=== PATIENT | male | born 1960 | race Caucasian/White ===

== ENCOUNTER 2022-11-11 06:47 | Outpatient (OUT) | payer BC, SELFPAY ==
[2022-11-11 07:24] LABS: Basophils Absolute Auto 0.1 10^3/uL (0.0-0.1); Eosinophils Absolute Auto 0.4 10^3/uL (0.0-0.7); Eosinophils Percent Auto 5.8 % (0.9-7.0); Hematocrit 45.8 % (42.0-54.0); Immature Granulocytes Abs Auto 0.02 10^3/uL (0.00-0.03); Immature Granulocytes Pct Auto 0.3 % (0.0-0.5); Lymphocytes Percent Auto 29.6 % (20.5-60.0); Mean Corpuscular HGB Conc 32.8 g/dL (29.9-35.2); Mean Corpuscular Hemoglobin 28.5 pg (25.9-34.0); Mean Corpuscular Volume 86.9 fL (80.0-94.0); Mean Platelet Volume 9.9 fL (9.5-13.5); Monocytes Absolute Auto 0.8 10^3/uL (0.3-0.8); Monocytes Percent Auto 11.9 % (1.7-12.0); Neutrophils Absolute Auto 3.5 10^3/uL (1.4-6.5); Neutrophils Percent Auto 51.4 % (43.0-75.0); Platelet Count 276 10^3/uL (150-450); Red Blood Count 5.27 10^6/uL (4.70-6.10); Red Cell Distribution Width 12.8 % (11.0-15.0); White Blood Count 6.8 10^3/uL (4.0-11.0)
[2022-11-11 07:37] LABS: Alanine Aminotransferase 28 U/L (16-63); Albumin Globulin Ratio 1.2; Albumin Level 4.1 g/dL (3.4-5.0); Alkaline Phosphatase 65 U/L (46-116); Anion Gap 8.9; Aspartate Amino Transferase 19 U/L (15-37); BUN Creatinine Ratio 17.6; Bilirubin Total 0.5 mg/dL (0.2-1.0); Calcium 9.3 mg/dL (8.5-10.1); Carbon Dioxide 28.3 mmol/L (21.0-32.0); Chloride 105 mmol/L (98-107); Estimated GFR (African America >60 (>=60); Estimated GFR (Non-African Ame >60 (>=60); Globulin 3.3 g/dL; Glucose 106 mg/dL (74-106); Potassium 4.2 mmol/L (3.5-5.1); Sodium 138 mmol/L (136-145); Total Protein 7.4 g/dL (6.4-8.2)
[2022-11-11 07:39] LABS: C Reactive Protein <0.2 mg/dL (<=1.0)
[2022-11-11 07:43] LABS: Bilirubin Urine NEGATIVE (NEGATIVE); Blood Urine NEGATIVE (NEGATIVE); Clarity Urine CLEAR (CLEAR); Color Urine DK. YELLOW (YELLOW); Erythrocyte Sedimentation Rate 11 mm/hr (<=20); Glucose Urine UA NEGATIVE (NEGATIVE); Ketones Urine NEGATIVE (NEGATIVE); Leukocyte Esterase Urine NEGATIVE (NEGATIVE); Nitrite Urine NEGATIVE (NEGATIVE); Protein Urine NEGATIVE (NEG/TRACE); Specific Gravity Urine >=1.030 (1.005-1.025); Urobilinogen Urine 0.2 EU/dL (0.2-1.0)
[2022-11-11 08:09] LABS: Bacteria Urine TRACE #/HPF (NONE SEEN); Mucus Urine TRACE (NONE SEEN); RBC Urine 0-2 #/HPF (0-2); Squamous Epithelial Cell Urine NONE SEEN #/LPF (NONE/RARE); WBC Urine NONE SEEN #/HPF (NONE SEEN)
[2022-11-11 08:10] LABS: Cast Seen? NONE SEEN #/LPF (NONE SEEN); Crystals Seen? None Seen #/HPF (None Seen)
[2022-11-12 08:08] LABS: Complement C3, Serum 129 mg/dL (82-167); Complement C4, Serum 25 mg/dL (12-38)
[2022-11-14 16:09] LABS: Complement, Total (CH50) >60 U/mL (>41)
== END 2022-11-11 06:48 | disposition home or self-care (01) ==
LOC: LAB 06:47
PROVIDERS: PCP Family Medicine; Visit Provider Internal Medicine Rheumatology
DX: Z00.00 Encounter for general adult medical examination without abnormal findings (principal); M15.0 Primary generalized (osteo)arthritis; M35.89 Other specified systemic involvement of connective tissue; I73.00 Raynaud's syndrome without gangrene; Z79.899 Other long term (current) drug therapy
CPT/HCPCS: 36415; 80053; 81001; 85025; 85652; 86140; 86160; 86162

== ENCOUNTER 2022-11-11 06:49 | Outpatient (OUT) | payer BC, SELFPAY ==
[2022-11-11 07:53] LABS: Chol HDL Ratio 2.9; Cholesterol 165 mg/dL (<=200); Free T3 3.13 pg/mL (2.18-3.98); HDL Cholesterol 56 mg/dL (40-60); LDL Cholesterol Calculated 100.8 mg/dL; Thyroid Stimulating Hormone 0.928 uIU/mL (0.358-3.740); Triglycerides 41 mg/dL (<=150); VLDL CHOLESTEROL 8.2 mg/dL
[2022-11-11 08:50] LABS: Prostate Specific Antigen Scrn 2.79 ng/mL (<=4.00)
[2022-11-11 10:16] LABS: Estimated Average Glucose 108 mg/dL; Glycohemoglobin A1C 5.4 % (4.5-6.2)
[2022-11-11 10:22] LABS: Free T4 1.02 ng/dL (0.76-1.46)
== END 2022-11-11 06:50 | disposition home or self-care (01) ==
LOC: LAB 06:49
PROVIDERS: PCP Family Medicine; Visit Provider Family Medicine
DX: Z00.00 Encounter for general adult medical examination without abnormal findings (principal); Z12.5 Encounter for screening for malignant neoplasm of prostate
CPT/HCPCS: 36415; 80053; 80061; 81001; 82306; 82607; 82746; 83036; 84439; 84443; 84481; 85025; 85652; 86140; 86160; 86162; G0103

== ENCOUNTER 2023-03-02 15:40 | Outpatient (OUT) | payer BC, SELFPAY ==
[2023-03-02 15:59] LABS: Basophils Absolute Auto 0.1 10^3/uL (0.0-0.1); Basophils Percent Auto 0.4 % (0.2-2.0); Eosinophils Absolute Auto 0.1 10^3/uL (0.0-0.7); Eosinophils Percent Auto 0.3 % (0.9-7.0); Hematocrit 48.1 % (42.0-54.0); Hemoglobin 15.8 g/dL (14.0-18.0); Immature Granulocytes Abs Auto 0.05 10^3/uL (0.00-0.03); Immature Granulocytes Pct Auto 0.3 % (0.0-0.5); Lymphocytes Absolute Auto 2.3 10^3/uL (1.2-3.8); Lymphocytes Percent Auto 14.5 % (20.5-60.0); Mean Corpuscular HGB Conc 32.8 g/dL (29.9-35.2); Mean Corpuscular Hemoglobin 28.9 pg (25.9-34.0); Mean Corpuscular Volume 88.1 fL (80.0-94.0); Mean Platelet Volume 8.8 fL (9.5-13.5); Monocytes Absolute Auto 1.5 10^3/uL (0.3-0.8); Monocytes Percent Auto 9.4 % (1.7-12.0); Neutrophils Absolute Auto 11.8 10^3/uL (1.4-6.5); Neutrophils Percent Auto 75.1 % (43.0-75.0); Platelet Count 392 10^3/uL (150-450); Red Blood Count 5.46 10^6/uL (4.70-6.10); Red Cell Distribution Width 13.2 % (11.0-15.0); White Blood Count 15.7 10^3/uL (4.0-11.0)
[2023-03-02 16:02] LABS: Bilirubin Urine NEGATIVE (NEGATIVE); Blood Urine NEGATIVE (NEGATIVE); Clarity Urine CLEAR (CLEAR); Color Urine YELLOW (YELLOW); Glucose Urine UA NEGATIVE (NEGATIVE); Ketones Urine NEGATIVE (NEGATIVE); Leukocyte Esterase Urine NEGATIVE (NEGATIVE); Nitrite Urine NEGATIVE (NEGATIVE); Protein Urine NEGATIVE (NEG/TRACE); Specific Gravity Urine >=1.030 (1.005-1.025); Urobilinogen Urine 0.2 EU/dL (0.2-1.0)
[2023-03-02 16:08] LABS: Bacteria Urine NONE SEEN #/HPF (NONE SEEN); Cast Seen? NONE SEEN #/LPF (NONE SEEN); Crystals Seen? None Seen #/HPF (None Seen); Mucus Urine SMALL (NONE SEEN); RBC Urine NONE SEEN #/HPF (0-2); Squamous Epithelial Cell Urine RARE #/LPF (NONE/RARE); WBC Urine 0-2 #/HPF (NONE SEEN)
[2023-03-02 16:14] LABS: Erythrocyte Sedimentation Rate 22 mm/hr (<=20)
[2023-03-02 16:22] LABS: Alanine Aminotransferase 24 U/L (16-63); Albumin Globulin Ratio 1.1; Albumin Level 4.1 g/dL (3.4-5.0); Alkaline Phosphatase 87 U/L (46-116); Aspartate Amino Transferase 14 U/L (15-37); BUN Creatinine Ratio 22.8; Bilirubin Total 0.3 mg/dL (0.2-1.0); Calcium 9.4 mg/dL (8.5-10.1); Carbon Dioxide 28.1 mmol/L (21.0-32.0); Chloride 103 mmol/L (98-107); Estimated GFR (African America >60 (>=60); Estimated GFR (Non-African Ame >60 (>=60); Globulin 3.8 g/dL; Glucose 116 mg/dL (74-106); Potassium 4.1 mmol/L (3.5-5.1); Sodium 139 mmol/L (136-145); Total Protein 7.9 g/dL (6.4-8.2)
[2023-03-04 09:12] LABS: Complement C3, Serum 154 mg/dL (82-167); Complement C4, Serum 28 mg/dL (12-38)
[2023-03-06 16:10] LABS: Complement, Total (CH50) 59 U/mL (>41)
[2023-03-08 08:45] LABS: C Reactive Protein <0.50 mg/dL (<=0.50)
== END 2023-03-02 15:41 | disposition home or self-care (01) ==
PROVIDERS: PCP Family Medicine; Visit Provider Internal Medicine Rheumatology
DX: M15.0 Primary generalized (osteo)arthritis (principal); M35.89 Other specified systemic involvement of connective tissue; I73.00 Raynaud's syndrome without gangrene; Z79.899 Other long term (current) drug therapy
CPT/HCPCS: 36415; 80053; 81001; 85025; 85652; 86140; 86160; 86162

== ENCOUNTER 2023-08-28 13:13 | Emergency (ER) | payer BC, SELFPAY ==
[2023-08-28 13:17] VITALS: BP 153/87; PULSE 65; TEMP 36.7; O2SAT 96; BMI 29.1
--- NOTE | 2023-08-28 13:29 | US_ITS ---
The [address] [address] Patient Name: MIAH LIMA MRN: [id number] date: 1960 Sex: M Assigned Patient Location: ER Current Patient Location: ED.MAIN Accession/Order Number: [id number] Exam Date: 08/28/2023 13:35 Report Date: 08/28/2023 14:17 At the request of: LUCRECIA CELESTIN Procedure: US venous doppler LE RT EXAM: US venous doppler LE RT HISTORY: pain for the past 3 weeks which is slowly worsening. COMPARISON: None. TECHNIQUE: Multiple sonographic images of the deep veins of the right lower extremity were obtained, supplemented with Doppler. FINDINGS: The deep veins of the right lower extremity are fairly well visualized from the groin to the mid calf. No filling defect is identified to indicate a thrombus. There is normal compression augmentation of flow throughout. US/US venous doppler LE RT IMPRESSION: There is no direct or indirect evidence of deep vein thrombosis in the right lower extremity at this time. Electronically authenticated by: MONY BARKER Date: 08/28/2023 14:17
--- NOTE | 2023-08-28 14:42 | ED_ITS ---
HPI HPI - General Adult General Chief complaint: Extremity Problem, Nontraumatic Stated complaint: LOWER RIGHT EXTREMITY PAIN Time Seen by Provider: 08/28/23 13:17 Source: patient Mode of arrival: walk-in Limitations: no limitations History of Present Illness HPI narrative: 62 male presents to the emergency department with with complaint of pain to the inside of his thigh. Arose from urgent care sent the patient over to rule out DVT. 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 Patient states that the pain began this past Sunday along with some right lower back pain. Had been moving appliances at that time. There is associated tenderness. Pain worsens with movement. Denies any appreciable swelling, chest pain, shortness of breath. Denies any blunt trauma, motor or sensory changes, paresthesias, loss of bowel or bladder control. Quality:?Sore Severity:?Moderate Timing:?As above, waxing and waning Context: Normal setting and activity? Modifying factors:?Pain worse with palpation, movement Associated symptoms: None Related Data Home Medications ?Medication ?Instructions ?Recorded ?Confirmed bupropion HCl 75 mg tablet 75 mg PO Q12H 08/28/23 08/28/23 celecoxib 200 mg capsule 200 mg PO Q12H 08/28/23 08/28/23 hydroxychloroquine 200 mg tablet 200 mg PO Q12H 08/28/23 08/28/23 linaclotide 72 mcg capsule 72 mcg PO DAILY 08/28/23 08/28/23 (Linzess) metoprolol tartrate 25 mg tablet 25 mg PO Q12H 08/28/23 08/28/23 Previous Rx's ?Medication ?Instructions ?Recorded cyclobenzaprine 5 mg tablet 5 - 10 mg (1 - 2 x 5 mg) PO .every 08/28/23 4-6 hours PRN muscle spasm #14 tabs ibuprofen 600 mg tablet 600 mg PO Q8H PRN pain #20 tabs 08/28/23 lidocaine 5 % topical patch 1 patch topical DAILY PRN rib pain 08/28/23 (Lidoderm) #15 ea Allergies Allergy/AdvReac Type Severity Reaction Status Date / Time codeine Allergy Severe Verified 08/28/23 13:20 Opioid HPI Opioid Management Most Recent Opioid Data: No Data to Display Review of Systems ROS Narrative CONST: Denies fever, chills GI: Denies abd pain, nausea, loss of bowel control : Denies loss of bladder control, hematuria MS: + back pain, myalgias.? Denies arthralgia SKIN: Denies color change, swelling NEURO: Denies numbness, paresthesias, weakness Exam Narrative Exam Narrative: Vital signs noted Nurses notes reviewed CONST: Nontoxic, well appearing, well nourished, in no distress.? No diaphoresis.?? HENT: normocephalic, atraumatic, CV: 2+ palpable DP pulses bilat GI: soft, nontender : no CVA tenderness MS: + tenderness to the musculature of the right lower back diffusely. + diffuse tenderness to the medial thigh. No spinous process or paraspinal muscle tenderness throughout L-S region.? No tenderness over the SI joint.? There is no discoloration, edema, crepitus, instability, step off of the back, RLE.? Straight leg raises were negative bilaterally.? No foot drop.? Steady gait, normal station.? DF, PF, hallux DF equal and strong bilat. NEURO: sensory intact, no focal deficits. Patient ambulatory with steady gait SKIN: no rash, erythema, warm, dry PSYCHIATRIC: normal mood, affect Constitutional Vital Signs, click to edit/add: Last Vital Signs Temp 98.1 F 08/28/23 13:17 Pulse 65 08/28/23 13:17 Resp 18 08/28/23 13:17 BP 153/87 H 08/28/23 13:17 Pulse Ox 96 08/28/23 13:17 Course Vital Signs Vital signs: Vital Signs Temperature 98.1 F 08/28/23 13:17 Pulse Rate 65 08/28/23 13:17 Respiratory Rate 18 08/28/23 13:17 Blood Pressure 153/87 H 08/28/23 13:17 Pulse Oximetry 96 08/28/23 13:17 Temperature 98.1 F 08/28/23 13:17 Pulse Rate 65 08/28/23 13:17 Respiratory Rate 18 08/28/23 13:17 Blood Pressure 153/87 H 08/28/23 13:17 Pulse Oximetry 96 08/28/23 13:17 Medical Decision Making MDM Narrative Medical decision making narrative: This is a pleasant 62-year-old male presents to the emergency department with with concern for DVT right lower extremity. Since Sunday, has been having pain to the inside of his right thigh. He states he is also been having some pain to his right lower back. Attributes this to moving appliances. Denies any radiation of the pain, appreciable leg swelling, motor or sensory ch anges, paresthesias, loss of bowel or bladder control. On arrival, afebrile, vital signs stable. On exam, nontoxic, well-appearing patient in no distress. He has tenderness along the medial aspect of the thigh into the musculature diffusely of the right lower back. No appreciable edema, discoloration, step-offs. Strength 5/5 of the extremities. 2+ palpable dorsalis pedal pulses present. Ultrasound imaging, per radiologist reveals no evidence of DVT. Favor muscle strain DVT less likely based on imaging Cauda equina less likely based on history and physical exam. No red flags. No incontinence. No focal weakness. Patient remained stable during ED course Disposition ? The patient was discharged. Plan: Patient will be discharged to home. Condition at time of disposition: stable Prescription for Flexeril, Motrin, Lidoderm patches sent to his pharmacy. He was given a work note. Advised to follow up with primary provider. 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 Discharge Plan Discharge Stand Alone Forms: Work/School Release, Portal Instructions Chief Complaint: Extremity Problem, Nontraumatic Clinical Impression: Strain of right groin Low back pain Qualifiers: Chronicity: acute Back pain laterality: right Sciatica presence: without sciatica Qualified Code(s): M54.50 - Low back pain, unspecified Patient Disposition: Home, Self-Care Time of Disposition Decision: 14:11 Condition: Good Prescriptions / Home Meds: New lidocaine [Lidoderm] 5 % adhesive patch,medicated 1 patch topical DAILY PRN (Reason: rib pain) Qty: 15 0RF Rx Instructions: leave on most painful area for up to 12 hrs ibuprofen 600 mg tablet 600 mg PO Q8H PRN (Reason: pain) Qty: 20 0RF cyclobenzaprine 5 mg tablet 5 - 10 mg PO .every 4-6 hours PRN (Reason: muscle spasm) Qty: 14 0RF No Action bupropion HCl 75 mg tablet 75 mg PO Q12H celecoxib 200 mg capsule 200 mg PO Q12H hydroxychloroquine 200 mg tablet 200 mg PO Q12H Linzess 72 mcg capsule 72 mcg PO DAILY metoprolol tartrate 25 mg tablet 25 mg PO Q12H Print Language: Liberian Instructions: Acute Low Back Pain (ED), Groin Strain (ED) Referrals: MARIAJOSE CABRERA DO [Primary Care Provider] - 1 week Discharge Date/Time: 08/28/23 14:47
[2023-08-28 14:46] VITALS: BP 138/82; PULSE 55; O2SAT 97
== END 2023-08-28 14:47 | disposition home or self-care (01) ==
PROVIDERS: Emergency Provider Emergency Medicine; PCP Family Medicine
DX: S39.011A Strain of muscle, fascia and tendon of abdomen, initial encounter (principal); M54.50 Low back pain, unspecified; X50.9XXA Other and unspecified overexertion or strenuous movements or postures, initial encounter
CPT/HCPCS: 93971; 99284

== ENCOUNTER 2023-09-20 06:58 | Outpatient (RCR) | payer BC, SELFPAY | END 2023-10-09 12:32 | disposition home or self-care (01) | LOC: PT 06:58 | PROVIDERS: PCP Family Medicine; Visit Provider Family Medicine | DX: M47.26 Other spondylosis with radiculopathy, lumbar region (principal) | CPT/HCPCS: 97110; 97113; 97161 ==

== ENCOUNTER 2023-11-03 08:35 | Outpatient (OUT) | payer BC, SELFPAY ==
--- OUTSIDE RECORDS SUMMARY | 2023-11-03 08:38 | XMS_ITS | CCD ---
Author Organization [facility] Care Team Providers Care Jacquard Card Cutter Name Role Phone LUCRECIA OTTO Jefferson Referring Unavailable PROVIDER, UNKNOWN Admitting Unavailable PROVIDER, UNKNOWN Attending Unavailable CABRERA, FLAVIO Arevalo Primary Care Unavailable Cabrera, Flavio Jackson Unavailable Unavailable Unavailable Karma Rogers Unavailable OSORIO, DR JACKSON Admitting Unavailable AC, DR JACKSON Attending Unavailable CABRERA, DR FLAVIO Jackson Primary Care Unavailable AC, DR JACKSON Consulting Unavailable MISC, DR SYKES Admitting Unavailable MISC, DR SYKES Attending Unavailable CABRERA, DR FLAVIO Jackson Primary Care Unavailable MISC, DR SYKES Consulting Unavailable CABRERA, DR FLAVIO Jackson Admitting Unavailable CABRERA, DR FLAVIO Jackson Attending Unavailable CABRERA, DR FLAVIO Jackson Primary Care Unavailable CABRERA, DR FLAVIO Jackson Consulting Unavailable ZIEBER, DR LILI Tariq Consulting Unavailable CABRERA, DR FLAVIO Jackson Admitting Unavailable CABRERA, DR FLAVIO Jackson Attending Unavailable CABRERA, DR FLAVIO Jackson Primary Care Unavailable CABRERA, DR FLAVIO Jackson Consulting Unavailable Cabrera, Dr. Flavio Carter Primary Care Unava ilable Dev, Dr. Granados Attending Unavaila ble Traboulssi, Dr. Granados Referring Unavaila ble WAYNEPuneet Attending Unavailable DARCYAnne Marie Attending Unavailable Allergies Allergy Classification Reported Allergen(s) Allergy Type Date of Onset Reaction(s) Facility (2 sources) Codeine; Translations: [CODEINE] [facility] Codeine; Translations: [Codeine Derivatives] Drug Allergy Nausea -[facility] 600 DO Work Phone: (1 source) Codeine Drug Allergy [facility] [employer] Other Medications Current Medications Medication Drug Class(es) Dates Sig (Normalized) Sig (Original) buPROPion hydrochloride 75 mg oral tablet (9 sources) Aminoketone Start: 08-28-2023 Bupropion Hcl Active 75 MG PO Twice daily August 28, 2023 12:00am administer 6 hours apart Start: 02-23-2021 take 1 tablet by shant once daily buPROPion HCl ER (XL) 150 MG Oral Tablet Extended Release 24 Hour TAKE 1 TABLET DAILY. Quantity: 0 Refills: 0 Ordered: 22-Mar-2021 DO Start : 23-Feb-2021 Active Wellbutrin Activ e celecoxib 200 mg oral capsule (9 sources) Nonsteroidal Anti-inflammatory Drug Start: 08-28-2023 take 1 capsule by mouth twice daily Celecoxib (Celebrex) 200 mg capsule Active 200 MG PO Twice daily August 28, 2023 12:00am take 1 capsule by mo [facility] twice daily at mealtime Celecoxib 200 MG Oral Capsule TAKE 1 CAPSULE TWICE DAILY WITH FOOD. Quantity: 0 Refills: 0 Ordered: 13-Apr-2021 DO Active CeleBREX Active hydroxychloroquine sulfate 200 mg oral tablet (3 sources) Antimalarial, Antirheumatic Agent Start: 08-28-2023 take 200 mg by mouth twice daily Hydroxychloroquine Active 200 MG PO Twice daily August 28, 2023 12:00am Free[employer]: as directed Orally twice a day; Note: Source Status: Not-Taking\PRN; Provider: Debora De La Cruz ( ) take 1 tablet by mouth twice lila ly Hydroxychloroquine Sulfate 100 MG Oral Tablet one tablet two times daily Quantity: 0 Refills: 0 Ordered: 22-Nov-2022 DO Active Hydroxychloroqui ne Sulfate Not-Taking levocetirizine dihydrochloride 5 mg oral tablet (1 source) Histamine-1 Receptor Antagonist Start: 08-28-2023 take 1 tablet by mouth once daily in the evening Levocetirizine (Xyzal) 5 mg tablet Active 5 MG PO Every evening August 28, 2023 12:00am lidocaine hydrochloride 20 mg/ml mucous membrane topical solution (1 source) Antiarrhythmic, Amide Local Anesthetic Start: 05-12-2021 Lidocaine Viscous 2% 5 ml Mouth/Throat every 4 hours as needed May, Active linaclotide 0.072 mg oral capsule (1 source) Guanylate Cyclase-C Agonist Start: 08-28-2023 take 1 capsule by mouth once daily Linaclotide (Linzess) 72 mcg capsule Active 72 MCG PO Daily August 28, 2023 12:00am metoprolol tartrate 25 mg oral tablet (9 sources) beta-Adrenergic Cindy Start: 08-28-2023 take 25 mg by mouth twice daily Metoprolol Tartrate Active 25 MG PO Twice daily August 28, 2023 12:00am Start: 04-13-2021 take 1 tablet by shant th twice daily Metoprolol Tartrate 25 MG Oral Tablet Take 1 tablet twice daily Quantity: 180 Refills: 3 Ordered: 22-Nov-2022 Lisa Méndez MD Start : 13-Apr-2021 Active Metoprolol Tartr ate Active Completed/Discontinued Medications Medication Drug Class(es) Dates Sig (Normalized) Sig (Original) cephalexin 500 mg oral capsule (1 source) Cephalosporin Antibacterial Start: 11-18-2018 take 1 capsule by mouth every eight hours Cephalexin 500 MG 1 capsule Orally three times a day for 7 days Oct, Not-Taking fexofenadine hydrochloride 180 mg oral tablet (6 sources) Histamine-1 Receptor Antagonist Mindy 180 MG TABS TAKE 1 TABLET DAILY. Quantity: 0 Refills: 0 Ordered: 13-Apr-2021 DO Active LORazepam 1 mg oral tablet (4 sources) Benzodiazepine take 1 tablet by mouth twice daily as needed LORazepam 1 MG Oral Tablet TAKE 1 TABLET Twice daily PRN Quantity: 0 Refills: 0 Ordered: 13-Apr-2021 DO Active methylPREDNISolone 4 mg oral tablet (1 source) Corticosteroid Start: 11-18-2018 Medrol (Fred) 4 MG half of daily dose in the morning with food and the rest at night with food Orally Oct, Not-Taking prasterone 25 mg oral capsule (4 sources) DHEA 25 MG Oral Capsule TAKE DIRECTED. Quantity: 0 Refills: 0 Ordered: 13-Apr-2021 DO Active pseudoephedrine hydrochloride 30 mg oral tablet (7 sources) alpha-Adrenergic Agonist take 1 tablet by mouth every four hours as needed Sudafed 30 MG Oral Tablet TAKE 1 TABLET EVERY 4 HOURS NEEDED. Quantity: 0 Refills: 0 Ordered: 13-Apr-2021 DO Active Problems Active Problems Problem Classification Problem Date Documented Da te Episodic/Chronic Cardiac dysrhythmias (7 sources) Palpitations; Translations: [Palpitations] Episodic Essential hypertension (7 sources) Essential hypertension; Translations: [Unspecified essential hypertension] Chronic Nonspecific chest pain (7 sources) Chest pain; Translations: [Chest pain, unspecified] Episodic Osteoarthritis (4 sources) Primary generalized (osteo)arthritis; Translations: [PRIMARY GENERALIZED OSTEOARTHRITIS] Onset: 05-06-2022 Chronic Other aftercare (1 source) Other shelter (current) drug therapy; Translations: [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 THERAPY] Onset: 05-08-2022 Episodic Other circulatory disease (1 source) Raynaud's syndrome without gangrene; Translations: [RAYNAUDS SYNDROME WITHOUT GANGRENE] Onset: 05-08-2022 Chronic Other nutritional; endocrine; and metabolic disorders (4 sources) Obesity; Translations: [Obesity, unspecified] Chronic Other nutritional; endocrine; and metabolic disorders (3 sources) Overweight in adulthood with body mass index of 25 or more but less than 30; Translations: [Overweight] Episodic Screening and history of mental health and substance abuse codes (7 sources) Ex-smoker; Translations: [Personal history of tobacco use] Episodic Spondylosis; intervertebral disc disorders; other back problems (4 sources) Other spondylosis, lumbar region; Translations: [OTHER SPONDYLOSIS LUMBAR REGION] Onset: 07-13-2021 Chronic Unclassified (1 source) OT SPEC SYSTEM INVOLV CONNECT TISS; Translations: [OTH SPEC SYSTEM INVOLV CONNECT TISS] Onset: 05-08-2022 Past or Other Problems Problem Classification Problem Date Documented Da te Episodic/Chronic Mycoses (1 source) Candidal stomatitis Onset: 05-12-2021 Resolved: 05-12-2021 Episodic Other non-traumatic joint disorders (1 source) Pain in left hip; Translations: [PAIN IN LEFT HIP] Onset: 07-18-2021 Episodic Other screening for suspected conditions (not mental disorders or infectious disease) (1 source) Encounter for screening for malignant neoplasm of prostate; Translations: [ENC SCREEN MALIG NEOPLASM PROSTATE] Onset: 11-22-2021 Episodic Results Test Name Value Interpretation Reference Range Facility [facility] 01-12-2023 Consent [id number]# 1.00TIFF Normal [facility] In office Testingon 01-13-20 In office Testing [id number]# 1.00TIFF Normal [facility] Registrationon 01-12-2023 Registration [id number]# 1.00TIFF [facility] Office Visit (Cardiology)on 11-22-2022 Follow-up visit Diagnoses/Problems Assessed Chest pain (786.50) (R07.9) Essential hypertension (401.9) (I10) Former smoker (V15.82) (Z87.891) Overweight with body mass index (BMI) of 29 to 29.9 in adult (278.02,V85.25) (E66.3,Z68.29) Palpitations (785.1) (R00.2) Orders Essential hypertension Renew: Metoprolol Tartrate 25 MG Oral Tablet; Take 1 tablet twice daily SocHx: Former smoker Tobacco Use Screening; Status:Complete; Done: [id number] Patient Instructions Please bring all medicines, vitamins, and herbal supplements with you when you come to the office. Prescriptions will not be filled unless you are compliant with your follow up appointments or have a follow up appointment scheduled as per instruction of your physician. Refills should be requested at the time of your visit. Follow up in 1 year. Same meds Chief Complaint HUMBERTO LIMA is being seen for a 9 month follow-up of. History of Present Illness Patient is here for follow-up continue management for previous evaluation for chest pain, hypertension, mildly overweight. Since last time I saw him he denies any cardiac complaint of chest pain, palpitation, lightheadedness, dizziness or syncope. He remains active. His main complaint is arthritis. He followed by a local doctor of naturopathic medicine. ASSESSMENT 1. Previous evaluation for chest pain. Repeat stress test showed good exercise tolerance no induction of chest pain but failed to achieve adequate heart rate I still believe this is an clinically negative test. Patient had no recurrence of his symptoms. He attributed his previous complaint to stress regarding to changes in his job situation. Remains asymptomatic 2. Hypertension appears to be controlled with recent addition of low-dose beta-cindy 3. Mildly overweight. 4. Former smoker. 5. Rare episode of palpitation, resolved. 6. Family history of coronary artery disease. 7. History of arthritis followed by local doctor of naturopathic medicine indicate could be either early rheumatoid arthritis versus lupus RECOMMENDATION: 1. I reviewed with the patient the results of his lab work and previous stress test 2. I recommended to continue to follow nonpharmacologic approach for management for hypertension including low-salt diet, exercise and losing weight and continue current dose of metoprolol 3. I advised him to exercise. 4. We will see him back in one year and advised him to notify me change in cardiac status or symptoms Surgical History Problems History of Appendectomy History of Cataract surgery History of Colonoscopy [id number] Current Meds Medication NameInstruction buPROPion HCl ER (XL) 150 MG Oral Tablet Extended Release 24 HourTAKE 1 TABLET DAILY. Celecoxib 200 MG Oral CapsuleTAKE 1 CAPSULE TWICE DAILY WITH FOOD. Hydroxychloroquine Sulfate 100 MG Oral Tabletone tablet two times daily Metoprolol Tartrate 25 MG Oral TabletTake 1 tablet twice daily Sudafed 30 MG Oral TabletTAKE 1 TABLET EVERY 4 HOURS NEEDED. Allergies Medication Codeine Derivatives Nausea; Recorded By: Shanta Jovel; 04/12/2021 11:17:49 AM Social History Problems Caffeine use (V49.89) (Z78.9) 3-4 cups coffee daily, 1 can of diet pop Consumes alcohol occasionally (V49.89) (Z78.9) Former smoker (V15.82) (Z87.891) No illicit drug use Review of Systems Constitutional: not feeling tired. Cardiovascular: no intermittent leg claudication and as noted in HPI. Respiratory: no cough and no shortness of breath. Gastrointestinal: no change in bowel habits and no blood in stools. Integumentary: no skin rashes. Neurological: no seizures and no frequent falls. All other systems have been reviewed and are negative for complaint. Vitals Vital Signs Recorded: [id number] 11:27AM Heart Rate60, L Radial Zpxrcipm996, LUE, Sitting Ofxmgnihh87, LUE, Sitting Height5 ft 6 in Zfqvoo113 lb 6 oz BMI Dpwykqvbsq34.63 kg/m2 BSA Calculated1.9 Tobacco Useb) No PHQ-2 #1. Over the last 2 weeks have you felt down, depressed or hopeless? (If yes, answer PHQ-9 below)No PHQ-2 #2. Over the last 2 weeks have you felt little interest or pleasure in doing things? (If yes, answer PHQ-9 below)No Falls Screening (Age 18+)a) No falls within the last year Physical Exam Constitutional: alert and in no acute distress. Neck: neck is supple, symmetric, trachea midline, no masses and no thyromegaly . Pulmonary: no increased work of breathing or signs of respiratory distress and lungs clear to auscultation. Cardiovascular: carotid pulses 2+ bilaterally with no bruit , JVP was normal, no thrills , regular rhythm, normal S1 and S2, no murmurs , pedal pulses 2+ bilaterally and no edema . Abdomen: abdomen non-tender, no masses and no hepatomegaly . Skin: skin warm and dry, normal skin turgor . Psychiatric judgment and insight is normal and oriented to person, place and time . Signatures Electronically signed by : Lisa Méndez MD; Nov 22 2022 11:53AM EST (Author) Normal [facility] [facility] Tobacco Screening.on 023 Adult depression screening assessment No [facility] 600 DO Work Phone: Fall risk assessment a) No falls within the last year [facility] 600 DO Work Phone: Tobacco use status [facility] b) No [facility] 600 DO Work Phone: [facility] 07-04-2022 Consent [id number]# 1.00CD:127 Normal [facility] Registrationon 07-04-2022 Registration [id number]# 1.00CD:127 Normal [facility] COMPLEMENT TOTAL (CH50)on Complement, Total (CH50) 45 U/mL Normal >41 [facility] Comment on above: Result Comment: Age Male Female 1 - 30 days Not Estab. Not Estab. 31 days - 6 months >32 >20 7 months - 17 years >39 >39 >17 years >41 >41 NOTE: The adult ( >17 years ) reference interval range is used to flag abnormals on this report. If the patient is 17 years old or younger, use the table above to determine out of range values. Performed By: #### C RP, CMP #### [facility] [address] [place] [address] Dr. Gregg Humphreys C3 and C4 COMPLEMENTon 05-07 Complement C3, Serum 159 mg/dL Normal 82-167 [facility] Comment on above: Performed By: #### S EDR #### [facility] [address] [place] [address] Dr. Gregg Humphreys Complement C4, Serum 27 mg/dL Normal 12-38 [facility] Comment on above: Performed By: #### S EDR #### [facility] [address] [place] [address] Dr. Gregg Humphreys CBC AUTO DIFFon 05-06-2022 BASO # 0.1 103/ul Normal 0.0-0.1 [facility] Comment on above: Performed By: #### C BC #### [facility] [address] [place] [address] Dr. Gregg Humphreys Basophils/100 WBC (Bld) 0.8 % Normal 0.2-2.0 [facility] Comment on above: Performed By: #### C BC #### [facility] [address] [place] [address] Dr. Gregg Humphreys EO # 0.4 103/ul Normal 0.0-0.7 [facility] Comment on above: Performed By: #### C BC #### [facility] [address] [place] [address] Dr. Gregg Humphreys Eosinophils/100 WBC (Bld) 4.9 % Normal 0.9-7.0 [facility] Comment on above: Performed By: #### C BC #### [facility] [address] [place] [address] Dr. Gregg Humphreys Erythrocyte distribution width (RBC) [Ratio] 13.2 % Normal 11.0-15.0 [facility] Comment on above: Performed By: #### C BC #### [facility] [address] [place] [address] Dr. Gregg Humphreys Hematocrit (Bld) [Volume fraction] 49.6 % Normal 42.0-54.0 [facility] Comment on above: Performed By: #### C BC #### [facility] [address] [place] [address] Dr. Gregg Humphreys Hemoglobin (Bld) [Mass/Vol] 15.4 g/dL Normal 14.0-18.0 [facility] Comment on above: Performed By: #### C BC #### [facility] [address] [place] [address] Dr. Gregg Humphreys IG # 0.04 10e3/ul Critically high 0.00-0.03 [facility] Comment on above: Performed By: #### C BC #### [facility] [address] [place] [address] Dr. Gregg Humphreys IG % 0.6 % Critically high 0.0-0.5 [facility] Comment on above: Performed By: #### C BC #### [facility] [address] [place] [address] Dr. Gregg Humphreys LYMPH # 2.4 103/ul Normal 1.2-3.8 [facility] Comment on above: Performed By: #### C BC #### [facility] [address] [place] [address] Dr. Gregg Humphreys Lymphocytes/100 WBC (Bld) 34.1 % Normal 20.5-60.0 [facility] Comment on above: Performed By: #### C BC #### [facility] [address] [place] [address] Dr. Gregg Humphreys MANUAL DIFF REQ NO Normal [facility] Comment on above: Performed By: #### C BC #### [facility] [address] [place] [address] Dr. Gregg Humphreys MCH (RBC) [Entitic mass] 28.3 pg Normal 25.9-34.0 [facility] Comment on above: Performed By: #### C BC #### [facility] [address] [place] [address] Dr. Gregg Humphreys MCHC (RBC) [Mass/Vol] 31.0 g/dL Normal 29.9-35.2 [facility] Comment on above: Performed By: #### C BC #### [facility] [address] [address] [address] Gregg Humphreys MCV (RBC) [Entitic vol] 91.0 fL Normal 80.0-94.0 [facility] Comment on above: Performed By: #### C BC #### [facility] [address] [address] [address] Gregg Humphreys MONO # 0.9 103/ul Critically high 0.3-0.8 [facility] Comment on above: Performed By: #### C BC #### [facility] [address] [place] [address] Dr. Gregg Humphreys Monocytes/100 WBC (Bld) 12.7 % Critically high 1.7-12.0 [facility] Comment on above: Performed By: #### C BC #### [facility] [address] [place] [address] Dr. Gregg Humphreys NEUT # 3.4 103/ul Normal 1.4-6.5 [facility] Comment on above: Performed By: #### C BC #### [facility] [address] [place] [address] Dr. Gregg Humphreys Neutrophils/100 WBC (Bld) 46.9 % Normal 43.0-75.0 [facility] Comment on above: Performed By: #### C BC #### [facility] [address] [place] [address] Dr. Gregg Humphreys Platelet mean volume (Bld) [Entitic vol] 9.2 fL Critically low 9.5-13.5 [facility] Comment on above: Performed By: #### C BC #### [facility] [address] [place] [address] Dr. Gregg Humphreys PLT 405 103/ul Normal 150-450 [facility] Comment on above: Performed By: #### C BC #### [facility] [address] [place] [address] Dr. Gregg Humphreys RBC 5.45 106/ul Normal 4.70-6.10 [facility] Comment on above: Performed By: #### C BC #### [facility] [address] [place] [address] Dr. Gregg Humphreys WBC 7.2 103/ul Normal 4.0-11.0 [facility] Comment on above: Performed By: #### C BC #### [facility] [address] [place] [address] Dr. Gregg Humphreys CRPon 05-06-2022 CRP [Mass/Vol] mg/L Normal <=1.0 [facility] Comment on above: Performed By: #### C RP, CMP #### [facility] [address] [place] [address] Dr. Gregg Humphreys PROF 14(COMP METB)on 023 Albumin [Mass/Vol] 4.1 g/dL Normal 3.4-5.0 [facility] Comment on above: Performed By: #### C RP, CMP #### [facility] [address] [place] [address] Dr. Gregg Humphreys Albumin/Globulin [Mass ratio] 1.1 {ratio} Normal [facility] Comment on above: Performed By: #### C RP, CMP #### [facility] [address] [place] [address] Dr. Gregg Humphreys ALP [Catalytic activity/Vol] 71 U/L Normal 46-116 [facility] Comment on above: Performed By: #### C RP, CMP #### [facility] [address] [place] [address] Dr. Gregg Humphreys ALT [Catalytic activity/Vol] 30 U/L Normal 16-63 [facility] Comment on above: Performed By: #### C RP, CMP #### [facility] [address] [place] [address] Dr. Gregg Humphreys Anion gap [Moles/Vol] 10.4 mmol/L Normal [facility] Comment on above: Performed By: #### C RP, CMP #### [facility] [address] [place] [address] Dr. Gregg Humphreys AST [Catalytic activity/Vol] 23 U/L Normal 15-37 [facility] Comment on above: Performed By: #### C RP, CMP #### [facility] [address] [place] [address] Dr. Gregg Humphreys Bilirubin [Mass/Vol] 0.5 mg/dL Normal 0.2-1.0 [facility] Comment on above: Performed By: #### C RP, CMP #### [facility] [address] [place] [address] Dr. Gregg Humphreys Calcium [Mass/Vol] 9.5 mg/dL Normal 8.5-10.1 [facility] Comment on above: Performed By: #### C RP, CMP #### [facility] [address] [place] [address] Dr. Gregg Humphreys Chloride [Moles/Vol] 103 mmol/L Normal 98-107 [facility] Comment on above: Performed By: #### C RP, CMP #### [facility] [address] [place] [address] Dr. Gregg Humphreys CO2 [Moles/Vol] 29.8 mmol/L Normal 21.0-32.0 [facility] Comment on above: Performed By: #### C RP, CMP #### [facility] [address] [place] [address] Dr. Gregg Humphreys Creatinine [Mass/Vol] 0.88 mg/dL Normal 0.70-1.30 [facility] Comment on above: Performed By: #### C RP, CMP #### [facility] [address] [place] [address] Dr. Gregg Humphreys EGFR-AF MARSHALLESE >60 Normal >=60 [facility] Comment on above: Performed By: #### C RP, CMP #### [facility] [address] [place] [address] Dr. Gregg Humphreys EGFR-NON AF MARSHALLESE >60 Normal >=60 [facility] Comment on above: Performed By: #### C RP, CMP #### [facility] [address] [place] [address] Dr. Gregg Humphreys Globulin (S) [Mass/Vol] 3.9 g/dL Normal [facility] Comment on above: Performed By: #### C RP, CMP #### [facility] [address] [place] [address] Dr. Gregg Humphreys Glucose [Mass/Vol] 91 mg/dL Normal 74-106 [facility] Comment on above: Performed By: #### C RP, CMP #### [facility] [address] [place] [address] Dr. Gregg Humphreys Potassium [Moles/Vol] 4.2 mmol/L Normal 3.5-5.1 [facility] Comment on above: Performed By: #### C RP, CMP #### [facility] [address] [place] [address] Dr. Gregg Humphreys Protein [Mass/Vol] 8.0 g/dL Normal 6.4-8.2 [facility] Comment on above: Performed By: #### C RP, CMP #### [facility] [address] [place] [address] Dr. Gregg Humphreys Sodium [Moles/Vol] 139 mmol/L Normal 136-145 [facility] Comment on above: Performed By: #### C RP, CMP #### [facility] [address] [place] [address] Dr. Gregg Humphreys Urea nitrogen [Mass/Vol] 16.0 mg/dL Normal 7.0-18.0 [facility] Comment on above: Performed By: #### C RP, CMP #### [facility] Laboratory [address] [place] [address] Dr. Gregg Humphreys Urea nitrogen/Creatinine [Mass ratio] 18.2 mg/mg Normal [facility] Comment on above: Performed By: #### C RP, CMP #### [facility] [address] [place] [address] Dr. Gregg Humphreys SED RATE [facility] 2022 SED RATE 42 mm/hr Critically high <=20 The [facility] Comment on above: Performed By: #### C RP, CMP #### [facility] [address] [place] [address] Dr. Gregg Humphreys UA RANDOM W/MICROSCOPICon BACTERIA NONE SEEN Normal NONE SEEN [facility] Comment on above: Performed By: #### U AMIC #### [facility] [address] [address] [address] Gregg Humphreys Bilirubin Ql (U) Negative Normal NEGATIVE The [facility] Comment on above: Performed By: #### U AMIC #### [facility] [address] [address] [address] Gregg Humphreys CAST NONE SEEN Normal NONE SEEN [facility] Comment on above: Performed By: #### U AMIC #### [facility] [address] [address] [address] Gregg Humphreys Clarity (U) CLEAR Normal CLEAR [facility] Comment on above: Performed By: #### U AMIC #### [facility] [address] [place] [address] Dr. Gregg Humphreys Color (U) LT. YELLOW Normal YELLOW [facility] Comment on above: Performed By: #### U AMIC #### [facility] [address] [address] [address] Gregg Humphreys Crystals LM Nom (Urine sed) NONE SEEN Normal NONE SEEN [facility] Comment on above: Performed By: #### U AMIC #### [facility] [address] [place] [address] Dr. Gregg Humphreys Epithelial cells LM Ql (Urine sed) FEW Abnormal NONE SEEN /RARE [facility] Comment on above: Performed By: #### U AMIC #### [facility] [address] [place] [address] Dr. Gregg Humphreys Glucose Ql (U) Negative Normal NEGATIVE The [facility] Comment on above: Performed By: #### U AMIC #### [facility] [address] [address] [address] Gregg Humphreys Hemoglobin Ql (U) Negative Normal NEGATIVE The [facility] Comment on above: Performed By: #### U AMIC #### [facility] [address] [place] [address] Dr. Gregg Humphreys Ketones Ql (U) Negative Normal NEGATIVE The [facility] Comment on above: Performed By: #### U AMIC #### [facility] [address] [address] [address] Gregg Humphreys LEUKOCYTES Negative Normal NEGATIVE [facility] Comment on above: Performed By: #### U AMIC #### [facility] [address] [place] [address] Dr. Gregg Humphreys MUCOUS NONE SEEN Normal NONE SEEN [facility] Comment on above: Performed By: #### U AMIC #### [facility] [address] [address] [address] Gregg Humphreys Nitrite Ql (U) Negative Normal NEGATIVE [facility] Comment on above: Performed By: #### U AMIC #### [facility] [address] [place] [address] Dr. Gregg Humphreys pH (U) 5.5 [pH] Normal 5-9 [facility] Comment on above: Performed By: #### U AMIC #### [facility] [address] [place] [address] Dr. Gregg Humphreys RBC NONE SEEN Abnormal 0-2 [facility] Comment on above: Performed By: #### U AMIC #### [facility] [address] [place] [address] Dr. Gregg Humphreys SPEC GRAVITY <=1.005 Abnormal 1.005-<=1.025 [facility] Comment on above: Performed By: #### U AMIC #### [facility] [address] [place] [address] Dr. Gregg Humphreys UA PROTEIN Negative Normal NEGATIVE/ TRACE [facility] Comment on above: Performed By: #### U AMIC #### [facility] [address] [address] [address] Gregg Humphreys Urobilinogen Qn (U) 0.2 {Kiki'U}/dL Normal 0.2 - 1. 0 [facility] Comment on above: Performed By: #### U AMIC #### [facility] [address] [place] [address] Dr. Gregg Humphreys WBC NONE SEEN Normal NONE SEEN [facility] Comment on above: Performed By: #### U AMIC #### [facility] [address] [address] [address] Gregg Humphreys CBC AUTO DIFFon 11-19-2021 BASO # 0.1 103/ul Normal 0.0-0.1 [facility] Comment on above: Performed By: #### C BC #### [facility] [address] [place] [address] Dr. Gregg Humphreys Basophils/100 WBC (Bld) 1.3 % Normal 0.2-2.0 [facility] Comment on above: Performed By: #### C BC #### [facility] [address] [place] [address] Dr. Gregg Humphreys EO # 0.4 103/ul Normal 0.0-0.7 [facility] Comment on above: Performed By: #### C BC #### [facility] [address] [place] [address] Dr. Gregg Humphreys Eosinophils/100 WBC (Bld) 5.2 % Normal 0.9-7.0 [facility] Comment on above: Performed By: #### C BC #### [facility] [address] [place] [address] Dr. Gregg Humphreys Erythrocyte distribution width (RBC) [Ratio] 13.1 % Normal 11.0-15.0 [facility] Comment on above: Performed By: #### C BC #### [facility] [address] [place] [address] Dr. Gregg Humphreys Hematocrit (Bld) [Volume fraction] 46.1 % Normal 42.0-54.0 [facility] Comment on above: Performed By: #### C BC #### [facility] [address] [place] [address] Dr. Gregg Humphreys Hemoglobin (Bld) [Mass/Vol] 14.9 g/dL Normal 14.0-18.0 [facility] Comment on above: Performed By: #### C BC #### [facility] [address] [place] [address] Dr. Gregg Humphreys IG # 0.04 10e3/ul Critically high 0.00-0.03 [facility] Comment on above: Performed By: #### C BC #### [facility] [address] [place] [address] Dr. Gregg Humphreys IG % 0.5 % Normal 0.0-0.5 [facility] Comment on above: Performed By: #### C BC #### [facility] [address] [place] [address] Dr. Gregg Humphreys LYMPH # 2.4 103/ul Normal 1.2-3.8 [facility] Comment on above: Performed By: #### C BC #### [facility] [address] [place] [address] Dr. Gregg Humphreys Lymphocytes/100 WBC (Bld) 30.9 % Normal 20.5-60.0 [facility] Comment on above: Performed By: #### C BC #### [facility] [address] [place] [address] Dr. Gregg Humphreys MANUAL DIFF REQ NO Normal [facility] Comment on above: Performed By: #### C BC #### [facility] [address] [place] [address] Dr. Gregg Humphreys MCH (RBC) [Entitic mass] 28.1 pg Normal 25.9-34.0 [facility] Comment on above: Performed By: #### C BC #### [facility] [address] [place] [address] Dr. Gregg Humphreys MCHC (RBC) [Mass/Vol] 32.3 g/dL Normal 29.9-35.2 [facility] Comment on above: Performed By: #### C BC #### [facility] [address] [place] [address] Dr. Gregg Humphreys MCV (RBC) [Entitic vol] 87.0 fL Normal 80.0-94.0 [facility] Comment on above: Performed By: #### C BC #### [facility] [address] [place] [address] Dr. Gregg Humphreys MONO # 1.0 103/ul Critically high 0.3-0.8 [facility] Comment on above: Performed By: #### C BC #### [facility] [address] [address] [address] Gregg Humphreys Monocytes/100 WBC (Bld) 12.7 % Critically high 1.7-12.0 [facility] Comment on above: Performed By: #### C BC #### [facility] [address] [address] [address] Gregg Humphreys NEUT # 3.9 103/ul Normal 1.4-6.5 [facility] Comment on above: Performed By: #### C BC #### [facility] [address] [address] [address] Gregg Humphreys Neutrophils/100 WBC (Bld) 49.4 % Normal 43.0-75.0 [facility] Comment on above: Performed By: #### C BC #### [facility] [address] [place] [address] Dr. Gregg Humphreys Platelet mean volume (Bld) [Entitic vol] 8.9 fL Critically low 9.5-13.5 [facility] Comment on above: Performed By: #### C BC #### [facility] [address] [address] [address] Gregg Humphreys PLT 353 103/ul Normal 150-450 [facility] Comment on above: Performed By: #### C BC #### [facility] [address] [place] [address] Dr. Gregg Humphreys RBC 5.30 106/ul Normal 4.70-6.10 [facility] Comment on above: Performed By: #### C BC #### [facility] [address] [address] [address] Gregg Humphreys WBC 7.9 103/ul Normal 4.0-11.0 [facility] Comment on above: Performed By: #### C BC #### [facility] [address] [place] [address] Dr. Gregg Humphreys FREE T3on 11-19-2021 FREE T3 3.39 pg/mlL Normal 2.18-3.98 [facility] Comment on above: Performed By: #### T SH, FT3, LIPID, CMP #### [facility] [address] [place] [address] Dr. Gregg Humphreys FREE T4on 11-19-2021 Free T4 [Mass/Vol] 0.86 ng/dL Normal 0.76-1.46 The [facility] Comment on above: Performed By: #### C RP, CMP #### [facility] [address] [place] [address] Dr. Gregg Humphreys GLYCOHEMOGLOBIN A1Con 2021 ADA RECOMMENDATION SEE BELOW Normal The [facility] Comment on above: Result Comment: ADA RECOMMENDED LIMIT 4.0 - 6.0 ADA THERAPEUTIC TARGET < 7.0 ACTION SUGGESTED > 7.0 Performed By: #### C RP, CMP #### [facility] [address] [place] [address] Dr. Gregg Humphreys Glucose [Mass/Vol] 120 mg/dL Normal [facility] Comment on above: Performed By: #### C RP, CMP #### [facility] [address] [place] [address] Dr. Gregg Humphreys HbA1c (Bld) [Mass fraction] 5.8 % Normal 4.5-6.2 [facility] Comment on above: Performed By: #### C RP, CMP #### [facility] [address] [place] [address] Dr. Gregg Humphreys LIPID PROFILEon 11-19-2021 CHOL-HDL RATIO NORM SEE BELOW Normal [facility] Comment on above: Result Comment: 3.3 - 4.4 LOW RISK 4.4 - 7.1 AVERAGE RISK 7.1 - 11.0 MODERATE RISK >11.0 HIGH RISK Performed By: #### T SH, FT3, LIPID, CMP #### [facility] [address] [place] [address] Dr. Gregg Humphreys Cholesterol [Mass/Vol] 195 mg/dL Normal <=200 [facility] Comment on above: Performed By: #### T SH, FT3, LIPID, CMP #### [facility] [address] [place] [address] Dr. Gregg Humphreys Cholesterol in HDL [Mass/Vol] 73 mg/dL Critically high 40-60 [facility] Comment on above: Performed By: #### T SH, FT3, LIPID, CMP #### [facility] [address] [address] [address] Gregg Humphreys Cholesterol in LDL [Mass/Vol] 113.0 mg/dL Normal [facility] Comment on above: Performed By: #### T SH, FT3, LIPID, CMP #### [facility] [address] [place] [address] Dr. Gregg Humphreys Cholesterol.total/Ch olesterol in HDL [Mass ratio] 2.7 {ratio} Normal [facility] Comment on above: Performed By: #### T SH, FT3, LIPID, CMP #### [facility] [address] [place] [address] Dr. Gregg Humphreys HDL NORMAL > or = 60 mg/dl - LO W CARDIOVASCULAR RISK <40 mg/dl - HIGH CARDIOVASCULAR RISK Normal [facility] Comment on above: Performed By: #### T SH, FT3, LIPID, CMP #### [facility] [address] [place] [address] Dr. Gregg Humphreys LDL CALC NORMAL SEE BELOW Normal [facility] Comment on above: Result Comment: <100 mg/dl OPTIMAL 100 - 129 mg/dl NEAR OR ABOVE OPTIMAL 130 - 159 mg/dl BORDERLINE HIGH 160 - 189 mg/dl HIGH >190 mg/dl VERY HIGH Performed By: #### T SH, FT3, LIPID, CMP #### [facility] [address] [place] [address] Dr. Gregg Humphreys Triglyceride [Mass/Vol] 45 mg/dL Normal <=150 [facility] Comment on above: Performed By: #### T SH, FT3, LIPID, CMP #### [facility] [address] [place] [address] Dr. Gregg Humphreys VLDL CALC 9.0 mg/dL Normal [facility] Comment on above: Performed By: #### T SH, FT3, LIPID, CMP #### [facility] [address] [place] [address] Dr. Gregg Humphreys PROF 14(COMP METB)on 022 Albumin [Mass/Vol] 4.0 g/dL Normal 3.4-5.0 [facility] Comment on above: Performed By: #### T SH, FT3, LIPID, CMP #### [facility] [address] [place] [address] Dr. Gregg Humphreys Albumin/Globulin [Mass ratio] 1.3 {ratio} Normal [facility] Comment on above: Performed By: #### T SH, FT3, LIPID, CMP #### [facility] [address] [place] [address] Dr. Gregg Humphreys ALP [Catalytic activity/Vol] 75 U/L Normal 46-116 [facility] Comment on above: Performed By: #### T SH, FT3, LIPID, CMP #### [facility] [address] [place] [address] Dr. Gregg Humphreys ALT [Catalytic activity/Vol] 24 U/L Normal 16-63 [facility] Comment on above: Performed By: #### T SH, FT3, LIPID, CMP #### [facility] [address] [place] [address] Dr. Gregg Humphreys Anion gap [Moles/Vol] 12.7 mmol/L Normal [facility] Comment on above: Performed By: #### T SH, FT3, LIPID, CMP #### [facility] [address] [place] [address] Dr. Gregg Humphreys AST [Catalytic activity/Vol] 17 U/L Normal 15-37 [facility] Comment on above: Performed By: #### T SH, FT3, LIPID, CMP #### [facility] [address] [place] [address] Dr. Gregg Humphreys Bilirubin [Mass/Vol] 0.6 mg/dL Normal 0.2-1.0 [facility] Comment on above: Performed By: #### T SH, FT3, LIPID, CMP #### [facility] [address] [place] [address] Dr. Gregg Humphreys Calcium [Mass/Vol] 9.1 mg/dL Normal 8.5-10.1 [facility] Comment on above: Performed By: #### T SH, FT3, LIPID, CMP #### [facility] [address] [place] [address] Dr. Gregg Humphreys Chloride [Moles/Vol] 104 mmol/L Normal 98-107 [facility] Comment on above: Performed By: #### T SH, FT3, LIPID, CMP #### [facility] [address] [place] [address] Dr. Gregg Humphreys CO2 [Moles/Vol] 25.6 mmol/L Normal 21.0-32.0 [facility] Comment on above: Performed By: #### T SH, FT3, LIPID, CMP #### [facility] [address] [place] [address] Dr. Gregg Humphreys Creatinine [Mass/Vol] 1.04 mg/dL Normal 0.70-1.30 [facility] Comment on above: Performed By: #### T SH, FT3, LIPID, CMP #### [facility] [address] [place] [address] Dr. Gregg Humphreys EGFR-AF MARSHALLESE >60 Normal >=60 [facility] Comment on above: Performed By: #### T SH, FT3, LIPID, CMP #### [facility] [address] [place] [address] Dr. Gregg Humphreys EGFR-NON AF MARSHALLESE >60 Normal >=60 [facility] Comment on above: Performed By: #### T SH, FT3, LIPID, CMP #### [facility] [address] [place] [address] Dr. Gregg Humphreys Globulin (S) [Mass/Vol] 3.1 g/dL Normal [facility] Comment on above: Performed By: #### T SH, FT3, LIPID, CMP #### [facility] [address] [place] [address] Dr. Gregg Humphreys Glucose [Mass/Vol] 93 mg/dL Normal 74-106 [facility] Comment on above: Performed By: #### T SH, FT3, LIPID, CMP #### [facility] [address] [place] [address] Dr. Gregg Humphreys Potassium [Moles/Vol] 4.3 mmol/L Normal 3.5-5.1 [facility] Comment on above: Performed By: #### T SH, FT3, LIPID, CMP #### [facility] [address] [place] [address] Dr. Gregg Humphreys Protein [Mass/Vol] 7.1 g/dL Normal 6.4-8.2 [facility] Comment on above: Performed By: #### T SH, FT3, LIPID, CMP #### [facility] [address] [place] [address] Dr. Gregg Humphreys Sodium [Moles/Vol] 138 mmol/L Normal 136-145 [facility] Comment on above: Performed By: #### T SH, FT3, LIPID, CMP #### [facility] [address] [place] [address] Dr. Gregg Humphreys Urea nitrogen [Mass/Vol] 20.0 mg/dL Critically high 7.0-18.0 [facility] Comment on above: Performed By: #### T SH, FT3, LIPID, CMP #### [facility] [address] [place] [address] Dr. Gregg Humphreys Urea nitrogen/Creatinine [Mass ratio] 19.2 mg/mg Normal [facility] Comment on above: Performed By: #### T SH, FT3, LIPID, CMP #### [facility] [address] [place] [address] Dr. Gregg Humphreys TSHon 11-19-2021 TSH 1.020 uIU/mL Normal 0.358-3.740 The [facility] Comment on above: Performed By: #### T SH, FT3, LIPID, CMP #### [facility] [address] [place] [address] Dr. Gregg Humphreys VIT B12 AND FOLATEon 022 Cobalamin (Vitamin B12) [Mass/Vol] 359.0 pg/mL Normal 193.0-986.0 [facility] Comment on above: Performed By: #### C RP, CMP #### [facility] [address] [place] [address] Dr. Gregg Humphreys FOLATE 8.80 ng/mL Normal 8.60-58.90 [facility] Comment on above: Performed By: #### C , CMP #### [facility] [address] [address] [address] rGegg Humphreys Tobacco Screening.on 022 Adult depression screening assessment No [facility] 600 DO Work Phone: Fall risk assessment a) No falls within the last year [facility] 600 DO Work Phone: Tobacco use status [facility]PH[facility] b) No [facility] 600 DO Work Phone: XR LSPINE 2_3 VIEWSon 2021 XR LSPINE 2_3 VIEWS EXAMINATION: XR LSPINE 2_3 VIEWS HISTORY: Spondylosis ; chronic low back and left hip pain COMPARISON: No relevant comparison available. FINDINGS: BONES: Mild left convex curvature lumbar spine. Mild degenerative facet arthropathy L4-5, L5-S1. No fracture or significant spondylolisthesis. DISC SPACES: Moderate narrowing L2-3, L4-5. Marked narrowing L5-S1. Mild narrowing L1-2. PARASPINOUS: Negative. No paraspinous abnormality is seen. OTHER: Negative. IMPRESSION: 1. Multilevel degenerative disc disease and degenerative facet arthropathy, greatest involving the lower lumbar spine. Electronically authenticated by: LILI BARRERA Date: 2021-07-13 14:32 Normal [facility] Cardiac Stress Teston 2021 Cardiac Stress Test [address], [address], [place] [address] Exercise Stress Test Patient Name: HUMBERTO LIMA Ordering Physician: Study Date: 07/06/2021 Reading Physician: [id number] Virgilio Beaulieu MD, [facility] MRN/PID: [id number] Supervising Physician: Bonny Beaulieu MD, FACC Accession/Order#: [id number] Referring Physician: [id number] LISA MÉNDEZ Date of : 1960 PCP: Gender: M Fellow: Height: 167.64 cm Nurse: Rossi Olea RN Weight: 85.28 kg Underwriting Intern: N/A BSA: 1.95 m2 Technologist: BMI: 30.34 kg/m2 Additional Staff: Age: 60 years cc report to: Study Type: Cardiac Stress Test Diagnosis/ICD: R07.9-Chest pain, unspecified Indication: Chest Pain Procedure/CPT: Stress Test Supervision-[id number] Falls Risk: Low: Patient has low risk for sustaining a fall; environmental safety interventions in place. Study Details: Correct procedure and correct patient verified verbally. Patient Performance: The patient exercised to stage IV on a Oneal protocol for 9 minutes and 15 seconds, achieving 10.50 METS. The peak heart rate achieved was 97 bpm, which was 61 % of the age predicted target heart rate of 159 bpm. The resting blood pressure was 138/78 mmHg with a heart rate of 57 bpm. The standing blood pressure was 130/78 mmHg with a heart rate of 65 bpm. The blood pressure response was normal. The test was terminated due to: leg fatigue and musculoskeletal weakness and hip pain. Double Product (HR x BP): 155. Baseline ECG: Resting ECG showed sinus bradycardia. Stress Stage Data: + +-- +------+-------+ HR Sys BP Bates BP + +-- +------+-------+ Baseline Resting 57 138 78 + +-- +------+-------+ Baseline Standing 65 130 78 + +-- +------+-------+ Stage I 72 110 60 + +-- +------+-------+ Stage II 81 130 70 + +-- +------+-------+ Stage III 87 150 74 + +-- +------+-------+ + +--+---- --+-------+ HR Sys BP Bates BP + +--+---- --+-------+ Recovery I 82 160 80 + +--+---- --+-------+ Recovery II 75 160 74 + +--+---- --+-------+ Recovery III 70 150 72 + +--+---- --+-------+ Recovery IV 70 160 74 + +--+---- --+-------+ Summary: 1. 1-Non diagnostic ETT due to failure to atchieve 85% of PMHR, patient was able to achieve only 61% of PMHR despite completing 9:15 on a oneal protocol and achieving 10:50 METs 2-No chest pain, cardiac arrhythmias or ischemic ST changes induced by exercise 3-Attenuated HR response to exercise due to Beta blockers. [id number] Virgilio Beaulieu MD, FACC Electronically signed on 07/08/2021 at 8:54:[address] [facility] Cardiac Stress Test MP-No rth [facility] 600 DO Work Phone: C3 and C4 COMPLEMENTon 05-26 Complement C3, Serum 172 mg/dL Critically high 82-167 [facility] Comment on above: Performed By: #### S EDR #### [facility] [address] [place] [address] [id number] [address] Gregg Humphreys Complement C4, Serum 30 mg/dL Normal 12-38 [facility] Comment on above: Performed By: #### S EDR #### [facility] [address] [place] [address] Dr. Gregg Humphreys COMPLEMENT TOTAL (CH50)on Complement, Total (CH50) >60 Normal >41 [facility] Comment on above: Result Comment: Age Male Female 1 - 30 days Not Estab. Not Estab. 31 days - 6 months >32 >20 7 months - 17 years >39 >39 >17 years >41 >41 NOTE: The adult ( >17 years ) reference interval range is used to flag abnormals on this report. If the patient is 17 years old or younger, use the table above to determine out of range values. Performed By: #### S EDR #### [facility] [address] [place] [address] Dr. Gregg Humphreys CBC AUTO DIFFon 05-25-2021 BASO # 0.1 103/ul Normal 0.0-0.1 [facility] Comment on above: Performed By: #### S EDR #### [facility] [address] [place] [address] Dr. Gregg Humphreys Basophils/100 WBC (Bld) 1.4 % Normal 0.2-2.0 [facility] Comment on above: Performed By: #### S EDR #### [facility] [address] [place] [address] Dr. Gregg Humphreys EO # 0.5 103/ul Normal 0.0-0.7 [facility] Comment on above: Performed By: #### S EDR #### [facility] [address] [place] [address] Dr. Gregg Humphreys Eosinophils/100 WBC (Bld) 7.3 % Critically high 0.9-7.0 [facility] Comment on above: Performed By: #### S EDR #### [facility] [address] [place] [address] Dr. Gregg Humphreys Erythrocyte distribution width (RBC) [Ratio] 14.1 % Normal 11.0-15.0 [facility] Comment on above: Performed By: #### S EDR #### [facility] [address] [place] [address] Dr. Gregg Humphreys Hematocrit (Bld) [Volume fraction] 48.1 % Normal 42.0-54.0 [facility] Comment on above: Performed By: #### S EDR #### [facility] [address] [place] [address] Dr. Gregg Humphreys Hemoglobin (Bld) [Mass/Vol] 15.4 g/dL Normal 14.0-18.0 [facility] Comment on above: Performed By: #### S EDR #### [facility] [address] [address] [address] Gregg Humphreys IG # 0.17 10e3/ul Critically high 0.00-0.03 [facility] Comment on above: Performed By: #### S EDR #### [facility] [address] [place] [address] Dr. Gregg Humphreys IG % 2.3 % Critically high 0.0-0.5 [facility] Comment on above: Performed By: #### S EDR #### [facility] [address] [place] [address] Dr. Gregg Humphreys LYMPH # 2.5 103/ul Normal 1.2-3.8 [facility] Comment on above: Performed By: #### S EDR #### [facility] [address] [place] [address] Dr. Gregg Humphreys Lymphocytes/100 WBC (Bld) 33.9 % Normal 20.5-60.0 [facility] Comment on above: Performed By: #### S EDR #### [facility] [address] [place] [address] Dr. Gregg Humphreys MANUAL DIFF REQ NO Normal [facility] Comment on above: Performed By: #### S EDR #### [facility] [address] [place] [address] Dr. Gregg Humphreys MCH (RBC) [Entitic mass] 28.9 pg Normal 25.9-34.0 [facility] Comment on above: Performed By: #### S EDR #### [facility] [address] [place] [address] Dr. Gregg Humphreys MCHC (RBC) [Mass/Vol] 32.0 g/dL Normal 29.9-35.2 [facility] Comment on above: Performed By: #### S EDR #### [facility] [address] [place] [address] Dr. Gregg Humphreys MCV (RBC) [Entitic vol] 90.2 fL Normal 80.0-94.0 [facility] Comment on above: Performed By: #### S EDR #### [facility] [address] [place] [address] Dr. Gregg Humphreys MONO # 0.8 103/ul Normal 0.3-0.8 [facility] Comment on above: Performed By: #### S EDR #### [facility] [address] [place] [address] Dr. Gregg Humphreys Monocytes/100 WBC (Bld) 11.4 % Normal 1.7-12.0 [facility] Comment on above: Performed By: #### S EDR #### [facility] [address] [place] [address] Dr. Gregg Humphreys NEUT # 3.2 103/ul Normal 1.4-6.5 [facility] Comment on above: Performed By: #### S EDR #### [facility] [address] [place] [address] Dr. Gregg Humphreys Neutrophils/100 WBC (Bld) 43.7 % Normal 43.0-75.0 [facility] Comment on above: Performed By: #### S EDR #### [facility] [address] [place] [address] Dr. Gregg Humphreys Platelet mean volume (Bld) [Entitic vol] 9.2 fL Critically low 9.5-13.5 [facility] Comment on above: Performed By: #### S EDR #### [facility] [address] [place] [address] Dr. Gregg Humphreys PLT 416 103/ul Normal 150-450 [facility] Comment on above: Performed By: #### S EDR #### [facility] [address] [place] [address] Dr. Gregg Humphreys RBC 5.33 106/ul Normal 4.70-6.10 [facility] Comment on above: Performed By: #### S EDR #### [facility] [address] [place] [address] Dr. Gregg Humphreys WBC 7.4 103/ul Normal 4.0-11.0 [facility] Comment on above: Performed By: #### S EDR #### [facility] [address] [place] [address] Dr. Gregg Humphreys CRPon 05-25-2021 CRP [Mass/Vol] mg/L Normal <=1.0 [facility] Comment on above: Performed By: #### C RP, CMP #### [facility] [address] [place] [address] Dr. Gregg Humphreys PROF 14(COMP METB)on 022 Albumin [Mass/Vol] 3.5 g/dL Normal 3.5-5.0 [facility] Comment on above: Performed By: #### C RP, CMP #### [facility] [address] [place] [address] Dr. Gregg Humphreys Albumin/Globulin [Mass ratio] 0.9 {ratio} Normal [facility] Comment on above: Performed By: #### C RP, CMP #### [facility] [address] [place] [address] Dr. Gregg Humphreys ALP [Catalytic activity/Vol] 90 U/L Normal 38-126 [facility] Comment on above: Performed By: #### C RP, CMP #### [facility] [address] [place] [address] Dr. Gregg Humphreys ALT [Catalytic activity/Vol] 56 U/L Normal 21-72 [facility] Comment on above: Performed By: #### C RP, CMP #### [facility] [address] [place] [address] Dr. Gregg Humphreys Anion gap [Moles/Vol] 11.9 mmol/L Normal [facility] Comment on above: Performed By: #### C RP, CMP #### [facility] [address] [place] [address] Dr. Gregg Humphreys AST [Catalytic activity/Vol] 21 U/L Normal 17-59 [facility] Comment on above: Performed By: #### C RP, CMP #### [facility] [address] [place] [address] Dr. Gregg Humphreys Bilirubin [Mass/Vol] 0.3 mg/dL Normal 0.2-1.3 [facility] Comment on above: Performed By: #### C RP, CMP #### [facility] [address] [place] [address] Dr. Gregg Humphreys Calcium [Mass/Vol] 9.2 mg/dL Normal 8.4-10.2 [facility] Comment on above: Performed By: #### C RP, CMP #### [facility] [address] [place] [address] Dr. Gregg Humphreys Chloride [Moles/Vol] 105 mmol/L Normal 98-107 [facility] Comment on above: Performed By: #### C RP, CMP #### [facility] [address] [place] [address] Dr. Gregg Humphreys CO2 [Moles/Vol] 27.0 mmol/L Normal 22.0-30.0 [facility] Comment on above: Performed By: #### C RP, CMP #### [facility] [address] [place] [address] Dr. Gregg Humphreys Creatinine [Mass/Vol] 1.00 mg/dL Normal 0.66-1.25 [facility] Comment on above: Performed By: #### C RP, CMP #### [facility] [address] [place] [address] Dr. Gregg Humphreys EGFR-AF MARSHALLESE >60 Normal >=60 [facility] Comment on above: Performed By: #### C RP, CMP #### [facility] [address] [place] [address] Dr. Gregg Humphreys EGFR-NON AF MARSHALLESE >60 Normal >=60 [facility] Comment on above: Performed By: #### C RP, CMP #### [facility] [address] [place] [address] Dr. Gregg Humphreys Globulin (S) [Mass/Vol] 3.7 g/dL Normal [facility] Comment on above: Performed By: #### C RP, CMP #### [facility] [address] [address] [address] Gregg Humphreys Glucose [Mass/Vol] 118 mg/dL Critically high 74-106 [facility] Comment on above: Performed By: #### C RP, CMP #### [facility] [address] [address] [address] Gregg Humphreys Potassium [Moles/Vol] 3.9 mmol/L Normal 3.4-5.0 [facility] Comment on above: Performed By: #### C RP, CMP #### [facility] [address] [place] [address] Dr. Gregg Humphreys Protein [Mass/Vol] 7.2 g/dL Normal 6.1-8.2 [facility] Comment on above: Performed By: #### C RP, CMP #### [facility] [address] [place] [address] Dr. Gregg Humphreys Sodium [Moles/Vol] 140 mmol/L Normal 137-145 [facility] Comment on above: Performed By: #### C RP, CMP #### [facility] [address] [place] [address] Dr. Gregg Humphreys Urea nitrogen [Mass/Vol] 17.0 mg/dL Normal 9.0-20.0 [facility] Comment on above: Performed By: #### C RP, CMP #### [facility] [address] [place] [address] Dr. Gregg Humphreys Urea nitrogen/Creatinine [Mass ratio] 17.0 mg/mg Normal [facility] Comment on above: Performed By: #### C RP, CMP #### [facility] [address] [place] [address] Dr. Gregg Humphreys SED RATE [facility] 2021 SED RATE 20 mm/hr Normal <=20 [facility] Comment on above: Performed By: #### S EDR #### [facility] [address] [place] [address] Dr. Gregg Humphreys UA RANDOM W/MICROSCOPICon BACTERIA TRACE Abnormal NONE SEEN [facility] Comment on above: Performed By: #### C RP, CMP #### [facility] [address] [place] [address] Dr. Gregg Humphreys Bilirubin Ql (U) Negative Normal NEGATIVE [facility] Comment on above: Performed By: #### C RP, CMP #### [facility] [address] [place] [address] Dr. Gregg Humphreys CAST NONE SEEN Normal NONE SEEN [facility] Comment on above: Performed By: #### C RP, CMP #### [facility] [address] [place] [address] Dr. Gregg Humphreys Clarity (U) CLEAR Normal CLEAR [facility] Comment on above: Performed By: #### C RP, CMP #### [facility] [address] [place] [address] Dr. Gregg Humphreys Color (U) LT. YELLOW Normal YELLOW [facility] Comment on above: Performed By: #### C RP, CMP #### [facility] [address] [place] [address] Dr. Gregg Humphreys Crystals LM Nom (Urine sed) NONE SEEN Normal NONE SEEN [facility] Comment on above: Performed By: #### C RP, CMP #### [facility] [address] [place] [address] Dr. Gregg Humphreys Epithelial cells LM Ql (Urine sed) NONE SEEN Normal NONE SEEN /RARE [facility] Comment on above: Performed By: #### C RP, CMP #### [facility] [address] [place] [address] Dr. Gregg Humphreys Glucose Ql (U) Negative Normal NEGATIVE [facility] Comment on above: Performed By: #### C RP, CMP #### [facility] [address] [place] [address] Dr. Gregg Humphreys Hemoglobin Ql (U) Negative Normal NEGATIVE [facility] Comment on above: Performed By: #### C RP, CMP #### [facility] [address] [place] [address] Dr. Gregg Humphreys Ketones Ql (U) Negative Normal NEGATIVE [facility] Comment on above: Performed By: #### C RP, CMP #### [facility] [address] [place] [address] Dr. Gregg Humphreys LEUKOCYTES Negative Normal NEGATIVE [facility] Comment on above: Performed By: #### C RP, CMP #### [facility] [address] [place] [address] Dr. Gregg Humphreys MUCOUS NONE SEEN Normal NONE SEEN [facility] Comment on above: Performed By: #### C RP, CMP #### [facility] [address] [place] [address] Dr. Gregg Humphreys Nitrite Ql (U) Negative Normal NEGATIVE [facility] Comment on above: Performed By: #### C RP, CMP #### [facility] [address] [place] [address] Dr. Gregg Humphreys pH (U) 6.0 [pH] Normal 5-9 [facility] Comment on above: Performed By: #### C RP, CMP #### [facility] [address] [place] [address] Dr. Gregg Humphreys RBC NONE SEEN Abnormal 0-2 [facility] Comment on above: Performed By: #### C RP, CMP #### [facility] [address] [place] [address] Dr. Gregg Humphreys SPEC GRAVITY 1.015 Normal 1.005-<=1.025 [facility] Comment on above: Performed By: #### C RP, CMP #### [facility] [address] [place] [address] Dr. Gregg Humphreys UA PROTEIN Negative Normal NEGATIVE/ TRACE [facility] Comment on above: Performed By: #### C RP, CMP #### [facility] [address] [place] [address] Dr. Gregg Humphreys Urobilinogen Qn (U) 0.2 {Kiki'U}/dL Normal 0.2 - 1. 0 [facility] Comment on above: Performed By: #### C RP, CMP #### [facility] [address] [place] [address] Dr. Gregg Humphreys WBC NONE SEEN Normal NONE SEEN [facility] Comment on above: Performed By: #### C , CMP #### [facility] [address] [address] [address] Gregg Humphreys Tobacco Screening.on 022 Fall risk assessment a) No falls within the last year [facility] 600 DO Work Phone: Tobacco use status CPHS b) No [facility] 600 DO Work Phone: Vital Signs Date Time Vital Sign Value Performing Clinician Facility 08-28-2023 12:26-0400 Body height 167.64 cm [facility] 08-28-2023 12:26-0400 Body mass index (BMI) [Ratio] 29.3 kg/m2 [facility] 08-28-2023 12:26-0400 Body temperature 98.1 [degF] [facility] 08-28-2023 12:26-0400 Body weight 82.55 kg [facility] 08-28-2023 12:26-0400 Diastolic blood pressure 46 mm[Hg] [facility] 08-28-2023 12:26-0400 Heart rate 60 /min [facility] 08-28-2023 12:26-0400 Respiratory rate 18 /min [facility] 08-28-2023 12:26-0400 SaO2% (BldA) [Mass fraction] 98 % [facility] 08-28-2023 12:26-0400 Systolic blood pressure 144 mm[Hg] [facility] 11-22-2022 11:27-0400 Body height 167.64 cm Flavio Cabrera Work Phone: [facility] 600 DO Work Phone: 11-22-2022 11:27-0400 Body mass index (BMI) [Ratio] 28.63 kg/m2 Flavio Cabrera Work Phone: [facility] 600 DO Work Phone: 11-22-2022 11:27-0400 Body surface area Derived from formula 1.9 m2 Flavio Renetta Cabrera Work Phone: [facility] 600 DO Work Phone: 11-22-2022 11:27-0400 Body weight 80.46 kg Flavio Renetta Cabrera Work Phone: [facility] 600 DO Work Phone: 11-22-2022 11:27-0400 Diastolic blood pressure 60 mm[Hg] Flavio Jackson Cbarera Work Phone: [facility] 600 DO Work Phone: 11-22-2022 11:27-0400 Heart rate 60 /min Flavio Jackson Cabrera Work Phone: [facility] [employer] 600 DO Work Phone: 11-22-2022 11:27-0400 Systolic blood pressure 124 mm[Hg] Flavio Jackson Cabrera Work Phone: [facility] [employer] 600 DO Work Phone: 09-29-2021 10:14-0400 Diastolic blood pressure 70 mm[Hg] Flavio Jackson Cabrera Work Phone: [facility] [employer] 600 DO Work Phone: 09-29-2021 10:14-0400 Systolic blood pressure 138 mm[Hg] Flavio Jackson Cabrera Work Phone: [facility] [employer] 600 DO Work Phone: 09-29-2021 09:50-0400 Body height 167.64 cm Flavio Jackson Cabrera Work Phone: [facility] 600 DO Work Phone: 09-29-2021 09:50-0400 Body mass index (BMI) [Ratio] 29.05 kg/m2 Flavio Jackson Cabrera Work Phone: [facility] [employer] 600 DO Work Phone: 09-29-2021 09:50-0400 Body surface area Derived from formula 1.91 m2 Flavio Dominguezring Work Phone: [facility] [employer] 600 DO Work Phone: 09-29-2021 09:50-0400 Body weight 81.65 kg Flavio Dominguezring Work Phone: [facility] [employer] 600 DO Work Phone: 09-29-2021 09:50-0400 Diastolic blood pressure 70 mm[Hg] Flavio Dominguezring Work Phone: [facility] [employer] 600 DO Work Phone: 09-29-2021 09:50-0400 Heart rate 60 /min Flavionikhil Cabrera Work Phone: [facility] [employer] 600 DO Work Phone: 09-29-2021 09:50-0400 Systolic blood pressure 140 mm[Hg] Flavio Cabrera Work Phone: [facility] [employer] 600 DO Work Phone: 05-12-2021 12:25-0500 Body height 167.64 cm Karma Rogers Other [employer] Other 05-12-2021 12:25-0500 Body mass index (BMI) [Ratio] 29.21 kg/m2 Karma Rogers Other [employer] Other 05-12-2021 12:25-0500 Body temperature 97.5 [degF] Karma Rogers Other [employer] Other 05-12-2021 12:25-0500 Body weight 82.1 kg Karma Rogers Other [employer] Other 05-12-2021 12:25-0500 Diastolic blood pressure 78 mm[Hg] Karma Rogers Other [employer] Other 05-12-2021 12:25-0500 Respiratory rate 20 /min Karma Rogers Other [employer] Other 05-12-2021 12:25-0500 SaO2% (BldA) [Mass fraction] 96 % Karma Rogers Other [employer] Other 05-12-2021 12:25-0500 Systolic blood pressure 135 mm[Hg] Karma Rogers Other [employer] Other 04-13-2021 10:58-0500 Body height 167.64 cm Flavio Renetta [employer] Work Phone: [employer] 600 DO Work Phone: 04-13-2021 10:58-0500 Body mass index (BMI) [Ratio] 30.34 kg/m2 Flavio Jackson Cabrera Work Phone: [employer] 600 DO Work Phone: 04-13-2021 10:58-0500 Body surface area Derived from formula 1.95 m2 Flavio Jackson Cabrera Work Phone: [employer] 600 DO Work Phone: 04-13-2021 10:58-0500 Body weight 85.28 kg Flavio Jackson Cabrera Work Phone: [employer] 600 DO Work Phone: 04-13-2021 10:58-0500 Diastolic blood pressure 94 mm[Hg] Flavio Cabrera Work Phone: [facility] 600 DO Work Phone: 04-13-2021 10:58-0500 Heart rate 60 /min Flavio Cabrera Work Phone: [facility] 600 DO Work Phone: 04-13-2021 10:58-0500 Systolic blood pressure 152 mm[Hg] Fl[facility]io Cabrera [facility] Work Phone: Encounters Encounter Date Encounter Type Care Provider Facility Start: 08-28-2023 End: 08-28-2023 ambulatory [facility] Work Phone: Start: 08-28-2023 End: 08-28-2023 Patient encounter procedure [facility] Work Phone: Start: 01-12-2023 End: 01-13-2023 ambulatory Anne Marie Mckenzie AMES Facility[facility] Start: 11-22-[address] Muniz And chidi Cabrera Facility: Start: 11-22-2022 Office outpatient vi sit 15 minutes [facility] Work Phone: Start: 10-19-2022 Rx Renewal Flavio Mims ng [facility] Phone[facility] Work Phone: Start: 07-04-2022 End: 07-05-2022 ambulatory Puneet JOVEL Facility[facility] Start: 05-06-2022 End: 05-07-[address] MANUEL AC Facility:[facility] Start: 11-22-2021 Encounter for genera l adult medical examination without abnormal findings DR FLAVIO CABRERA [facility] Start: 11-19-2021 End: 11-20-[address] FLAVIO CABRERA Facility:[facility] Start: 11-19-2021 End: 11-20-2021 Encounter for general adult medical examination without abnormal findings DR FLAVIO CABRERA Facility:[facility] Start: 09-29-2021 Office outpatient vi sit 25 minutes Flavio Cabrera Work Phone: [facility] 600 DO Work Phone: Start: 07-13-2021 End: 07-14-[address] FLAVIO CABRERA Facility:[facility] Start: 07-08-2021 Chart Update Flavio Mims ng Work Phone: [facility] 600 DO Work Phone: Start: 05-25-2021 End: 05-26-[address] DOCTOR GARCIA Facility:[facility] Start: 05-12-2021 End: 05-12-2021 ambulatory Karma Rogers Other [facility] [employer] Other Start: 05-12-2021 Office outpatient vi sit 15 minutes Karma Rogers [facility] Start: 04-13-2021 Office outpatient vi sit 25 minutes Flavio Cabrera Work Phone: [facility] 600 DO Work Phone: Start: 07-16-2015 End: 07-17-2015 Patient encounter procedure LUCRECIA OTTO Facility:[facility] Procedures Date Procedure Procedure Detail Performing Clinician Start: 11-19-[address] IGOR AC Comment on above: Performed By: #### C RP, CMP #### [facility] [address] [place] [address] Dr. Gregg Humphreys Appendectomy Flavio partida Work Phone: Cataract surgery Flavio pat Work Phone: Colonoscopy Flavio partida Work Phone: Comment on above: [id number]; Plan of Treatment Date Care Activity Detail Author Start: 11-27-2023 FUV, Provider: Lisa Méndez, Status: Pen, Time: 1:10 PM [facility]UV, Provider: Lisa Méndez, Status: Pen, Time: 1:10 PM [facility] 600 DO Work Phone: Start: 11-22-2022 FUV, Provider: Lisa Méndez, Status: Pen, Time: 11:10 AM [facility], Provider: Lisa Méndez, Status: Pen, Time: 11:10 AM [facility] 250 DO Work Phone: Start: 06-06-2022 FUV, Provider: Lisa Méndez, Status: Pen, Time: 10:30 AM [facility]UV, Provider: Lisa Méndez, Status: Pen, Time: 10:30 AM [facility] 600 DO Work Phone: Start: 08-02-2021 FUV, Provider: Lisa Méndez, Status: Pen, Time: 11:20 AM [facility]UV, Provider: Lisa Méndez, Status: Pen, Time: 11:20 AM [facility] 600 DO Work Phone: Start: 07-28-2021 FUV, Provider: Lisa Méndez, Status: Pen, Time: 1:00 PM [facility], Provider: Lisa Méndez, Status: Pen, Time: 1:00 PM [facility] 600 DO Work Phone: Start: 06-01-2021 STRESS ANDREW, Provider : [facility] 01,[id number], Status: Pen, Time: 11:00 AM STRESS ANDREW, Provider: [facility] 01,[id number], Status: Pen, Time: 11:00 AM [facility] Work Phone: Start: 04-27-2021 STRESS ANDREW, Provider : [facility] 01,[id number], Status: Pen, Time: 11:00 AM STRESS ANDREW, Provider: [facility] 01,[id number], Status: Pen, Time: 11:00 AM [facility] DO Work Phone: Immunizations Immunization Date Immunization Notes Care Provider Carmelo benitez 02-04-2022 influenza, injectabl e, quadrivalent, preservative free Flavio A Cabrera [facility] Work Phone: 01-28-2022 Prevnar 20 0.5 ML Intramuscular Suspension Prefilled Syringe Flavio A Cabrera Work [facility]: [facility] Work Phone: 01-21-2022 Pfizer COVID-19 Vac Bivalent 30 MCG/0.3ML Intramuscular Suspension Flavio A Cabrera Work [facility]: [facility] Work Phone: 09-30-2021 Comirnaty 30 MCG/0.3 ML Intramuscular Suspension Flavio A Cabrera Work Phone: [facility] DO Work Phone: 09-03-2021 Comirnaty 30 MCG/0.3 ML Intramuscular Suspension Flavio A Cabrera Work Phone: [facility] DO Work Phone: 01-17-2021 influenza, seasonal, injectable Flavio A Cabrera Work Phone: [facility] DO Work Phone: 01-08-2021 Influenza, injectabl e, Madin Josefina Canine Kidney, preservative free, quadrivalent Flavio A Cabrera [facility]: [facility] 600 DO Work Phone: 01-30-2020 zoster vaccine, live Flavio A Cabrera Work Phone: [facility] DO Work Phone: 10-25-2019 zoster vaccine, live Flavio A Cabrera Work Phone: [facility] 600 DO Work Phone: 03-22-2019 Influenza, injectabl e, Madin Josefina Canine Kidney, preservative free, quadrivalent Flavio A Cabrera Work Phone: [facility] 600 DO Work Phone: 12-31-2018 influenza virus vacc ine, unspecified formulation Flavio A Cabrera Work Phone: [facility] 600 DO Work Phone: 04-09-2016 zoster vaccine, live Flavio A Cabrera Work Phone: [facility] 600 DO Work Phone: 03-29-2015 pneumococcal conjuga te vaccine, 13 valent Flavio A Cabrera Work Phone: [facility] 600 DO Work Phone: 03-18-2015 influenza virus vacc ine, unspecified formulation Flavio A Cabrera Work Phone: [facility] 600 DO Work Phone: 03-18-2015 pneumococcal polysaccharide vaccine, 23 valent Flavio A Cabrera Work Phone: [facility] 600 DO Work Phone: Payers Date Payer Category [id number] 1960 Unknown [id number] 1960 Unknown [id number] 1960 Unknown [id number] 1960 Unknown [id number] 1960 Unknown [id number] 1960 Unknown [id number] 1960 Unknown [id number] 1959 [facility] [id number] Private Health Insurance [employer] [id number] Unknown ANTHEM Social History Date Type Detail Facility No illicit drug use No illicit drug use [place] [id number] DO Work Phone: Comment on above: 3-4 cups coffee felecia y, 1 can of diet pop; Sex Assigned At Sex Assigned At Bir th [employer] Other Start: 1960 Sex Assigned At Male F [facility] Clinical Note 07-13-2021 Note Date & Type Note Facility 07-13-2021 Note PROCEDURE: XR HIP LT 2 3V WO PELVIS HISTORY: Pain of left hip joint ; chronic COMPARISON: None. FINDINGS: BONES:No fracture, acute abnormality, or significant arthropathy. SOFT TISSUES:No visible soft tissue swelling. EFFUSION:None visible. OTHER: Negative. IMPRESSION: 1. Normal examination. Electronically authenticated by: LILI BARRERA Date: 2021-07-13 14:30 [facility] Evaluation note 05-12-2021 Note Date & Type Note Facility 05-12-2021 Evaluation note Encounter Date Diagnosis Assessment Notes May, Oral thrush (ICD-10 - B37.0) May mix with the Nystatin that you already have. If the symptoms don't improve, follow up with primary care provider. [employer] Other History general Narrative - Reported 04-02-2021 Note Date & Type Note Facility 04-02-2021 History general N arrative - Reported Type Medical History Arthritis Medical History hypertension Surgical History appendectomy Hospitalization History see above Hospitalization History pneumonia 04/2021 [facility] [employer] Other Evaluation note Note Date & Type Note Facility Evaluation note No assessment information [facility] Work Phone: History of Present illness Narrative Note Date & Type Note Facility History of Present illness Narrative Patient is here for follow-up and management for recent evaluation for chest pain, hypertension and prior episode of palpitation. Since last time I saw him he feels much better. He denies any complaint of chest pain, palpitation, lightheadedness, dizziness or syncope. He underwent stress test. He did exercise for good exercise level. Did not have chest pain but failed to achieve adequate heart rate I suspect due to treatment with beta-cindy. The patient clinical status seem to have improved.ASSESSMENT1. Recent evaluation for chest pain. Repeat stress test showed good exercise tolerance no induction of chest pain but failed to achieve adequate heart rate I still believe this is an clinically negative test. Patient had no recurrence of his symptoms. He attributed his previous complaint to stress regarding to changes in his job situation2. Hypertension appears to be controlled with recent addition of low-dose beta-blocker3. Mildly overweight. Recent weight gain4. Former smoker.5. Rare episode of palpitation, resolved.6. Family history of coronary artery disease.RECOMMENDATION:1. I reviewed with the patient the results of his stress test2. I recommended to continue to follow nonpharmacologic approach for management for hypertension including low-salt diet, exercise and losing weight and continue current dose of metoprolol3. I advised him to exercise.4. We will see him back in 9 months and advised him to notify me change in cardiac status or symptoms [facility] [address] DO Work Phone: History of Present illness Narrative Note Date & Type Note Facility History of Present illness Narrative Patient is here for follow-up continue management for previous evaluation for chest pain, hypertension, mildly overweight. Since last time I saw him he denies any cardiac complaint of chest pain, palpitation, lightheadedness, dizziness or syncope. He remains active. His main complaint is arthritis. He followed by a local doctor of naturopathic medicine.ASSESSMENT1. Previous evaluation for chest pain. Repeat stress test showed good exercise tolerance no induction of chest pain but failed to achieve adequate heart rate I still believe this is an clinically negative test. Patient had no recurrence of his symptoms. He attributed his previous complaint to stress regarding to changes in his job situation. Remains asymptomatic2. Hypertension appears to be controlled with recent addition of low-dose beta-blocker3. Mildly overweight.4. Former smoker.5. Rare episode of palpitation, resolved.6. Family history of coronary artery disease.7. History of arthritis followed by local doctor of naturopathic medicine indicate could be either early rheumatoid arthritis versus lupusRECOMMENDATION:1. I reviewed with the patient the results of his lab work and previous stress test2. I recommended to continue to follow nonpharmacologic approach for management for hypertension including low-salt diet, exercise and losing weight and continue current dose of metoprolol3. I advised him to exercise.4. We will see him back in one year and advised him to notify me change in cardiac status or symptoms [facility] 600 DO Work Phone: Summary Purpose Family History Unknown Family Member Name Dates Details Family history of atrial fib rillation: Mother, Father(V17.49, Z82.49) Status:Active Family history of cardiac di sorder: Father(V17.49, Z82.49) Status:Active Family history of cardiac pa cemaker: Mother, Father(V17.49, Z82.49) Status:Active Unknown Family Member Name Dates Details Family history of atrial fib rillation: Mother, Father(V17.49, Z82.49) Status:Active Family history of cardiac di sorder: Father(V17.49, Z82.49) Status:Active Family history of cardiac pa cemaker: Mother, Father(V17.49, Z82.49) Status:Active Unknown Family Member Name Dates Details Family history of cardiac pa cemaker: Mother, Father(V17.49, Z82.49) Status:Active Family history of cardiac di sorder: Father(V17.49, Z82.49) Status:Active Family history of atrial fib rillation: Mother, Father(V17.49, Z82.49) Status:Active Unknown Family Member Name Dates Details Family history of atrial fib rillation: Mother, Father(V17.49, Z82.49) Status:Active Family history of cardiac di sorder: Father(V17.49, Z82.49) Status:Active Family history of cardiac pa cemaker: Mother, Father(V17.49, Z82.49) Status:Active Unknown Family Member Name Dates Details Family history of atrial fib rillation: Mother, Father(V17.49, Z82.49) Status:Active Family history of cardiac di sorder: Father(V17.49, Z82.49) Status:Active Family history of cardiac pa cemaker: Mother, Father(V17.49, Z82.49) Status:Active Unknown Family Member Name Dates Details Family history of atrial fib rillation: Mother, Father(V17.49, Z82.49) Status:Active Family history of cardiac di sorder: Father(V17.49, Z82.49) Status:Active Family history of cardiac pa cemaker: Mother, Father(V17.49, Z82.49) Status:Active Unknown Family Member Name Dates Details Family history of atrial fib rillation: Mother, Father(V17.49, Z82.49) Status:Active Family history of cardiac di sorder: Father(V17.49, Z82.49) Status:Active Family history of cardiac pa cemaker: Mother, Father(V17.49, Z82.49) Status:Active Relationship Condition Age at Onset Recorded Date/T pietro father Unknown Heart disease Unknown family member Unknown Not Specified Diabetes mellitus Unknown Unknown Hypertension Unknown Advance Directives Advance Directive Response Recorded Date/ Time Advance Directives No May 10:59am Chief Complaint HUMBERTO 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 Chief Complaint and Reason for Visit Chief Complaint Right hip pain, lowe r back pain Additional Source Comments (unrecognized sect ion and content) No Status Records FoundNo Status Records FoundNo Status Records FoundNo Status Records FoundNo Status Records FoundNo Status Records Found INFORMATION SOURCE (unrecogn ized section and content) DATE CREATED AUTHOR 04/25/2020 [facility] DATE CREATED AUTHOR AUTHORMeeta FLEMING 07/08/2021 [facility] DATE CREATED AUTHOR AUTHOR'S ORGANIZ ATION 05/09/2022 [facility] DATE CREATED AUTHOR AUTHOR'S ORGANIZ ATION 11/23/2022 [facility] DATE CREATED AUTHOR AUTHOR'S ORGANIZ ATION 11/23/2022 [facility] DATE CREATED AUTHOR AUTHOR'S ORGANIZ ATION 01/14/2023 [facility] REASON FOR VISIT (unrecogniz ed section and content) WHITE SPOTS IN MOUTH POSS TH GRIFFIN 6 DAYS POST ANTIBIOTIC USE Care Teams (unrecognized sec tion and content) Team Status: Active Member Role Status Dates Flavio Cabrera , Primary Care Provider Active Team Status: Inactive Member Role Status Dates Flavio Cabrera DO Primary Care Provider Active Start: August 28, 2023 End: August 28, 2023 Kim Pickens APRN Attending Provider Active S tart: August 28, 2023 End: August 28, 2023 Goals (unrecognized section and content) Goals may be documented in a n alternate section FOR RECORDS PERTAINING TO PATIENTS WHO ARE OR HAVE BEEN ENROLLED IN A CHEMICAL DEPENDENCY/SUBSTANCEABUSE PROGRAM, SOME INFORMATION MAY BE OMITTED. This clinical summary was aggregated from multiple sources. Caution should be exercised in using it in the provision of clinical care. This summary normalizes information from multiple sources, and as a consequence, information in this document may materially change the coding, format and clinical context of patient data. In addition, data may be omitted in some cases. CLINICAL DECISIONS SHOULD BE BASED ON THE PRIMARY CLINICAL RECORDS. [employer] provides no warranty or guarantee of the accuracy or completeness of information in this document.
[2023-11-03 09:02] LABS: Basophils Absolute Auto 0.1 10^3/uL (0.0-0.1); Basophils Percent Auto 0.9 % (0.2-2.0); Eosinophils Absolute Auto 0.5 10^3/uL (0.0-0.7); Eosinophils Percent Auto 5.4 % (0.9-7.0); Hematocrit 44.1 % (42.0-54.0); Hemoglobin 14.8 g/dL (14.0-18.0); Immature Granulocytes Abs Auto 0.02 10^3/uL (0.00-0.03); Immature Granulocytes Pct Auto 0.2 % (0.0-0.5); Lymphocytes Percent Auto 23.3 % (20.5-60.0); Mean Corpuscular HGB Conc 33.6 g/dL (29.9-35.2); Mean Corpuscular Hemoglobin 29.8 pg (25.9-34.0); Mean Corpuscular Volume 88.7 fL (80.0-94.0); Mean Platelet Volume 9.6 fL (9.5-13.5); Monocytes Absolute Auto 0.9 10^3/uL (0.3-0.8); Monocytes Percent Auto 11.1 % (1.7-12.0); Neutrophils Percent Auto 59.1 % (43.0-75.0); Platelet Count 315 10^3/uL (150-450); Red Blood Count 4.97 10^6/uL (4.70-6.10); Red Cell Distribution Width 13.2 % (11.0-15.0); White Blood Count 8.5 10^3/uL (4.0-11.0)
[2023-11-03 09:37] LABS: Percent Iron Saturation 10.4 %
[2023-11-03 09:43] LABS: Alanine Aminotransferase 39 U/L (16-63); Albumin Globulin Ratio 1.2; Albumin Level 3.7 g/dL (3.4-5.0); Alkaline Phosphatase 72 U/L (46-116); Anion Gap 11.5; Aspartate Amino Transferase 26 U/L (15-37); BUN Creatinine Ratio 19.4; Bilirubin Total 0.4 mg/dL (0.2-1.0); Carbon Dioxide 27.7 mmol/L (21.0-32.0); Chloride 105 mmol/L (98-107); Chol HDL Ratio 2.3; Cholesterol 176 mg/dL (<=200); Estimated GFR (African America >60 (>=60); Estimated GFR (Non-African Ame >60 (>=60); Free T3 3.52 pg/mL (2.18-3.98); Globulin 3.2 g/dL; Glucose 100 mg/dL (74-106); HDL Cholesterol 77 mg/dL (40-60); Magnesium 1.8 mg/dL (1.8-2.4); Potassium 4.2 mmol/L (3.5-5.1); Sodium 140 mmol/L (136-145); Thyroid Stimulating Hormone 1.196 uIU/mL (0.358-3.740); Total Protein 6.9 g/dL (6.4-8.2); Triglycerides 38 mg/dL (<=150); Uric Acid 4.5 mg/dL (3.5-7.2); VLDL CHOLESTEROL 7.6 mg/dL
[2023-11-03 09:48] LABS: Prostate Specific Antigen Scrn 3.43 ng/mL (<=4.00)
[2023-11-03 11:58] LABS: Free T4 0.83 ng/dL (0.76-1.46)
== END 2023-11-03 08:36 | disposition home or self-care (01) ==
LOC: LAB 08:36
PROVIDERS: PCP Family Medicine; Visit Provider Family Medicine
DX: Z00.00 Encounter for general adult medical examination without abnormal findings (principal); M15.0 Primary generalized (osteo)arthritis; M35.89 Other specified systemic involvement of connective tissue; I73.00 Raynaud's syndrome without gangrene; Z79.899 Other long term (current) drug therapy
CPT/HCPCS: 36415; 80053; 80061; 81001; 82306; 82607; 82728; 82746; 83540; 83550; 83735; 84439; 84443; 84481; 84550; 85025; 85652; 86140; 86160; 86162; G0103

== ENCOUNTER 2023-11-03 08:38 | Outpatient (OUT) | payer BC, SELFPAY ==
--- OUTSIDE RECORDS SUMMARY | 2023-11-03 08:41 | XMS_ITS ---
Patient Summarization (C-CDA 2.1 CCD) Created on: November 03, 2023 Humberto Lima : 1960 Sex: Male Author Organization Sample organization Care Team Providers Care Videotape Editor Name Role Phone CLARITALUCRECIA MORIN Jefferson Referring Unavailable PROVIDER, UNKNOWN Admitting Unavailable [...] Granados Referring Unavaila ble WAYNEPuneet Attending Unavailable DARCY, Anne Marie Mckenzie Attending Unavailable Allergies Allergy Classification Reported Allergen(s) Allergy Type Date of Onset Reaction(s) Facility (2 sources) Codeine; Translations: [CODEINE] [facility] Codeine; Translations: [Codeine Derivatives] Drug Allergy Nausea -[facility] 600 DO Work Phone: (1 source) Codeine Drug Allergy [facility] [employer] Other Encounters Encounter Date Encounter Type Care Provider Facility Start: 08-28-2023 End: 08-28-2023 ambulatory [facility] Work Phone: Start: 08-28-2023 End: 08-28-2023 Patient encounter procedure [facility] Work Phone: Start: 01-12-2023 End: 01-13-2023 ambulatory Anne Marie TAVERAS [facility] Start: 11-22-[address] Jorge Cabrera Facility: Start: 11-22-2022 Office outpatient vi sit 15 minutes Flavio [facility] Work Phone: Start: 10-19-2022 Rx Renewal Flavio gonzalez Work Phone: [facility] 250 DO Work Phone: Start: 07-04-2022 End: 07-05-2022 ambulatory Puneet [place] Facility[facility] Start: 05-06-2022 End: 05-07-[address] MANUEL AC Facility:[facility]1 Start: 11-22-2021 Encounter for genera l adult medical examination without abnormal findings DR FLAVIO CABRERA [facility] Start: 11-19-2021 End: 11-20-[address] FLAVIO CABRERA Facility:[facility]1 Start: 11-19-2021 End: 11-20-2021 Encounter for general adult medical examination without abnormal findings DR FLAVIO CABRERA Facility:[facility] Start: 09-29-2021 Office outpatient vi sit 25 minutes Flavio Cabrera [facility] 600 DO Work Phone: Start: 07-13-2021 End: 07-14-[address] FLAVIO CABRERA Facility:[facility]1 Start: 07-08-2021 Chart Update Flavio gonzalez Work Phone: [facility] 600 DO Work Phone: Start: 05-25-2021 End: 05-26-[address] DOCTOR GARCIA Facility:[facility]1 Start: 05-12-2021 End: 05-12-2021 ambulatory Karma Ken Other [facility] [employer] Other Start: 05-12-2021 Office outpatient vi sit 15 minutes Karma Rogers [facility] Start: 04-13-2021 Office outpatient vi sit 25 minutes [facility] 600 DO Work Phone: Start: 07-16-2015 End: 07-17-2015 Patient encounter procedure LUCRECIA OTTO Facility:[facility] Immunizations Immunization Date Immunization Notes Care Provider [facility] 02-04-2022 influenza, injectabl e, quadrivalent, preservative free Flavio Cabrera Work Phone: [facility] 250 DO Work Phone: 01-28-2022 Prevnar 20 0.5 ML Intramuscular Suspension Prefilled Syringe Flavio Cabrera Work Phone: [facility] 250 DO Work Phone: 01-21-2022 Pfizer COVID-19 Vac Bivalent 30 MCG/0.3ML Intramuscular Suspension Flavio Cabrera Work Phone: [facility] 250 DO Work Phone: 09-30-2021 Comirnaty 30 MCG/0.3 ML Intramuscular Suspension Flavio Cabrera Work Phone: [facility] 250 DO Work Phone: 09-03-2021 Comirnaty 30 MCG/0.3 ML Intramuscular Suspension [facility]io Cabrera [facility] 600 DO Work Phone: 01-17-2021 influenza, seasonal, injectable Flavio A Cabrera Work Phone: [facility] 600 DO Work Phone: 01-08-2021 Influenza, injectabl e, Madin [place] Canine Kidney, preservative free, quadrivalent Flavio A Cabrera Work Phone: [facility] 600 DO Work Phone: 01-30-2020 zoster vaccine, live Flavio A Cabrera Work Phone: [facility] 600 DO Work Phone: 10-25-2019 zoster vaccine, live Flavio A Cabrera Work Phone: [facility] 600 DO Work Phone: 03-22-2019 Influenza, injectabl e, Madin [place] Canine Kidney, preservative free, quadrivalent Flavio A Cabrera Work Phone: [facility] 600 DO Work Phone: 12-31-2018 influenza virus vacc ine, unspecified formulation Flavio A Cabrera Work Phone: [facility] 600 DO Work Phone: 04-09-2016 zoster vaccine, live Flavio A Cabrera Work Phone: [facility] 600 DO Work Phone: 03-29-2015 pneumococcal conjuga te vaccine, 13 valent Flavio A Cabrera Work Phone: [facility] 600 DO Work Phone: 03-18-2015 influenza virus vacc ine, unspecified formulation Flavio A Cabrera Work Phone: [facility] 600 DO Work Phone: 03-18-2015 pneumococcal polysaccharide vaccine, 23 valent Flavio A Cabrera Work Phone: -[facility] 600 DO Work Phone: Medications Current Medications Medication Drug Class(es) Dates [...] 2023 12:00am take 1 capsule by mo [facility] twice daily at mealtime Celecoxib 200 [...] ) take 1 tablet by mouth twice lial ly Hydroxychloroquine Sulfate 100 MG Oral Tablet [...] 0 Refills: 0 Ordered: 13-Apr-2021 DO Active Payers Date Payer Category Payer Self-pay 2015 [facility] RLCAN [id number] 1960 Unknown [id number] 1960 Unknown [id number] 1960 Unknown [id number] 1960 Unknown [id number] 1960 Unknown [id number] 1960 Unknown [id number] 1960 Unknown [id number] 1959 [facility] [id number] Private Health Insurance [employer] [id number] Unknown ANTHEM Plan of Treatment Date Care Activity Detail Author Start: 11-27-2023 FUV, Provider: Lisa Méndez, Status: Pen, Time: 1:10 PM FUV, Provider: Lisa Méndez, Status: Pen, Time: 1:10 PM [facility] 600 DO Work Phone: Start: 11-22-2022 FUV, Provider: Lisa Méndez, Status: Pen, Time: 11:10 AM FUV, Provider: Lisa Méndez, Status: Pen, Time: 11:10 AM [facility] 250 DO Work Phone: Start: 06-06-2022 FUV, Provider: Lisa Méndez, Status: Pen, Time: 10:30 AM FUV, Provider: Lisa Méndez, Status: Pen, Time: 10:30 AM [facility] DO Work Phone: Start: 08-02-2021 FUV, Provider: Lisa Méndez, Status: Pen, Time: 11:20 AM FUV, Provider: Lisa Méndez, Status: Pen, Time: 11:20 AM [facility] 600 DO Work Phone: Start: 07-28-2021 FUV, Provider: Lisa Méndez, Status: Pen, Time: 1:00 PM FUV, Provider: Lisa Méndez, Status: Pen, Time: 1:00 PM [facility] 600 DO Work Phone: Start: 06-01-2021 STRESS ANDREW, Provider : [facility] 01,[id number], Status: Pen, Time: 11:00 AM STRESS ANDREW, Provider: [facility] 01,[id number], Status: Pen, Time: 11:00 AM [facility] Work Phone: Start: 04-27-2021 STRESS ANDREW, Provider : [facility] 01,[id number], Status: Pen, Time: 11:00 AM STRESS ANDREW, Provider: [facility] 01,[id number], Status: Pen, Time: 11:00 AM [facility] 600 DO Work Phone: Problems Active Problems Problem Classification Problem Date Documented Da te Episodic/Chronic Cardiac dysrhythmias (7 sources) Palpitations; Translations: [Palpitations] Episodic Essential hypertension (7 sources) Essential hypertension; Translations: [Unspecified essential hypertension] Chronic Nonspecific chest pain (7 sources) Chest pain; Translations: [Chest pain, unspecified] Episodic Osteoarthritis (4 sources) Primary generalized (osteo)arthritis; Translations: [PRIMARY GENERALIZED OSTEOARTHRITIS] Onset: 05-06-2022 Chronic Other aftercare (1 source) 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 [address] [place] [address] Dr. Gregg Humphreys Appendectomy Flavio partida Work Phone: Cataract surgery Flavio pat Work Phone: Colonoscopy Flavio partida Work Phone: Comment on above: [id number]; Results Test Name Value Interpretation Reference Range Facility [facility] 01-12-2023 Consent [id number]# 1.00TIFF Normal [facility] In office Testingon 01-13-20 In office Testing [id number]# 1.00TIFF Normal [facility] Registrationon 01-12-2023 Registration [id number]# 1.00TIFF [facility] Office Visit (Cardiology)on 11-22-2022 Follow-up visit Diagnoses/Problems Assessed Chest pain (786.50) (R07.9) Essential hypertension (401.9) (I10) Former smoker (V15.82) (Z87.891) Overweight with body mass index (BMI) of 29 to 29.9 in adult (278.02,V85.25) (E66.3,Z68.29) Palpitations (785.1) (R00.2) Orders Essential hypertension Renew: Metoprolol Tartrate 25 MG Oral Tablet; Take 1 tablet twice daily SocHx: Former smoker Tobacco Use Screening; Status:Complete; Done: [id number] Patient Instructions Please bring all medicines, vitamins, [...] is arthritis. 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 ASSESSMENT 1. Previous evaluation for chest pain. [...] 7. History of arthritis followed by local wreath maker indicate could be either early rheumatoid arthritis [...] History of Cataract surgery History of Colonoscopy [id number] Current Meds Medication NameInstruction buPROPion HCl ER [...] negative for complaint. Vitals Vital Signs Recorded: [id number] 11:27AM Heart Rate60, L Radial Dnedgzat682, LUE, Sitting Kyxarmhql91, LUE, Sitting Height5 ft 6 in Usqhsg800 lb 6 oz BMI Sqvipjazyb85.63 kg/m2 BSA Calculated1.9 Tobacco Useb) No PHQ-2 [...] Nov 22 2022 11:53AM EST (Author) Normal [employer] Tobacco Screening.on 023 Adult depression screening assessment No [facility] 600 DO Work Phone: Fall risk assessment a) No falls within the last year [facility] 600 DO Work Phone: Tobacco use status CP b) No [facility] 600 DO Work Phone: [place] 07-04-2022 Consent [id number]# 1.00CD:127 Normal [facility] Registrationon 07-04-2022 Registration [id number]# 1.00CD:127 Normal [facility] COMPLEMENT TOTAL (CH50)on Complement, Total (CH50) 45 U/mL Normal >[address] [facility] Comment on above: Result Comment: Age [...] Performed By: #### C RP, CMP #### [facility] [address] [place] [address] Dr. Gregg Humphreys C3 and C4 COMPLEMENTon 05-07 Complement C3, Serum 159 mg/dL Normal 82-[address] [facility] Comment on above: Performed By: #### S EDR #### [facility] [address] [place] [address] Dr. Gregg Humphreys Complement C4, Serum 27 mg/dL Normal 12-38 [facility] Comment on above: Performed By: #### S EDR #### [facility] [address] [place] [address] Dr. Gregg Humphreys CBC AUTO DIFFon 05-06-2022 BASO # 0.1 103/ul Normal 0.0-0.1 [facility] Comment on above: Performed By: #### C BC #### [facility] [address] [place] [address] Dr. Gregg Humphreys Basophils/100 WBC (Bld) 0.8 % Normal 0.2-2.0 [facility] Comment on above: Performed By: #### C BC #### [facility] [address] [place] [address] Dr. Gregg Humphreys EO # 0.4 103/ul Normal 0.0-0.[address] [facility] Comment on above: Performed By: #### C BC #### [facility] [address] [place] [address] Dr. Gregg Humphreys Eosinophils/100 WBC (Bld) 4.9 % Normal 0.9-7.[address] [facility] Comment on above: Performed By: #### C BC #### [facility] [address] [place] [address] Dr. Gregg Humphreys Erythrocyte distribution width (RBC) [Ratio] 13.2 % Normal 11.0-15.0 [facility] Comment on above: Performed By: #### C BC #### [facility] [address] [place] [address] Dr. Gregg Humphreys Hematocrit (Bld) [Volume fraction] 49.6 % Normal 42.0-54.0 [facility] Comment on above: Performed By: #### C BC #### [facility] [address] [place] [address] Dr. Gregg Humphreys Hemoglobin (Bld) [Mass/Vol] 15.4 g/dL Normal 14.0-18.0 [facility] Comment on above: Performed By: #### C BC #### [facility] [address] [place] [address] Dr. Gregg Humphreys IG # 0.04 10e3/ul Critically high 0.00-0.03 [facility] Comment on above: Performed By: #### C BC #### [facility] [address] [place] [address] Dr. Gregg Humphreys IG % 0.6 % Critically high 0.0-0.5 [facility] Comment on above: Performed By: #### C BC #### [facility] [address] [place] [address] Dr. Gregg Humphreys LYMPH # 2.4 103/ul Normal 1.2-3.8 [facility] Comment on above: Performed By: #### C BC #### [facility] [address] [place] [address] Dr. Gregg Humphreys Lymphocytes/100 WBC (Bld) 34.1 % Normal 20.5-60.0 [facility] Comment on above: Performed By: #### C BC #### [facility] [address] [place] [address] Dr. Gregg Humphreys MANUAL DIFF REQ NO Normal [facility] Comment on above: Performed By: #### C BC #### [facility] [address] [place] [address] Dr. Gregg Humphreys MCH (RBC) [Entitic mass] 28.3 pg Normal 25.9-34.0 [facility] Comment on above: Performed By: #### C BC #### [facility] [address] [address] [address] Gregg Humphreys MCHC (RBC) [Mass/Vol] 31.0 g/dL Normal 29.9-35.2 [facility] Comment on above: Performed By: #### C BC #### [facility] [address] [place] [address] Dr. Gregg Humphreys MCV (RBC) [Entitic vol] 91.0 fL Normal 80.0-94.0 [facility] Comment on above: Performed By: #### C BC #### [facility] [address] [place] [address] Dr. Gregg Humphreys MONO # 0.9 103/ul Critically high 0.3-0.8 [facility] Comment on above: Performed By: #### C BC #### [facility] [address] [place] [address] Dr. Gregg Humphreys Monocytes/100 WBC (Bld) 12.7 % Critically high 1.7-12.0 [facility] Comment on above: Performed By: #### C BC #### [facility] [address] [place] [address] Dr. Gregg Humphreys NEUT # 3.4 103/ul Normal 1.4-6.5 [facility] Comment on above: Performed By: #### C BC #### [facility] [address] [place] [address] Dr. Gregg Humphreys Neutrophils/100 WBC (Bld) 46.9 % Normal 43.0-75.[address] [facility] Comment on above: Performed By: #### C BC #### [facility] [address] [place] [address] Dr. Gregg Humphreys Platelet mean volume (Bld) [Entitic vol] 9.2 fL Critically low 9.5-13.5 [facility] Comment on above: Performed By: #### C BC #### [facility] [address] [place] [address] Dr. Gregg Humphreys PLT 405 103/ul Normal 150-450 [facility] Comment on above: Performed By: #### C BC #### [facility] [address] [place] [address] Dr. Gregg Humphreys RBC 5.45 106/ul Normal 4.70-6.10 [facility] Comment on above: Performed By: #### C BC #### [facility] [address] [place] [address] Dr. Gregg Humphreys WBC 7.2 103/ul Normal 4.0-11.0 [facility] Comment on above: Performed By: #### C BC #### [facility] [address] [place] [address] Dr. Gregg Humphreys CRPon 05-06-2022 CRP [Mass/Vol] mg/L Normal <=1.0 [facility] Comment on above: Performed By: #### C RP, CMP #### [facility] [address] [place] [address] Dr. Gregg Humphreys PROF 14(COMP METB)on 023 Albumin [Mass/Vol] 4.1 g/dL Normal 3.4-5.0 [facility] Comment on above: Performed By: #### C RP, CMP #### [facility] [address] [place] [address] Dr. Gregg Humphreys Albumin/Globulin [Mass ratio] 1.1 {ratio} Normal [facility] Comment on above: Performed By: #### C RP, CMP #### [facility] [address] [place] [address] Dr. Gregg Humphreys ALP [Catalytic activity/Vol] 71 U/L Normal 46-[address] [facility] Comment on above: Performed By: #### C RP, CMP #### [facility] [address] [place] [address] Dr. Gregg Humphreys ALT [Catalytic activity/Vol] 30 U/L Normal 16-63 [facility] Comment on above: Performed By: #### C RP, CMP #### [facility] [address] [place] [address] Dr. Gregg Humphreys Anion gap [Moles/Vol] 10.4 mmol/L Normal [facility] Comment on above: Performed By: #### C RP, CMP #### [facility] [address] [place] [address] Dr. Gregg Humphreys AST [Catalytic activity/Vol] 23 U/L Normal 15-37 [facility] Comment on above: Performed By: #### C RP, CMP #### [facility] [address] [place] [address] Dr. Gregg Humphreys Bilirubin [Mass/Vol] 0.5 mg/dL Normal 0.2-1.0 [facility] Comment on above: Performed By: #### C RP, CMP #### [facility] [address] [place] [address] Dr. Gregg Humphreys Calcium [Mass/Vol] 9.5 mg/dL Normal 8.5-10.1 [facility] Comment on above: Performed By: #### C RP, CMP #### [facility] [address] [place] [address] Dr. Gregg Humphreys Chloride [Moles/Vol] 103 mmol/L Normal 98-107 [facility] Comment on above: Performed By: #### C RP, CMP #### [facility] [address] [place] [address] Dr. Gregg Humphreys CO2 [Moles/Vol] 29.8 mmol/L Normal 21.0-32.0 [facility] Comment on above: Performed By: #### C RP, CMP #### [facility] [address] [place] [address] Dr. Gregg Humphreys Creatinine [Mass/Vol] 0.88 mg/dL Normal 0.70-1.30 [facility] Comment on above: Performed By: #### C RP, CMP #### [facility] [address] [place] [address] Dr. Gregg Humphreys EGFR-AF PALAUAN >60 Normal >=60 [facility] Comment on above: Performed By: #### C RP, CMP #### [facility] [address] [place] [address] Dr. Gregg Humphresy EGFR-NON AF PALAUAN >60 Normal >=[address] [facility] Comment on above: Performed By: #### C RP, CMP #### [facility] [address] [address] [address] Gregg Humphreys Globulin (S) [Mass/Vol] 3.9 g/dL Normal [facility] Comment on above: Performed By: #### C RP, CMP #### [facility] [address] [address] [address] Gregg Humphreys Glucose [Mass/Vol] 91 mg/dL Normal 74-106 [facility] Comment on above: Performed By: #### C RP, CMP #### [facility] [address] [place] [address] Dr. Gregg Humphreys Potassium [Moles/Vol] 4.2 mmol/L Normal 3.5-5.1 [facility] Comment on above: Performed By: #### C RP, CMP #### [facility] [address] [place] [address] Dr. Gregg Humphreys Protein [Mass/Vol] 8.0 g/dL Normal 6.4-8.2 [facility] Comment on above: Performed By: #### C RP, CMP #### [facility] [address] [place] [address] Dr. Gregg Humphreys Sodium [Moles/Vol] 139 mmol/L Normal 136-145 [facility] Comment on above: Performed By: #### C RP, CMP #### [facility] [address] [place] [address] Dr. Gregg Humphreys Urea nitrogen [Mass/Vol] 16.0 mg/dL Normal 7.0-18.0 [facility] Comment on above: Performed By: #### C RP, CMP #### [facility] [address] [place] [address] Dr. Gregg Humphreys Urea nitrogen/Creatinine [Mass ratio] 18.2 mg/mg Normal [facility] Comment on above: Performed By: #### C RP, CMP #### [facility] [address] [place] [address] Dr. Gregg Humphreys SED RATE [facility] 2022 SED RATE 42 mm/hr Critically high <=20 [facility] Comment on above: Performed By: #### C RP, CMP #### [facility] [address] [place] [address] Dr. Gregg Humphreys UA RANDOM W/MICROSCOPICon BACTERIA NONE SEEN Normal NONE SEEN [facility] Comment on above: Performed By: #### U AMIC #### [facility] [address] [place] [address] Dr. Gregg Humphreys Bilirubin Ql (U) Negative Normal NEGATIVE [facility] Comment on above: Performed By: #### U AMIC #### [facility] [address] [place] [address] Dr. Gregg Humphreys CAST NONE SEEN Normal NONE SEEN [facility] Comment on above: Performed By: #### U AMIC #### [facility] [address] [place] [address] Dr. Gregg Humphreys Clarity (U) CLEAR Normal CLEAR [facility] Comment on above: Performed By: #### U AMIC #### [facility] [address] [place] [address] Dr. Gregg Humphreys Color (U) LT. YELLOW Normal YELLOW [facility] Comment on above: Performed By: #### U AMIC #### [facility] [address] [place] [address] Dr. Gregg Humphreys Crystals LM Nom (Urine sed) NONE SEEN Normal NONE SEEN [facility] Comment on above: Performed By: #### U AMIC #### [facility] [address] [place] [address] Dr. Gregg Humphreys Epithelial cells LM Ql (Urine sed) FEW Abnormal NONE SEEN /RARE [facility] Comment on above: Performed By: #### U AMIC #### [facility] [address] [place] [address] Dr. Gregg Humphreys Glucose Ql (U) Negative Normal NEGATIVE [facility] Comment on above: Performed By: #### U AMIC #### [facility] [address] [place] [address] Dr. Gregg Humphreys Hemoglobin Ql (U) Negative Normal NEGATIVE [facility] Comment on above: Performed By: #### U AMIC #### [facility] [address] [address] [address] Gregg Humphreys Ketones Ql (U) Negative Normal NEGATIVE [facility] Comment on above: Performed By: #### U AMIC #### [facility] [address] [address] [address] Gregg Humphreys LEUKOCYTES Negative Normal NEGATIVE [facility] Comment on above: Performed By: #### U AMIC #### [facility] [address] [address] [address] Gregg Humphreys MUCOUS NONE SEEN Normal NONE SEEN [facility] Comment on above: Performed By: #### U AMIC #### [facility] [address] [address] [address] Gregg Humphreys Nitrite Ql (U) Negative Normal NEGATIVE [facility] Comment on above: Performed By: #### U AMIC #### [facility] [address] [address] [address] Gregg Humphreys pH (U) 5.5 [pH] Normal 5-9 [facility] Comment on above: Performed By: #### U AMIC #### [facility] [address] [address] [address] Gregg Humphreys RBC NONE SEEN Abnormal 0-2 [facility] Comment on above: Performed By: #### U AMIC #### [facility] [address] [address] [address] Gregg Humphreys SPEC GRAVITY <=1.005 Abnormal 1.005-<=1.025 [facility] Comment on above: Performed By: #### U AMIC #### [facility] [address] [address] [address] Gregg Humphreys UA PROTEIN Negative Normal NEGATIVE/ TRACE [facility] Comment on above: Performed By: #### U AMIC #### [facility] [address] [address] [address] Gregg Humphreys Urobilinogen Qn (U) 0.2 {Kiki'U}/dL Normal 0.2 - 1. 0 [facility] Comment on above: Performed By: #### U AMIC #### [facility] [address] [place] [address] Dr. Gregg Humphreys WBC NONE SEEN Normal NONE SEEN [facility] Comment on above: Performed By: #### U AMIC #### [facility] [address] [place], [place] [id number] Dr. Gregg Humphreys CBC AUTO DIFFon 11-19-2021 BASO # 0.1 103/ul Normal 0.0-0.1 [facility] Comment on above: Performed By: #### C BC #### [facility] [address] [place] [address] Dr. Gregg Humphreys Basophils/100 WBC (Bld) 1.3 % Normal 0.2-2.0 [facility] Comment on above: Performed By: #### C BC #### [facility] [address] [place] [address] Dr. Gregg Humphreys EO # 0.4 103/ul Normal 0.0-0.7 [facility] Comment on above: Performed By: #### C BC #### [facility] [address] [place] [address] Dr. Gregg Humphreys Eosinophils/100 WBC (Bld) 5.2 % Normal 0.9-7.0 [facility] Comment on above: Performed By: #### C BC #### [facility] [address] [place] [address] Dr. Gregg Humphreys Erythrocyte distribution width (RBC) [Ratio] 13.1 % Normal 11.0-15.[address] [facility] Comment on above: Performed By: #### C BC #### [facility] [address] [place] [address] Dr. Gregg Hupmhreys Hematocrit (Bld) [Volume fraction] 46.1 % Normal 42.0-54.[address] [facility] Comment on above: Performed By: #### C BC #### [facility] [address] [place] [address] Dr. Gregg Humphreys Hemoglobin (Bld) [Mass/Vol] 14.9 g/dL Normal 14.0-18.[address] [facility] Comment on above: Performed By: #### C BC #### [facility] [address] [place] [address] Dr. Gregg Humphreys IG # 0.04 10e3/ul Critically high 0.00-0.03 [facility] Comment on above: Performed By: #### C BC #### [facility] [address] [place] [address] Dr. Gregg Humphreys IG % 0.5 % Normal 0.0-0.5 [facility] Comment on above: Performed By: #### C BC #### [facility] [address] [place] [address] Dr. Gregg Humphreys LYMPH # 2.4 103/ul Normal 1.2-3.8 [facility] Comment on above: Performed By: #### C BC #### [facility] [address] [place] [address] Dr. Gregg Humphreys Lymphocytes/100 WBC (Bld) 30.9 % Normal 20.5-60.0 [facility] Comment on above: Performed By: #### C BC #### [facility] [address] [place] [address] Dr. Gregg Humphreys MANUAL DIFF REQ NO Normal [facility] Comment on above: Performed By: #### C BC #### [facility] [address] [place] [address] Dr. Gregg Humphreys MCH (RBC) [Entitic mass] 28.1 pg Normal 25.9-34.0 [facility] Comment on above: Performed By: #### C BC #### [facility] [address] [place] [address] Dr. Gregg Humphreys MCHC (RBC) [Mass/Vol] 32.3 g/dL Normal 29.9-35.[address] [facility] Comment on above: Performed By: #### C BC #### [facility] [address] [place] [address] Dr. Gregg Humphreys MCV (RBC) [Entitic vol] 87.0 fL Normal 80.0-94.0 [facility] Comment on above: Performed By: #### C BC #### [facility] [address] [address] [address] Gregg Humphreys MONO # 1.0 103/ul Critically high 0.3-0.8 [facility] Comment on above: Performed By: #### C BC #### [facility] [address] [address] [address] Gregg Humphreys Monocytes/100 WBC (Bld) 12.7 % Critically high 1.7-12.0 [facility] Comment on above: Performed By: #### C BC #### [facility] [address] [place] [address] Dr. Gregg Humphreys NEUT # 3.9 103/ul Normal 1.4-6.5 [facility] Comment on above: Performed By: #### C BC #### [facility] [address] [place] [address] Dr. Gregg Humphreys Neutrophils/100 WBC (Bld) 49.4 % Normal 43.0-75.0 [facility] Comment on above: Performed By: #### C BC #### [facility] [address] [place] [address] Dr. Gregg Humphreys Platelet mean volume (Bld) [Entitic vol] 8.9 fL Critically low 9.5-13.5 [facility] Comment on above: Performed By: #### C BC #### [facility] [address] [place] [address] Dr. Gregg Humphreys PLT 353 103/ul Normal 150-[address] [facility] Comment on above: Performed By: #### C BC #### [facility] [address] [place] [address] Dr. Gregg Humphreys RBC 5.30 106/ul Normal 4.70-6.[address] [facility] Comment on above: Performed By: #### C BC #### [facility] [address] [place] [address] Dr. Gregg Humphreys WBC 7.9 103/ul Normal 4.0-11.[address] [facility] Comment on above: Performed By: #### C BC #### [facility] [address] [place] [address] Dr. Gregg Humphreys FREE T3on 11-19-2021 FREE T3 3.39 pg/mlL Normal 2.18-3.98 [facility] Comment on above: Performed By: #### T SH, FT3, LIPID, CMP #### [facility] [address] [address] [address] Gregg Humphreys FREE T4on 11-19-2021 Free T4 [Mass/Vol] 0.86 ng/dL Normal 0.76-1.46 [facility] Comment on above: Performed By: #### C RP, CMP #### [facility] [address] [place] [address] Dr. Gregg Humphreys GLYCOHEMOGLOBIN A1Con 2021 ADA RECOMMENDATION SEE BELOW Normal [facility] Comment on above: Result Comment: ADA RECOMMENDED LIMIT 4.0 - 6.0 ADA THERAPEUTIC TARGET < 7.0 ACTION SUGGESTED > 7.0 Performed By: #### C RP, CMP #### [facility] [address] [place] [address] Dr. Gregg Humphreys Glucose [Mass/Vol] 120 mg/dL Normal [facility] Comment on above: Performed By: #### C RP, CMP #### [facility] [address] [place] [address] Dr. Gregg Humphreys HbA1c (Bld) [Mass fraction] 5.8 % Normal 4.5-6.2 [facility] Comment on above: Performed By: #### C RP, CMP #### [facility] [address] [place] [address] Dr. Gregg Humphreys LIPID PROFILEon 11-19-2021 CHOL-HDL RATIO NORM SEE BELOW Normal [facility] Comment on above: Result Comment: 3.3 - 4.4 LOW RISK 4.4 - 7.1 AVERAGE RISK 7.1 - 11.0 MODERATE RISK >11.0 HIGH RISK Performed By: #### T SH, FT3, LIPID, CMP #### [facility] [address] [place] [address] Dr. Gregg Humphreys Cholesterol [Mass/Vol] 195 mg/dL Normal <=200 [facility] Comment on above: Performed By: #### T SH, FT3, LIPID, CMP #### [facility] [address] [address] [address] Gregg Humphreys Cholesterol in HDL [Mass/Vol] 73 mg/dL Critically high 40-60 [facility] Comment on above: Performed By: #### T SH, FT3, LIPID, CMP #### [facility] [address] [address] [address] Gregg Humphreys Cholesterol in LDL [Mass/Vol] 113.0 mg/dL Normal [facility] Comment on above: Performed By: #### T SH, FT3, LIPID, CMP #### [facility] [address] [address] [address] Gregg Humphreys Cholesterol.total/Ch olesterol in HDL [Mass ratio] 2.7 {ratio} Normal [facility] Comment on above: Performed By: #### T SH, FT3, LIPID, CMP #### [facility] [address] [address] [address] Gregg Humphreys HDL NORMAL > or = 60 mg/dl - LO W CARDIOVASCULAR RISK <40 mg/dl - HIGH CARDIOVASCULAR RISK Normal [facility] Comment on above: Performed By: #### T SH, FT3, LIPID, CMP #### [facility] [address] [address] [address] Gregg Humphreys LDL CALC NORMAL SEE BELOW Normal [facility] Comment on above: Result Comment: <100 mg/dl OPTIMAL 100 - 129 mg/dl NEAR OR ABOVE OPTIMAL 130 - 159 mg/dl BORDERLINE HIGH 160 - 189 mg/dl HIGH >190 mg/dl VERY HIGH Performed By: #### T SH, FT3, LIPID, CMP #### [facility] [address] [address] [address] Gregg Humphreys Triglyceride [Mass/Vol] 45 mg/dL Normal <=[address] [facility] Comment on above: Performed By: #### T SH, FT3, LIPID, CMP #### [facility] [address] [address] [address] Gregg Humphreys VLDL CALC 9.0 mg/dL Normal [facility] Comment on above: Performed By: #### T SH, FT3, LIPID, CMP #### [facility] [address] [place] [address] Dr. Gregg Humphreys PROF 14(COMP METB)on 022 Albumin [Mass/Vol] 4.0 g/dL Normal 3.4-5.0 [facility] Comment on above: Performed By: #### T SH, FT3, LIPID, CMP #### [facility] [address] [place] [address] Dr. Gregg Humphreys Albumin/Globulin [Mass ratio] 1.3 {ratio} Normal [facility] Comment on above: Performed By: #### T SH, FT3, LIPID, CMP #### [facility] [address] [place] [address] Dr. Gregg Humphreys ALP [Catalytic activity/Vol] 75 U/L Normal 46-116 [facility] Comment on above: Performed By: #### T SH, FT3, LIPID, CMP #### [facility] [address] [place] [address] Dr. Gregg Humphreys ALT [Catalytic activity/Vol] 24 U/L Normal 16-63 [facility] Comment on above: Performed By: #### T SH, FT3, LIPID, CMP #### [facility] [address] [place] [address] Dr. Gregg Humphreys Anion gap [Moles/Vol] 12.7 mmol/L Normal [facility] Comment on above: Performed By: #### T SH, FT3, LIPID, CMP #### [facility] [address] [place] [address] Dr. Gregg Humphreys AST [Catalytic activity/Vol] 17 U/L Normal 15-37 [facility] Comment on above: Performed By: #### T SH, FT3, LIPID, CMP #### [facility] [address] [place] [address] Dr. Gregg Humphreys Bilirubin [Mass/Vol] 0.6 mg/dL Normal 0.2-1.0 [facility] Comment on above: Performed By: #### T SH, FT3, LIPID, CMP #### [facility] [address] [address] [address] Gregg Humphreys Calcium [Mass/Vol] 9.1 mg/dL Normal 8.5-10.1 [facility] Comment on above: Performed By: #### T SH, FT3, LIPID, CMP #### [facility] [address] [address] [address] Gregg Humphreys Chloride [Moles/Vol] 104 mmol/L Normal 98-[address] [facility] Comment on above: Performed By: #### T SH, FT3, LIPID, CMP #### [facility] [address] [address] [address] Gregg Humphreys CO2 [Moles/Vol] 25.6 mmol/L Normal 21.0-32.0 [facility] Comment on above: Performed By: #### T SH, FT3, LIPID, CMP #### [facility] [address] [address] [address] Gregg Humphreys Creatinine [Mass/Vol] 1.04 mg/dL Normal 0.70-1.[address] [facility] Comment on above: Performed By: #### T SH, FT3, LIPID, CMP #### [facility] [address] [address] [address] Gregg Humphreys EGFR-AF PALAUAN >60 Normal >=60 [facility] Comment on above: Performed By: #### T SH, FT3, LIPID, CMP #### [facility] [address] [address] [address] Gregg Humphreys EGFR-NON AF PALAUAN >60 Normal >=[address] [facility] Comment on above: Performed By: #### T SH, FT3, LIPID, CMP #### [facility] [address] [address] [address] Gregg Humphreys Globulin (S) [Mass/Vol] 3.1 g/dL Normal [facility] Comment on above: Performed By: #### T SH, FT3, LIPID, CMP #### [facility] [address] [address] [address] Gregg Humphreys Glucose [Mass/Vol] 93 mg/dL Normal 74-106 [facility] Comment on above: Performed By: #### T SH, FT3, LIPID, CMP #### [facility] [address] [place] [address] Dr. Gregg Humphreys Potassium [Moles/Vol] 4.3 mmol/L Normal 3.5-5.[address] [facility] Comment on above: Performed By: #### T SH, FT3, LIPID, CMP #### [facility] [address] [place] [address] Dr. Gregg Humphreys Protein [Mass/Vol] 7.1 g/dL Normal 6.4-8.2 [facility] Comment on above: Performed By: #### T SH, FT3, LIPID, CMP #### [facility] [address] [place] [address] Dr. Gregg Humphreys Sodium [Moles/Vol] 138 mmol/L Normal 136-145 [facility] Comment on above: Performed By: #### T SH, FT3, LIPID, CMP #### [facility] [address] [place] [address] Dr. Gregg Humphreys Urea nitrogen [Mass/Vol] 20.0 mg/dL Critically high 7.0-18.[address] [facility] Comment on above: Performed By: #### T SH, FT3, LIPID, CMP #### [facility] [address] [place] [address] Dr. Gregg Humphreys Urea nitrogen/Creatinine [Mass ratio] 19.2 mg/mg Normal [facility] Comment on above: Performed By: #### T SH, FT3, LIPID, CMP #### [facility] [address] [place] [address] Dr. Gregg Humphreys TSHon 11-19-2021 TSH 1.020 uIU/mL Normal 0.358-3.740 [facility] Comment on above: Performed By: #### T SH, FT3, LIPID, CMP #### [facility] [address] [place] [address] Dr. Gregg Humphreys VIT B12 AND FOLATEon 022 Cobalamin (Vitamin B12) [Mass/Vol] 359.0 pg/mL Normal 193.0-986.0 [facility] Comment on above: Performed By: #### C RP, CMP #### [facility] [address] [address] [address] Gregg Humphreys FOLATE 8.80 ng/mL Normal 8.60-58.90 [facility] Comment on above: Performed By: #### C RP, CMP #### [facility] [address] [id number] Gregg Humphreys Tobacco Screening.on 022 Adult depression screening assessment No [facility] [employer] 600 DO Work Phone: Fall risk assessment a) No falls within the last year [facility] [employer] 600 DO Work Phone: Tobacco use status CPHS b) No [facility] [employer] 600 DO Work Phone: XR LSPINE 2_3 [...] by: LILI BARRERA Date: 2021-07-13 14:32 Normal [facility] Cardiac Stress Teston 2021 Cardiac Stress Test [address], [address], [place] [address] Exercise Stress Test Patient Name: HUMBERTO LIMA Ordering Physician: Study Date: 07/06/2021 Reading Physician: [id number] Virgilio Beaulieu MD, FACC MRN/PID: [id number] Supervising Physician: [id number] Virgilio Beaulieu MD, FACC Accession/Order#: [id number] Referring Physician: [id number] LISA MÉNDEZ Date of : 1960 PCP: Gender: M Fellow: Height: 167.64 cm Nurse: Rossi Olea RN Weight: 85.28 kg Principal Strategist: N/A BSA: 1.95 m2 Technologist: BMI: 30.34 kg/m2 Additional Staff: Age: 60 years cc report to: Study Type: Cardiac Stress Test Diagnosis/ICD: R07.9-Chest pain, unspecified Indication: Chest Pain Procedure/CPT: Stress Test Supervision-[id number] Falls Risk: Low: Patient has low risk [...] response to exercise due to Beta blockers. [id number] Virgilio Beaulieu MD, FACC Electronically signed on 07/08/2021 at 8:54:56 AM Final Normal [facility] Cardiac Stress [facility] Work Phone: C3 and C4 COMPLEMENTon 05-26 Complement C3, Serum 172 mg/dL Critically high 82-[address] [facility] Comment on above: Performed By: #### S EDR #### [facility] [address] [place], [place] [id number] Dr. Gregg Humphreys Complement C4, Serum 30 mg/dL Normal 12-[address] [facility] Comment on above: Performed By: #### S EDR #### [facility] [address] [place] [address] Dr. Gregg Humphreys COMPLEMENT TOTAL (CH50)on Complement, Total (CH50) >60 Normal >[address] [facility] Comment on above: Result Comment: Age [...] values. Performed By: #### S EDR #### [facility] [address] [place] [address] Dr. Gregg Humphreys CBC AUTO DIFFon 05-25-2021 BASO # 0.1 103/ul Normal 0.0-0.1 [facility] Comment on above: Performed By: #### S EDR #### [facility] [address] [place] [address] Dr. Gregg Humphreys Basophils/100 WBC (Bld) 1.4 % Normal 0.2-2.0 [facility] Comment on above: Performed By: #### S EDR #### [facility] [address] [place] [address] Dr. Gregg Humphreys EO # 0.5 103/ul Normal 0.0-0.7 [facility] Comment on above: Performed By: #### S EDR #### [facility] [address] [place] [address] Dr. Gregg Humphreys Eosinophils/100 WBC (Bld) 7.3 % Critically high 0.9-7.0 [facility] Comment on above: Performed By: #### S EDR #### [facility] [address] [place] [address] Dr. Gregg Humphreys Erythrocyte distribution width (RBC) [Ratio] 14.1 % Normal 11.0-15.0 [facility] Comment on above: Performed By: #### S EDR #### [facility] [address] [place] [address] Dr. Gregg Humphreys Hematocrit (Bld) [Volume fraction] 48.1 % Normal 42.0-54.0 [facility] Comment on above: Performed By: #### S EDR #### [facility] [address] [place] [address] Dr. Gregg Humphreys Hemoglobin (Bld) [Mass/Vol] 15.4 g/dL Normal 14.0-18.0 [facility] Comment on above: Performed By: #### S EDR #### [facility] [address] [place] [address] Dr. Gregg Humphreys IG # 0.17 10e3/ul Critically high 0.00-0.03 [facility] Comment on above: Performed By: #### S EDR #### [facility] [address] [place] [address] Dr. Gregg Humphreys IG % 2.3 % Critically high 0.0-0.5 [facility] Comment on above: Performed By: #### S EDR #### [facility] [address] [place] [address] Dr. Gregg Humphreys LYMPH # 2.5 103/ul Normal 1.2-3.8 [facility] Comment on above: Performed By: #### S EDR #### [facility] [address] [place] [address] Dr. Gregg Humphreys Lymphocytes/100 WBC (Bld) 33.9 % Normal 20.5-60.0 [facility] Comment on above: Performed By: #### S EDR #### [facility] [address] [place] [address] Dr. Gregg Humphreys MANUAL DIFF REQ NO Normal [facility] Comment on above: Performed By: #### S EDR #### [facility] [address] [place] [address] Dr. Gregg Humphreys MCH (RBC) [Entitic mass] 28.9 pg Normal 25.9-34.[address] [facility] Comment on above: Performed By: #### S EDR #### [facility] [address] [address] [address] Gregg Humphreys MCHC (RBC) [Mass/Vol] 32.0 g/dL Normal 29.9-35.2 [facility] Comment on above: Performed By: #### S EDR #### [facility] [address] [address] [address] Gregg Humphreys MCV (RBC) [Entitic vol] 90.2 fL Normal 80.0-94.0 [facility] Comment on above: Performed By: #### S EDR #### [facility] [address] [place] [address] Dr. Gregg Humphreys MONO # 0.8 103/ul Normal 0.3-0.8 [facility] Comment on above: Performed By: #### S EDR #### [facility] [address] [place] [address] Dr. Gregg Humphreys Monocytes/100 WBC (Bld) 11.4 % Normal 1.7-12.0 [facility] Comment on above: Performed By: #### S EDR #### [facility] [address] [place] [address] Dr. Gregg Humphreys NEUT # 3.2 103/ul Normal 1.4-6.5 [facility] Comment on above: Performed By: #### S EDR #### [facility] [address] [place] [address] Dr. Gregg Humphreys Neutrophils/100 WBC (Bld) 43.7 % Normal 43.0-75.[address] [facility] Comment on above: Performed By: #### S EDR #### [facility] [address] [place] [address] Dr. Gregg Humphreys Platelet mean volume (Bld) [Entitic vol] 9.2 fL Critically low 9.5-13.5 [facility] Comment on above: Performed By: #### S EDR #### [facility] [address] [place] [address] Dr. Gregg Humphreys PLT 416 103/ul Normal 150-450 [facility] Comment on above: Performed By: #### S EDR #### [facility] [address] [place] [address] Dr. Gregg Humphreys RBC 5.33 106/ul Normal 4.70-6.10 [facility] Comment on above: Performed By: #### S EDR #### [facility] [address] [place] [address] Dr. Gregg Humphreys WBC 7.4 103/ul Normal 4.0-11.0 [facility] Comment on above: Performed By: #### S EDR #### [facility] [address] [place] [address] Dr. Gregg Humphreys CRPon 05-25-2021 CRP [Mass/Vol] mg/L Normal <=1.0 [facility] Comment on above: Performed By: #### C RP, CMP #### [facility] [address] [place] [address] Dr. Gregg Humphreys PROF 14(COMP METB)on 022 Albumin [Mass/Vol] 3.5 g/dL Normal 3.5-5.0 [facility] Comment on above: Performed By: #### C RP, CMP #### [facility] [address] [place] [address] Dr. Gregg Humphreys Albumin/Globulin [Mass ratio] 0.9 {ratio} Normal [facility] Comment on above: Performed By: #### C RP, CMP #### [facility] [address] [place] [address] Dr. Gregg Humphreys ALP [Catalytic activity/Vol] 90 U/L Normal 38-[address] [facility] Comment on above: Performed By: #### C RP, CMP #### [facility] [address] [place] [address] Dr. Gregg Humphreys ALT [Catalytic activity/Vol] 56 U/L Normal 21-72 [facility] Comment on above: Performed By: #### C RP, CMP #### [facility] [address] [place] [address] Dr. Gregg Humphreys Anion gap [Moles/Vol] 11.9 mmol/L Normal [facility] Comment on above: Performed By: #### C RP, CMP #### [facility] [address] [place] [address] Dr. Gregg Humphreys AST [Catalytic activity/Vol] 21 U/L Normal 17-59 [facility] Comment on above: Performed By: #### C RP, CMP #### [facility] [address] [place] [address] Dr. Gregg Humphreys Bilirubin [Mass/Vol] 0.3 mg/dL Normal 0.2-1.3 [facility] Comment on above: Performed By: #### C RP, CMP #### [facility] [address] [place] [address] Dr. Gregg Humphreys Calcium [Mass/Vol] 9.2 mg/dL Normal 8.4-10.2 [facility] Comment on above: Performed By: #### C RP, CMP #### [facility] [address] [place] [address] Dr. Gregg Humphreys Chloride [Moles/Vol] 105 mmol/L Normal 98-107 [facility] Comment on above: Performed By: #### C RP, CMP #### [facility] [address] [place] [address] Dr. Gregg Humphreys CO2 [Moles/Vol] 27.0 mmol/L Normal 22.0-30.0 [facility] Comment on above: Performed By: #### C RP, CMP #### [facility] [address] [place] [address] Dr. Gregg Humphreys Creatinine [Mass/Vol] 1.00 mg/dL Normal 0.66-1.25 [facility] Comment on above: Performed By: #### C RP, CMP #### [facility] [address] [place] [address] Dr. Gregg Humphreys EGFR-AF PALAUAN >60 Normal >=60 [facility] Comment on above: Performed By: #### C RP, CMP #### [facility] [address] [place] [address] Dr. Gregg Humphreys EGFR-NON AF PALAUAN >60 Normal >=60 [facility] Comment on above: Performed By: #### C RP, CMP #### [facility] [address] [place] [address] Dr. Gregg Humphreys Globulin (S) [Mass/Vol] 3.7 g/dL Normal [facility] Comment on above: Performed By: #### C RP, CMP #### [facility] [address] [place] [address] Dr. Gregg Humphreys Glucose [Mass/Vol] 118 mg/dL Critically high 74-106 [facility] Comment on above: Performed By: #### C RP, CMP #### [facility] [address] [place] [address] Dr. Gregg Humphreys Potassium [Moles/Vol] 3.9 mmol/L Normal 3.4-5.0 [facility] Comment on above: Performed By: #### C RP, CMP #### [facility] [address] [place] [address] Dr. Gregg Humphreys Protein [Mass/Vol] 7.2 g/dL Normal 6.1-8.2 [facility] Comment on above: Performed By: #### C RP, CMP #### [facility] [address] [place] [address] Dr. Gregg Humphreys Sodium [Moles/Vol] 140 mmol/L Normal 137-145 [facility] Comment on above: Performed By: #### C RP, CMP #### [facility] [address] [place] [address] Dr. Gregg Humphreys Urea nitrogen [Mass/Vol] 17.0 mg/dL Normal 9.0-20.0 [facility] Comment on above: Performed By: #### C RP, CMP #### [facility] [address] [place] [address] Dr. Gregg Humphreys Urea nitrogen/Creatinine [Mass ratio] 17.0 mg/mg Normal [facility] Comment on above: Performed By: #### C RP, CMP #### [facility] [address] [place] [address] Dr. Gregg Humphreys SED RATE [facility] 2021 SED RATE 20 mm/hr Normal <=[address] [facility] Comment on above: Performed By: #### S EDR #### [facility] [address] [place] [address] Dr. Gregg Humphreys UA RANDOM W/MICROSCOPICon BACTERIA TRACE Abnormal NONE SEEN [facility] Comment on above: Performed By: #### C RP, CMP #### [facility] [address] [place] [address] Dr. Gregg Humphreys Bilirubin Ql (U) Negative Normal NEGATIVE [facility] Comment on above: Performed By: #### C RP, CMP #### [facility] [address] [place] [address] Dr. Gregg Humphreys CAST NONE SEEN Normal NONE SEEN [facility] Comment on above: Performed By: #### C RP, CMP #### [facility] [address] [place] [address] Dr. Gregg Humphreys Clarity (U) CLEAR Normal CLEAR [facility] Comment on above: Performed By: #### C RP, CMP #### [facility] [address] [place] [address] Dr. Gregg Humphreys Color (U) LT. YELLOW Normal YELLOW [facility] Comment on above: Performed By: #### C RP, CMP #### [facility] [address] [place] [address] Dr. Gregg Humphreys Crystals LM Nom (Urine sed) NONE SEEN Normal NONE SEEN [facility] Comment on above: Performed By: #### C RP, CMP #### [facility] [address] [place] [address] Dr. Gregg Humphreys Epithelial cells LM Ql (Urine sed) NONE SEEN Normal NONE SEEN /RARE [facility] Comment on above: Performed By: #### C RP, CMP #### [facility] [address] [place] [address] Dr. Gregg Humphreys Glucose Ql (U) Negative Normal NEGATIVE [facility] Comment on above: Performed By: #### C RP, CMP #### [facility] [address] [place] [address] Dr. Gregg Humphreys Hemoglobin Ql (U) Negative Normal NEGATIVE [facility] Comment on above: Performed By: #### C RP, CMP #### [facility] [address] [place] [address] Dr. Gregg Humphreys Ketones Ql (U) Negative Normal NEGATIVE [facility] Comment on above: Performed By: #### C RP, CMP #### [facility] [address] [place] [address] Dr. Gregg Humphreys LEUKOCYTES Negative Normal NEGATIVE [facility] Comment on above: Performed By: #### C RP, CMP #### [facility] [address] [place] [address] Dr. Gregg Humphreys MUCOUS NONE SEEN Normal NONE SEEN [facility] Comment on above: Performed By: #### C RP, CMP #### [facility] [address] [place] [address] Dr. Gregg Humphreys Nitrite Ql (U) Negative Normal NEGATIVE [facility] Comment on above: Performed By: #### C RP, CMP #### [facility] [address] [place] [address] Dr. Gregg Humphreys pH (U) 6.0 [pH] Normal 5-9 [facility] Comment on above: Performed By: #### C RP, CMP #### [facility] [address] [place] [address] Dr. Gregg Humphreys RBC NONE SEEN Abnormal 0-2 [facility] Comment on above: Performed By: #### C RP, CMP #### [facility] [address] [place] [address] Dr. Gregg Humphreys SPEC GRAVITY 1.015 Normal 1.005-<=1.025 [facility] Comment on above: Performed By: #### C RP, CMP #### [facility] [address] [place] [address] Dr. Gregg Humphreys UA PROTEIN Negative Normal NEGATIVE/ TRACE [facility] Comment on above: Performed By: #### C RP, CMP #### [facility] [address] [place] [address] Dr. Gregg Humphreys Urobilinogen Qn (U) 0.2 {Kiki'U}/dL Normal 0.2 - 1. [address] [facility] Comment on above: Performed By: #### C RP, CMP #### [facility] [address] [place], [place] [address] Dr. Gregg Humphreys WBC NONE SEEN Normal NONE SEEN [facility] Comment on above: Performed By: #### C RP, CMP #### [facility] [address] [place], [place] [address] Dr. Gregg Humphreys Tobacco Screening.on 022 Fall risk assessment a) No falls within the last year [facility] [employer] 600 DO Work Phone: Tobacco use status CPHS b) No [facility] 600 DO Work Phone: Social History Date Type Detail Facility Start: 1960 Sex Assigned At Male F [facility] No illicit drug use No illicit drug use M [facility] [employer] 600 DO Work Phone: Comment on above: 3-4 cups coffee felecia y, 1 can of diet pop; Sex Assigned At Sex Assigned At [facility] [employer] Other Vital Signs Date Time Vital Sign Value Performing Clinician Facility 08-28-2023 12:26-040 Body height 167.64 cm [facility] 08-28-2023 12:26-0400 Body mass index (BMI) [Ratio] 29.3 kg/m2 [facility] 08-28-2023 12:26-0400 Body temperature 98.1 [degF] [facility] 08-28-2023 12:26-0400 Body weight 82.55 kg [facility] 08-28-2023 12:26-0400 Diastolic blood pressure 46 mm[Hg] [facility] 08-28-2023 12:26-0400 Heart rate 60 /min [facility] 08-28-2023 12:26-0400 Respiratory rate 18 /min [facility] 08-28-2023 12:26-0400 SaO2% (BldA) [Mass fraction] 98 % [facility] 08-28-2023 12:26-0400 Systolic blood pressure 144 mm[Hg] [facility] 11-22-2022 11:27-0400 Body height 167.64 cm Flavio Jackson Cabrera Work Phone: [facility] [employer] 600 DO Work Phone: 11-22-2022 11:27-0400 Body mass index (BMI) [Ratio] 28.63 kg/m2 Flavio Jackson Cabrera Work Phone: [facility] [employer] 600 DO Work Phone: 11-22-2022 11:27-0400 Body surface area Derived from formula 1.9 m2 Flavio Jackson Cabrera Work Phone: [facility] [employer] 600 DO Work Phone: 11-22-2022 11:27-0400 Body weight 80.46 kg Flavio Jackson Cabrera Work Phone: [facility] [employer] 600 DO Work Phone: 11-22-2022 11:27-0400 Diastolic blood pressure 60 mm[Hg] Flavio Jackson Cabrera Work Phone: [facility] [employer] 600 DO Work Phone: 11-22-2022 11:27-0400 Heart rate 60 /min Flavio Jackson Cabrera Work Phone: [facility] [employer] 600 DO Work Phone: 11-22-2022 11:27-0400 Systolic blood pressure 124 mm[Hg] Flavio Jackson Cabrera Work Phone: [facility] [employer] 600 DO Work Phone: 09-29-2021 10:14-0400 Diastolic blood pressure 70 mm[Hg] Flavio Jackson Cabrera Work Phone: [facility] [employer] 600 DO Work Phone: 09-29-2021 10:14-0400 Systolic blood pressure 138 mm[Hg] Flavio Jackson Cabrera Work Phone: [facility] [employer] 600 DO Work Phone: 09-29-2021 09:50-0400 Body height 167.64 cm Flavio Jackson Cabrera Work Phone: [facility] 600 DO Work Phone: 09-29-2021 09:50-0400 Body mass index (BMI) [Ratio] 29.05 kg/m2 Flavio Jackson Cabrera Work Phone: [facility] [employer] 600 DO Work Phone: 09-29-2021 09:50-0400 Body surface area Derived from formula 1.91 m2 Flavio Jackson Cabrera Work Phone: [facility] [employer] 600 DO Work Phone: 09-29-2021 09:50-0400 Body weight 81.65 kg Flavio Jackson Cabrera Work Phone: [facility] [employer] 600 DO Work Phone: 09-29-2021 09:50-0400 Heart rate 60 /min Flavio Jackson Cabrera Work Phone: [facility] 600 DO Work Phone: 09-29-2021 09:50-0400 Systolic blood pressure 140 mm[Hg] Flavio Jackson Cabrera Work Phone: [facility] [employer] 600 DO Work Phone: 05-12-2021 12:25-0500 Body height 167.64 cm Karma Rogers Other [place] Other 05-12-2021 12:25-0500 Body mass index (BMI) [Ratio] 29.21 kg/m2 Karma Rogers Other [employer] Other 05-12-2021 12:25-0500 Body temperature 97.5 [degF] Karma Rogers Other [employer] Other 05-12-2021 12:25-0500 Body weight 82.1 kg Karma Rogers Other [employer] Other 05-12-2021 12:25-0500 Diastolic blood pressure 78 mm[Hg] Karma Rogers Other [employer] Other 05-12-2021 12:25-0500 Respiratory rate 20 /min Karma Rogers Other [employer] Other 05-12-2021 12:25-0500 SaO2% (BldA) [Mass fraction] 96 % Karma Rogers Other [employer] Other 05-12-2021 12:25-0500 Systolic blood pressure 135 mm[Hg] Karma Rogers Other [employer] Other 04-13-2021 10:58-0500 Body height 167.64 cm Flavio Jackson [employer] Work Phone: [employer] 600 DO Work Phone: 04-13-2021 10:58-0500 Body mass index (BMI) [Ratio] 30.34 kg/m2 Flavio Jackson [employer] Work Phone: [employer] 600 DO Work Phone: 04-13-2021 10:58-0500 Body surface area Derived from formula 1.95 m2 Flavio Jackson [employer] Work Phone: [employer] 600 DO Work Phone: 04-13-2021 10:58-0500 Body weight 85.28 kg Flavio Cabrera Work Phone: [facility] [employer] 600 DO Work Phone: 04-13-2021 10:58-0500 Diastolic blood pressure 94 mm[Hg] Flavio Cabrera Work Phone: [facility] [employer] 600 DO Work Phone: 04-13-2021 10:58-0500 Heart rate 60 /min Flavio Cabrera Work Phone: [facility] [employer] 600 DO Work Phone: 04-13-2021 10:58-0500 Systolic blood pressure 152 mm[Hg] Flavio Cabrera Work Phone: [facility] [employer] 600 DO Work Phone: Clinical Note 07-13-2021 Note Date & Type Note Facility 07-13-2021 Note PROCEDURE: XR HIP LT 2 3V WO PELVIS HISTORY: Pain of left hip joint ; chronic COMPARISON: None. FINDINGS: BONES:No fracture, acute abnormality, or significant arthropathy. SOFT TISSUES:No visible soft tissue swelling. EFFUSION:None visible. OTHER: Negative. IMPRESSION: 1. Normal examination. Electronically authenticated by: LILI BARRERA Date: 2021-07-13 14:30 [facility] Evaluation note 05-12-2021 Note Date & Type Note Facility 05-12-2021 Evaluation note Encounter Date Diagnosis Assessment Notes May, Oral thrush (ICD-10 - B37.0) May mix with the Nystatin that you already have. If the symptoms don't improve, follow up with primary care provider. [employer] Other History general Narrative - Reported 04-02-2021 Note Date & Type Note Facility 04-02-2021 History general N arrative - Reported Type Medical History Arthritis Medical History hypertension Surgical History appendectomy Hospitalization History see above Hospitalization History pneumonia 04/2021 [employer] Other Evaluation note Note Date & Type Note Facility Evaluation note No assessment information gopal [facility] Work Phone: History of Present illness [...] me change in cardiac status or symptoms [facility] 600 DO Work Phone: History of Present [...] is arthritis. 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 Previous evaluation for chest pain. Repeat stress [...] disease.7. History of arthritis followed by local wreath maker indicate could be either early rheumatoid arthritis [...] me change in cardiac status or symptoms [facility] 600 DO Work Phone: Summary Purpose Family [...] Directives No May 10:59am Chief Complaint HUMBERTO LIMA is being seen for a 3-4 month follow-up of.HUMBERTO LIMA is being seen for a 9 [...] and content) DATE CREATED AUTHOR 04/25/2020 [facility] DATE CREATED AUTHOR AUTHOR'S ORGANIZ ATION [facility]/08/2021 [facility] DATE CREATED AUTHOR AUTHOR'S ORGANIZ ATION 05/09/2022 [facility] DATE CREATED AUTHOR AUTHOR'S ORGANIZ ATION 11/23/2022 [facility] DATE CREATED AUTHOR AUTHOR'S ORGANIZ ATION 11/23/2022 [employer] DATE CREATED AUTHOR AUTHOR'S ORGANIZ ATION 01/14/2023 [facility] REASON FOR VISIT (unrecogniz ed section and content) WHITE SPOTS IN MOUTH POSS TH GRIFFIN 6 DAYS POST ANTIBIOTIC USE Care Teams (unrecognized sec tion and content) Team Status: Active Member Role Status Dates Flavio Cabrera , DO Primary Care Provider Active Team Status: Inactive Member Role Status Dates Flavio Cabrera , DO Primary Care Provider Active Start: August [...] BE BASED ON THE PRIMARY CLINICAL RECORDS. [facility] [employer] [facility] provides no warranty or guarantee of the accuracy or completeness of information in this document.
[2023-11-03 09:05] LABS: Bilirubin Urine NEGATIVE (NEGATIVE); Blood Urine NEGATIVE (NEGATIVE); Clarity Urine CLEAR (CLEAR); Color Urine LT. YELLOW (YELLOW); Glucose Urine UA NEGATIVE (NEGATIVE); Ketones Urine NEGATIVE (NEGATIVE); Leukocyte Esterase Urine NEGATIVE (NEGATIVE); Nitrite Urine NEGATIVE (NEGATIVE); Protein Urine NEGATIVE (NEG/TRACE); Specific Gravity Urine >=1.030 (1.005-1.025); Urobilinogen Urine 0.2 EU/dL (0.2-1.0)
[2023-11-03 09:38] LABS: C Reactive Protein 0.85 mg/dL (<=0.50)
[2023-11-03 09:50] LABS: Erythrocyte Sedimentation Rate 33 mm/hr (<=20)
[2023-11-03 10:29] LABS: Bacteria Urine TRACE #/HPF (NONE SEEN); Cast Seen? NONE SEEN #/LPF (NONE SEEN); Crystals Seen? None Seen #/HPF (None Seen); Mucus Urine SMALL (NONE SEEN); RBC Urine 0-2 #/HPF (0-2); Squamous Epithelial Cell Urine FEW #/LPF (NONE/RARE); WBC Urine 0-2 #/HPF (NONE SEEN)
[2023-11-04 07:08] LABS: Complement C3, Serum 141 mg/dL (82-167); Complement C4, Serum 26 mg/dL (12-38)
[2023-11-05 13:07] LABS: Complement, Total (CH50) >60 U/mL (>41)
== END 2023-11-03 08:39 | disposition home or self-care (01) ==
LOC: LAB 08:38
PROVIDERS: PCP Family Medicine; Visit Provider Internal Medicine Rheumatology
DX: M15.0 Primary generalized (osteo)arthritis (principal); M35.89 Other specified systemic involvement of connective tissue; I73.00 Raynaud's syndrome without gangrene; Z79.899 Other long term (current) drug therapy
CPT/HCPCS: 36415; 80053; 81001; 85652; 86140; 86160; 86162

== ENCOUNTER 2024-03-28 08:18 | Outpatient (OUT) | payer BC, SELFPAY ==
--- NOTE | 2024-03-28 08:23 | MR_ITS ---
[address] [address] Patient Name: MIAH LIMA MRN: [id number] date: 1960 Sex: M Assigned Patient Location: MRI Current Patient Location: Accession/Order Number: [id number] Exam Date: 03/28/2024 08:55 Report Date: 04/01/2024 09:31 At the request of: NON-STAFF PHYSICIAN Procedure: MR lumbar spine wo con EXAM: MR lumbar spine wo con REASON FOR EXAM: Right Lumbar Radiculopathy, Right Inguinal Pain. TECHNIQUE: Multiplanar, multisequence imaging of the lumbar spine was performed without contrast COMPARISON: Radiographs 07/13/2021. FINDINGS: 5 nonrib-bearing lumbar vertebrae. Normal lumbar lordosis without listhesis. Vertebral body heights are maintained. Modic type II changes are present at the L2-L3 and L5-S1 levels. No acute or aggressive osseous abnormality is evident. The visualized bony pelvis appears congruent with mild joint space narrowing of the SI joints. Limited evaluation of the abdominopelvic viscera is without acute or suspicious abnormality. L1-L2: Minimal broad-based disc bulge without spinal canal stenosis. Mild bilateral neural foraminal stenosis, left greater than right secondary to disc osteophyte complex and facet arthropathy. L2-L3: Broad-based disc bulge with more focal broad-based right foraminal lateral protrusion. No spinal canal stenosis. Minimal right lateral recess stenosis. Mild left and moderate right neural foraminal stenosis secondary to disc osteophyte complex and facet arthropathy. L3-L4: Broad-based disc bulge with a superimposed right foraminal and lateral recess extrusion with superior migration. This results in lgwd-ag-wrudnvev right lateral recess stenosis. Severe right and moderate left neural foraminal stenosis secondary to disc extrusion, disc osteophyte complex and facet arthropathy. L3-L4: Broad-based disc bulge with flattening the ventral thecal sac. Mild right lateral recess stenosis. Moderate bilateral neural foraminal stenosis, left greater than right secondary to disc osteophyte complex and facet arthropathy. L5-S1: Broad-based disc bulge with small broad-based central disc protrusion. Mild spinal canal stenosis. Mild right lateral recess stenosis with mild compression of traversing right S1 nerve root. Moderate to severe bilateral neural foraminal stenosis secondary to disc osteophyte complex and facet arthropathy. MR/MR lumbar spine wo con IMPRESSION: 1. Moderate multilevel degenerative disc disease and facet arthropathy throughout the lumbar spine. Focal disc herniation at the L3-L4 level as described above. No evidence of severe spinal canal stenosis. Electronically authenticated by: CATHERINE DOWNING Date: 04/01/2024 09:31
== END 2024-03-28 08:19 | disposition home or self-care (01) ==
LOC: MRI 08:18
PROVIDERS: PCP Family Medicine
DX: M54.16 Radiculopathy, lumbar region (principal); R10.31 Right lower quadrant pain; M51.369 Other intervertebral disc degeneration, lumbar region without mention of lumbar back pain or lower extremity pain
CPT/HCPCS: 72148

== ENCOUNTER 2024-04-08 10:08 | Outpatient (OUT) | payer BC, SELFPAY ==
[2024-04-08 10:27] LABS: Basophils Absolute Auto 0.1 10^3/uL (0.0-0.1); Basophils Percent Auto 0.9 % (0.2-2.0); Eosinophils Absolute Auto 0.5 10^3/uL (0.0-0.7); Eosinophils Percent Auto 6.5 % (0.9-7.0); Hematocrit 44.3 % (42.0-54.0); Hemoglobin 14.6 g/dL (14.0-18.0); Immature Granulocytes Abs Auto 0.05 10^3/uL (0.00-0.03); Immature Granulocytes Pct Auto 0.6 % (0.0-0.5); Lymphocytes Absolute Auto 2.4 10^3/uL (1.2-3.8); Lymphocytes Percent Auto 30.8 % (20.5-60.0); Mean Corpuscular Hemoglobin 29.4 pg (25.9-34.0); Mean Corpuscular Volume 89.1 fL (80.0-94.0); Mean Platelet Volume 8.9 fL (9.5-13.5); Monocytes Absolute Auto 0.9 10^3/uL (0.3-0.8); Monocytes Percent Auto 11.7 % (1.7-12.0); Neutrophils Absolute Auto 3.9 10^3/uL (1.4-6.5); Neutrophils Percent Auto 49.5 % (43.0-75.0); Platelet Count 289 10^3/uL (150-450); Red Blood Count 4.97 10^6/uL (4.70-6.10); Red Cell Distribution Width 13.6 % (11.0-15.0); White Blood Count 7.8 10^3/uL (4.0-11.0)
[2024-04-08 10:28] LABS: Bilirubin Urine NEGATIVE (NEGATIVE); Blood Urine NEGATIVE (NEGATIVE); Clarity Urine CLEAR (CLEAR); Color Urine YELLOW (YELLOW); Glucose Urine UA NEGATIVE (NEGATIVE); Ketones Urine NEGATIVE (NEGATIVE); Leukocyte Esterase Urine NEGATIVE (NEGATIVE); Nitrite Urine NEGATIVE (NEGATIVE); Protein Urine NEGATIVE (NEG/TRACE); Specific Gravity Urine >=1.030 (1.005-1.025); pH Urine 6.5 (5.0-9.0)
[2024-04-08 10:56] LABS: Erythrocyte Sedimentation Rate 11 mm/hr (<=20)
[2024-04-08 11:02] LABS: Alanine Aminotransferase 28 U/L (16-63); Albumin Globulin Ratio 1.1; Albumin Level 3.4 g/dL (3.4-5.0); Alkaline Phosphatase 82 U/L (46-116); Anion Gap 10.9; Aspartate Amino Transferase 22 U/L (15-37); BUN Creatinine Ratio 21.1; Bilirubin Total 0.5 mg/dL (0.2-1.0); C Reactive Protein <0.50 mg/dL (<=0.50); Calcium 8.6 mg/dL (8.5-10.1); Carbon Dioxide 28.1 mmol/L (21.0-32.0); Chloride 105 mmol/L (98-107); Estimated GFR (African America >60 (>=60 mL/min/1.73m^2); Estimated GFR (Non-African Ame >60 (>=60 mL/min/1.73m^2); Globulin 3.1 g/dL; Glucose 98 mg/dL (74-106); Sodium 140 mmol/L (136-145); Total Protein 6.5 g/dL (6.4-8.2)
[2024-04-08 11:35] LABS: Bacteria Urine TRACE #/HPF (NONE SEEN); RBC Urine 0-2 #/HPF (0-2); WBC Urine 0-2 #/HPF (NONE SEEN)
[2024-04-08 11:36] LABS: Cast Seen? NONE SEEN #/LPF (NONE SEEN); Crystals Seen? None Seen #/HPF (None Seen); Mucus Urine NONE SEEN (NONE SEEN); Squamous Epithelial Cell Urine NONE SEEN #/LPF (NONE/RARE)
[2024-04-09 04:08] LABS: Complement C3, Serum 125 mg/dL (82-167); Complement C4, Serum 23 mg/dL (12-38)
[2024-04-09 15:08] LABS: Complement, Total (CH50) >60 U/mL (>41)
== END 2024-04-08 10:09 | disposition home or self-care (01) ==
LOC: LAB 10:10
PROVIDERS: PCP Family Medicine; Visit Provider Internal Medicine Rheumatology
DX: M15.0 Primary generalized (osteo)arthritis (principal); Z79.899 Other long term (current) drug therapy; I73.00 Raynaud's syndrome without gangrene; M35.89 Other specified systemic involvement of connective tissue
CPT/HCPCS: 36415; 80053; 81001; 85025; 85652; 86140; 86160; 86162

== ENCOUNTER 2024-10-11 08:08 | Outpatient (RCR) | payer BC, SELFPAY ==
--- OUTSIDE RECORDS SUMMARY | 2024-08-14 10:56 | XMS_ITS ---
Author Organization The [facility] in [place] Address [address] [place] [address] Care Team Providers Care Solutions Architect Consultant Name Role Phone Flavio Myers Primary Care Provider Encounters Encounter Location Date Provider Diagnosis [place] [address] [place] [address] 08/14/2024 Flavio Myers Plan Of Treatment No Information Progress Notes * Humberto LIMADOB:[birth year] (63 yo M)Acc No.[id number]:08/14/2024 Patient: Ebonie MACEADRIEL Humberto :1960 A ge:63 Y S ex:Male Address:[address] [place] [address] [address], [place], [address] * true * Date: Generated for Néstor gonzalez/Jacqueline/eTransmitting on: 0 10/11/2024 08:10 AM EDT
--- OUTSIDE RECORDS SUMMARY | 2024-09-01 05:16 | XMS_ITS ---
Author Organization The [facility] in [place] Address [address] [place] [address] Care Team Providers Care Training And Development Officer Name Role Phone Flavio Myers Primary Care Provider REASON FOR VISIT med change Encounters Encounter Location Date Provider Diagnosis [place] [address] [place] [address] 09/01/2024 Flavio Myers Plan Of Treatment No Information Progress Notes * Humberto LIMADOB:[birth year] (63 yo M)Acc No.[id number]:09/01/2024 Patient: Ebonie MIRANDASTEPHENJasonHumberto :1960 A ge:63 Y S ex:Male Address:[address] [place] [address] [address], [place], [address] * true * Date: Generated for Néstor gonzalez/Jacqueline/Shreesmitting on: 0 10/11/2024 08:10 AM EDT
--- OUTSIDE RECORDS SUMMARY | 2024-09-10 07:15 | XMS_ITS ---
Author Organization [facility] in [place] Address [address] [place] [address] Care Team Providers Care Cargo Mate Name Role Phone Flavio Myers Primary Care [...] 09/10/2024 Encounters Encounter Location Date Provider Diagnosis [facility] [address] [place] [address] 09/10/2024 Flavio Myers Restless legs syndro me [...] Details Follow Up: 2 Months, Reason: wellness Progress Notes * Humberto LIMADOB:[birth year] (63 yo M)Acc No.[id number]:09/10/2024 Established Patient: Humberto GRIER Provider: Hoda Myers DO :1960 A ge:63 Y S ex:Male Date:09/10/2024 Address:[address] [place], [place] [id number] Check In:11:17 AM ESTCheck O ut:12:05 PM [...] F41.1 RICK (generalized anx iety disorder) Modified On:11/29/2022/U Status:confirmed J30.2 Seasonal allergic rh initis, unspecified trigger Modified On:11/29/2022U Status:confirmed Z68.30 BMI 30.0-30.9,adult Modified On:04/27/2022/U Status:confirmed E66.9 Obesity (BMI 30-39.9 ) Modified On:04/27/2022/U Status:confirmed M47.816 Lumbar spondylosis Modified On:11/29/2022U Status:confirmed M54.31 Sciatica, right side Modified On:08/31/2023U Status:confirmed I10 Essential (primary) hypertension Modified On:10/12/2023/U Status:confirmed G25.81 Restless legs syndro me Modified On:10/12/2023U Status:confirmed R53.82 Chronic fatigue, uns pecified Modified On:11/27/2023/U Status:confirmed E66.3 Overweight Modified On:01/23/2024U Status:confirmed * Medical History: * Surgical History: a ppendectomy colonoscopy +int hem 12/22/2013EGD +HH/PUD 12/22/2013colonoscopy 2007B/L cataract surgery 04/2022 * Hospitalization/Major Diagno stic [...] Super B Complex Vitamin D3 50 MCG (1999 UT) Capsule 1 capsule Orally Once a [...] B Complex Not-Taking/PRN Vitamin D3 50 MCG (1999 UT) Capsule 1 capsule Orally Once a [...] true * Provider: Hoda Myers DO Date: 09/10/2024 Generated for Printi ng/Falennyg/eTransmitting on: 10/11/2024 08:11 AM EDT History and Physical Notes * Examination [...]
--- OUTSIDE RECORDS SUMMARY | 2024-10-11 08:11 | XMS_ITS | Encounter Summary ---
Author Organization [facility] Address [address] [place] [address] Phone Care Team Providers Care Exposure Machine Operator Name Role Phone Flavio Myers DO Primary Care Provider Encounter Details Date Type Department Care Team (Late st Contact Info) Description 05/06/2022 Orders Only [facility] [address] [place] [address] Conversion, Onbase Social History Tobacco Use Types Packs/Day Years Used Date Smoking Tobacco: Never Assessed Sex and Gender Information Value Date Recorded Sex Assigned at Not on file Legal Sex Male 10:27 AM EST Gender Identity Not on file Sexual Orientation Not on file documented as of this encounter Plan of Treatment Scheduled Orders Name Type Priority Associated Diagnoses Orde r Schedule OUTSIDE LAB SCAN Lab Ordered: 05/06/2022 documented as of this encounter Visit Diagnoses Not on filedocumented in this encounter Care Teams Exposure Machine Operator Relationship Specialty Start Date End Date Flavio Myers DO [address] [place] [address] PCP - General 04/02/18 documented as of this encounter
--- OUTSIDE RECORDS SUMMARY | 2024-10-11 08:11 | XMS_ITS | Encounter Summary ---
Author Organization [facility] Address [address] [place] [address] Phone Care Team Providers Care Food And Beverage Assistant Manager Name Role Phone Flavio Myers DO Primary Care Provider Encounter Details Date Type Department Care Team (Late st Contact Info) Description 03/23/2021 Orders Only [facility] [address] [place] [address] Conversion, Onbase Social History Tobacco Use Types [...] r Schedule OUTSIDE LAB SCAN Lab Ordered: 03/23/2021 documented as of this encounter Visit Diagnoses Not on filedocumented in this encounter Care Teams Food And Beverage Assistant Manager Relationship Specialty Start Date End Date Flavio Myers DO [address] [place] [address] PCP - General 04/02/18 documented as of this encounter
--- OUTSIDE RECORDS SUMMARY | 2024-10-11 08:11 | XMS_ITS | Encounter Summary ---
Author Organization [facility] Address [address] [place] [address] Phone Care Team Providers Care Field Contractor Name Role Phone Flavio Myers DO Primary Care Provider Encounter Details Date Type Department Care Team (Late st Contact Info) Description 11/07/2020 Orders Only [facility] [address] [place] [address] Conversion, Onbase Social History Tobacco Use Types [...] r Schedule OUTSIDE LAB SCAN Lab Ordered: 11/07/2020 documented as of this encounter Visit Diagnoses Not on filedocumented in this encounter Care Teams Field Contractor Relationship Specialty Start Date End Date Flavio Myers DO [address] [place] [address] PCP - General 04/02/18 documented as of this encounter
--- OUTSIDE RECORDS SUMMARY | 2024-10-11 08:11 | XMS_ITS | CCD ---
Author Organization [facility] Care Team Providers Care Scaffolder Name Role Phone CLARITALUCRECIA MORIN Jefferson Referring Unavailable PROVIDER, UNKNOWN Admitting Unavailable PROVIDER, UNKNOWN Attending Unavailable FLAVIO CABRERA Primary Care Unavailable Flavio Cabrera Unavailable Unavailable Unavailable Karma Rogers Unavailable OSORIO, [...] ble Traboulssi, Dr. Granados Referring Unavaila ble Turroosevelt, Amarilis Attending Unavailable Amarilis Crooks Admitting Unavailable CabreraFlavio Primary Care Unavailable Cabrera, DO Flavio Jackson Primary Care Provider BILLY Crooks Attending Provider Unavailable Primary Care Provider UnavailJENNY Arriaza Attending Unavailable MP BENITEZ Attending Unavailable AMARILIS CROOKS Referring Unavailable MP BENITEZ Attending Unavailable AMARILIS CROOKS Referring Unavailable MP BENITEZ Attending Unavailable AMARILIS CROOKS Referring Unavailable MP BENITEZ Attending Unavailable AMARILIS CROOKS Referring Unavailable Puneet JOVEL Attending Unavailable Anne Marie TAVERAS Attending Unavailable Allergies Allergy Classification Reported Allergen(s) Allergy Type Date of Onset Reaction(s) Facility (10 sources) Codeine; Translations: [CODEINE] Drug Allergy 4 Dizziness, Nausea Only, Unknown [facility] (7 sources) Codeine; Translations: [Codeine Derivatives] Drug Allergy Nausea [facility] 600 DO Work Phone: (1 source) Codeine Drug Allergy [facility] Other Medications Current Medications Medication Drug Class(es) Dates Sig (Normalized) Sig (Original) celecoxib 200 mg oral capsule (20 sources) Nonsteroidal Anti-inflammatory Drug Start: 08-28-2023 take 1 capsule by mouth twice daily Celecoxib (Celebrex) 200 mg capsule Active 200 MG PO Twice daily August 28, 2023 12:00am CeleBREX Active cyclobenzaprine hydrochloride 5 mg oral tablet (6 sources) Muscle Relaxant Start: 08-28-2023 take 1-2 tablets by mouth twice daily as needed cyclobenzaprine (Flexeril) 5 MG tablet TAKE 1 TO 2 TABLETS BY MOUTH TWICE DAILY NEEDED 08/28/2023 Active hydroCHLOROthiazide 25 mg oral tablet (6 sources) Thiazide Diuretic take 1 tablet by mouth once daily hydroCHLOROthiazide (HYDRODiuril) 25 MG tablet take 1 tablet by oral route every day Oral Active Hydroxychloroquine (20 sources) Antimalarial, Antirheumatic Agent Start: 04-18-2024 take 2 tablets by mouth twice daily Hydroxychloroquine 100 mg tablet Active 200 MG PO Twice daily April 18, 2024 11:57am Start: 04-18-2024 take 2 tablets by mo ut twice daily Hydroxychloroquine 100 mg tablet Active 200 MG PO Twice daily April 18, 2024 10:57am Start: 01-03-2024 End: 04-18-2024 take 1 tablet by mouth twice daily Hydroxychloroquine 100 mg tablet Discontinued 100 MG PO Twice daily January 03, 2024 8:54am April 18, 2024 11:57am FreeTextSig: as directed Orally twice a day; Note: Source Status: Not-TakingundefinedPRN; Provider: Debora De La Cruz ( ) Start: 01-03-2024 End: 04-18-2024 take 1 tablet by mouth twice daily Hydroxychloroquine 100 mg tablet Discontinued 100 MG PO Twice daily January 03, 2024 7:54am April 18, 2024 10:57am FreeTextSig: as directed Orally twice a day; Note: Source Status: Not-TakingundefinedPRN; Provider: Debora De La Cruz ( ) Start: 01-03-2024 take 1 tablet by shant th twice daily Hydroxychloroquine 100 mg tablet Active 100 MG PO Twice daily January 03, 2024 7:54am FreeTextSig: as directed Orally twice a day; Note: Source Status: Not-TakingundefinedPRN; Provider: Debora De La Cruz ( ) Start: 01-03-2024 take 100 mg by mouth twice daily Hydroxychloroquine Active 100 MG PO Twice daily January 03, 2024 8:54am FreeTextSig: as directed Orally twice a day; Note: Source Status: Not-Taking\PRN; Provider: Debora De La Cruz ( ) Start: 08-28-2023 End: 01-03-2024 take 2 tablets by mouth twice daily Hydroxychloroquine 100 mg tablet Discontinued 200 MG PO Twice daily August 28, 2023 12:00am January 03, 2024 8:56am FreeTextSig: as directed Orally twice a day; Note: Source Status: Not-TakingundefinedPRN; Provider: Debora De La Cruz ( ) Start: 08-28-2023 End: 01-03-2024 take 2 tablets by mouth twice daily Hydroxychloroquine 100 mg tablet Discontinued 200 MG PO Twice daily August 27, 2023 11:00pm January 03, 2024 7:56am FreeTextSig: as directed Orally twice a day; Note: Source Status: Not-TakingundefinedPRN; Provider: Debora De La Cruz ( ) Start: 08-28-2023 End: 01-03-2024 take 200 mg by mouth twice daily Hydroxychloroquine Discontinued 200 MG PO Twice daily August 28, 2023 12:00am January 03, 2024 8:56am FreeTextSig: as directed Orally twice a day; Note: Source Status: Not-Taking\PRN; Provider: Debora De La Cruz ( ) take 1 tablet by shant twice daily Hydroxychloroquine Sulfate 100 MG Oral Tablet one tablet two times daily Quantity: 0 Refills: 0 Ordered: 22-Nov-2022 DO Active Hydroxychloroqui ne Sulfate Not-Taking levocetirizine dihydrochloride 5 mg oral tablet (8 sources) Histamine-1 Receptor Antagonist Start: 08-28-2023 take 1 tablet by mouth once daily in the evening as needed Levocetirizine (Xyzal) 5 mg tablet Active 5 MG PO Every evening as needed August 28, 2023 12:00am lidocaine 0.05 mg/mg medicated patch (7 sources) Antiarrhythmic, Amide Local Anesthetic Start: 08-28-2023 apply 1 dose transdermal route once daily as needed lidocaine (Lidoderm) 5 % patch APPLY ONE PATCH on the skin ONCE DAILY NEEDED leave on most painful area for up to 12 HOURS 08/28/2023 Active Start: 05-12-2021 Lidocaine Visc ous 2% 5 ml Mouth/Throat every 4 hours as needed May, Active linaclotide 0.072 mg oral capsule (14 sources) Guanylate Cyclase-C Agonist Start: 08-28-2023 take 1 capsule by mouth once daily Linaclotide (Linzess) 72 mcg capsule Active 72 MCG PO Daily August 28, 2023 12:00am losartan potassium 100 mg oral tablet (7 sources) Angiotensin 2 Receptor Cindy Start: 01-03-2024 take 1 tablet by mouth once daily Losartan 100 mg tablet Active 100 MG PO Daily January 03, 2024 12:00am rOPINIRole 0.5 mg oral tablet (13 sources) Nonergot Dopamine Agonist Start: 12-05-2023 take 1 tablet by mouth once daily Ropinirole 0.5 mg tablet Active 0.5 MG PO Daily January 03, 2024 12:00am Completed/Discontinued Medications Medication Drug Class(es) Dates Sig (Normalized) Sig (Original) buPROPion hydrochloride 75 mg oral tablet (20 sources) Aminoketone Start: 08-28-2023 End: 04-18-2024 Bupropion Hcl 75 mg tablet Discontinued 75 MG PO Twice daily August 28, 2023 12:00am April 18, 2024 11:56am administer 6 hours apart Start: 02-23-2021 take 1 tablet by shant th once daily buPROPion HCl ER (XL) 150 MG Oral Tablet Extended Release 24 Hour TAKE 1 TABLET DAILY. Quantity: 0 Refills: 0 Ordered: 22-Mar-2021 DO Start : 23-Feb-2021 Active Wellbutrin Activ e cephalexin 500 mg oral capsule (1 source) [...] at night with food Orally Oct, Not-Taking metoprolol tartrate 25 mg oral tablet (16 sources) beta-Adrenergic Cindy Start: 08-28-2023 End: 01-03-2024 take 1 tablet by mouth twice daily Metoprolol Tartrate 25 mg tablet Discontinued 25 MG PO Twice daily August 28, 2023 12:00am January 03, 2024 8:55am Start: 04-13-2021 take 1 tablet by shant th twice daily Metoprolol Tartrate 25 MG Oral Tablet Take 1 tablet twice daily Quantity: 180 Refills: 3 Ordered: 22-Nov-2022 Lisa Méndez MD Start : 13-Apr-2021 Active Metoprolol Tartr ate Active prasterone 25 mg oral capsule (4 sources) [...] Classification Problem Date Documented Da te Episodic/Chronic Abdominal pain (11 sources) Right inguinal pain; Translations: [Right lower quadrant pain] 08-28-2023 Episodic Cardiac dysrhythmias (7 sources) Palpitations; Translations: [Palpitations] Episodic Essential hypertension (7 sources) Essential hypertension; Translations: [Unspecified essential hypertension] Chronic Neoplasms of unspecified nature or uncertain behavior (2 sources) Neoplastic disease; Translations: [Neoplasm of unspecified behavior of bone, soft tissue, and skin] 12-18-2023 Episodic Nonspecific chest pain (7 sources) Chest pain; Translations: [Chest pain, unspecified] Episodic Osteoarthritis (4 sources) Primary generalized (osteo)arthritis; Translations: [PRIMARY GENERALIZED OSTEOARTHRITIS] Onset: 05-06-2022 Chronic Other aftercare (1 source) Other classified ad taker (current) drug therapy; Translations: [OTH SCOUT SNIPER CURRENT DRUG THERAPY] Onset: 05-08-2022 Episodic Other and unspecified benign neoplasm (2 sources) Melanocytic nevus of trunk; Translations: [Melanocytic nevi of trunk] 12-18-2023 Episodic Other and unspecified benign neoplasm (2 sources) Skin lesion; Translations: [Hemangioma of skin and subcutaneous tissue] 12-18-2023 Episodic Other circulatory disease (1 source) Raynaud's syndrome without gangrene; Translations: [RAYNAUDS SYNDROME WITHOUT GANGRENE] Onset: 05-08-2022 Chronic Other nervous system disorders (4 sources) Chronic pain; Translations: [Other chronic pain] 04-18-2024 Chronic Other nervous system disorders (7 sources) Other chronic pain; Translations: [Other chronic pain] 04-18-2024 Chronic Other nutritional; endocrine; and metabolic disorders (4 sources) Obesity; Translations: [Obesity, unspecified] Chronic Other nutritional; endocrine; and metabolic disorders (3 sources) Overweight in adulthood with body mass index of 25 or more but less than 30; Translations: [Overweight] Episodic Other skin disorders (2 sources) Seborrheic keratosis; Translations: [Other seborrheic keratosis] 12-18-2023 Episodic Other skin disorders (2 sources) Lentiginosis; Translations: [Other melanin hyperpigmentation] 12-18-2023 Episodic Screening and history of mental health and substance abuse codes (7 sources) Ex-smoker; Translations: [Personal history of tobacco use] Episodic Spondylosis; intervertebral disc disorders; other back problems (20 sources) Other spondylosis, lumbar region; Translations: [Inflammation of sacroiliac joint] Onset: 07-13-2021 Chronic Spondylosis; intervertebral disc disorders; other back problems (20 sources) Radiculopathy, lumbar region; Translations: [Lumbar radiculopathy] Onset: 01-03-2024 01-03-2024 Episodic Unclassified (1 source) OTH SPEC SYSTEM INVOLV [...] Test Name Value Interpretation Reference Range Facility XR lumbar spine 6V w bending on 01-03-2024 XR lumbar spine 6V w bending [facility] [place] [address] XRay Report Signed Patient: Humberto Lima MR#: [id number] : 1960 Acct:[id number] Age/Sex: 63 / M ADM Date: 01/03/24 Loc: XD Room: Type: [facility] Attending Dr: Amarilis Crooks APRN Copies to: Amarilis Crooks APRN Ordering Provider: Amarilis Crooks APRN Date of Service: 01/03/24 XR/XR lumbar spine 6V w bending: M54.16 - Radiculopathy, lumbar region XR lumbar spine 6V w bending 01/03/2024 9:45 AM SIGNS AND SYMPTOMS: Low back pain radiating into lower extremities PROTOCOLS: Frontal, lateral, and flexion-extension views of the lumbar spine COMPARISON: None FINDINGS: There is a dextro convex curvature at the thoracolumbar junction. There is 5 mm of retrolisthesis of L2 upon L3 which remains unchanged on flexion or extension. There is moderate disc height loss with vacuum disc phenomena at L2-L3 and L5-S1. There is mild disc height loss throughout otherwise. Anterior osteophyte formation is noted, greatest at L1-2 and L2-L3. Degenerative changes are noted in the sacroiliac joints. Atherosclerotic changes are noted in the abdominal aorta and its branches. XR/XR lumbar spine 6V w bending IMPRESSION: There is a dextro convex curvature at the thoracolumbar junction. There is 5 mm of retrolisthesis of L2 upon L3 which remains unchanged on flexion or extension. Impression dictated by: Thiago Jurado M.D.01/03/2024 12:45 PM Dictation Location: [place] [address] Transcribed By: [facility] 01/03/24 1245 Dictated By: Thiago Jurado II, MD 01/03/24 1241 Signed By: 01/03/24 1245 [facility] No Panel Informationon 12-17 Type of biopsy: tangential Informed consent: discussed and consent obtained Informed consent comment: The risks and benefits of the biopsy were discussed. Risks include but are not limited to bleeding, infection, scarring, pain, and nerve damage. An opportunity to ask questions prior to the procedure was permitted and all questions were answered. Patient was prepped and draped in usual sterile fashion: area cleansed with alcohol. Anesthesia: the lesion was anesthetized in a standard fashion Anesthetic: 1% lidocaine w/ epinephrine 1-100,000 buffered w/ 8.4% NaHCO3 Instrument used: DermaBlade Hemostasis achieved with: electrodesiccation Outcome: patient tolerated procedure well Outcome comment: The specimen was placed in a prelabeled formalin container to be sent for pathology Post-procedure details: sterile dressing applied and wound care instructions given Post-procedure details comment: Emphasized need to contact clinic for any signs of infection, uncontrollable bleeding, or complications. Dressing type: bandage Additional details: Photo taken yes Amount of lidocaine used: 0.4 cm [facility] Healthcare [facility] Healthcare Office Visit (Cardiology)on 11-22-2022 Follow-up visit Diagnoses/Problems Assessed Chest pain (786.50) (R07.9) Essential hypertension (401.9) (I10) Former smoker (V15.82) (Z87.891) Overweight with body mass index (BMI) of 29 to 29.9 in adult (278.02,V85.25) (E66.3,Z68.29) Palpitations (785.1) (R00.2) Orders Essential hypertension Renew: Metoprolol Tartrate 25 MG Oral Tablet; Take 1 tablet twice daily SocHx: Former smoker Tobacco Use Screening; Status:Complete; Done: 22Nov2022 Patient Instructions Please bring all medicines, vitamins, [...] 1 year. Same meds Chief Complaint HUMBERTO LIAM is being seen for a 9 month follow-up of. History of Present Illness Patient is here for follow-up continue management for previous evaluation for chest pain, hypertension, mildly overweight. Since last time I saw him he denies any cardiac complaint of chest pain, palpitation, lightheadedness, dizziness or syncope. He remains active. His main complaint is arthritis. 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 ASSESSMENT 1. Previous evaluation for chest pain. [...] 7. History of arthritis followed by local cow buyer indicate could be either early rheumatoid arthritis [...] History of Cataract surgery History of Colonoscopy [id number] Current Meds Medication NameInstruction buPROPion HCl ER [...] negative for complaint. Vitals Vital Signs Recorded: [id number] 11:27AM Heart Rate60, L Radial [id number], LUE, Sitting [id number], LUE, Sitting Height5 ft 6 in Mdfswq957 lb 6 oz BMI Mjrhmpiflp94.63 kg/m2 BSA Calculated1.9 Tobacco Useb) No PHQ-2 [...] Nov 22 2022 11:53AM EST (Author) Normal [employer] Tobacco Screening.on 023 Adult depression screening assessment No [facility] [employer] DO Work Phone: Fall risk assessment a) No falls within the last year [facility] [employer] DO Work Phone: Tobacco use status CPHS b) No [facility] [employer] DO Work Phone: COMPLEMENT TOTAL (CH50)on Complement, Total (CH50) 45 U/mL Normal >41 [facility] Comment on above: Result Comment: Age Male [...] Performed By: #### C RP, CMP #### [facility] [address] [address] [address] Gregg Humphreys C3 and C4 COMPLEMENTon 05-07 Complement C3, Serum 159 mg/dL Normal 82-167 [facility] Comment on above: Performed By: #### S EDR #### [facility] [address] [address] [address] Gregg Humphreys Complement C4, Serum 27 mg/dL Normal 12-38 [facility] Comment on above: Performed By: #### S EDR #### [facility] [address] [address] [address] Gregg Humphreys CBC AUTO DIFFon 05-06-2022 BASO # 0.1 103/ul Normal 0.0-0.1 [facility] Comment on above: Performed By: #### C BC #### [facility] [address] [address] [address] Gregg Humphreys Basophils/100 WBC (Bld) 0.8 % Normal 0.2-2.0 [facility] Comment on above: Performed By: #### C BC #### [facility] [address] [address] [address] Gregg Humphreys EO # 0.4 103/ul Normal 0.0-0.7 [facility] Comment on above: Performed By: #### C BC #### [facility] [address] [address] [address] Gregg Humphreys Eosinophils/100 WBC (Bld) 4.9 % Normal 0.9-7.0 [facility] Comment on above: Performed By: #### C BC #### [facility] [address] [address] [address] Gregg Humphreys Erythrocyte distribution width (RBC) [Ratio] 13.2 % Normal 11.0-15.0 [facility] Comment on above: Performed By: #### C BC #### [facility] [address] [address] [address] Gregg Humphreys Hematocrit (Bld) [Volume fraction] 49.6 % Normal 42.0-54.0 [facility] Comment on above: Performed By: #### C BC #### [facility] [address] [address] [address] Gregg Humphreys Hemoglobin (Bld) [Mass/Vol] 15.4 g/dL Normal 14.0-18.0 [facility] Comment on above: Performed By: #### C BC #### [facility] [address] [address] [address] Gregg Humphreys IG # 0.04 10e3/ul Critically high 0.00-0.03 [facility] Comment on above: Performed By: #### C BC #### [facility] [address] [place] [address] Dr. Gregg Humphreys IG % 0.6 % Critically high 0.0-0.5 [facility] Comment on above: Performed By: #### C BC #### [facility] [address] [place] [address] Dr. Gregg Humphreys LYMPH # 2.4 103/ul Normal 1.2-3.8 [facility] Comment on above: Performed By: #### C BC #### [facility] [address] [place] [address] Dr. Gregg Humphreys Lymphocytes/100 WBC (Bld) 34.1 % Normal 20.5-60.0 [facility] Comment on above: Performed By: #### C BC #### [facility] [address] [place] [address] Dr. Gregg Humphreys MANUAL DIFF REQ NO Normal [facility] Comment on above: Performed By: #### C BC #### [facility] [address] [place] [address] Dr. Gregg Humphreys MCH (RBC) [Entitic mass] 28.3 pg Normal 25.9-34.0 [facility] Comment on above: Performed By: #### C BC #### [facility] [address] [place] [address] Dr. Gregg Humphreys MCHC (RBC) [Mass/Vol] 31.0 g/dL Normal 29.9-35.2 [facility] Comment on above: Performed By: #### C BC #### [facility] [address] [place] [address] Dr. Gregg Humphreys MCV (RBC) [Entitic vol] 91.0 fL Normal 80.0-94.0 [facility] Comment on above: Performed By: #### C BC #### [facility] [address] [place] [address] Dr. Gregg Humphreys MONO # 0.9 103/ul Critically high 0.3-0.8 [facility] Comment on above: Performed By: #### C BC #### [facility] [address] [address] [address] Gregg Humphreys Monocytes/100 WBC (Bld) 12.7 % Critically high 1.7-12.0 [facility] Comment on above: Performed By: #### C BC #### [facility] [address] [address] [address] Gregg Humphreys NEUT # 3.4 103/ul Normal 1.4-6.5 [facility] Comment on above: Performed By: #### C BC #### [facility] [address] [address] [address] Gregg Humphreys Neutrophils/100 WBC (Bld) 46.9 % Normal 43.0-75.0 [facility] Comment on above: Performed By: #### C BC #### [facility] [address] [place] [address] Dr. Gregg Humphreys Platelet mean volume (Bld) [Entitic vol] 9.2 fL Critically low 9.5-13.5 [facility] Comment on above: Performed By: #### C BC #### [facility] [address] [place] [address] Dr. Gregg Humphreys PLT 405 103/ul Normal 150-450 [facility] Comment on above: Performed By: #### C BC #### [facility] [address] [place] [address] Dr. Gregg Humphreys RBC 5.45 106/ul Normal 4.70-6.10 [facility] Comment on above: Performed By: #### C BC #### [facility] [address] [place] [address] Dr. Gregg Humphreys WBC 7.2 103/ul Normal 4.0-11.0 [facility] Comment on above: Performed By: #### C BC #### [facility] [address] [place] [address] Dr. Gregg Humphreys CRPon 05-06-2022 CRP [Mass/Vol] mg/L Normal <=1.0 [facility] Comment on above: Performed By: #### C RP, CMP #### [facility] [address] [address] [address] Gregg Humphreys PROF 14(COMP METB)on 023 Albumin [Mass/Vol] 4.1 g/dL Normal 3.4-5.0 [facility] Comment on above: Performed By: #### C RP, CMP #### [facility] [address] [place] [address] Dr. Gregg Humphreys Albumin/Globulin [Mass ratio] 1.1 {ratio} Normal [facility] Comment on above: Performed By: #### C RP, CMP #### [facility] [address] [place] [address] Dr. Gregg Humphreys ALP [Catalytic activity/Vol] 71 U/L Normal 46-116 [facility] Comment on above: Performed By: #### C RP, CMP #### [facility] [address] [place] [address] Dr. Gregg Humphreys ALT [Catalytic activity/Vol] 30 U/L Normal 16-63 [facility] Comment on above: Performed By: #### C RP, CMP #### [facility] [address] [place] [address] Dr. Gregg Humphreys Anion gap [Moles/Vol] 10.4 mmol/L Normal [facility] Comment on above: Performed By: #### C RP, CMP #### [facility] [address] [place] [address] Dr. Gregg Humphreys AST [Catalytic activity/Vol] 23 U/L Normal 15-37 [facility] Comment on above: Performed By: #### C RP, CMP #### [facility] [address] [place] [address] Dr. Gregg Humphreys Bilirubin [Mass/Vol] 0.5 mg/dL Normal 0.2-1.0 [facility] Comment on above: Performed By: #### C RP, CMP #### [facility] [address] [place] [address] Dr. Gregg Humphreys Calcium [Mass/Vol] 9.5 mg/dL Normal 8.5-10.1 [facility] Comment on above: Performed By: #### C RP, CMP #### [facility] [address] [address] [address] Gregg Humphreys Chloride [Moles/Vol] 103 mmol/L Normal 98-107 [facility] Comment on above: Performed By: #### C RP, CMP #### [facility] [address] [address] [address] Gregg Humphreys CO2 [Moles/Vol] 29.8 mmol/L Normal 21.0-32.0 [facility] Comment on above: Performed By: #### C RP, CMP #### [facility] [address] [place] [address] Dr. Gregg Humphreys Creatinine [Mass/Vol] 0.88 mg/dL Normal 0.70-1.30 [facility] Comment on above: Performed By: #### C RP, CMP #### [facility] [address] [place] [address] Dr. Gregg Humphreys EGFR-AF [place] >60 Normal >=60 [facility] Comment on above: Performed By: #### C RP, CMP #### [facility] [address] [place] [address] Dr. Gregg Humphreys EGFR-NON AF [place] >60 Normal >=60 [facility] Comment on above: Performed By: #### C RP, CMP #### [facility] [address] [place] [address] Dr. Gregg Humphreys Globulin (S) [Mass/Vol] 3.9 g/dL Normal [facility] Comment on above: Performed By: #### C RP, CMP #### [facility] [address] [place] [address] Dr. Gregg Humphreys Glucose [Mass/Vol] 91 mg/dL Normal 74-106 [facility] Comment on above: Performed By: #### C RP, CMP #### [facility] [address] [place] [address] Dr. Gregg Humphreys Potassium [Moles/Vol] 4.2 mmol/L Normal 3.5-5.1 [facility] Comment on above: Performed By: #### C RP, CMP #### [facility] [address] [address] [address] Gregg Humphreys Protein [Mass/Vol] 8.0 g/dL Normal 6.4-8.2 [facility] Comment on above: Performed By: #### C RP, CMP #### [facility] [address] [address] [address] Gregg Humphreys Sodium [Moles/Vol] 139 mmol/L Normal 136-145 [facility] Comment on above: Performed By: #### C RP, CMP #### [facility] [address] [place] [address] Dr. Gregg Humpherys Urea nitrogen [Mass/Vol] 16.0 mg/dL Normal 7.0-18.0 [facility] Comment on above: Performed By: #### C RP, CMP #### [facility] [address] [place] [address] Dr. Gregg Humphreys Urea nitrogen/Creatinine [Mass ratio] 18.2 mg/mg Normal [facility] Comment on above: Performed By: #### C RP, CMP #### [facility] [address] [place] [address] Dr. Gregg Humphreys SED RATE [facility] 2022 SED RATE 42 mm/hr Critically high <=20 [facility] Comment on above: Performed By: #### C RP, CMP #### [facility] [address] [place] [address] Dr. Gregg Humphreys UA RANDOM W/MICROSCOPICon BACTERIA NONE SEEN Normal NONE SEEN [facility] Comment on above: Performed By: #### U AMIC #### [facility] [address] [place] [address] Dr. Gregg Humphreys Bilirubin Ql (U) Negative Normal NEGATIVE [facility] Comment on above: Performed By: #### U AMIC #### [facility] [address] [place] [address] Dr. Gregg Humphreys CAST NONE SEEN Normal NONE SEEN [facility] Comment on above: Performed By: #### U AMIC #### [facility] [address] [place] [address] Dr. Gregg Humphreys Clarity (U) CLEAR Normal CLEAR [facility] Comment on above: Performed By: #### U AMIC #### [facility] [address] [address] [address] Gregg Humphreys Color (U) LT. YELLOW Normal YELLOW [facility] Comment on above: Performed By: #### U AMIC #### [facility] [address] [address] [address] Gregg Humphreys Crystals LM Nom (Urine sed) NONE SEEN Normal NONE SEEN [facility] Comment on above: Performed By: #### U AMIC #### [facility] [address] [address] [address] Gregg Humphreys Epithelial cells LM Ql (Urine sed) FEW Abnormal NONE SEEN /RARE [facility] Comment on above: Performed By: #### U AMIC #### [facility] [address] [place] [address] Dr. Gregg Humphreys Glucose Ql (U) Negative Normal NEGATIVE [facility] Comment on above: Performed By: #### U AMIC #### [facility] [address] [place] [address] Dr. Gregg Humphreys Hemoglobin Ql (U) Negative Normal NEGATIVE [facility] Comment on above: Performed By: #### U AMIC #### [facility] [address] [place] [address] Dr. Gregg Humphreys Ketones Ql (U) Negative Normal NEGATIVE [facility] Comment on above: Performed By: #### U AMIC #### [facility] [address] [place] [address] Dr. Gregg Humphreys LEUKOCYTES Negative Normal NEGATIVE [facility] Comment on above: Performed By: #### U AMIC #### [facility] [address] [place] [address] Dr. Gregg Humphreys MUCOUS NONE SEEN Normal NONE SEEN [facility] Comment on above: Performed By: #### U AMIC #### [facility] [address] [place] [address] Dr. Gregg Humphreys Nitrite Ql (U) Negative Normal NEGATIVE [facility] Comment on above: Performed By: #### U AMIC #### [facility] [address] [address] [address] Gregg Humphreys pH (U) 5.5 [pH] Normal 5-9 [facility] Comment on above: Performed By: #### U AMIC #### [facility] [address] [place] [address] Dr. Gregg Humphreys RBC NONE SEEN Abnormal 0-2 [facility] Comment on above: Performed By: #### U AMIC #### [facility] [address] [place] [address] Dr. Gregg Humphreys SPEC GRAVITY <=1.005 Abnormal 1.005-<=1.025 [facility] Comment on above: Performed By: #### U AMIC #### [facility] [address] [place] [address] Dr. Gregg Humphreys UA PROTEIN Negative Normal NEGATIVE/ TRACE [facility] Comment on above: Performed By: #### U AMIC #### [facility] [address] [place] [address] Dr. Gregg Humphreys Urobilinogen Qn (U) 0.2 {Kiki'U}/dL Normal 0.2 - 1. 0 [facility] Comment on above: Performed By: #### U AMIC #### [facility] [address] [place] [address] Dr. Gregg Humphreys WBC NONE SEEN Normal NONE SEEN [facility] Comment on above: Performed By: #### U AMIC #### [facility] [address] [place] [address] Dr. Gregg Humphreys CBC AUTO DIFFon 11-19-2021 BASO # 0.1 103/ul Normal 0.0-0.1 [facility] Comment on above: Performed By: #### C BC #### [facility] [address] [place] [address] Dr. Gregg Humphreys Basophils/100 WBC (Bld) 1.3 % Normal 0.2-2.0 [facility] Comment on above: Performed By: #### C BC #### [facility] [address] [place], [place] [id number] Dr. Gregg Humphreys EO # 0.4 103/ul Normal 0.0-0.7 [facility] Comment on above: Performed By: #### C BC #### [facility] [address] [place] [address] Dr. Gregg Humphreys Eosinophils/100 WBC (Bld) 5.2 % Normal 0.9-7.0 [facility] Comment on above: Performed By: #### C BC #### [facility] [address] [place] [address] Dr. Gregg Humphreys Erythrocyte distribution width (RBC) [Ratio] 13.1 % Normal 11.0-15.0 [facility] Comment on above: Performed By: #### C BC #### [facility] [address] [place] [address] Dr. Gregg Humphreys Hematocrit (Bld) [Volume fraction] 46.1 % Normal 42.0-54.0 [facility] Comment on above: Performed By: #### C BC #### [facility] [address] [place] [address] Dr. Gregg Humphreys Hemoglobin (Bld) [Mass/Vol] 14.9 g/dL Normal 14.0-18.0 [facility] Comment on above: Performed By: #### C BC #### [facility] [address] [place] [address] Dr. Gregg Humphreys IG # 0.04 10e3/ul Critically high 0.00-0.03 [facility] Comment on above: Performed By: #### C BC #### [facility] [address] [place] [address] Dr. Gregg Humphreys IG % 0.5 % Normal 0.0-0.5 [facility] Comment on above: Performed By: #### C BC #### [facility] [address] [place] [address] Dr. Gregg Humphreys LYMPH # 2.4 103/ul Normal 1.2-3.8 [facility] Comment on above: Performed By: #### C BC #### [facility] [address] [place] [address] Dr. Gregg Humphreys Lymphocytes/100 WBC (Bld) 30.9 % Normal 20.5-60.0 [facility] Comment on above: Performed By: #### C BC #### [facility] [address] [place] [address] Dr. Gregg Humphreys MANUAL DIFF REQ NO Normal [facility] Comment on above: Performed By: #### C BC #### [facility] [address] [place] [address] Dr. Gregg Humphreys MCH (RBC) [Entitic mass] 28.1 pg Normal 25.9-34.0 [facility] Comment on above: Performed By: #### C BC #### [facility] [address] [place] [address] Dr. Gregg Humphreys MCHC (RBC) [Mass/Vol] 32.3 g/dL Normal 29.9-35.2 [facility] Comment on above: Performed By: #### C BC #### [facility] [address] [place] [address] Dr. Gregg Humphreys MCV (RBC) [Entitic vol] 87.0 fL Normal 80.0-94.0 [facility] Comment on above: Performed By: #### C BC #### [facility] [address] [place] [address] Dr. Gregg Humphreys MONO # 1.0 103/ul Critically high 0.3-0.8 [facility] Comment on above: Performed By: #### C BC #### [facility] [address] [place] [address] Dr. Gregg Humphreys Monocytes/100 WBC (Bld) 12.7 % Critically high 1.7-12.0 [facility] Comment on above: Performed By: #### C BC #### [facility] [address] [place] [address] Dr. Gregg Humphreys NEUT # 3.9 103/ul Normal 1.4-6.5 [facility] Comment on above: Performed By: #### C BC #### [facility] [address] [place] [address] Dr. Gregg Humphreys Neutrophils/100 WBC (Bld) 49.4 % Normal 43.0-75.0 [facility] Comment on above: Performed By: #### C BC #### [facility] [address] [place] [address] Dr. Gregg Humphreys Platelet mean volume (Bld) [Entitic vol] 8.9 fL Critically low 9.5-13.5 [facility] Comment on above: Performed By: #### C BC #### [facility] [address] [place] [address] Dr. Gregg Humphreys PLT 353 103/ul Normal 150-450 [facility] Comment on above: Performed By: #### C BC #### [facility] [address] [place] [address] Dr. Gregg Humphreys RBC 5.30 106/ul Normal 4.70-6.10 [facility] Comment on above: Performed By: #### C BC #### [facility] [address] [place] [address] Dr. Gregg Humphreys WBC 7.9 103/ul Normal 4.0-11.0 [facility] Comment on above: Performed By: #### C BC #### [facility] [address] [place] [address] Dr. Gregg Humphreys FREE T3on 11-19-2021 FREE T3 3.39 pg/mlL Normal 2.18-3.98 [facility] Comment on above: Performed By: #### T SH, FT3, LIPID, CMP #### [facility] [address] [place] [address] Dr. Gregg Humphreys FREE T4on 11-19-2021 Free T4 [Mass/Vol] 0.86 ng/dL Normal 0.76-1.46 [facility] Comment on above: Performed By: #### C RP, CMP #### [facility] [address] [place] [address] Dr. Gregg Humphreys GLYCOHEMOGLOBIN A1Con 2021 ADA RECOMMENDATION SEE BELOW Normal [facility] Comment on above: Result Comment: ADA RECOMMENDED LIMIT 4.0 - 6.0 ADA THERAPEUTIC TARGET < 7.0 ACTION SUGGESTED > 7.0 Performed By: #### C RP, CMP #### [facility] [address] [address] [address] Gregg Humphreys Glucose [Mass/Vol] 120 mg/dL Normal [facility] Comment on above: Performed By: #### C RP, CMP #### [facility] [address] [address] [address] Gregg Humphreys HbA1c (Bld) [Mass fraction] 5.8 % Normal 4.5-6.2 [facility] Comment on above: Performed By: #### C RP, CMP #### [facility] [address] [place] [address] Dr. Gregg Humphreys LIPID PROFILEon 11-19-2021 CHOL-HDL RATIO NORM SEE BELOW Normal [facility] Comment on above: Result Comment: 3.3 - 4.4 LOW RISK 4.4 - 7.1 AVERAGE RISK 7.1 - 11.0 MODERATE RISK >11.0 HIGH RISK Performed By: #### T SH, FT3, LIPID, CMP #### [facility] [address] [place] [address] Dr. Gregg Humphreys Cholesterol [Mass/Vol] 195 mg/dL Normal <=200 [facility] Comment on above: Performed By: #### T SH, FT3, LIPID, CMP #### [facility] [address] [place] [address] Dr. Gregg Humphreys Cholesterol in HDL [Mass/Vol] 73 mg/dL Critically high 40-60 [facility] Comment on above: Performed By: #### T SH, FT3, LIPID, CMP #### [facility] [address] [place] [address] Dr. Gregg Humphreys Cholesterol in LDL [Mass/Vol] 113.0 mg/dL Normal [facility] Comment on above: Performed By: #### T SH, FT3, LIPID, CMP #### [facility] [address] [place] [address] Dr. Gregg Humphreys Cholesterol.total/Ch olesterol in HDL [Mass ratio] 2.7 {ratio} Normal [facility] Comment on above: Performed By: #### T SH, FT3, LIPID, CMP #### [facility] [address] [address] [address] Gregg Humphreys HDL NORMAL > or = 60 mg/dl - LO W CARDIOVASCULAR RISK <40 mg/dl - HIGH CARDIOVASCULAR RISK Normal [facility] Comment on above: Performed By: #### T SH, FT3, LIPID, CMP #### [facility] [address] [address] [address] Gregg Humphreys LDL CALC NORMAL SEE BELOW Normal [facility] Comment on above: Result Comment: <100 mg/dl OPTIMAL 100 - 129 mg/dl NEAR OR ABOVE OPTIMAL 130 - 159 mg/dl BORDERLINE HIGH 160 - 189 mg/dl HIGH >190 mg/dl VERY HIGH Performed By: #### T SH, FT3, LIPID, CMP #### [facility] [address] [address] [address] Gregg Humphreys Triglyceride [Mass/Vol] 45 mg/dL Normal <=150 [facility] Comment on above: Performed By: #### T SH, FT3, LIPID, CMP #### [facility] [address] [address] [address] Gregg Humphreys VLDL CALC 9.0 mg/dL Normal [facility] Comment on above: Performed By: #### T SH, FT3, LIPID, CMP #### [facility] [address] [address] [address] Gregg Humphreys PROF 14(COMP METB)on 022 Albumin [Mass/Vol] 4.0 g/dL Normal 3.4-5.0 [facility] Comment on above: Performed By: #### T SH, FT3, LIPID, CMP #### [facility] [address] [address] [address] Gregg Humphreys Albumin/Globulin [Mass ratio] 1.3 {ratio} Normal [facility] Comment on above: Performed By: #### T SH, FT3, LIPID, CMP #### [facility] [address] [address] [address] Gregg Humphreys ALP [Catalytic activity/Vol] 75 U/L Normal 46-116 [facility] Comment on above: Performed By: #### T SH, FT3, LIPID, CMP #### [facility] [address] [place] [address] Dr. Gregg Humphreys ALT [Catalytic activity/Vol] 24 U/L Normal 16-63 [facility] Comment on above: Performed By: #### T SH, FT3, LIPID, CMP #### [facility] [address] [place] [address] Dr. Gregg Humphreys Anion gap [Moles/Vol] 12.7 mmol/L Normal [facility] Comment on above: Performed By: #### T SH, FT3, LIPID, CMP #### [facility] [address] [place] [address] Dr. Gregg Humphreys AST [Catalytic activity/Vol] 17 U/L Normal 15-37 [facility] Comment on above: Performed By: #### T SH, FT3, LIPID, CMP #### [facility] [address] [place] [address] Dr. Gregg Humphreys Bilirubin [Mass/Vol] 0.6 mg/dL Normal 0.2-1.0 [facility] Comment on above: Performed By: #### T SH, FT3, LIPID, CMP #### [facility] [address] [place] [address] Dr. Gregg Humphreys Calcium [Mass/Vol] 9.1 mg/dL Normal 8.5-10.1 [facility] Comment on above: Performed By: #### T SH, FT3, LIPID, CMP #### [facility] [address] [place] [address] Dr. Gregg Humphreys Chloride [Moles/Vol] 104 mmol/L Normal 98-107 [facility] Comment on above: Performed By: #### T SH, FT3, LIPID, CMP #### [facility] [address] [place] [address] Dr. Gregg Humphreys CO2 [Moles/Vol] 25.6 mmol/L Normal 21.0-32.0 [facility] Comment on above: Performed By: #### T SH, FT3, LIPID, CMP #### [facility] [address] [address] [address] Gregg Humphreys Creatinine [Mass/Vol] 1.04 mg/dL Normal 0.70-1.30 [facility] Comment on above: Performed By: #### T SH, FT3, LIPID, CMP #### [facility] [address] [address] [address] Gregg Humphreys EGFR-AF [place] >60 Normal >=60 [facility] Comment on above: Performed By: #### T SH, FT3, LIPID, CMP #### [facility] [address] [place] [address] Dr. Gregg Humphreys EGFR-NON AF [place] >60 Normal >=60 [facility] Comment on above: Performed By: #### T SH, FT3, LIPID, CMP #### [facility] [address] [place] [address] Dr. Gregg Humphreys Globulin (S) [Mass/Vol] 3.1 g/dL Normal [facility] Comment on above: Performed By: #### T SH, FT3, LIPID, CMP #### [facility] [address] [place] [address] Dr. Gregg Humphreys Glucose [Mass/Vol] 93 mg/dL Normal 74-106 [facility] Comment on above: Performed By: #### T SH, FT3, LIPID, CMP #### [facility] [address] [place] [address] Dr. Gregg Humphreys Potassium [Moles/Vol] 4.3 mmol/L Normal 3.5-5.1 [facility] Comment on above: Performed By: #### T SH, FT3, LIPID, CMP #### [facility] [address] [place] [address] Dr. Gregg Humphreys Protein [Mass/Vol] 7.1 g/dL Normal 6.4-8.2 [facility] Comment on above: Performed By: #### T SH, FT3, LIPID, CMP #### [facility] [address] [place] [address] Dr. Gregg Humphreys Sodium [Moles/Vol] 138 mmol/L Normal 136-145 [facility] Comment on above: Performed By: #### T SH, FT3, LIPID, CMP #### [facility] [address] [address] [address] Gregg Humphreys Urea nitrogen [Mass/Vol] 20.0 mg/dL Critically high 7.0-18.0 [facility] Comment on above: Performed By: #### T SH, FT3, LIPID, CMP #### [facility] [address] [address] [address] Gregg Humphreys Urea nitrogen/Creatinine [Mass ratio] 19.2 mg/mg Normal [facility] Comment on above: Performed By: #### T SH, FT3, LIPID, CMP #### [facility] [address] [place] [address] Dr. Gregg Humphreys TSHon 11-19-2021 TSH 1.020 uIU/mL Normal 0.358-3.740 [facility] Comment on above: Performed By: #### T SH, FT3, LIPID, CMP #### [facility] [address] [place] [address] Dr. Gregg Humphreys VIT B12 AND FOLATEon 022 Cobalamin (Vitamin B12) [Mass/Vol] 359.0 pg/mL Normal 193.0-986.0 [facility] Comment on above: Performed By: #### C RP, CMP #### [facility] [address] [place] [address] Dr. Gregg Humphreys FOLATE 8.80 ng/mL Normal 8.60-58.90 [facility] Comment on above: Performed By: #### C RP, CMP #### [facility] [address] [place] [address] Dr. Gregg Humphreys Tobacco Screening.on 022 Adult depression screening assessment No [facility] [employer] [address] DO Work Phone: Fall risk assessment a) No falls within the last year [facility] [employer] 600 DO Work Phone: Tobacco use status CPHS b) No [facility] [employer] 600 DO Work Phone: XR LSPINE 2_3 VIEWSon 2021 XR LSPINE 2_3 VIEWS EXAMINATION: XR LSPI NE 2_3 VIEWS HISTORY: Spondylosis ; chronic low [...] by: LILI BARRERA Date: 2021-07-13 14:32 Normal [facility] Cardiac Stress Teston 2021 Cardiac Stress Test [address], [address] [place] [address] Exercise Stress Test Patient Name: HUMBERTO LIMA Ordering Physician: Study Date: 07/06/2021 Reading Physician: [id number] Virgilio Beaulieu MD, [facility] MRN/PID: [id number] Supervising Physician: [id number] Virgilio Beaulieu MD, [facility] Accession/Order#: [id number] Referring Physician: [id number] LISA MÉNDEZ Date of : 1960 PCP: Gender: M Fellow: Height: 167.64 cm Nurse: Rossi Olea RN Weight: 85.28 kg Hosting Engineer: N/A BSA: 1.95 m2 Technologist: BMI: 30.34 kg/m2 Additional Staff: Age: 60 years cc report to: Study Type: Cardiac Stress Test Diagnosis/ICD: R07.9-Chest pain, unspecified Indication: Chest Pain Procedure/CPT: Stress Test Supervision-[id number] Falls Risk: Low: Patient has low risk [...] showed sinus bradycardia. Stress Stage Data: + +--+ ------+-------+ HR Sys BP Bates BP + +--+ ------+-------+ Baseline Resting 57 138 78 + +--+ ------+-------+ Baseline Standing 65 130 78 + +--+ ------+-------+ Stage I 72 110 60 + +--+ ------+-------+ Stage II 81 130 70 + +--+ ------+-------+ Stage III 87 150 74 + +--+ ------+-------+ + +--+----- -+-------+ HR Sys BP Bates BP + +--+----- -+-------+ Recovery I 82 160 80 + +--+----- -+-------+ Recovery II 75 160 74 + +--+----- -+-------+ Recovery III 70 150 72 + +--+----- -+-------+ Recovery IV 70 160 74 + +--+----- -+-------+ Summary: 1. 1-Non diagnostic ETT due to failure to atchieve 85% of PMHR, patient was able to achieve only 61% of PMHR despite completing 9:15 on a oneal protocol and achieving 10:50 METs 2-No chest pain, cardiac arrhythmias or ischemic ST changes induced by exercise 3-Attenuated HR response to exercise due to Beta blockers. [id number] Virgilio Beaulieu MD, [facility] Electronically signed on 07/08/2021 at 8:54:56 AM Final Normal [facility] Cardiac Stress Test MP-No rth [facility] 600 DO Work Phone: C3 and C4 COMPLEMENTon 05-26 Complement C3, Serum 172 mg/dL Critically high 82-167 [facility] Comment on above: Performed By: #### S EDR #### [facility] [address] [address] [address] Gregg Humphreys Complement C4, Serum 30 mg/dL Normal 12-38 [facility] Comment on above: Performed By: #### S EDR #### [facility] [address] [address] [address] Gregg Humphreys COMPLEMENT TOTAL (CH50)on Complement, Total (CH50) >60 Normal >41 [facility] Comment on above: Result Comment: Age Male [...] values. Performed By: #### S EDR #### [facility] [address] [place] [address] Dr. Gregg Humphreys CBC AUTO DIFFon 05-25-2021 BASO # 0.1 103/ul Normal 0.0-0.1 [facility] Comment on above: Performed By: #### S EDR #### [facility] [address] [place] [address] Dr. Gregg Humphreys Basophils/100 WBC (Bld) 1.4 % Normal 0.2-2.0 [facility] Comment on above: Performed By: #### S EDR #### [facility] [address] [place] [address] Dr. Gregg Humphreys EO # 0.5 103/ul Normal 0.0-0.7 [facility] Comment on above: Performed By: #### S EDR #### [facility] [address] [place] [address] Dr. Gregg Humphreys Eosinophils/100 WBC (Bld) 7.3 % Critically high 0.9-7.0 [facility] Comment on above: Performed By: #### S EDR #### [facility] [address] [place] [address] Dr. Gregg Humphreys Erythrocyte distribution width (RBC) [Ratio] 14.1 % Normal 11.0-15.0 [facility] Comment on above: Performed By: #### S EDR #### [facility] [address] [place] [address] Dr. Gregg Humphreys Hematocrit (Bld) [Volume fraction] 48.1 % Normal 42.0-54.0 [facility] Comment on above: Performed By: #### S EDR #### [facility] [address] [place] [address] Dr. Gregg Humphreys Hemoglobin (Bld) [Mass/Vol] 15.4 g/dL Normal 14.0-18.0 [facility] Comment on above: Performed By: #### S EDR #### [facility] [address] [place] [address] Dr. Gregg Humphreys IG # 0.17 10e3/ul Critically high 0.00-0.03 [facility] Comment on above: Performed By: #### S EDR #### [facility] [address] [address] [address] Gregg Humphreys IG % 2.3 % Critically high 0.0-0.5 [facility] Comment on above: Performed By: #### S EDR #### [facility] [address] [address] [address] Gregg Humphreys LYMPH # 2.5 103/ul Normal 1.2-3.8 [facility] Comment on above: Performed By: #### S EDR #### [facility] [address] [address] [address] Gregg Humphreys Lymphocytes/100 WBC (Bld) 33.9 % Normal 20.5-60.0 [facility] Comment on above: Performed By: #### S EDR #### [facility] [address] [place] [address] Dr. Gregg Humphreys MANUAL DIFF REQ NO Normal [facility] Comment on above: Performed By: #### S EDR #### [facility] [address] [place] [address] Dr. Gregg Humphreys MCH (RBC) [Entitic mass] 28.9 pg Normal 25.9-34.0 [facility] Comment on above: Performed By: #### S EDR #### [facility] [address] [place] [address] Dr. Gregg Humphreys MCHC (RBC) [Mass/Vol] 32.0 g/dL Normal 29.9-35.2 [facility] Comment on above: Performed By: #### S EDR #### [facility] [address] [place] [address] Dr. Gregg Humphreys MCV (RBC) [Entitic vol] 90.2 fL Normal 80.0-94.0 [facility] Comment on above: Performed By: #### S EDR #### [facility] [address] [address] [address] Gregg Humphreys MONO # 0.8 103/ul Normal 0.3-0.8 [facility] Comment on above: Performed By: #### S EDR #### [facility] [address] [address] [address] Gregg Humphreys Monocytes/100 WBC (Bld) 11.4 % Normal 1.7-12.0 [facility] Comment on above: Performed By: #### S EDR #### [facility] [address] [address] [address] Gregg Humphreys NEUT # 3.2 103/ul Normal 1.4-6.5 [facility] Comment on above: Performed By: #### S EDR #### [facility] [address] [address] [address] Gregg Humphreys Neutrophils/100 WBC (Bld) 43.7 % Normal 43.0-75.0 [facility] Comment on above: Performed By: #### S EDR #### [facility] [address] [address] [address] Gregg Humphreys Platelet mean volume (Bld) [Entitic vol] 9.2 fL Critically low 9.5-13.5 [facility] Comment on above: Performed By: #### S EDR #### [facility] [address] [address] [address] Gregg Humphreys PLT 416 103/ul Normal 150-450 [facility] Comment on above: Performed By: #### S EDR #### [facility] [address] [address] [address] Gregg Humphreys RBC 5.33 106/ul Normal 4.70-6.10 [facility] Comment on above: Performed By: #### S EDR #### [facility] [address] [address] [address] Gregg Humphreys WBC 7.4 103/ul Normal 4.0-11.0 [facility] Comment on above: Performed By: #### S EDR #### [facility] [address] [place] [address] Dr. Gregg Humphreys CRPon 05-25-2021 CRP [Mass/Vol] mg/L Normal <=1.0 [facility] Comment on above: Performed By: #### C RP, CMP #### [facility] [address] [address] [address] Gregg Humphreys PROF 14(COMP METB)on 022 Albumin [Mass/Vol] 3.5 g/dL Normal 3.5-5.0 [facility] Comment on above: Performed By: #### C RP, CMP #### [facility] [address] [place] [address] Dr. Gregg Humphreys Albumin/Globulin [Mass ratio] 0.9 {ratio} Normal [facility] Comment on above: Performed By: #### C RP, CMP #### [facility] [address] [place] [address] Dr. Gregg Humphreys ALP [Catalytic activity/Vol] 90 U/L Normal 38-126 [facility] Comment on above: Performed By: #### C RP, CMP #### [facility] [address] [place] [address] Dr. Gregg Humphreys ALT [Catalytic activity/Vol] 56 U/L Normal 21-72 [facility] Comment on above: Performed By: #### C RP, CMP #### [facility] [address] [place] [address] Dr. Gregg Humphreys Anion gap [Moles/Vol] 11.9 mmol/L Normal [facility] Comment on above: Performed By: #### C RP, CMP #### [facility] [address] [place] [address] Dr. Gregg Humphreys AST [Catalytic activity/Vol] 21 U/L Normal 17-59 [facility] Comment on above: Performed By: #### C RP, CMP #### [facility] [address] [place] [address] Dr. Gregg Humphreys Bilirubin [Mass/Vol] 0.3 mg/dL Normal 0.2-1.3 [facility] Comment on above: Performed By: #### C RP, CMP #### [facility] [address] [place] [address] Dr. Gregg Humphreys Calcium [Mass/Vol] 9.2 mg/dL Normal 8.4-10.2 [facility] Comment on above: Performed By: #### C RP, CMP #### [facility] [address] [place] [address] Dr. Gregg Humphreys Chloride [Moles/Vol] 105 mmol/L Normal 98-107 [facility] Comment on above: Performed By: #### C RP, CMP #### [facility] [address] [place] [address] Dr. Gregg Humphreys CO2 [Moles/Vol] 27.0 mmol/L Normal 22.0-30.0 [facility] Comment on above: Performed By: #### C RP, CMP #### [facility] [address] [place] [address] Dr. Gregg Humphreys Creatinine [Mass/Vol] 1.00 mg/dL Normal 0.66-1.25 [facility] Comment on above: Performed By: #### C RP, CMP #### [facility] [address] [place] [address] Dr. Gregg Humphreys EGFR-AF [place] >60 Normal >=60 [facility] Comment on above: Performed By: #### C RP, CMP #### [facility] [address] [place] [address] Dr. Gregg Humphreys EGFR-NON AF [place] >60 Normal >=60 [facility] Comment on above: Performed By: #### C RP, CMP #### [facility] [address] [place] [address] Dr. Gregg Humphreys Globulin (S) [Mass/Vol] 3.7 g/dL Normal [facility] Comment on above: Performed By: #### C RP, CMP #### [facility] [address] [place] [address] Dr. Gregg Humphreys Glucose [Mass/Vol] 118 mg/dL Critically high 74-106 [facility] Comment on above: Performed By: #### C RP, CMP #### [facility] [address] [place] [address] Dr. Gregg Humphreys Potassium [Moles/Vol] 3.9 mmol/L Normal 3.4-5.0 [facility] Comment on above: Performed By: #### C RP, CMP #### [facility] [address] [place] [address] Dr. Gregg Humphreys Protein [Mass/Vol] 7.2 g/dL Normal 6.1-8.2 [facility] Comment on above: Performed By: #### C RP, CMP #### [facility] [address] [address] [address] Gregg Humphreys Sodium [Moles/Vol] 140 mmol/L Normal 137-145 [facility] Comment on above: Performed By: #### C RP, CMP #### [facility] [address] [place] [address] Dr. Gregg Humphreys Urea nitrogen [Mass/Vol] 17.0 mg/dL Normal 9.0-20.0 [facility] Comment on above: Performed By: #### C RP, CMP #### [facility] [address] [place] [address] Dr. Gregg Humphreys Urea nitrogen/Creatinine [Mass ratio] 17.0 mg/mg Normal [facility] Comment on above: Performed By: #### C RP, CMP #### [facility] [address] [place] [address] Dr. Gregg Humphre[facility] 20 mm/hr Normal <=20 [facility] Comment on above: Performed By: #### S EDR #### [facility] [address] [place] [address] Dr. Gregg Humphreys UA RANDOM W/MICROSCOPICon BACTERIA TRACE Abnormal NONE SEEN [facility] Comment on above: Performed By: #### C RP, CMP #### [facility] [address] [place] [address] Dr. Gregg Humphreys Bilirubin Ql (U) Negative Normal NEGATIVE [facility] Comment on above: Performed By: #### C RP, CMP #### [facility] [address] [place] [address] Dr. Gregg Humphreys CAST NONE SEEN Normal NONE SEEN [facility] Comment on above: Performed By: #### C RP, CMP #### [facility] [address] [place] [address] Dr. Gregg Humphreys Clarity (U) CLEAR Normal CLEAR [facility] Comment on above: Performed By: #### C RP, CMP #### [facility] [address] [place] [address] Dr. Gregg Humphreys Color (U) LT. YELLOW Normal YELLOW [facility] Comment on above: Performed By: #### C RP, CMP #### [facility] [address] [place] [address] Dr. Gregg Humphreys Crystals LM Nom (Urine sed) NONE SEEN Normal NONE SEEN [facility] Comment on above: Performed By: #### C RP, CMP #### [facility] [address] [place] [address] Dr. Gregg Humphreys Epithelial cells LM Ql (Urine sed) NONE SEEN Normal NONE SEEN /RARE [facility] Comment on above: Performed By: #### C RP, CMP #### [facility] [address] [place] [address] Dr. Gregg Humphreys Glucose Ql (U) Negative Normal NEGATIVE [facility] Comment on above: Performed By: #### C RP, CMP #### [facility] [address] [place] [address] Dr. Gregg Humphreys Hemoglobin Ql (U) Negative Normal NEGATIVE [facility] Comment on above: Performed By: #### C RP, CMP #### [facility] [address] [place] [address] Dr. Gregg Humphreys Ketones Ql (U) Negative Normal NEGATIVE [facility] Comment on above: Performed By: #### C RP, CMP #### [facility] [address] [place] [address] Dr. Gregg Humphreys LEUKOCYTES Negative Normal NEGATIVE [facility] Comment on above: Performed By: #### C RP, CMP #### [facility] [address] [place] [address] Dr. Gregg Humphreys MUCOUS NONE SEEN Normal NONE SEEN [facility] Comment on above: Performed By: #### C RP, CMP #### [facility] [address] [place] [address] Dr. Gregg Humphreys Nitrite Ql (U) Negative Normal NEGATIVE [facility] Comment on above: Performed By: #### C RP, CMP #### [facility] [address] [place] [address] Dr. Gregg Humphreys pH (U) 6.0 [pH] Normal 5-9 [facility] Comment on above: Performed By: #### C RP, CMP #### [facility] [address] [place] [address] Dr. Gregg Humphreys RBC NONE SEEN Abnormal 0-2 [facility] Comment on above: Performed By: #### C RP, CMP #### [facility] [address] [place] [address] Dr. Gregg Humphreys SPEC GRAVITY 1.015 Normal 1.005-<=1.025 [facility] Comment on above: Performed By: #### C RP, CMP #### [facility] [address] [place] [address] Dr. Gregg Humphreys UA PROTEIN Negative Normal NEGATIVE/ TRACE [facility] Comment on above: Performed By: #### C RP, CMP #### [facility] [address] [place] [address] Dr. Gregg Humphreys Urobilinogen Qn (U) 0.2 {Kiki'U}/dL Normal 0.2 - 1. 0 [facility] Comment on above: Performed By: #### C RP, CMP #### [facility] [address] [place] [address] Dr. Gregg Humphreys WBC NONE SEEN Normal NONE SEEN [facility] Comment on above: Performed By: #### C RP, CMP #### [facility] [address] [place] [address] Dr. Gregg Humphreys Tobacco Screening.on 022 Fall risk assessment a) No falls within the last year [facility] 600 DO Work Phone: Tobacco use status [facility] b) No [facility] 600 DO Work Phone: Vital Signs Date Time Vital Sign Value Performing Clinician Facility 07-08-2024 11:40-0400 Body weight 78.69 kg [facility] 07-08-2024 11:40-0400 Diastolic blood pressure 60 mm[Hg] [facility] 07-08-2024 11:40-0400 Heart rate 69 /min [facility] 07-08-2024 11:40-0400 SaO2% (BldA) [Mass fraction] 96 % [facility] 07-08-2024 11:40-0400 Systolic blood pressure 112 mm[Hg] [facility] 05-12-2024 12:07-0500 Diastolic blood pressure 70 mm[Hg] [facility] 05-12-2024 12:07-0500 Heart rate 104 /min [facility] 05-12-2024 12:07-0500 Systolic blood pressure 130 mm[Hg] [facility] 04-18-2024 10:57-0500 Diastolic blood pressure 60 mm[Hg] [facility] 04-18-2024 10:57-0500 Heart rate 75 /min [facility] 04-18-2024 10:57-0500 SaO2% (BldA) [Mass fraction] 97 % [facility] 04-18-2024 10:57-0500 Systolic blood pressure 110 mm[Hg] [facility] 04-08-2024 11:07-0500 Body height 167.64 cm [facility] 04-08-2024 11:07-0500 Body mass index (BMI) [Ratio] 28.5 kg/m2 [facility] 04-08-2024 11:07-0500 Body weight 80.34 kg [facility] 03-11-2024 10:27-0500 Body height 167.64 cm [facility] 03-11-2024 10:27-0500 Body mass index (BMI) [Ratio] 28 kg/m2 [facility] 03-11-2024 10:27-0500 Body weight 78.64 kg [facility] 01-03-2024 08:23-0400 Body height 167.64 cm DO Flavio Cabrera Work Phone: [facility] 01-03-2024 08:23-0400 Body mass index (BMI) [Ratio] 27.6 kg/m2 DO Flavio Cabrera Work Phone: [facility] 01-03-2024 [id number] Body weight 77.56 kg DO Flavio Cabrera Work Phone: [facility] 08-28-2023 12:26-0400 Body height 167.64 cm [facility] 08-28-2023 12:26-0400 Body mass index (BMI) [Ratio] 29.3 kg/m2 [facility] 08-28-2023 12:26-0400 Body temperature 98.1 [degF] [facility] 08-28-2023 [id number] Body weight 82.55 kg [facility] 08-28-2023 12:26-0400 Diastolic blood pressure 46 mm[Hg] [facility] 08-28-2023 12:26-0400 Heart rate 60 /min [facility] 08-28-2023 12:26-0400 Respiratory rate 18 /min [facility] 08-28-2023 12:26-0400 SaO2% (BldA) [Mass fraction] 98 % [facility] 08-28-2023 12:26-0400 Systolic blood pressure 144 mm[Hg] [facility] 11-22-2022 11:27-0400 Body height 167.64 cm Flavio Cabrera Work Phone: [facility] [employer] 600 DO Work Phone: 11-22-2022 11:27-0400 Body mass index (BMI) [Ratio] 28.63 kg/m2 Flavio Dominguezring Work Phone: [facility] [employer] 600 DO Work Phone: 11-22-2022 11:27-0400 Body surface area Derived from formula 1.9 m2 Flavio Dominguezring Work Phone: [facility] [employer] 600 DO Work Phone: 11-22-2022 11:27-0400 Body weight 80.46 kg Flavionikhil Dominguezring Work Phone: [facility] [employer] 600 DO Work Phone: 11-22-2022 11:27-0400 Diastolic blood pressure 60 mm[Hg] Flavio Renetta Cabrera Work Phone: [employer] [facility] [place] 600 DO Work Phone: 11-22-2022 11:27-0400 Heart rate 60 /min Flavionikhil Dominguezring Work Phone: [employer] [facility] [employer] [place] 600 DO Work Phone: 11-22-2022 11:27-0400 Systolic blood pressure 124 mm[Hg] Flavio Jackson Cabrera Work Phone: [facility] [employer] [employer] 600 DO Work Phone: 09-29-2021 10:14-0400 Diastolic blood pressure 70 mm[Hg] Flavio Jackson Cabrera Work Phone: [facility] [employer] [place] 600 DO Work Phone: 09-29-2021 10:14-0400 Systolic blood pressure 138 mm[Hg] Flavio Renetta Louis Work Phone: [facility] [employer] [place] 600 DO Work Phone: 09-29-2021 09:50-0400 Body height 167.64 cm Flavio Renetta Cabrera Work Phone: [facility] [employer] [place] 600 DO Work Phone: 09-29-2021 09:50-0400 Body mass index (BMI) [Ratio] 29.05 kg/m2 Flavio Renetta Cabrera Work Phone: [facility] [employer] [place] 600 DO Work Phone: 09-29-2021 09:50-0400 Body surface area Derived from formula 1.91 m2 Flavio Jackson Cabrera Work Phone: [facility] [employer] 600 DO Work Phone: 09-29-2021 09:50-0400 Body weight 81.65 kg Flavio Dominguezring Work Phone: [employer] [place] 600 DO Work Phone: 09-29-2021 09:50-0400 Diastolic blood pressure 70 mm[Hg] Flavio Dominguezring Work Phone: [employer] [facility] [employer] [place] 600 DO Work Phone: 09-29-2021 09:50-0400 Heart rate 60 /min Flavio Dominguezring Work Phone: [employer] [facility] [employer] 600 DO Work Phone: 09-29-2021 09:50-0400 Systolic blood pressure 140 mm[Hg] Flavio Dominguezring Work Phone: [employer] [facility] [employer] 600 DO Work Phone: 05-12-2021 12:25-0500 Body height 167.64 cm Karma Ken Other [employer] Other 05-12-2021 12:25-0500 Body mass index (BMI) [Ratio] 29.21 kg/m2 Karma Rogers Other [employer] Other 05-12-2021 12:25-0500 Body temperature 97.5 [degF] Karma Rogers Other [employer] Other 05-12-2021 12:25-0500 Body weight 82.1 kg Karma Ken Other [employer] Other 05-12-2021 12:25-0500 Diastolic blood pressure 78 mm[Hg] Karma Rogers Other [employer] Other 05-12-2021 12:25-0500 Respiratory rate 20 /min Karma Rogers Other [employer] Other 05-12-2021 12:25-0500 SaO2% (BldA) [Mass fraction] 96 % Karma Rogers Other [employer] Other 05-12-2021 12:25-0500 Systolic blood pressure 135 mm[Hg] Karma Rogers Other [employer] Other 04-13-2021 10:58-0500 Body height 167.64 cm Flavio [facility] [employer] Work Phone: [employer] [facility] [employer] 600 DO Work Phone: 04-13-2021 10:58-0500 Body mass index (BMI) [Ratio] 30.34 kg/m2 Flavio Renetta Cabrera Work Phone: [employer] [facility] [employer] 600 DO Work Phone: 04-13-2021 10:58-0500 Body surface area Derived from formula 1.95 m2 Flavio Renetta Cabrera Work Phone: [employer] [facility] [employer] 600 DO Work Phone: 04-13-2021 10:58-0500 Body weight 85.28 kg Flavio Jackson Cabrera Work Phone: [employer] [facility] [employer] 600 DO Work Phone: 04-13-2021 10:58-0500 Diastolic blood pressure 94 mm[Hg] Flavio Jackson Cabrera Work Phone: [employer] [facility] [employer] 600 DO Work Phone: 04-13-2021 10:58-0500 Heart rate 60 /min Flavio Jackson Cabrera Work Phone: [facility] 600 DO Work Phone: 04-13-2021 10:58-0500 Systolic blood pressure 152 mm[Hg] Flavio Cabrera Work Phone: [facility] 600 DO Work Phone: Encounters Encounter Date Encounter Type Care Provider Facility Start: 09-01-2024 End: [facility] Start: 07-08-2024 End: 07-08-2024 ambulatory [facility] Work Phone: Start: 07-08-2024 End: 07-08-2024 Patient encounter procedure [facility] Work Phone: Start: 05-12-2024 End: 05-12-2024 ambulatory [facility] Work Phone: Start: 05-12-2024 End: 05-12-2024 Patient encounter procedure [facility] Work Phone: Start: 05-01-2024 End: 05-01-2024 ambulatory [facility] Work Phone: Start: 05-01-2024 End: 05-01-2024 Patient encounter procedure [facility] Work Phone: Start: 05-01-2024 Non-patient / Non-visit [facility] Work Phone: Start: 04-18-2024 End: 04-18-2024 ambulatory [facility] Work Phone: Start: 04-18-2024 End: 04-18-2024 Patient encounter procedure [facility] Work Phone: Start: 04-08-2024 End: 04-08-2024 ambulatory [facility] Work Phone: Start: 04-08-2024 End: 04-08-2024 Patient encounter procedure [facility] Work Phone: Start: 03-11-2024 End: 03-11-2024 Patient encounter procedure [facility] Work Phone: Start: 02-26-2024 End: 02-26-2024 ambulatory MP Stout JORDAN Not Available Start: 02-25-2024 End: 02-25-2024 ambulatory [facility] Work Phone: [facility] Comment on above: Radiculopathy, lumba r region (Primary Dx) Start: 02-14-2024 End: 02-14-2024 ambulatory MP BENITEZ Not Available Start: 02-13-2024 End: 02-14-2024 ambulatory Mp Benitez PT Work Phone: [facility] Comment on above: Radiculopathy, lumba r region (Primary Dx) Start: 01-31-2024 End: 01-31-2024 ambulatory MP Stout JORDAN Not Available Start: 01-30-2024 End: 01-30-2024 ambulatory Mp Benitez PT Work Phone: [facility] Comment on above: Radiculopathy, lumba r region (Primary Dx) Start: 01-24-2024 End: 01-24-2024 ambulatory MP Stout JORDAN Not Available Start: 01-23-2024 End: 01-23-2024 ambulatory Mp Benitez PT Work Phone: [facility] Comment on above: Radiculopathy, lumba r region (Primary Dx) Start: 01-15-2024 End: 01-15-2024 ambulatory Puneet JOVEL Facility:[facility] Start: 01-03-2024 End: 01-03-2024 ambulatory Amarilis Crooks Facility:[facility] Start: 01-03-2024 End: 01-03-2024 Patient encounter procedure DO Flavio Cabrera Work Phone: [facility] Work Phone: Start: 12-18-2023 End: 12-18-2023 Bamboo flowsheet Jenny Velasco [employer]ACLE DATABASE DEVELOPER-THEATRE PROGRAM DIRECTOR Work Phone: [facility] Start: 12-18-2023 End: 12-18-2023 Bamboo flowsheet Jenny Joneser [employer]ACLE DATABASE DEVELOPER-THEATRE PROGRAM DIRECTOR Work Phone: [facility] Start: 12-18-2023 End: 12-18-2023 Office outpatient visit 15 minutes Jenny Velasco [employer]ACLE DATABASE DEVELOPER-THEATRE PROGRAM DIRECTOR Work Phone: [facility] Comment on above: Seborrheic keratosis (Primary Dx); Melanocytic nevus of trunk; Angioma of skin; Lentigines; Neoplasm of unspecified behavior of bone, soft tissue, and skin Start: 12-18-2023 End: 12-18-2023 ambulatory JENNY VELASCO Not Available Start: 08-28-2023 End: 08-28-2023 ambulatory [facility] Work Phone: Start: 08-28-2023 End: 08-28-2023 Patient encounter procedure [facility] Work Phone: Start: 11-22-[address] Jorge Cabrera Facility: Start: 11-22-2022 Office outpatient vi sit 15 minutes Flavio Cabrera Work Phone: [facility] 600 DO Work Phone: Start: 10-19-2022 Rx Renewal Flavio Mims Work Phone: [facility] 250 DO Work Phone: Start: 05-06-2022 End: 05-07-[address] MANUEL AC Facility:[facility] Start: 11-22-2021 Encounter for genera l adult medical examination without abnormal findings DR FLAVIO CABRERA [facility] Start: 11-19-2021 End: 11-20-[address] FLAVIO CABRERA Facility:[facility] Start: 11-19-2021 End: 11-20-2021 Encounter for general adult medical examination without abnormal findings DR FLAVIO CABRERA Facility:[facility] Start: 09-29-2021 Office outpatient vi sit 25 minutes Flavio Cabrera Work Phone: [facility] 600 DO Work Phone: Start: 07-13-2021 End: 07-14-[address] FLAVIO CABRERA Facility:[facility] Start: 07-08-2021 Chart Update Flavio Mims ng Work Phone: [facility] 600 DO Work Phone: Start: 05-25-2021 End: 05-26-[address] DOCTOR GARCIA Facility:[facility] Start: 05-12-2021 End: 05-12-2021 ambulatory Karma Rogers Other [facility] [employer] Other Start: 05-12-2021 Office outpatient vi sit 15 minutes Karma Rogers [facility] Start: 04-13-2021 Office outpatient vi sit 25 minutes Flavio Cabrera Work Phone: [facility] 600 DO Work Phone: Start: 07-16-2015 End: 07-17-2015 Patient encounter procedure LUCRECIA OTTO Facility:[facility] Procedures Date Procedure Procedure Detail Performing Clinician Start: 01-03-2024 X-ray of lumbar spin e, six views including bending views DO Flavio Cabrera Work Phone: Start: 12-18-2023 SKIN / NAIL BIOPSY Jazz Velasco [employer]ACLE DATABASE DEVELOPER-THEATRE PROGRAM DIRECTOR Work Phone: Start: 11-19-[address] IGOR AC Comment on above: Performed By: #### C RP, CMP #### [facility] [address] [place] [address] Dr. Gregg Humphreys Appendectomy Flavio partida Work Phone: Cataract surgery Flavio pat Work Phone: Colonoscopy Flavio partida Work Phone: Comment on above: [id number]; Plan of Treatment Date Care Activity Detail Author Start: 12-07-2026 Screening for malignant neoplasm of colon [facility] Start: 12-18-2024 End: 12-18-2024 Patient encounter procedure 12/18/2024 1:00 PM EDT Office Visit [facility] [address] [place] [address] Jenny Velasco, [employer]ACLE DATABASE DEVELOPER-THEATRE PROGRAM DIRECTOR [address] [place] [address] [facility] Start: 04-08-2024 Patient referral [facility] Work Phone: Start: 02-25-2024 End: 02-25-2024 ambulatory 02/25/2024 6:00 PM EST Treatment [facility] [address] [place] [address] Mp Benitez, PT [address] [facility] [address] [facility] Start: 02-13-2024 End: 02-13-2024 ambulatory 02/13/2024 6:15 PM EST Treatment [facility] [address] [place] [address] Mp Benitez, PT [address] [facility] [place] [address] [facility] Start: 01-30-2024 End: 01-30-2024 ambulatory 01/30/2024 6:15 PM EDT Treatment [facility] [address] [place] [address] Mp Benitez, PT [address] [facility] [place] [address] [facility] Start: 01-03-2024 Patient referral [facility] Work Phone: Start: 01-03-2024 X-ray of lumbar spine, six views including bending views XR lumbar spine 6V w bending [facility] Start: 01-03-2024 XR Lumbar spine Views [facility] Start: 12-18-2023 End: 12-18-2023 Patient encounter procedure 12/18/2023 1:00 PM EDT [facility] [address] [place] [address] Jenny Velasco APRN-THEATRE PROGRAM DIRECTOR [address] [place] [address] Arrived [facility] Comment on above: Arrived Start: 12-02-2023 Influenza vaccination Influenza Vaccine (#1) [facility] Start: 11-27-2023 FUV, Provider: Lisa Méndez, Status: Pen, Time: 1:10 PM FUV, Provider: Lisa Méndez, Status: Pen, Time: 1:10 PM [facility] 600 DO Work Phone: Start: 11-22-2022 FUV, Provider: Lisa Méndez, Status: Pen, Time: 11:10 AM FUV, Provider: Lisa Méndez, Status: Pen, Time: 11:10 AM [facility] Work Phone: Start: 06-06-2022 FUV, Provider: Lisa Méndez, Status: Pen, Time: 10:30 AM FUV, Provider: Lisa Méndez, Status: Pen, Time: 10:30 AM [facility] 600 DO Work Phone: Start: 08-02-2021 FUV, Provider: Lisa Méndez, Status: Pen, Time: 11:20 AM FUV, Provider: Lisa Méndez, Status: Pen, Time: 11:20 AM [facility] 600 DO Work Phone: Start: 07-28-2021 FUV, Provider: Lisa Méndez, Status: Pen, Time: 1:00 PM FUV, Provider: Lisa Méndez, Status: Pen, Time: 1:00 PM [facility] 600 DO Work Phone: Start: 06-01-2021 STRESS ANDREW, Provider: [place] HHVI NUCLEAR 01,[id number], Status: Pen, Time: 11:00 AM STRESS ANDREW, Provider: [place] HHVI NUCLEAR 01,[id number], Status: Pen, Time: 11:00 AM [facility] Work Phone: Start: 04-27-2021 STRESS ANDREW, Provider: [place] HHVI NUCLEAR 01,[id number], Status: Pen, Time: 11:00 AM STRESS ANDREW, Provider: [place] ORTEGAI NUCLEAR 01,[id number], Status: Pen, Time: 11:00 AM [facility] 600 DO Work Phone: Start: 1960 Screening for malignant neoplasm of colon [facility] Dermatopathology exam Dermatopat hology exam Pathology and Cytology Timed Neoplasm of unspecified behavior of bone, soft tissue, and skin Release Upon Ordering for 1 Occurrences starting 12/18/2023 [facility] Work Phone: Comment on above: Release Upon Ordering for 1 Occurrences starting 12/18/2023 MR Lumbar spine WO contrast [facility] Patient referral [facility] Work Phone: Immunizations Immunization Date Immunization Notes Care Provider Carmelo benitez 02-23-2023 COVID-19 (PFIZER) 12Y and older [facility] 02-23-2023 RSV, bv, preFa and preFb, pf [facility] 02-17-2023 influenza, injectabl e, quadrivalent, preservative free [facility] 02-17-2023 influenza virus vacc ine, unspecified formulation Jenny Velasco [employer]ACLE DATABASE DEVELOPER-THEATRE PROGRAM DIRECTOR Work Phone: [facility] 02-04-2022 influenza, injectabl e, quadrivalent, preservative free Flavio A Cabrera Work Phone: [facility] 01-28-2022 Prevnar 20 0.5 ML Intramuscular Suspension Prefilled Syringe Flavio Cabrera Work Phone: [facility] 01-21-2022 Pfizer COVID-19 Vac Bivalent 30 MCG/0.3ML Intramuscular Suspension Flavio Cabrera Work Phone: [facility] 09-30-2021 Comirnaty 30 MCG/0.3 ML Intramuscular Suspension Flavio Dominguezring Work Phone: [facility] 09-03-2021 Comirnaty 30 MCG/0.3 ML Intramuscular Suspension Flavio Dominguezring Work Phone: [facility] 01-17-2021 influenza, seasonal, injectable Flavio A Cabrera Work Phone: [facility] 600 DO Work Phone: 01-08-2021 Influenza, injectabl e, Madin Josefina Canine Kidney, preservative free, quadrivalent Flavio A Cabrera Work Phone: [facility] 01-30-2020 zoster vaccine [facility] 01-30-2020 zoster vaccine, live Flavio A Cabrera Work Phone: [facility] 600 DO Work Phone: 10-25-2019 zoster vaccine recombinant [facility] 10-25-2019 zoster vaccine, live Flavio A Cabrera Work Phone: [facility] DO Work Phone: 03-22-2019 Influenza, injectabl e, Madin [place] Canine Kidney, preservative free, quadrivalent Flavio A Cabrera Work Phone: [facility] 12-31-2018 influenza virus vacc ine, unspecified formulation Flavio A Cabrera Work Phone: [facility] DO Work Phone: 04-09-2016 zoster vaccine, live Flavio Cabrera Work Phone: [facility] 03-29-2015 pneumococcal conjuga te vaccine, 13 valent Flavio Jackson Cabrera Work Phone: [facility] 03-18-2015 influenza virus vacc ine, unspecified formulation Flavio Cabrera Work Phone: [facility] 600 DO Work Phone: 03-18-2015 pneumococcal polysaccharide vaccine, 23 valent Flavio Cabrera Work Phone: [facility] 600 DO Work Phone: Payers Date Payer Category Payer Self-pay [id number] 2018 [facility] [id number] 2018 Unknown 2015 [facility] RLCAN [id number] 1960 Unknown [id number] [id number]. [id number] 1960 Unknown [id number] [id number]. 2.593 1960 Unknown [id number] 2.16.840.1.557425.3.579. 2.593 1960 Unknown [id number] 2.16.840.1.935209.3.579. 2.593 1960 Unknown [id number] 2.16.840.1.014350.3.579. 2.593 1960 Unknown [id number] 2.16.840.1.395389.3.579. 2.356 1960 Unknown [id number] 2.16.840.1.097502.3.579. 2.1259 1960 Unknown [id number] 2.16.840.1.107167.3.579. 2.1259 1960 Unknown [id number] 2.16.840.1.106139.3.579. 2.1259 1960 Unknown [id number] 2.16.840.1.109925.3.579. 2.1259 1960 Unknown [id number] 2.16.840.1.619006.3.579. 2.1259 1960 Unknown [id number] [id number]. 2.[address] [facility] Blue Shield [id number] Private Health Insurance [employer] [id number] Unknown [id number]. 2.531 Social History Date Type Detail Facility Start: 11-27-2022 End: 12-18-2023 No illicit drug use No illicit drug use [facility] 600 DO Work Phone: Comment on above: 3-4 cups coffee felecia y, 1 can of diet pop; Start: 11-27-2022 End: 12-18-2023 Sex Assigned At [facility] [employer] Other Start: 1960 Sex Assigned At Male F [facility] Start: 01-03-2024 End: 01-03-2024 Tobacco smoking status NHIS Ex-smoker (finding) [facility] History of tobacco use Current smoker [facility] History of tobacco use Cigarette Smoker [facility] Start: 11-27-2022 Tobacco use and exposure Smokeless tobacco non-user [facility] Start: 1960 Sex assigned at Not on file [facility] Start: 04-08-2024 End: 07-08-2024 Sex Male (finding) [facility] Clinical Notes 04-02-2021 to 04-18-2024 Note Date & Type Note Facility 04-18-2024 Evaluation note Diagnosis Onset Date Resolution Lumbar radiculopathy acute Tres aditi 2024 10:46am Lumbosacral spondylosis acute J anuary 2024 10:46am Other chronic pain acute Apruar y 2024 10:46am Sacroiliitis acute April 10:46am Lumbar radiculopathy acute Febr uary 2024 11:49am Lumbosacral spondylosis acute F ebruary 2024 11:49am Other chronic pain acute Februa ry 2024 11:49am Sacroiliitis acute May 11:49am Lumbar radiculopathy acute Apri l 2024 11:21am Lumbosacral spondylosis acute A pril 2024 11:21am Other chronic pain acute July 08, 2024 11:21am Sacroiliitis acute July 08, 11:21am [facility] Work Phone: 1(738) 903-326912-10-2024 Evaluation note* Diagnosis Onset Date Resolution Status Admit Date Right groin pain acute March 11, 2024 10:20am Right lumbar radiculopathy acute March 11, 2024 10:20am [facility] Work Phone: 1(617) 729-689212-10-2024 Evaluation note* Diagnosis Onset Date Resolution Status Admit Date Right groin pain acute March 11, 2024 10:20am Right lumbar radiculopathy acute March 11, 2024 10:20am Degenerative arthritis of spine acut e April 08, 2024 11:05am Right lumbar radiculopathy acute April 08, 2024 11:05am Lumbar radiculopathy acute Tres 2024 10:46am Lumbosacral spondylosis acute J anuary 2024 10:46am Other chronic pain acute 2024 10:46am Sacroiliitis acute April 10:46am [facility] Work Phone: 1(642) 575-331212-10-2024 Evaluation note* Diagnosis Onset Date Resolution Status Admit Date Right groin pain acute March 11, 2024 10:20am Right lumbar radiculopathy acute March 11, 2024 10:20am Degenerative arthritis of spine acut e April 08, 2024 11:05am Right lumbar radiculopathy acute April 08, 2024 11:05am Lumbar radiculopathy acute 2024 10:46am Lumbosacral spondylosis acute J anuary 2024 10:46am Other chronic pain acute 2024 10:46am Sacroiliitis acute April 10:46am Lumbar radiculopathy acute ua2024 11:49am Lumbosacral spondylosis acute F ebruary 2024 11:49am Other chronic pain acute 2024 11:49am Sacroiliitis acute May 11:49am [facility] Work Phone: 1(904) 513-913211-25-2024 History of Present illness Narrative* Mp Benitez, PT - 02/25/2024 6:00 PM EST Physical Therapy Physical Therapy Evaluation Visit Patient Name: Humberto [place] Today's Date: 02/25/2024 Encounter Diagnoses Name Primary? Radiculopathy, lumbar region Yes Time In: 6:00 pm Time out: 6:40 pm Supervised Time: 25 Min Total Time: 15 Min Visit Number: 4 (PT- No co-ins $30 co-pay 20 visits No Auth Availity Trans ID [id number]) Chief Complaint: Chronic 20 year history LBP with 6 months of LBP exacerbation and newer onset right LE radiculopathy. PRECAUTIONS: As Tolerated Subjective History: 63 yo male presents per Amarilis Sotelo APRN, COLLEGE FOOTBALL COACH-BC, MSN reporting 6 months of lumbar pain exacerbation with right LE radiculopathy. 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 Presents motivated to participate in outpatient PT. Pain: Presents with reports of 6-8/10 pain chronic in lumbar spine with right anterior thigh pain in L3 radicular pattern. Reports he is able to get very short term relieve with Phase I Trent discprogram. However, easily exacerbated with work with moderate decreased tolerance to ADL, household m anagement, work, sleep, and recreation. X-Ray: There is a dextro convex curvature at the thoracolumbar junction. There is 5 mm of retrolisthesis of L2 upon L3 which remains unchanged on flexion or extension.There is moderate disc height loss with vacuum disc phenomena at L2-L3 and L5-S1. There is mild disc height loss throughout otherwise. Anterior osteophyte formation is noted, greatest at L1-2 and L2-L3. Degenerative changes are noted in the sacroiliac joints. Objective: Examination performed on 01/23/24-[facility] The patient presents with acute/subacute lumbar pain/spasm with right greater than left radiculopathy. Lumbar spine AROM screen demonstrates painful forward flexion limited to 40 degrees with retchedreturn, lumbar extension was decreased by 50-75% at 15 degrees extension, side-bending was 15 degrees bilateral. The patient had positive SLUMP and SLR testing, positive PA testing most pronounced over L4-5 and L5-S1 segments. There was moderate increased thoracolumbar and lumbosacral paraspinal tone with recent reports of spasm. Symptoms were peripheralized with repetitive forward flexion and centralized with repetitive lumbar extension consistent with lumbar disc derangement. LE dermatome and myotome screening were unremarkable. Denies saddle paresthesia and bowel/bladder dysfunction. Reviewed Trent disc derangement protocol including phase I-disc healing and inflammation reduction protocol including initial ergonomic and pain relieving positional strategy. The patient's Back Index scores 52 indicative of moderate functional impairment consistent with PT examination findings. 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: Grade I/II lumbar PA over L3-S1 segments, Trent method lumbar extension mobilization, aggressive STM for promotion of extension mobility and improvement in tissue tone and pain (15 Min) Therapeutic Exercise: Per Exercise Grid found in patient documents including phase I Trent disc derangement protocol with expectation of progression to general flexibility and dynamic lumbar stabilization once the disc has stabilized (10 Min) Therapeutic Activity: Functional Activity Training (PRN) Neuromuscular Re-education: Neuromuscular reeducation including muscle facilitation, ergonomic and postural training, core strengthening (Held) Modalities: Electrical Stimulation/Ice initially prone over 2-3 pillows progression toward prone inextension as tolerated IFC High/Low Sweep for inflammation and pain control (15 Min); UltraSound-1 MHz 1.5 w/cm2 at L4-S1 disc interspaces (PRN); Mechanical lumbar traction for decompression (PRN) Goals: Short Term Goals: To be met by 03/16/24 The patient to demonstrate 50% reduction in pain to at worst 4/10 intensity with good centralization of symptoms in 1-2 weeks and no active radiculopathy in 2-4 weeks The patient to achieve 75% lumbar extension return in 1 week and normal lumbar extension mobility in 2-4 weeks with 5-7 days of no active radiculopathy in 2-4 weeks The patient to independently demonstrate neutral spine postural mechanics and good ergonomic lifting technique including golfers lift, box lift, and floor transfer to be met by conclusion of PT expected in 4-8 weeks The patient to demonstrate normal trunk and LE flexibility with 90/90 HS length of <10 degrees from full knee extension, have strong abdominal and lumbar core co-contraction with 4-4+/5 strength, and be successful with resumption of all previously performed activities in 4-8 weeks The patient to score <10% residual functional impairment via Back Index difficulty questionnaire, have good compliance to ergonomic and postural recommendations, and have prophylactic management plan in place including routine home management flexibility and strength exercises to reduce risk of re- injury and ensure long-term management to be met by conclusion of PT expected in 4-8 weeks Rehab Potential: Good PT Assessment: The patient has participated in 4 outpatient PT sessions since start of care on 01/23/24 per referral of Amarilis Sotelo APRN, COLLEGE FOOTBALL COACH-BC, MSN reporting 6 months of lumbar pain exacerbation with rightLE radiculopathy. Presents with reports of 6-8/10 pain chronic in lumbar spine with right anterior thigh pain in L3 radicular pattern. Reports he is able to get very short term relieve with Phase I Trent disc program. However, easily exacerbated with work with moderate decreased tolerance to ADL, household management, work, sleep, and recreation. Patient has failed to improve with standard PT approach to this condition based on existing imagingthat includes X-Ray report that demonstrates 5 mm of retrolisthesis of L2 upon L3. Additionally, suspect disc component to this condition. No overall improvement is noted with this episode of PT and additional diagnostics such as MRI is recommended. Note forwarded to referring Amarilis Crooks MD for review and co-signature. Plan: Recommend holding additional PT due to poor overall progress as above (02/25/24-DBO) I hereby deem this POC medically necessary. Please sign below and fax back to the number below. Physician Signature: Date: [id number] History of Present illness Narrative* Mp Benitez, PT - 02/13/2024 6:15 PM EST Physical Therapy Physical Therapy Evaluation Visit Patient Name: Humberto [place] Today's Date: 02/13/2024 Encounter Diagnoses Name Primary? Radiculopathy, lumbar region Yes Time In: 6:15 pm Time out: 7:10 pm Supervised Time: 40 Min Total Time: 55 Min Visit Number: 3 (PT- No co-ins $30 co-pay 20 visits No Auth Availity Trans ID [id number]) Chief Complaint: Chronic 20 year history LBP with 6 months of LBP exacerbation and newer onset right LE radiculopathy. PRECAUTIONS: As Tolerated Subjective History: 63 yo male presents per Amrailis Sotelo APRN, DANAE, MSN reporting 6 months of lumbar pain exacerbation with right LE radiculopathy. 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 Presents motivated to participate in outpatient PT. Pain: Reports 25-50% decrease in back pain and right leg/anterior thigh symptoms following session 2 on 01/30/24 and did well with phase II Trent disc program. Experienced significant exacerbationin same right lower lumbar and right lateral and anterior thigh distribution in the last 4-5 days with pain up to 8/10 intensity. Reports he has worked but is in severe pain and has weightbearing sensitivity left LE. X-Ray: There is a dextro convex curvature at the thoracolumbar junction. There is 5 mm of retrolisthesis of L2 upon L3 which remains unchanged on flexion or extension.There is moderate disc height loss with vacuum disc phenomena at L2-L3 and L5-S1. There is mild disc height loss throughout otherwise. Anterior osteophyte formation is noted, greatest at L1-2 and L2-L3. Degenerative changes are noted in the sacroiliac joints. Objective: Examination performed on 01/23/24-[facility] The patient presents with acute/subacute lumbar pain/spasm with right greater than left radiculopathy. Lumbar spine AROM screen demonstrates painful forward flexion limited to 40 degrees with retchedreturn, lumbar extension was decreased by 50-75% at 15 degrees extension, side-bending was 15 degrees bilateral. The patient had positive SLUMP and SLR testing, positive PA testing most pronounced over L4-5 and L5-S1 segments. There was moderate increased thoracolumbar and lumbosacral paraspinal tone with recent reports of spasm. Symptoms were peripheralized with repetitive forward flexion and centralized with repetitive lumbar extension consistent with lumbar disc derangement. LE dermatome and myotome screening were unremarkable. Denies saddle paresthesia and bowel/bladder dysfunction. Reviewed Trent disc derangement protocol including phase I-disc healing and inflammation reduction protocol including initial ergonomic and pain relieving positional strategy. The patient's Back Index scores 52 indicative of moderate functional impairment consistent with PT examination findings. 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: Grade I/II lumbar PA over L3-S1 segments, Trent method lumbar extension mobilization, aggressive STM for promotion of extension mobility and improvement in tissue tone and pain (25 Min) Therapeutic Exercise: Per Exercise Grid found in patient documents including phase I Trent disc derangement protocol with expectation of progression to general flexibility and dynamic lumbar stabilization once the disc has stabilized (15 Min) Therapeutic Activity: Functional Activity Training (PRN) Neuromuscular Re-education: Neuromuscular reeducation including muscle facilitation, ergonomic and postural training, core strengthening (Held) Modalities: Electrical Stimulation/Ice initially prone over 2-3 pillows progression toward prone inextension as tolerated IFC High/Low Sweep for inflammation and pain control (15 Min); UltraSound-1 MHz 1.5 w/cm2 at L4-S1 disc interspaces (PRN); Mechanical lumbar traction for decompression (PRN) Goals: Short Term Goals: To be met by 03/16/24 The patient to demonstrate 50% reduction in pain to at worst 4/10 intensity with good centralization of symptoms in 1-2 weeks and no active radiculopathy in 2-4 weeks The patient to achieve 75% lumbar extension return in 1 week and normal lumbar extension mobility in 2-4 weeks with 5-7 days of no active radiculopathy in 2-4 weeks The patient to independently demonstrate neutral spine postural mechanics and good ergonomic lifting technique including golfers lift, box lift, and floor transfer to be met by conclusion of PT expected in 4-8 weeks The patient to demonstrate normal trunk and LE flexibility with 90/90 HS length of <10 degrees from full knee extension, have strong abdominal and lumbar core co-contraction with 4-4+/5 strength, and be successful with resumption of all previously performed activities in 4-8 weeks The patient to score <10% residual functional impairment via Back Index difficulty questionnaire, have good compliance to ergonomic and postural recommendations, and have prophylactic management plan in place including routine home management flexibility and strength exercises to reduce risk of re- injury and ensure long-term management to be met by conclusion of PT expected in 4-8 weeks Rehab Potential: Good PT Assessment: The patient has participated in 3 outpatient PT sessions since start of care on 01/23/24 per referral of Amarilis Sotelo, BILLY, COLLEGE FOOTBALL COACH-BC, MSN reporting 6 months of lumbar pain exacerbation with rightLE radiculopathy. Reports 25-50% decrease in back pain and right leg/anterior thigh symptoms following session 2 on 01/30/24 and did well with phase II Trent disc program. Experienced significant exacerbation in same right lower lumbar and right lateral and anterior thigh distribution in the last 4-5 days with pain up to 8/10 intensity. Reports he has worked but is in severe pain and has weightbearing sensitivity left LE. Returned to phase I program and was able to centralize symptoms and abolish leg and back pain by conclusion of session. Reviewed principles of phase I Trent program and postural/ergonomic considerations of this case. Encouraged Phase I program 5-7 days and longer if necessary. Follow-up in 2-3 weeks to attempt phase II progression as tolerated. Plan: Recommend outpatient PT 1-3 times/week for up to 8 weeks per above PT POC pending patient progress and medical necessity standards (01/23/24-DBO) I hereby deem this POC medically necessary. Please sign below and fax back to the number below. Physician Signature: Date: documented in this encounterSaint Luke's East [id number] History of Present illness Narrative* Mp Benitez, PT - 01/30/2024 6:15 PM EDT Physical Therapy Physical Therapy Evaluation Visit Patient Name: Humberto Lima Today's Date: 01/30/2024 Encounter Diagnoses Name Primary? Radiculopathy, lumbar region Yes Time In: 6:15 pm Time out: 7:00 pm Supervised Time: 45 Min Total Time: 45 Min Visit Number: 2 (PT- No co-ins $30 co-pay 20 visits No Auth Availity Trans ID [id number]) Chief Complaint: Chronic 20 year history LBP with 6 months of LBP exacerbation and newer onset right LE radiculopathy. PRECAUTIONS: As Tolerated Subjective History: 63 yo male presents per Amarilis Sotelo APRN, LUIS ENRIQUE-PRABHJOT, MSN reporting 6 months of lumbar pain exacerbation with right LE radiculopathy. 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 Presents motivated to participate in outpatient PT. Pain: Reports 25-50% decrease in back pain and right leg/anterior thigh symptoms. Able to achieve full lumbar extension within 10-20 prone lumbar extension exercises. X-Ray: There is a dextro convex curvature at the thoracolumbar junction. There is 5 mm of retrolisthesis of L2 upon L3 which remains unchanged on flexion or extension.There is moderate disc height loss with vacuum disc phenomena at L2-L3 and L5-S1. There is mild disc height loss throughout otherwise. Anterior osteophyte formation is noted, greatest at L1-2 and L2-L3. Degenerative changes are noted in the sacroiliac joints. Objective: Examination performed on 01/23/24-[facility] The patient presents with acute/subacute lumbar pain/spasm with right greater than left radiculopathy. Lumbar spine AROM screen demonstrates painful forward flexion limited to 40 degrees with retchedreturn, lumbar extension was decreased by 50-75% at 15 degrees extension, side-bending was 15 degrees bilateral. The patient had positive SLUMP and SLR testing, positive PA testing most pronounced over L4-5 and L5-S1 segments. There was moderate increased thoracolumbar and lumbosacral paraspinal tone with recent reports of spasm. Symptoms were peripheralized with repetitive forward flexion and centralized with repetitive lumbar extension consistent with lumbar disc derangement. LE dermatome and myotome screening were unremarkable. Denies saddle paresthesia and bowel/bladder dysfunction. Reviewed Trent disc derangement protocol including phase I-disc healing and inflammation reduction protocol including initial ergonomic and pain relieving positional strategy. The patient's Back Index scores 52 indicative of moderate functional impairment consistent with PT examination findings. 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: Grade I/II lumbar PA over L3-S1 segments, Trent method lumbar extension mobilization, aggressive STM for promotion of extension mobility and improvement in tissue tone and pain (15 Min) Therapeutic Exercise: Per Exercise Grid found in patient documents including phase I Trent disc derangement protocol with expectation of progression to general flexibility and dynamic lumbar stabilization once the disc has stabilized (20 Min) Therapeutic Activity: Functional Activity Training (PRN) Neuromuscular Re-education: Neuromuscular reeducation including muscle facilitation, ergonomic and postural training, core strengthening (10 Min- Abdominal Co-contraction, posture, ergonomic co-contraction) Modalities: Electrical Stimulation/Ice initially prone over 2-3 pillows progression toward prone inextension as tolerated IFC High/Low Sweep for inflammation and pain control (PRN); UltraSound-1 MHz1.5 w/cm2 at L4-S1 disc interspaces (PRN); Mechanical lumbar traction for decompression (PRN) Goals: Short Term Goals: To be met by 03/16/24 The patient to demonstrate 50% reduction in pain to at worst 4/10 intensity with good centralization of symptoms in 1-2 weeks and no active radiculopathy in 2-4 weeks The patient to achieve 75% lumbar extension return in 1 week and normal lumbar extension mobility in 2-4 weeks with 5-7 days of no active radiculopathy in 2-4 weeks The patient to independently demonstrate neutral spine postural mechanics and good ergonomic lifting technique including golfers lift, box lift, and floor transfer to be met by conclusion of PT expected in 4-8 weeks The patient to demonstrate normal trunk and LE flexibility with 90/90 HS length of <10 degrees from full knee extension, have strong abdominal and lumbar core co-contraction with 4-4+/5 strength, and be successful with resumption of all previously performed activities in 4-8 weeks The patient to score <10% residual functional impairment via Back Index difficulty questionnaire, have good compliance to ergonomic and postural recommendations, and have prophylactic management plan in place including routine home management flexibility and strength exercises to reduce risk of re- injury and ensure long-term management to be met by conclusion of PT expected in 4-8 weeks Rehab Potential: Good PT Assessment: The patient has participated in 2 outpatient PT sessions since start of care on 01/23/24 per referral of Amarilis Sotelo APRN, [employer]LE[employer] FO[employer]BALL COACH-BC, MSN reporting 6 months of lumbar pain exacerbation with rightLE radiculopathy. Reports 25-50% decrease in back pain and right leg/anterior thigh symptoms. Able to achieve full lumbar extension within 10-20 prone lumbar extension exercises. Was able to progress to Trent phase II program including light general trunk and LE flexibility and DLS program. Tolerated well. Encouraged to continue repetitive lumbar extension exercises throughout the work day in addition to continuation of Phase I ergonomic principles. To perform trunk and LE flexibility program 2 times/day as tolerated and return to just extension if exacerbation. Follow-up in 2 weeks. Plan: Recommend outpatient PT 1-3 times/week for up to 8 weeks per above PT POC pending patient progress and medical necessity standards (01/23/24-DBO) I hereby deem this POC medically necessary. Please sign below and fax back to the number below. Physician Signature: Date: documented in this encounterSaint Luke's East [id number] History of Present illness Narrative* Mp Benitez, PT - 01/23/2024 6:00 PM EDT Physical Therapy Physical Therapy Evaluation Visit Patient Name: Humberto Lima Today's Date: 01/23/2024 Encounter Diagnoses Name Primary? Radiculopathy, lumbar region Yes Time In: 6:00 pm Time out: 7:50 pm Supervised Time: 50 Min Total Time: 50 Min Evaluation Time: 20 Minutes Visit Number: 1 (PT- No co-ins $30 co-pay 20 visits No Auth Availity Trans ID [id number]) Chief Complaint: Chronic 20 year history LBP with 6 months of LBP exacerbation and newer onset right LE radiculopathy. PRECAUTIONS: As Tolerated Subjective History: 63 yo male presents per Amarilis Sotelo, BILLY, LUIS ENRIQUE-PRABHJOT, MSN reporting 6 months of lumbar pain exacerbation with right LE radiculopathy. 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 Presents motivated to participate in outpatient PT. Pain: Reports pain progressive with work day and with bending, lifting, twisting up to 8/10 with right anterior thigh pain in L2-3 distribution which correlates well with X-Ray findings at that level X-Ray: There is a dextro convex curvature at the thoracolumbar junction. There is 5 mm of retrolisthesis of L2 upon L3 which remains unchanged on flexion or extension.There is moderate disc height loss with vacuum disc phenomena at L2-L3 and L5-S1. There is mild disc height loss throughout otherwise. Anterior osteophyte formation is noted, greatest at L1-2 and L2-L3. Degenerative changes are noted in the sacroiliac joints. Objective: Examination performed on 01/23/24-[facility] The patient presents with acute/subacute lumbar pain/spasm with right greater than left radiculopathy. Lumbar spine AROM screen demonstrates painful forward flexion limited to 40 degrees with retchedreturn, lumbar extension was decreased by 50-75% at 15 degrees extension, side-bending was 15 degrees bilateral. The patient had positive SLUMP and SLR testing, positive PA testing most pronounced over L4-5 and L5-S1 segments. There was moderate increased thoracolumbar and lumbosacral paraspinal tone with recent reports of spasm. Symptoms were peripheralized with repetitive forward flexion and centralized with repetitive lumbar extension consistent with lumbar disc derangement. LE dermatome and myotome screening were unremarkable. Denies saddle paresthesia and bowel/bladder dysfunction. Reviewed Trent disc derangement protocol including phase I-disc healing and inflammation reduction protocol including initial ergonomic and pain relieving positional strategy. The patient's Back Index scores 52 indicative of moderate functional impairment consistent with PT examination findings. 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: Initial evaluation/patient education-low complexity including education on this condition including: expected healing of tissues and acceptable time frame for progress, ergonomic and postural education, and emphasis on icing and non-narcotic pain management as soon as possible (20 Min) Manual: Grade I/II lumbar PA over L3-S1 segments, Trent method lumbar extension mobilization, aggressive STM for promotion of extension mobility and improvement in tissue tone and pain (15 Min) Therapeutic Exercise: Per Exercise Grid found in patient documents including phase I Trent disc derangement protocol with expectation of progression to general flexibility and dynamic lumbar stabilization once the disc has stabilized (15 Min) Therapeutic Activity: Functional Activity Training (PRN) Neuromuscular Re-education: Neuromuscular reeducation including muscle facilitation, ergonomic and postural training, core strengthening (PRN) Modalities: Electrical Stimulation/Ice initially prone over 2-3 pillows progression toward prone inextension as tolerated IFC High/Low Sweep for inflammation and pain control (PRN); UltraSound-1 MHz1.5 w/cm2 at L4-S1 disc interspaces (PRN); Mechanical lumbar traction for decompression (PRN) Goals: Short Term Goals: To be met by 03/16/24 The patient to demonstrate 50% reduction in pain to at worst 4/10 intensity with good centralization of symptoms in 1-2 weeks and no active radiculopathy in 2-4 weeks The patient to achieve 75% lumbar extension return in 1 week and normal lumbar extension mobility in 2-4 weeks with 5-7 days of no active radiculopathy in 2-4 weeks The patient to independently demonstrate neutral spine postural mechanics and good ergonomic lifting technique including golfers lift, box lift, and floor transfer to be met by conclusion of PT expected in 4-8 weeks The patient to demonstrate normal trunk and LE flexibility with 90/90 HS length of <10 degrees from full knee extension, have strong abdominal and lumbar core co-contraction with 4-4+/5 strength, and be successful with resumption of all previously performed activities in 4-8 weeks The patient to score <10% residual functional impairment via Back Index difficulty questionnaire, have good compliance to ergonomic and postural recommendations, and have prophylactic management plan in place including routine home management flexibility and strength exercises to reduce risk of re- injury and ensure long-term management to be met by conclusion of PT expected in 4-8 weeks Rehab Potential: Good PT Assessment: The patient has participated in 1 outpatient PT sessions since start of care on 01/23/24 per referral of Amarilis Sotelo APRN, [employer]LE[employer]OTBALL COACH-BC, MSN reporting 6 months of lumbar pain exacerbation with rightLE radiculopathy. Patient is agreeable with PT POC and is motivated to participate in this episode of care Good initial response to intervention and successful implementation of HEP. Plan: Recommend outpatient PT 1-3 times/week for up to 8 weeks per above PT POC pending patient progress and medical necessity standards (01/23/24-DBO) I hereby deem this POC medically necessary. Please sign below and fax back to the number below. Physician Signature: Date: documented in this encounterSaint Luke's East [id number] History of Present illness Narrative* Jenny Velasco, BILLY-THEATRE PROGRAM DIRECTOR - 12/18/2023 1:00 PM EDT Images from the original note were not included. Skin Check Location: Patient requests a skin examination from the waist up Dermatologic history: history of Actinic Keratosis Last visit: 1 year ago established patient General Exam: alert , oriented to person, place, and time , normal affect, well appearing Accompanied by spouse A complete skin exam was offered, pt declined. Scalp, Examined Head, Face Examined Neck not examined Chest Examined Back Examined Abdomen Examined Right arm Examined Left arm Examined Hands Examined Digits,nails: Examined 1. Seborrheic keratosis Head Stuck on verrucous, variably pigmented papules and plaques. Patient was counseled regarding these benign growths. Removal is normally not necessary, but they may be removed if they are symptomatic or for cosmetic reasons. 2. Melanocytic nevus of trunk Scattered benign appearing, regular brown to light brown melanocytic papules and macules with similar morphology Counseled regarding these benign growths. Rarely, a nevus can develop into malignant melanoma, so any changing nevi should be promptly re-evaluated. 3. Angioma of skin Scattered grijalva-red papule(s). The patient was informed that angiomas are benign growths on the the skin. No treatment is necessary. 4. Lentigines Scattered cassidy macules in sun-exposed areas. The patient was informed that lentigines are benign pigmented lesions that occur on sun-exposed andsun-damaged skin. No treatment is necessary. Recommended regular use of broad spectrum sunscreen SPF 30 or higher 5. Neoplasm of unspecified behavior of bone, soft tissue, and skin Mid Scalp Erythematous papule Lesion biopsy Type of biopsy: tangential Informed consent: discussed and consent obtained Informed consent comment: The risks and benefits of the biopsy were discussed. Risks include but are not limited to bleeding, infection, scarring, pain, and nerve damage. An opportunity to ask questions prior to the procedure was permitted and all questions were answered. Patient was prepped and draped in usual sterile fashion: area cleansed with alcohol. Anesthesia: the lesion was anesthetized in a standard fashion Anesthetic: 1% lidocaine w/ epinephrine 1-100,000 buffered w/ 8.4% NaHCO3 Instrument used: DermaBlade Hemostasis achieved with: electrodesiccation Outcome: patient tolerated procedure well Outcome comment: The specimen was placed in a prelabeled formalin container to be sent for pathology Post-procedure details: sterile dressing applied and wound care instructions given Post-procedure details comment: Emphasized need to contact clinic for any signs of infection, uncontrollable bleeding, or complications. Dressing type: bandage Additional details: Photo taken yes Amount of lidocaine used: 0.4 cm Specimen A - Dermatopathology exam Differential Diagnosis: SCC vs AK Check Margins: No Size of lesion: 1.0 X 0.4 cm Next Visit: 1 year documented in this encounterSaint Luke's East [id number] NotePROCEDURE: XR HIP LT 2 3V WO PELVIS HISTORY: Pain of left hip joint ; chronic COMPARISON: None. FINDINGS: BONES:No fracture, acute abnormality, or significant arthropathy. SOFT TISSUES:No visible soft tissue swelling. EFFUSION:None visible. OTHER: Negative. IMPRESSION: 1. Normal examination. Electronically authenticated by: LILI BARRERA Date: 2021-07-13 14:30[facility]02-10-2022 Evaluation note* Encounter Date Diagnosis Assessment Notes Treatment Notes Treatment Clinical Notes May, Oral thrush (ICD-10 - B37.0) May mix with the Nystatin that you already have. If the symptoms don't improve, follow up with primary care provider. [facility] Other 01-01-2022 History general Narrative - Reported* Type Description Date Medical History Arthritis Medical History hypertension Surgical History appendectomy Hospitalization History see above Hospitalization History pneumonia 04/2021 [facility] Other Anavexaluation noteNo assessment information available [facility] Work Phone: Evaluation note* Diagnosis Onset Date Resolution Status Right lumbar radiculopathy a cute [facility] Work Phone: Evaluation note* Diagnosis Radiculopathy, lumbar region- Primary Thoracic or lumbosacral neuritis or radiculitis, unspecified [facility] Diagnosis Radiculopathy, lumbar region- Primary Thoracic or lumbosacral neuritis or radiculitis, unspecified Radiculopathy, lumbar region- Primary Thoracic or lumbosacral neuritis or radiculitis, unspecified [facility] Diagnosis Radiculopathy, lumbar region- Primary Thoracic or lumbosacral neuritis or radiculitis, unspecified [facility]* Diagnosis Seborrheic keratosis- Primary Melanocytic nevus of trunk Benign neoplasm of skin of trunk, except scrotum Angioma of skin Lentigines Neoplasm of unspecified behavior of bone, soft tissue, and skin documented [facility] N[facility]* Patient is here for follow- up and management for recent evaluation for chest pain, hypertension andprior episode of palpitation. Since last time I saw him he feels much better. He denies any complaint of chest pain, palpitation, lightheadedness, dizziness or syncope. He underwent stress test. He did exercise for good exercise level. Did not have chest pain but failed to achieve adequate heart rate I suspect due to treatment with beta-cindy. The patient clinical status seem to have improved. * ASSESSMENT * 1. Recent evaluation for chest pain. Repeat stress test showed good exercise tolerance no inductionof chest pain but failed to achieve adequate heart rate I still believe this is an clinically negative test. Patient had no recurrence of his symptoms. He attributed his previous complaint to stress regarding to changes in his job situation * 2. Hypertension appears to be controlled with recent addition of low-dose beta-cindy * 3. Mildly overweight. Recent weight gain * 4. Former smoker. * 5. Rare episode of palpitation, resolved. * 6. Family history of coronary artery disease. * RECOMMENDATION: * 1. I reviewed with the patient the results of his stress test * 2. I recommended to continue to follow nonpharmacologic approach for management for hypertension including low-salt diet, exercise and losing weight and continue current dose of metoprolol * 3. I advised him to exercise. * 4. We will see him back in 9 months and advised him to notify me change in cardiac status or symptoms [facility] 600 DO Work Phone: History of Present illness Narrative* Patient is here for follow-up continue management for previous evaluation for chest pain, hypertension, mildly overweight. Since last time I saw him he denies any cardiac complaint of chest pain, palpitation, lightheadedness, dizziness or syncope. He remains active. 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 * ASSESSMENT * 1. Previous evaluation for chest pain. Repeat stress test showed good exercise tolerance no induction of chest pain but failed to achieve adequate heart rate I still believe this is an clinically negative test. Patient had no recurrence of his symptoms. He attributed his previous complaint to stress regarding to changes in his job situation. Remains asymptomatic * 2. Hypertension appears to be controlled with recent addition of low-dose beta-cindy * 3. Mildly overweight. * 4. Former smoker. * 5. Rare episode of palpitation, resolved. * 6. Family history of coronary artery disease. * 7. History of arthritis followed by local cow buyer indicate could be either early rheumatoid arthritis versus lupus * RECOMMENDATION: * 1. I reviewed with the patient the results of his lab work and previous stress test * 2. I recommended to continue to follow nonpharmacologic approach for management for hypertension including low-salt diet, exercise and losing weight and continue current dose of metoprolol * 3. I advised him to exercise. * 4. We will see him back in one year and advised him to notify me change in cardiac status or symptoms [facility] 600 DO Work Phone: Hospital Discharge instructionsAmbulatory Orders* Referral to PT / OT / Speech (PT/OT/SP) Location: None [facility] Work Phone: Hospital Discharge instructionsAmbulatory Orders* Referral to Pain Management Location: None [facility] Work Phone: Reason for visit Narrative* Rehabilitation - Outpatient (Routine) - Authorized Specialty Diagnoses / Procedures Referred By Giovanna aly Referred To Contact Physical Therapy Diagnoses Radiculopathy, lumbar region Procedures [facility] Amarilis Crooks MD [address] [address] Phone: tel: fax: [facility], PT [address] [place] [address] Phone: tel: fax: Referral ID Status Reason Start Date Expiration Date Visits Requested Visits Authorized [id number] Authorized Consult and Treat 01/09/2024 07/07/2024 20 20 [facility] Summary Purpose Family History No Family History Records FoundUnknown Family Member Name Dates Details Family history [...] Specified Diabetes mellitus Unknown Unknown Hypertension Unknown Relationship Condition Age at Onset Recorded Date/T pietro father Unknown Heart disease Unknown family member Unknown mother Diabetes mellitus Unknown Unknown Hypertension Unknown Advance Directives No Advanced Directives Records Found Advance Directive Response Recorded Date/ Time Advance Directives No May 10:59am Advance Directive Response Recorded Date/ Time Advance Directives No May 9:59am Chief Complaint HUMBERTO LIMA is being seen for a 3-4 month follow-up of.HUMBERTO LIMA is being seen for a 9 month follow-up of. 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 Reason for Visit Right lumbar radicul opathy Chief Complaint Admit Date follow up after PT March 11, 2024 10:20am MRI results April 08, 2024 11 :05am Reason for Visit Admit Date Right groin pain March 11, 2024 10:20am Right lumbar radiculopathy March 10:20am Chief Complaint Admit Date follow up after PT March 11, 2024 10:20am MRI results April 08, 2024 11 :05am REFF BY AMARILIS CROOKS April 18 025 10:46am Reason for Visit Admit Date Right groin pain March 11, 2024 10:20am Right lumbar radiculopathy March 10:20am Degenerative arthritis of spine April 08, 2024 11:05am Right lumbar radiculopathy April 08, 2024 11:05am Lumbar radiculopathy April 18, 2024 10:46am Lumbosacral spondylosis April 18 10:46am Other chronic pain April 18, 2024 1 0:46am Sacroiliitis April 18, 2024 1 0:46am Chief Complaint Admit Date follow up after PT March 11, 2024 10:20am MRI results April 08, 2024 11 :05am REFF BY AMARILIS CROOKS April 18 025 10:46am right L2-3, L3-4 transforaminal epidural May 01, 2024 9:35am Chief Complaint Admit Date follow up after PT March 11, 2024 10:20am MRI results April 08, 2024 11 :05am REFF BY AMARILIS CROOKS April 18 025 10:46am right L2-3, L3-4 transforaminal epidural May 01, 2024 9:35am f/u after right LTR May 12, 2024 11:49am Reason for Visit Admit Date Right groin pain March 11, 2024 10:20am Right lumbar radiculopathy March 10:20am Degenerative arthritis of spine April 08, 2024 11:05am Right lumbar radiculopathy April 08, 2024 11:05am Lumbar radiculopathy April 18, 2024 10:46am Lumbosacral spondylosis April 18 10:46am Other chronic pain April 18, 2024 1 0:46am Sacroiliitis April 18, 2024 1 0:46am Lumbar radiculopathy May 12, 2024 11:49am Lumbosacral spondylosis May 12 11:49am Other chronic pain May 12, 2024 11:49am Sacroiliitis May 12, 2024 11:49am Chief Complaint Admit Date REFF BY AMARILIS CROOKS April 18 10:46am right L2-3, L3-4 transforaminal epidural May 01, 2024 9:35am f/u after right LTR May 12, 2024 11:49am bilat low back pain July 08, 2024 11:2 1am Reason for Visit Admit Date Lumbar radiculopathy April 18, 2024 10:46am Lumbosacral spondylosis April 18 10:46am Other chronic pain April 18, 2024 1 0:46am Sacroiliitis April 18, 2024 1 0:46am Lumbar radiculopathy May 12, 2024 11:49am Lumbosacral spondylosis May 12 11:49am Other chronic pain May 12, 2024 11:49am Sacroiliitis May 12, 2024 11:49am Lumbar radiculopathy July 08, 2024 11: 21am Lumbosacral spondylosis July 08, 2024 11:21am Other chronic pain July 08, 2024 11:2 1am Sacroiliitis July 08, 2024 11:2 1am Additional Source Comments (unrecognized sect ion and content) No Status Records FoundNo Status Records FoundNo Status Records FoundNo Status Records FoundNo Status Records FoundNo Status Records FoundNo Status Records FoundNo Status Records Found INFORMATION SOURCE (unrecogn ized section and content) DATE CREATED AUTHOR 04/25/2020 [facility] DATE CREATED AUTHOR AUTHOR'S ORGANIZ ATION 07/08/2021 [facility] DATE CREATED AUTHOR AUTHOR'S ORGANIZ ATION 05/09/2022 [facility] DATE CREATED AUTHOR AUTHOR'S ORGANIZ ATION 11/23/[address] [facility] DATE CREATED AUTHOR AUTHOR'S ORGANIZ ATION 11/23/2022 [facility] DATE CREATED AUTHOR AUTHOR'S ORGANIZ ATION 01/05/2024 [facility] DATE CREATED AUTHOR AUTHOR'S ORGANIZ ATION 02/29/2024 [facility] EPIC DATE CREATED AUTHOR AUTHOR'S ORGANIZ ATION 09/02/2024 [facility] REASON FOR VISIT (unrecogniz ed section and content) Reason Comments Skin Check Care Teams (unrecognized sec tion and content) Team Status: Active Member Role Status Dates Flavio Cabrera DO Primary Care Provider Active Team Status: Inactive Member Role Status Dates Flavio Cabrera DO Primary Care Provider Active Start: August 28, 2023 End: August 28, 2023 Kim Pickens APRN Attending Provider Active S tart: August 28, 2023 End: August 28, 2023 Team Status: Inactive Member Role Status Dates Flavio Cabrera DO Primary Care Provider Active Start: January 03, 2024 End: January 03, 2024 Amarilis Crooks APRN Attending Provider Active Start: January 03, 2024 End: January 03, 2024 Team Status: Active Member Role Status Dates Flavio Cabrera DO Primary Care Provider Active Start: January 03, 2024 Amarilis Crooks APRN Attending Provider Active Start: January 03, 2024 Team Status: Inactive Member Role Status Dates Flavio Cabrera DO Primary Care Provider Active Start: March 11, 2024 End: March 11, 2024 Amarilis Crooks APRN Attending Provider Active Start: March 11, 2024 End: March 11, 2024 Team Status: Inactive Member Role Status Dates Flavio Cabrera DO Primary Care Provider Active Start: April 08, 2024 End: April 08, 2024 Amarilis Crooks APRN Attending Provider Active Start: April 08, 2024 End: April 08, 2024 Team Status: Inactive Member Role Status Dates Flavio Cabrera DO Primary Care Provider Active Start: April 18, 2024 End: April 18, 2024 Nguyễn Henley MD Attending Provider Active Sta rt: April 18, 2024 End: April 18, 2024 Amarilis Crooks APRN Referring Provider Active Start: April 18, 2024 End: April 18, 2024 Team Status: Inactive Member Role Status Flavia Cabrera DO Primary Care Provider Active Start: May 01, 2024 End: May 01, 2024 Nguyễn Henley MD Attending Provider Active Sta rt: May 01, 2024 End: May 01, 2024 Team Status: Active Member Role Status Flavia Cabrera DO Primary Care Provider Active Start: May 01, 2024 Nguyễn Henley MD Attending Provider Active Sta rt: May 01, 2024 Team Status: Inactive Member Role Status Flavia Cabrera DO Primary Care Provider Active Start: May 12, 2024 End: May 12, 2024 Nguyễn Henley MD Attending Provider Active Sta rt: May 12, 2024 End: May 12, 2024 Team Status: Inactive Member Role Status Flavia Cabrera DO Primary Care Provider Active Start: July 08, 2024 End: July 08, 2024 Nguyễn Henley MD Attending Provider Active Sta rt: July 08, 2024 End: July 08, 2024 Goals (unrecognized section and content) Goals may [...] BE BASED ON THE PRIMARY CLINICAL RECORDS. [facility] [employer] [facility]. provides no warranty or guarantee of the accuracy or completeness of information in this document.
--- OUTSIDE RECORDS SUMMARY | 2024-10-11 08:11 | XMS_ITS | Clinical Summary ---
Author Organization [facility] Address [address] [place] [address] Phone Care Team Providers Care Study Director Name Role Phone Flavio Myers Raul Primary Care Provider Allergies Active Allergy Reactions Criticality Noted Date Comments Codeine Nausea Only,Dizziness Low 07/16/2015 Medications buPROPion XL (Wellbutrin XL) 150 mg 24 hr tablet Take 1 tablet (150 mg) by mouth once daily. 1 Active celecoxib (CeleBREX) 200 mg capsule Take 1 capsule (200 mg) by mouth twice a day. Active metoprolol tartrate (Lopressor) 25 mg tablet Take 1 tablet (25 mg) by mouth 2 times a day. 2 Active pseudoephedrine (Sudafed) 30 mg tablet Take 1 tablet (30 mg) by mouth every 4 hours if needed. Active hydroxychloroqu ine (Plaquenil) 200 mg tablet Take 0.5 tablets (100 mg) by mouth 2 times a day. Active prednisolone-mo xiflox-bromfen 1-0.5-0.075 % drops,suspensio n Administer into affected eye(s). As directed. Active Active Problems Problem Noted Date Diagnosed Date Chest pain 06/15/2023 Essential hypertension 06/15/2023 Palpitations 06/15/2023 Immunizations Immunization Administration Dates Next Due Influenza, Unspecified 12/31/2018,03/18/2015 Pneumococcal polysaccharide vaccine, 23-valent, age 2 years and older (PNEUMOVAX 23) 03/18/2015 Family History Medical History Relation Name Comments Atrial fibrillation Father Heart disease Father pacemaker Father Atrial fibrillation Mother pacemaker Mother Relation Name Status Comments Father Mother Social History Tobacco Use Types Packs/Day Years Used Date Smoking Tobacco: Former Cigarettes Smokeless Tobacco: Current Tobacco Cessation:Ready to Q uit: Not Asked; Counseling Given: Not Answered Alcohol Use Standard Drinks/Week Comments Yes 0 (1 standard drink = 0.6 oz pur e alcohol) occasionally Sex and Gender Information Value Date Recorded Sex Assigned at Not on file Legal Sex Male 10:27 AM EST Gender Identity Not on file Sexual Orientation Not on file Last Filed Vital Signs Vital Sign Reading Time Taken Comments Blood Pressure 124/60 11/22/2022 11:27 AM EDT Pulse 60 11/22/2022 11:27 AM EDT Temperature - - Respiratory Rate - - Oxygen Saturation - - Inhaled Oxygen Concentration - - Weight 80.5 kg (177 lb 6 oz) 11/22/2022 11:27 AM EDT Height 167.6 cm (5' 6 ) 11/22/2022 11:27 AM EDT Body Mass Index 28.63 11/22/2022 11:27 AM EDT Plan of Treatment Health Maintenance Due Date Last Done Comments CT Colonography 1960 Colonoscopy 1960 Colorectal Cancer Screening 1960 FIT-DNA (Cologuard) 1960 FIT 1960 HIV Screening 1960 Lipid Panel 1960 Sigmoidoscopy 1960 Yearly Adult Physical 1960 MMR Vaccines (1 of 1 - Standard series) 1961 Diabetes Screening 1978 Hepatitis C Screening 1978 DTaP/Tdap/Td Vaccines (1 - Tdap) 1982 Zoster Vaccines (1 of 2) 2010 Pneumococcal Vaccine (2 of 2 - PCV) 03/18/2016 03/18/2015 COVID-19 Vaccine (1 - 2023-2 5 season) 2023 Influenza Vaccine (#1) 2024 , 03/18/2015 RSV High Risk: (Elderly (60+ ) or Population) (1 - 1-dose 75+ series) 10/31/2035 HIB Vaccines Aged Out No longer eligi ble based on patient's age to complete this topic HPV Vaccines (No Doses Required) Completed Hepatitis A Vaccines Aged Out No long er eligible based on patient's age to complete this topic Hepatitis B Vaccines Aged Out No long er eligible based on patient's age to complete this topic IPV Vaccines Aged Out No longer eligi ble based on patient's age to complete this topic Meningococcal Vaccine Aged Out No efren dago eligible based on patient's age to complete this topic Rotavirus Vaccines Aged Out No longer eligible based on patient's age to complete this topic Care Teams Study Director Relationship Specialty Start Date End Date Flavio Myers DO [address] [place] [address] PCP - General 04/02/18
--- OUTSIDE RECORDS SUMMARY | 2024-10-11 08:11 | XMS_ITS | Clinical Summary ---
Author Organization [facility] Address [address] [place] [address] Care Team Providers Care Print Cutter Name Role Phone Unavailable Primary Care Provider Unavailabl e Allergies Active Allergy Reactions Criticality Noted Date Comments Codeine Dizziness,Nausea Only,Unknown 2015 Medications buPROPion (Wellbutrin) 75 MG tablet Take 75 mg by mouth in the morning and 75 mg before bedtime. Active celecoxib (CeleBREX) 200 MG capsule Take 200 mg by mouth in the morning and 200 mg before bedtime. Active cyclobenzaprine (Flexeril) 5 MG tablet TAKE 1 TO 2 TABLETS BY MOUTH TWICE DAILY NEEDED 08/28/2023 Active hydroCHLOROthia zide (HYDRODiuril) 25 MG tablet take 1 tablet by oral route every day Oral Active lidocaine (Lidoderm) 5 % patch APPLY ONE PATCH on the skin ONCE DAILY NEEDED leave on most painful area for up to 12 HOURS 08/28/2023 Active Linzess 72 MCG capsule TAKE 1 CAPSULE BY MOUTH ONCE DAILY ON AN EMPTY STOMACH at least 30 MINUTES BEFORE the first meal OF the day Active rOPINIRole (Requip) 0.5 MG tablet TAKE 1 TABLET BY MOUTH 1-3 HOURS BEFORE bedtime 12/05/2023 Active Active Problems No known active problems Family History Medical History Relation Name Comments Hypertension Father Melanoma Neg Hx Relation Name Status Comments Father Social History Tobacco Use Types Packs/Day Years Used Date Smoking Tobacco: Former Cigarettes Smokeless Tobacco: Never Sex and Gender Information Value Date Recorded Sex Assigned at Not on file Legal Sex Male 6:50 PM EDT Gender Identity Not on file Sexual Orientation Not on file Plan of Treatment Upcoming Encounters Date Type Department Care Team ([facility] st Contact Info) Description 12/18/2024 1:00 PM EDT Office Visit [facility] [address] [place] [address] Karencaden Jenny SOFIE JacksonN-GREETER [address] [place] [address] Health Maintenance Due Date Last Done Comments CT Colonography 1960 Colonoscopy 1960 FIT 1960 FOBT 1960 Sigmoidoscopy 1960 Influenza Vaccine (#1) 2024 3, 02/04/2022, 01/17/2021, Additional history exists Colorectal Cancer Screening 12/07/2026 FIT-DNA 12/07/2026 12/08/2023 Insurance [facility]
[2024-10-11 08:38] LABS: Hematocrit 44.4 % (42.0-54.0); Hemoglobin 15.0 g/dL (14.0-18.0); Immature Granulocytes Abs Auto 0.01 10^3/uL (0.00-0.03); Immature Granulocytes Pct Auto 0.1 % (0.0-0.5); Lymphocytes Absolute Auto 2.1 10^3/uL (1.2-3.8); Mean Corpuscular HGB Conc 33.8 g/dL (29.9-35.2); Mean Corpuscular Hemoglobin 29.2 pg (25.9-34.0); Mean Corpuscular Volume 86.5 fL (80.0-94.0); Platelet Count 294 10^3/uL (150-450); Red Blood Count 5.13 10^6/uL (4.70-6.10); White Blood Count 7.4 10^3/uL (4.0-11.0)
[2024-10-11 08:45] LABS: Glucose Urine UA NEGATIVE (NEGATIVE)
[2024-10-11 09:03] LABS: Cast Seen? NONE SEEN #/LPF (NONE SEEN); Crystals Seen? None Seen #/HPF (None Seen)
[2024-10-11 09:12] LABS: Alanine Aminotransferase 25 U/L (16-63); Albumin Globulin Ratio 1.2; Albumin Level 3.7 g/dL (3.4-5.0); Alkaline Phosphatase 75 U/L (46-116); Anion Gap 13.8; Aspartate Amino Transferase 19 U/L (15-37); Blood Urea Nitrogen 29.0 mg/dL (7.0-18.0); Calcium 9.2 mg/dL (8.5-10.1); Carbon Dioxide 26.5 mmol/L (21.0-32.0); Chloride 105 mmol/L (98-107); Estimated GFR (African America >60 (>=60 mL/min/1.73m^2); Estimated GFR (Non-African Ame >60 (>=60 mL/min/1.73m^2); Globulin 3.2 g/dL; Glucose 100 mg/dL (74-106); Potassium 4.3 mmol/L (3.5-5.1); Sodium 141 mmol/L (136-145); Total Protein 6.9 g/dL (6.4-8.2)
== END 2024-10-30 17:03 | disposition home or self-care (01) ==
LOC: LAB 08:08
PROVIDERS: PCP Family Medicine; Visit Provider Internal Medicine Rheumatology
DX: Z51.81 Encounter for therapeutic drug level monitoring (principal); M15.0 Primary generalized (osteo)arthritis; M35.89 Other specified systemic involvement of connective tissue; Z79.899 Other long term (current) drug therapy
CPT/HCPCS: 36415; 80053; 81001; 85025; 85652; 86160; 86162

== ENCOUNTER 2024-11-08 08:42 | Outpatient (OUT) | payer BC, SELFPAY ==
--- OUTSIDE RECORDS SUMMARY | 2024-09-01 05:16 | XMS_ITS ---
Author Organization The [facility] in [place] Address [address] [place] [address] Care Team Providers Care Library Historian Name Role Phone Flavio Myers Primary Care Provider REASON FOR VISIT med change Encounters Encounter Location Date Provider Diagnosis [address] [address] 09/01/2024 Flavio Myers Plan Of Treatment Next Appt Details Provider Name:Flavio gonzalez, 11/26/2024 10:30:00 AM, [address] [place], [address], Progress Notes * Humberto LIMADOB:[birth year] (63 yo M)Acc No.[id number]:09/01/2024 Patient: Ebonie MACEHumberto MOREL :1960 A ge:63 Y S ex:Male Address:[address] [place] [address] [place] [address] * true * Date: Generated for Beatricei carlos/Falennyg/eTransmitting on: 0 11/05/2024 12:16 PM EDT
--- OUTSIDE RECORDS SUMMARY | 2024-09-10 07:15 | XMS_ITS ---
Author Organization [facility] in [place] Address [address] [place] [address] Care Team Providers Care Health Care Marketing Manager Name Role Phone Flavio Myers Primary Care Provider Allergies Allergen (clinical drug ingredient) Drug/Non Drug Allergy documented on EMR Reaction Allergy Type Onset Date Status codeine Codeine Unknown Drug Allergy Active REASON FOR VISIT med change Medications Medication SIG (Take, Route, Frequency, Duration) Notes Start Date End Date Status Super B Complex Not- Taking PreserVision AREDS N ot-Taking Vitamin D3 50 MCG (1999 UT) 1 capsule Or ally Once a day Not-Taking Linzess 72 MCG 1 capsule at least 30 minutes before the first meal of the day on an empty stomach Orally Once a day for 90 days 03/08/2023 Active Magnesium 400 MG as directed Orally Not-Taking busPIRone HCl 5 MG 1 tablet Orally Twice a day for 30 days 11/28/2021 Not-Taking buPROPion HCl ER (XL) 150 MG 1 tablet in the morning Orally Once a day Not-Taking Folic Acid Not-Takin g Cyclobenzaprine HCl 10 MG 1 tablet at be dtime as needed Orally Once a day Not-Taking Hydroxychloroquine Sulfate 100 MG as directed Orally BID Active HYDROcodone-Acetaminophen 5-325 MG 1 tablet as needed Orally tid for 30 days 01/23/2024 Active Losartan Potassium 100 MG 1 tablet Orall y Once a day for 90 days 10/12/2023 Active Phentermine HCl 37.5 MG 1 tablet before breakfast Orally Once a day for 30 days 01/23/2024 Active CeleBREX 200 MG 1 capsule with food Orally BID Active buPROPion HCl 75 MG 1 tablet Orally Twice a day for 90 days 07/14/2022 Active Social History Tobacco Use: Social History Observation Description Date Details (start date - stop date) Former Smoker NA - NA Tobacco Use/Smoking Question Answer Notes Patient is a former smoker Vital Signs Blood pressure systolic 138 mm Hg 09/11/19 25 Blood pressure diastolic 98 mm Hg 025 Heart Rate 73 /min 09/10/2024 Respiratory Rate 16 /min 09/10/2024 Height 66 in 09/10/2024 Weight 165.2 lbs 09/10/2024 BMI 26.66 kg/m2 09/10/2024 Oximetry 99 % 09/10/2024 Encounters Encounter Location Date Provider Diagnosis [facility] [address] [place] [address] 09/10/2024 Flavio Myers Restless legs syndro me G25.81 ; Other constipation K59.09 ; Overweight E66.3 and Body mass index [BMI] 26.0-26.9, adult Z68.26 Assessments Encounter Date Diagnosis (ICD Code) Assessment Notes Treatment Notes Treatment Clinical Notes Section Notes 09/10/2024 Restless legs syndrome (ICD-10 - G25.81) rec pt find a list of either meds he can take for RLS or banned meds and we will figure out what to put him on 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 09/10/2024 Other constipation (ICD-10 - K59.09) diet stable 09/10/2024 Overweight (ICD-10 - E66.3) diet/exercise 09/10/2024 Body mass index [BMI] 26.0-26.9, adult (ICD-10 - Z68.26) Plan Of Treatment Medication Medication Name Sig Start Date Stop Date Notes Linzess 72 MCG 1 capsule at least 3 0 minutes before the first meal of the day on an empty stomach Orally Once a day for 90 days 03/08/2023 rOPINIRole HCl 0.5 MG 1 tablet 1 to 3 ho urs before bedtime Orally Once a day 10/12/2023 Treatment Notes Assessment Notes Restless legs syndrome rec pt find a lis t of either meds he can take for RLS or banned meds and we will figure out what to put him on 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 Other constipation diet stable Overweight diet/exercise Next Appt Details Follow Up: 2 Months, Reason: wellness Provider Name:Flavio A Felicita gonzalez, 11/26/2024 10:30:00 AM, [address] [place], [address], Progress Notes * Humberto LIMADOB:[birth year] (63 yo M)Acc No.[id number]:09/10/2024 Established Patient: Humberto GRIER Provider: Hoda Myers DO :1960 A ge:63 Y S ex:Male Date:09/10/2024 Address:[address] [place], [place] [id number] Check In:11:17 AM ESTCheck O ut:12:05 PM EST Subjective: * Chief Complaints: * M ed change * HPI: G eneral: Patient presents today for med change. Patient states he needs a refill on linzess.-MV - - - - - - - - -- linzess helps constipation no blood/black stools no abd pain no N/V no f/c - - - - - - - - no CP/SOB/dizzy/palp - - - - - - -- +LBP stable - - - - - - - - - - requip helps RLS but did make him tired DOT PE done recently stated that he cant be on requip - - - - - - - - - - rec pt call and get list of banned meds then we will switch meds. * ROS: G eneral/Constitutional: Significant change in weight d enies. E xercise Intolerance d enies. N ight sweats d enies. F ever d enies. E yes: Dry eyes D enies. V ision changes d enies. ? E NMT: Sore Throat d enies. N ose Bleeds d enies. D ifficulty hearing d enies. E ar pain d enies. N ose/sinus problems d enies. S noring d enies. B leeding gums d enies. D ry mouth d enies. M outh ulcers denies. O ral abnormalities d enies. T eeth problems d enies. C ardiovascular: Shortness of Breath w/Walking d enies. S hortness of Breath w/lying flat d enies. A rm pain on exertion d enies. C hest pain d enies.?Heart murmur d enies. P alpitations d enies. R espiratory: Coughing up blood d enies. C ough d enies. S hortness of breath d enies. W heezing d enies. G astrointestinal: Change in appetite d enies. V omiting blood d enies. A bdominal pain d enies. C onstipation a dmits. D iarrhea d enies. V omiting d enies. G enitourinary: Dysuria/Increased Frequency d enies. H ematuria d enies. I ncontinence d enies. D ifficulty urinating d enies. M usculoskeletal: Swelling in the extremities d enies. A rthralgias/joint pain A dmits. B ack pain a dmits. W eakness of muscles d enies. M uscle aches a dmits. S kin: Jaundice D enies. M ole(s) d enies. R lary d enies. N eurologic: Dizziness d enies. L oss of consciousness d enies.?Numbness d enies. W eakness d enies. H eadache d enies. S eizures d enies. P sychiatric: Alcohol abuse d enies. F eeling safe in relationship?denies. D epression d enies. A nxiety d enies. S leep Disturbances d enies. E ndocrine: Fatigue d enies. H ematologic/Lymphatic: Swollen Glands d enies. B ruising d enies. ? A llergy/Immunology: Runny nose d enies. S inus pressure d enies. F requent sneezing d enies. H charisma d enies. I tching d enies. * Active Problem List F41.1 RICK (generalized anx iety disorder) Modified On:11/29/2022W/U Status:confirmed J30.2 Seasonal allergic rh initis, unspecified trigger Modified On:11/29/2022 Status:confirmed Z68.30 BMI 30.0-30.9,adult Modified On:04/27/2022 Status:confirmed E66.9 Obesity (BMI 30-39.9 ) Modified On:04/27/2022 Status:confirmed M47.816 Lumbar spondylosis Modified On:11/29/2022 Status:confirmed M54.31 Sciatica, right side Modified On:08/31/2023U Status:confirmed I10 Essential (primary) hypertension Modified On:10/12/2023 Status:confirmed G25.81 Restless legs syndro me Modified On:10/12/2023 Status:confirmed R53.82 Chronic fatigue, uns pecified Modified On:11/27/2023 Status:confirmed E66.3 Overweight Modified On:01/23/2024 Status:confirmed * Medical History: * Surgical History: a ppendectomy colonoscopy +int hem 12/22/2013EGD +HH/PUD 12/22/2013colonoscopy 2006B/L cataract surgery 04/2022 * Hospitalization/Major Diagno stic Procedure: c ovid 04/2021 * Family History: F ather: , diagnosed with Unspecified heart disease. M other: , diagnosed with Diabetes mellitus without mention of complication, type II or unspecified type, not stated as uncontrolled, Chronic kidney disease, unspecified. B rother(s): rheumatoid arthritisguillain-barre syndrome. S ister(s): osteoporosiscancer. cancer runs in the family. * Social History: T obacco Use: T obacco Use/Smoking P atient is a f ormer smoker * Medications: T akingbuPROPion HCl 75 MG Tablet 1 tablet Orally Twice a day CeleBREX(Celecoxib) 200 MG Capsule 1 capsule with food Orally BID HYDROcodone-Acetaminophen 5-325 MG Tablet 1 tablet as needed Orally tid Hydroxychloroquine Sulfate 100 MG Tablet as directed Orally BID Linzess(linaCLOtide) 72 MCG Capsule 1 capsule at least 30 minutes before the first meal of the day on an empty stomach Orally Once a day Losartan Potassium 100 MG Tablet 1 tablet Orally Once a day Phentermine HCl 37.5 MG Tablet 1 tablet before breakfast Orally Once a day rOPINIRole HCl 0.5 MG Tablet 1 tablet 1 to 3 hours before bedtime Orally Once a day Taking buPROPion HCl 75 MG Tablet 1 tablet Orally Twice a day Taking CeleBREX(Celecoxib) 200 MG Capsule 1 capsule with food Orally BID Taking HYDROcodone-Acetaminophen 5-325 MG Tablet 1 tablet as needed Orally tid Taking Hydroxychloroquine Sulfate 100 MG Tablet as directed Orally BID Taking Linzess(linaCLOtide) 72 MCG Capsule 1 capsule at least 30 minutes before the first meal of the day on an empty stomach Orally Once a day Taking Losartan Potassium 100 MG Tablet 1 tablet Orally Once a day Taking Phentermine HCl 37.5 MG Tablet 1 tablet before breakfast Orally Once a day Taking rOPINIRole HCl 0.5 MG Tablet 1 tablet 1 to 3 hours before bedtime Orally Once a day Not-Taking/PRNbuPROPion HCl ER (XL) 150 MG Tablet Extended Release 24 Hour 1 tablet in the morning Orally Once a day busPIRone HCl 5 MG Tablet 1 tablet Orally Twice a day Cyclobenzaprine HCl 10 MG Tablet 1 tablet at bedtime as needed Orally Once a day Folic Acid Magnesium 400 MG Tablet as directed Orally PreserVision AREDS Super B Complex Vitamin D3 50 MCG (2000 UT) Capsule 1 capsule Orally Once a day Medication List reviewed and reconciled with the patientNot-Taking/PRN buPROPion HCl ER (XL) 150 MG Tablet Extended Release 24 Hour 1 tablet in the morning Orally Once a day Not-Taking/PRN busPIRone HCl 5 MG Tablet 1 tablet Orally Twice a day Not-Taking/PRN Cyclobenzaprine HCl 10 MG Tablet 1 tablet at bedtime as needed Orally Once a day Not-Taking/PRN Folic Acid Not-Taking/PRN Magnesium 400 MG Tablet as directed Orally Not-Taking/PRN PreserVision AREDS Not-Taking/PRN Super B Complex Not-Taking/PRN Vitamin D3 50 MCG (2000 UT) Capsule 1 capsule Orally Once a day Medication List reviewed and reconciled with the patient * Allergies: Cornel leal[Allergies Verified] Objective: * Vitals: W t:165.2lbs, Ht: 66 in, BP:138/98mm Hg, HR:73/min, RR:16/min, BMI:26.66Index, Oxygen sat %:99%, Ht-cm: 167.64 cm, Wt-k.93 kg. * Examination: G eneral Examination: GENERAL APPEARANCE: h ealthy Appearing , well nourished , well developed Level of distress: NAD, a mbulating normally, overweight. ENMT: E ACs clear, TMs clear, no hearing loss, no lesions on external ears, nares patent, nasal passages clear, no sinus tenderness, no nasal discharge, no mouth or lip ulcers, no bleeding gums, moist mucous membranes, no erythema, no exudates. HEAD: n ormocephalic, atraumatic. EYES: n on-injected, no discharge, no pallor, PERRLA , EOMI, s clera non-icteric, peripheral vision grossly intact, acuity grossly intact. LUNGS: n o dyspnea, breath sounds normal , good air movement, CTA except as noted, no wheezing, no rales/crackles, no rhonchi. CARDIO: n ot displaced, RRR, S1, S2 normal , no murmurs, rubs, gallops , no carotid bruits, normal throughout. ABDOMEN: n ormal bowel sounds , soft, non tender, not distended, no guarding, no rebound tenderness, no masses, no CVA tenderness, liver non tender, no hepatomegaly. BACK: n ormal curvature. MUSCULOSKELETAL: n ormal motor strength, normal tone, normal movement of all extremities, +OA changes b/l hands, no contractures, no malalignment, +L pain with palpation. SKIN: n o rash, no lesions, no ulcer, no abnormal nevi, no induration, no nodules, good turgor, no jaundice. EXTREMITIES: No edema. NEUROLOGIC: n ormal gait, normal station, cranial nerves grossly intact, no tremor. PSYCH: j udgement and insight good, active and alert, normal mood, normal affect. NECK/THYROID: N riky supple, trachea midline, no masses, FROM. Assessment: * Assessment: 1. R estless legs syndrome - G25.81 (Primary) 2 . O ther constipation - K59.09 3 . O verweight - E66.3 4 . B jhon mass index [BMI] 26.0-26.9, adult - Z68.26 Plan: * Treatment: 2. O ther constipation Refill Linzess Capsule, 72 MCG, 1 capsule at least 30 minutes before the first meal of the day on an empty stomach, Orally, Once a day, 90 days, 90, Refills 3. Notes: diet stable 3. O verweight Notes: diet/exercise * Procedure Codes: * Follow Up: 2 Months (Reason: wellness) * * Sign off status: Completed Visit Status: C HK (Check Out) true * Provider: Hoda Myers DO Date: 0 09/10/2024 Generated for Néstor gonzalez/Jacqueline/eTransmitting on: 0 11/05/2024 12:16 PM EDT History and Physical Notes * Examination Category Sub-Category Detail Notes Category Not es General Examination GENERAL APPEARANCE: healthy Appearing , well nourished , well developed Level of distress: NAD, ambulating normally, overweight EYES: non-injected, no dis charge, no pallor, PERRLA , EOMI, sclera non-icteric, peripheral vision grossly intact, acuity grossly intact CARDIO: not displaced, RRR, S1, S2 normal , no murmurs, rubs, gallops , no carotid bruits, normal throughout LUNGS: no dyspnea, breath s ounds normal , good air movement, CTA except as noted, no wheezing, no rales/crackles, no rhonchi ABDOMEN: normal bowel sounds , soft, non tender, not distended, no guarding, no rebound tenderness, no masses, no CVA tenderness, liver non tender, no hepatomegaly NEUROLOGIC: normal gait, normal station, cranial nerves grossly intact, no tremor SKIN: no rash, no lesions, no ulcer, no abnormal nevi, no induration, no nodules, good turgor, no jaundice EXTREMITIES: No edema BACK: normal curvature MUSCULOSKELETAL: normal motor strengt h, normal tone, normal movement of all extremities, +OA changes b/l hands, no contractures, no malalignment, +L pain with palpation PSYCH: judgement and insigh t good, active and alert, normal mood, normal affect ENMT: EACs clear, TMs piyush r, no hearing loss, no lesions on external ears, nares patent, nasal passages clear, no sinus tenderness, no nasal discharge, no mouth or lip ulcers, no bleeding gums, moist mucous membranes, no erythema, no exudates HEAD: normocephalic, atrau matic NECK/THYROID: Neck supple, trachea midline, no masses, FROM
--- OUTSIDE RECORDS SUMMARY | 2024-10-28 06:35 | XMS_ITS ---
Author Organization [facility] [place] Address [address] [place] [address] Care Team Providers Care Data Warehousing Specialist Name Role Phone Flavio Myers Primary Care Provider REASON FOR VISIT lab orders Encounters Encounter Location Date Provider Diagnosis [facility] [address] [place] [address] 10/28/2024 Flavio Myers Encounter for genera l adult medical examination without abnormal findings Z00.00 ; Prediabetes R73.03 and Encounter for screening for malignant neoplasm of prostate Z12.5 Assessments Encounter Date Diagnosis (ICD Code) Assessment Notes Treatment Notes Treatment Clinical Notes Section Notes 10/28/2024 Encounter for general adult medical examination without abnormal findings (ICD-10 - Z00.00) 10/28/2024 Prediabetes (ICD-10 - R73.03) 10/28/2024 Encounter for screening for malignant neoplasm of prostate (ICD-10 - Z12.5) Plan Of Treatment Pending Test Test Name Order Date HEMOGLOBIN A1C (GLYCO) 10/28/2024 LIPID PANEL (CHOL/TRIG/HDL/LDL) 10/29/19 25 PSA, TOTAL 10/28/2024 CMP (COMP MET CANO) w/eGFR CKD-EPI 2024 CBC WITH DIFF 10/28/2024 Next Appt Details Provider Name:Flavio gonzalez, 11/26/2024 10:30:00 AM, [address] [place], [address], Progress Notes * Humberto LIMADOGirish:[birth year] (63 yo M)Acc No.[id number]:10/28/2024 Patient: Humberto GRIER :1960 A ge:63 Y S ex:Male Address:[address] [address] Subjective: * Chief Complaints: * L ab orders * Medical History: * Surgical History: * Hospitalization/Major Diagno stic Procedure: * Medications: Objective: * Vitals: * Physical Examination: Assessment: * Assessment: 1. E ncounter for general adult medical examination without abnormal findings - Z00.00 (Primary) 2 . P rediabetes - R73.03 3 . E ncounter for screening for malignant neoplasm of prostate - Z12.5 Plan: * Treatment: 2. P rediabetes L AB: HEMOGLOBIN A1C (GLYCO) 3. E ncounter for screening for malignant neoplasm of prostate L AB: PSA, TOTAL * Procedure Codes: * true * Date: Generated for Néstor gonzalez/Jacqueline/eTraginismitting on: 0 11/05/2024 12:16 PM EDT
--- OUTSIDE RECORDS SUMMARY | 2024-11-05 12:16 | XMS_ITS | Patient Health Record ---
Author Organization [facility] in [place] Address [address] [place] [address] Care Team Providers Care Second Chef Name Role Phone Myers Flavio Primary Care Provider Allergies Allergen (clinical drug ingredient) Drug/Non Drug Allergy documented on EMR Reaction Allergy Type Onset Date Status codeine Codeine Unknown Drug Allergy Active Results Component Value Reference Range Notes Cologuard Reviewed date:01/15/2024 12:42:02 PM Interpretation:negative Performing Lab: Notes/Report: COLOGUARD RESULT REPORTABLE Negative Negative NEGATIVE TEST RESULT. A negative Cologuard result indicates a low likelihood that a colorectal cancer (CRC) or advanced adenoma (adenomatous polyps with more advanced pre-malignant features) is present. The chance that a person with a negative Cologuard test has a colorectal cancer is less than 1 in 1500 (negative predictive value >99.9%) or has an advanced adenoma is less than 5.3% (negative predictive value 94.7%). These data are based on a prospective cross-sectional study of 10,000 individuals at average risk for colorectal cancer who were screened with both Cologuard and colonoscopy. (Veronica Cummings al, N Engl J Med 2014;370(14):1770-3145) The normal value (reference range) for this assay is negative. COLOGUARD RE-SCREENING RECOMMENDATION: Periodic colorectal cancer screening is an important part of preventive healthcare for asymptomatic individuals at average risk for colorectal cancer. Following a negative Cologuard result, the [place] [employer] and U.S. Multi-Society Task Force screening guidelines recommend a Cologuard re-screening interval of 3 years. References: [place] [employer] Guideline for Colorectal Cancer Screening: https://www.cancer.org/cancer/col fn-ukgnnp-wriyco/detection-diagno sis-staging/acs-recommendations.h tml.; Lauri DAVIS, Santosh ROWE, Nikko MayorgaK, Colorectal Cancer Screening: Recommendations for Physicians and Patients from the U.S. Multi-Society Task Force on Colorectal Cancer Screening , Am J Gastroenterology 2017; 112:4375-3642. TEST DESCRIPTION: Composite algorithmic analysis of stool DNA-biomarkers with hemoglobin immunoassay. Quantitative values of individual biomarkers are not reportable and are not associated with individual biomarker result reference ranges. Cologuard is intended for colorectal cancer screening of adults of either sex, 45 years or older, who are at average-risk for colorectal cancer (CRC). Cologuard has been approved for use by the U.S. FDA. The performance of Cologuard was established in a cross sectional study of average-risk adults aged 50-84. Cologuard performance in patients ages 45 to 49 years was estimated by sub-group analysis of near-age groups. Colonoscopies performed for a positive result may find as the most clinically significant lesion: colorectal cancer [4.0%], advanced adenoma (including sessile serrated polyps greater than or equal to 1cm diameter) [20%] or non- advanced adenoma [31%]; or no colorectal neoplasia [45%]. These estimates are derived from a prospective cross-sectional screening study of 10,000 individuals at average risk for colorectal cancer who were screened with both Cologuard and colonoscopy. (Veronica Mckenzie. et al, N Engl J Med 2014;370(14):1406-3145.) Cologuard may produce a false negative or false positive result (no colorectal cancer or precancerous polyp present at colonoscopy follow up). A negative Cologuard test result does not guarantee the absence of CRC or advanced adenoma (pre-cancer). The current Cologuard screening interval is every 3 years. ([place] [employer] and U.S. Multi-Society Task Force). Cologuard performance data in a 10,000 patient pivotal study using colonoscopy as the reference method can be accessed at the following location: www.ClassifEye/results. Additional description of the Cologuard test process, warnings and precautions can be found at www.cologuard.com. Reason For Referral Reason lumbar spondylosis lumbar radiculopathy Diagnosis 1 Lumbar spondylosis ( M47.816) Referral Organization [email or web address] Referring Provider First Name Flavio Referring Provider Last Name Myers Referring Provider Speciality [facility] renetta Referred Provider Justino Riojas Referred Provider Specialty Neurosurgery General Notes Flavio Myers Renetta 04:24:11 PM >please call pt for appt - pt doesnt have an MRI as insurance wont cover it but he has failed PT and meds and conservative tx - please call and eval and tx Referral Priority Routine Medications Medication SIG (Take, Route, Frequency, Duration) Notes Start Date End Date Status busPIRone HCl 5 MG 1 tablet Orally Twice a day for 30 days 11/28/2021 Not-Taking buPROPion HCl ER (XL) 150 MG 1 tablet in the morning Orally Once a day Not-Taking buPROPion HCl 75 MG 1 tablet Orally Twice a day for 90 days 07/14/2022 Active Folic Acid Not-Takin g Linzess 72 MCG 1 capsule at least 30 minutes before the first meal of the day on an empty stomach Orally Once a day for 90 days 03/08/2023 Active Cyclobenzaprine HCl 10 MG 1 tablet at be dtime as needed Orally Once a day Not-Taking CeleBREX 200 MG 1 capsule with food Orally BID Active Magnesium 400 MG as directed Orally Not-Taking Hydroxychloroquine Sulfate 100 MG as directed Orally BID Active Super B Complex Not- Taking HYDROcodone-Acetaminophen 5-325 MG 1 tablet as needed Orally tid for 30 days 01/23/2024 Active PreserVision AREDS N ot-Taking Losartan Potassium 100 MG 1 tablet Orall y Once a day for 90 days 10/12/2023 Active Vitamin D3 50 MCG (1999 UT) 1 capsule Or ally Once a day Not-Taking Phentermine HCl 37.5 MG 1 tablet before breakfast Orally Once a day for 30 days 01/23/2024 Active Immunizations Vaccine Route Administration Date Status Comme nts Flu, Fluzone (54892) 6 mos+, single-dose syringe/vial () Unknown 02/04/2022 Administered Pneumococcal (Prevnar 13) Unknown 03/29/2015 Administer ed Pneumococcal (Prevnar 20) Unknown 01/28/2022 Administer ed Shingrix (Zoster) Unknown 10/25/2019 Administered Shingrix (Zoster) Unknown 01/30/2020 Administered Social History Tobacco Use: Social History Observation Description Date Details (start date - stop date) Former Smoker NA - NA Tobacco Use/Smoking Question Answer Notes Patient is a former smoker Alcohol Screen (Audit-C) Question Answer Notes Did you have a drink containing alcohol in the p ast year? Yes How often did you have 6 or more drinks on one occasion in the past year? Never (0 point) Points 0 Interpretation Negative Problems Problem Type SNOMED Code ICD Code Onset Dates Problem Status W/U Status Risk Notes Problem 81787753 Essential (primary) hypertension (I10) Active confirmed Problem 035496830 Overweight (E66.3) Active confirmed Problem 98292412 Restless legs syndrome (G25.81) Active confirmed Problem 201368714354380 Sciatica, right side (M54.31) Active confirmed Problem 03552310 Chronic fatigue, unspecified (R53.82) Active confirmed Problem 642529422 Obesity (BMI 30-39.9) (E66.9) Active confirmed Problem 33543632 RICK (generalized anxiety disorder) (F41.1) Active confirmed Problem 307313717 Lumbar spondylosis (M47.816) Active confirmed Problem 165942878 BMI 30.0-30.9,adult (Z68.30) Active confirmed Problem 715765668 Seasonal allergic rhinitis, unspecified trigger (J30.2) Active confirmed Vital Signs Heart Rate 73 /min 09/10/2024 Respiratory Rate 16 /min 09/10/2024 Oximetry 99 % 09/10/2024 Blood pressure diastolic 98 mm Hg 09/10/2024 Height 66 in 09/10/2024 Blood pressure systolic 138 mm Hg 09/10/2024 Weight 165.2 lbs 09/10/2024 BMI 26.66 kg/m2 09/10/2024 Encounters Encounter Location Date Provider Diagnosis [facility] [address] [place] [address] 01/02/2024 Flavio Myers Restless legs syndro me G25.81 [facility] [address] [place] [address] 01/31/2024 Flavio Myers Essential (primary) hypertension I10 [facility] [address] [place] [address] 08/13/2024 Flavio Myers Essential (primary) hypertension I10 [facility] [address] [place] [address] 08/14/2024 Flavio Myers [facility] [address] [place] [address] 09/01/2024 Flavio Myers [facility] [address] [place] [address] 10/28/2024 Flavio Myers Encounter for genera l adult medical examination without abnormal findings Z00.00 ; Prediabetes R73.03 and Encounter for screening for malignant neoplasm of prostate Z12.5 [facility] [address] [place] [address] 11/28/2023 Flavio Myers [facility] [address] [place] [address] 12/26/2023 Flavio Myers [facility] [address] [place] [address] 09/10/2024 Flavio Myers Restless legs syndro me G25.81 ; Other constipation K59.09 ; Overweight E66.3 and Body mass index [BMI] 26.0-26.9, adult Z68.26 [facility] [address] [place] [address] 01/23/2024 Flavio Myers Abnormal weight gain R63.5 ; Lumbar spondylosis M47.816 ; Overweight E66.3 and Body mass index [BMI] 27.0-27.9, adult Z68.27 [facility] [place] [address] [place] [address] 11/26/2023 Flavio Myers RICK (generalized anxiety disorder) F41.1 ; Lumbar spondylosis M47.816 ; Overweight E66.3 ; Body mass index [BMI] 28.0-28.9, adult Z68.28 ; Encounter for general adult medical examination with abnormal findings Z00.01 ; Essential (primary) hypertension I10 ; Restless legs syndrome G25.81 ; Encounter for screening for malignant neoplasm of colon Z12.11 ; Chronic fatigue, unspecified R53.82 and Pain in unspecified joint M25.50 Assessments Encounter Date Diagnosis (ICD Code) Assessment Notes Treatment Notes Treatment Clinical Notes Section Notes 11/26/2023 RICK (generalized anxiety disorder) (ICD-10 - F41.1) stable with medication monitor rtc 6 months 11/26/2023 Lumbar spondylosis (ICD-10 - M47.816) oars ok continue norco refer to dr riojas for eval and tx - hopefully they can get an MRI approved d/w pt that if dr riojas wont see him without an MRI then we will refer to pain management for eval and tx 01/23/2024 Abnormal weight gain (ICD-10 - R63.5) diet/exercise 01/23/2024 Lumbar spondylosis (ICD-10 - M47.816) continue PT rec weight loss f/u dr riojas after PT oarrs ok continue norco prn 09/10/2024 Restless legs syndrome (ICD-10 - G25.81) rec pt find a list of either meds he can take for RLS or banned meds and we will figure out 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 to 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 on 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 09/10/2024 Other constipation (ICD-10 - K59.09) diet stable 01/02/2024 Restless legs syndrome (ICD-10 - G25.81) 01/31/2024 Essential (primary) hypertension (ICD-10 - I10) 08/13/2024 Essential (primary) hypertension (ICD-10 - I10) 10/28/2024 Encounter for general adult medical examination without abnormal findings (ICD-10 - Z00.00) 10/28/2024 Prediabetes (ICD-10 - R73.03) 10/28/2024 Encounter for screening for malignant neoplasm of prostate (ICD-10 - Z12.5) 09/10/2024 Overweight (ICD-10 - E66.3) diet/exercise 01/23/2024 Overweight (ICD-10 - E66.3) diet/exercise 11/26/2023 Overweight (ICD-10 - E66.3) diet/exercise hold on adipex 11/26/2023 Body mass index [BMI] 28.0-28.9, adult (ICD-10 - Z68.28) 01/23/2024 Body mass index [BMI] 27.0-27.9, adult (ICD-10 - Z68.27) 09/10/2024 Body mass index [BMI] 26.0-26.9, adult (ICD-10 - Z68.26) 11/26/2023 Encounter for general adult medical examination with abnormal findings (ICD-10 - Z00.01) set up cologuard rec flu shot yearly rec pn vaccine q5 years rec dtap q10 years labs yearly diet/exercise eye and dental exams yearly rtc 1 year 11/26/2023 Essential (primary) hypertension (ICD-10 - I10) bp check daily goal <130/80 diet/exercise monitor bmp stable 11/26/2023 Restless legs syndrome (ICD-10 - G25.81) stable on medication monitor 11/26/2023 Encounter for screening for malignant neoplasm of colon (ICD-10 - Z12.11) 11/26/2023 Chronic fatigue, unspecified (ICD-10 - R53.82) diet/exercise rec B12 1000 mcg daily otc monitor lab 11/26/2023 Pain in unspecified joint (ICD-10 - M25.50) eye exam yearly f/u rheum as directed exercise Plan Of Treatment Pending Test Test Name Order Date HEMOGLOBIN A1C (GLYCO) 10/28/2024 LIPID PANEL (CHOL/TRIG/HDL/LDL) 10/29/19 MRI Lumbar Spine w/o contrast 09/20/2022 PSA, TOTAL 10/28/2024 CMP (COMP MET CANO) w/eGFR CKD-EPI 2024 CBC WITH DIFF 10/28/2024 Next Appt Details Provider Name:Flavio Mims carlos, 11/26/2024 10:30:00 AM, [address] [place], [address], Insurance Providers Payer Name Payer Address Payer Phone Subscriber Number Group Number Insured Name Patient Relationship to Insured Coverage Start Date Coverage End Date [employer] ACCESS PPO PLUS LOCAL PLAN [address] [place] [phone] [id number] Humberto Christian Self - patient is the insured 2 Medical (General) History Medical History History ICD Code depression anxiety arthritis prediabetes lumbar spondylosis HH HTN BPH macular degeneration allergic rhinitis covid x 2 Surgical History Surgery Date(Month/Year) colonoscopy +int hem 12/22/2013 appendectomy B/L cataract surgery 04/2022 colonoscopy 2006 EGD +HH/PUD 12/22/2013 Hospitalization History Reason Date(Month/Year) covid 04/2021
--- OUTSIDE RECORDS SUMMARY | 2024-11-05 12:16 | XMS_ITS | Clinical Summary ---
Author Organization [facility] Healthcare Address [address] [place] [address] Care Team Providers Care Tobacco Stripping Machine Operator Name Role Phone Unavailable Primary Care Provider [...] Upcoming Encounters Date Type Department Care Team ([facility] st Contact Info) Description 12/18/2024 1:00 PM EDT Office Visit [facility] [address] [place] [phone] Krista Jenny Renetta, BILLY-BREWMASTER [address] [place] [address] Health Maintenance Due Date Last Done Comments CT Colonography 1960 Colonoscopy 1960 FIT 1960 FOBT 1960 Sigmoidoscopy 1960 Influenza Vaccine (#1) 2024 3, 02/04/2022, 01/17/2021, Additional history exists Colorectal Cancer Screening 12/07/2026 FIT-DNA 12/07/2026 12/08/2023 Insurance BS
--- OUTSIDE RECORDS SUMMARY | 2024-11-05 12:17 | XMS_ITS | Clinical Summary ---
Author Organization [facility] Address [address] [place] [address] Phone Care Team Providers Care Civil Engineering Manager Name Role Phone Flavio Myers Raul Primary [...] 1978 DTaP/Tdap/Td Vaccines (1 - Tdap) 1982 PSA Prostate Cancer Screening 2010 Zoster Vaccines (1 of 2) 2010 Pneumococcal Vaccine (2 of 2 - PCV) 03/18/2016 03/18/2015 COVID-19 Vaccine (1 - 2023-2 5 season) 2023 Influenza Vaccine (#1) 2024 , 03/18/2015 RSV High Risk: (Elderly (60+ ) or Population) (1 - 1-dose 75+ series) 10/31/2035 HIB Vaccines Aged Out No longer eligi ble based on patient's age to complete this topic HPV Vaccines Aged Out No longer eligi ble based on patient's age to complete this topic Hepatitis A Vaccines Aged Out No long [...] age to complete this topic Care Teams Civil Engineering Manager Relationship Specialty Start Date End Date Flavio Myers DO [address] [place] [address] PCP - General 04/02/18
--- OUTSIDE RECORDS SUMMARY | 2024-11-05 12:17 | XMS_ITS | Encounter Summary ---
Author Organization [facility] Address [address] [place] [address] Phone Care Team Providers Care Health Advocate Name Role Phone Flavio Myers DO Primary Care Provider Encounter Details Date Type Department Care Team (Late st Contact Info) Description 11/07/2020 Orders Only [facility] [address] [place] [address] Conversion, Onbase Social History Tobacco Use Types [...] on filedocumented in this encounter Care Teams Health Advocate Relationship Specialty Start Date End Date Flavio Myers DO [address] [place] [address] PCP - General 04/02/18 documented as of this encounter
--- OUTSIDE RECORDS SUMMARY | 2024-11-05 12:17 | XMS_ITS | Encounter Summary ---
Author Organization [facility] Address [address] [place] [address] Phone Care Team Providers Care Child Day Care Center Worker Name Role Phone Flavio Myers DO Primary Care Provider Encounter Details Date Type Department Care Team (Late st Contact Info) Description 03/23/2021 Orders Only [facility] [address] [place] [address] Conversion, Onbase Social History Tobacco Use Types [...] on filedocumented in this encounter Care Teams Child Day Care Center Worker Relationship Specialty Start Date End Date Flavio Myers DO [address] [place] [address] PCP - General 04/02/18 documented as of this encounter
--- OUTSIDE RECORDS SUMMARY | 2024-11-05 12:17 | XMS_ITS | Encounter Summary ---
Author Organization [facility] Address [address] [place] [address] Phone Care Team Providers Care Certified Adapted Physical Educator Name Role Phone Flavio Myers DO Primary Care Provider Encounter Details Date Type Department Care Team (Late st Contact Info) Description 05/06/2022 Orders Only [facility] [address] [place] [address] Conversion, Onbase Social History Tobacco Use Types [...] on filedocumented in this encounter Care Teams Certified Adapted Physical Educator Relationship Specialty Start Date End Date Flavio Myers DO [address] [place] [address] PCP - General 04/02/18 documented as of this encounter
--- OUTSIDE RECORDS SUMMARY | 2024-11-08 08:45 | XMS_ITS | CCD ---
Author Organization [facility] Care Team Providers Care Count Team Clerk Name Role Phone CLARITALUCRECIA MORIN Jefferson Referring [...] Allergy 4 Dizziness, Nausea Only, Unknown [facility] (7 sources) Codeine; Translations: [Codeine Derivatives] Drug Allergy Nausea [facility] 600 DO Work Phone: (1 source) Codeine Drug Allergy [facility] [employer] Other Medications Current Medications Medication Drug Class(es) [...] 05-06-2022 Chronic Other aftercare (1 source) 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; Translations: [OTH COMPLIANCE ATTORNEY CURRENT DRUG THERAPY] Onset: 05-08-2022 Episodic Other [...] 01-03-2024 XR lumbar spine 6V w bending [facility] [place] [address] XRay Report Signed Patient: Humberto Lima MR#: [id number] : 1960 Acct:[id number] Age/Sex: 63 / M ADM Date: 01/03/24 Loc: XD Room: Type: [facility] Attending Dr: Amarilis Crooks APRN Copies to: [...] Thiago Jurado M.D.01/03/2024 12:45 PM Dictation Location: [place] [address] Transcribed By: [facility] 01/03/24 1245 Dictated By: Thiago Jurado II, MD 01/03/24 1241 Signed By: 01/03/24 1245 [facility] No Panel Informationon 12-17 Type [...] yes Amount of lidocaine used: 0.4 cm [facility] Healthcare Office Visit (Cardiology)on 11-22-2022 Follow-up visit [...] is arthritis. He followed by a local lsat instructor. ASSESSMENT 1. Previous evaluation for chest pain. [...] 7. History of arthritis followed by local lsat instructor indicate could be either early rheumatoid arthritis [...] History of Cataract surgery History of Colonoscopy [id number] Current Meds Medication NameInstruction buPROPion HCl ER [...] negative for complaint. Vitals Vital Signs Recorded: [id number] 11:27AM Heart Rate60, L Radial Mobncauv142, LUE, Sitting Abfnnvdmx76, LUE, Sitting Height5 ft 6 in Qsowsv452 lb 6 oz BMI Afovcvwrao17.63 kg/m2 BSA Calculated1.9 Tobacco Useb) No PHQ-2 [...] Screening.on 023 Adult depression screening assessment No [facility] Terrafugia DO Work Phone: Fall risk assessment a) No falls within the last year [facility] [employer] DO Work Phone: Tobacco use status CPHS b) No [facility] [employer] DO Work Phone: COMPLEMENT TOTAL (CH50)on Complement, Total (CH50) 45 U/mL Normal >41 [facility] Comment on above: Result Comment: Age [...] Performed By: #### C RP, CMP #### [facility] [address] [address] [address] Gregg Humphreys C3 and C4 COMPLEMENTon 05-07 Complement C3, Serum 159 mg/dL Normal 82-167 [facility] Comment on above: Performed By: #### S EDR #### [facility] [address] [address] [address] Gregg Humphreys Complement C4, Serum 27 mg/dL Normal 12-38 [facility] Comment on above: Performed By: #### S EDR #### [facility] [address] [address] [address] Gregg Humphreys CBC AUTO DIFFon 05-06-2022 BASO # 0.1 103/ul Normal 0.0-0.1 [facility] Comment on above: Performed By: #### C BC #### [facility] [address] [address] [address] Gregg Humphreys Basophils/100 WBC (Bld) 0.8 % Normal 0.2-2.0 [facility] Comment on above: Performed By: #### C BC #### [facility] [address] [address] [address] Gregg Humphreys EO # 0.4 103/ul Normal 0.0-0.7 [facility] Comment on above: Performed By: #### C BC #### [facility] [address] [address] [address] Gregg Humphreys Eosinophils/100 WBC (Bld) 4.9 % Normal 0.9-7.0 [facility] Comment on above: Performed By: #### C BC #### [facility] [address] [address] [address] Gregg Humphreys Erythrocyte distribution width (RBC) [Ratio] 13.2 % Normal 11.0-15.0 [facility] Comment on above: Performed By: #### C BC #### [facility] [address] [address] [address] Gregg Humphreys Hematocrit (Bld) [Volume fraction] 49.6 % Normal 42.0-54.0 [facility] Comment on above: Performed By: #### C BC #### [facility] [address] [address] [address] Gregg Humphreys Hemoglobin (Bld) [Mass/Vol] 15.4 g/dL Normal 14.0-18.0 [facility] Comment on above: Performed By: #### C BC #### [facility] [address] [address] [address] Gregg Humphreys IG # 0.04 10e3/ul Critically high 0.00-0.03 [facility] Comment on above: Performed By: #### C BC #### [facility] [address] [place] [address] Dr. Gregg Humphreys IG % 0.6 % Critically high 0.0-0.5 [facility] Comment on above: Performed By: #### C BC #### [facility] [address] [place] [address] Dr. Gregg Humphreys LYMPH # 2.4 103/ul Normal 1.2-3.8 [facility] Comment on above: Performed By: #### C BC #### [facility] [address] [place] [address] Dr. Gregg Humphreys Lymphocytes/100 WBC (Bld) 34.1 % Normal 20.5-60.0 [facility] Comment on above: Performed By: #### C BC #### [facility] [address] [place] [address] Dr. Gregg Humphreys MANUAL DIFF REQ NO Normal [facility] Comment on above: Performed By: #### C BC #### [facility] [address] [place] [address] Dr. Gregg Humphreys MCH (RBC) [Entitic mass] 28.3 pg Normal 25.9-34.0 [facility] Comment on above: Performed By: #### C BC #### [facility] [address] [place] [address] Dr. Gregg Humphreys MCHC (RBC) [Mass/Vol] 31.0 g/dL Normal 29.9-35.2 [facility] Comment on above: Performed By: #### C BC #### [facility] [address] [place] [address] Dr. Gregg Humphreys MCV (RBC) [Entitic vol] 91.0 fL Normal 80.0-94.0 [facility] Comment on above: Performed By: #### C BC #### [facility] [address] [place] [address] Dr. Gregg Humphreys MONO # 0.9 103/ul Critically high 0.3-0.8 [facility] Comment on above: Performed By: #### C BC #### [facility] [address] [address] [address] Gregg Humphreys Monocytes/100 WBC (Bld) 12.7 % Critically high 1.7-12.0 [facility] Comment on above: Performed By: #### C BC #### [facility] [address] [address] [address] Gregg Humphreys NEUT # 3.4 103/ul Normal 1.4-6.5 [facility] Comment on above: Performed By: #### C BC #### [facility] [address] [address] [address] Gregg Humphreys Neutrophils/100 WBC (Bld) 46.9 % Normal 43.0-75.0 [facility] Comment on above: Performed By: #### C BC #### [facility] [address] [place] [address] Dr. Gregg Humphreys Platelet mean volume (Bld) [Entitic vol] 9.2 fL Critically low 9.5-13.5 [facility] Comment on above: Performed By: #### C BC #### [facility] [address] [place] [address] Dr. Gregg Humphreys PLT 405 103/ul Normal 150-450 [facility] Comment on above: Performed By: #### C BC #### [facility] [address] [place] [address] Dr. Gregg Humphreys RBC 5.45 106/ul Normal 4.70-6.10 [facility] Comment on above: Performed By: #### C BC #### [facility] [address] [place] [address] Dr. Gregg Humphreys WBC 7.2 103/ul Normal 4.0-11.0 [facility] Comment on above: Performed By: #### C BC #### [facility] [address] [place] [address] Dr. Gregg Humphreys CRPon 05-06-2022 CRP [Mass/Vol] mg/L Normal <=1.0 [facility] Comment on above: Performed By: #### C RP, CMP #### [facility] [address] [address] [address] Gregg Humphreys PROF 14(COMP METB)on 023 Albumin [Mass/Vol] 4.1 g/dL Normal 3.4-5.0 [facility] Comment on above: Performed By: #### C RP, CMP #### [facility] [address] [place] [address] Dr. Gregg Humphreys Albumin/Globulin [Mass ratio] 1.1 {ratio} Normal [facility] Comment on above: Performed By: #### C RP, CMP #### [facility] [address] [place] [address] Dr. Gregg Humphreys ALP [Catalytic activity/Vol] 71 U/L Normal 46-116 [facility] Comment on above: Performed By: #### C RP, CMP #### [facility] [address] [place] [address] Dr. Gregg Humphreys ALT [Catalytic activity/Vol] 30 U/L Normal 16-63 [facility] Comment on above: Performed By: #### C RP, CMP #### [facility] [address] [place] [address] Dr. Gregg Humphreys Anion gap [Moles/Vol] 10.4 mmol/L Normal [facility] Comment on above: Performed By: #### C RP, CMP #### [facility] [address] [place] [address] Dr. Gregg Humphreys AST [Catalytic activity/Vol] 23 U/L Normal 15-37 [facility] Comment on above: Performed By: #### C RP, CMP #### [facility] [address] [place] [address] Dr. Gregg Humphreys Bilirubin [Mass/Vol] 0.5 mg/dL Normal 0.2-1.0 [facility] Comment on above: Performed By: #### C RP, CMP #### [facility] [address] [place] [address] Dr. Gregg Humphreys Calcium [Mass/Vol] 9.5 mg/dL Normal 8.5-10.1 [facility] Comment on above: Performed By: #### C RP, CMP #### [facility] [address] [address] [address] Gregg Humphreys Chloride [Moles/Vol] 103 mmol/L Normal 98-107 [facility] Comment on above: Performed By: #### C RP, CMP #### [facility] [address] [address] [address] Gregg Humphreys CO2 [Moles/Vol] 29.8 mmol/L Normal 21.0-32.0 [facility] Comment on above: Performed By: #### C RP, CMP #### [facility] [address] [place] [address] Dr. Gregg Humphreys Creatinine [Mass/Vol] 0.88 mg/dL Normal 0.70-1.30 [facility] Comment on above: Performed By: #### C RP, CMP #### [facility] [address] [place] [address] Dr. Gregg Humphreys EGFR-AF WELSH >60 Normal >=60 [facility] Comment on above: Performed By: #### C RP, CMP #### [facility] [address] [place] [address] Dr. Gregg Humphreys EGFR-NON AF WELSH >60 Normal >=60 [facility] Comment on above: Performed By: #### C RP, CMP #### [facility] [address] [place] [address] Dr. Gregg Humphreys Globulin (S) [Mass/Vol] 3.9 g/dL Normal [facility] Comment on above: Performed By: #### C RP, CMP #### [facility] [address] [place] [address] Dr. Gregg Humphreys Glucose [Mass/Vol] 91 mg/dL Normal 74-106 [facility] Comment on above: Performed By: #### C RP, CMP #### [facility] [address] [place] [address] Dr. Gregg Humphreys Potassium [Moles/Vol] 4.2 mmol/L Normal 3.5-5.1 [facility] Comment on above: Performed By: #### C RP, CMP #### [facility] [address] [address] [address] Gregg Humphreys Protein [Mass/Vol] 8.0 g/dL Normal 6.4-8.2 [facility] Comment on above: Performed By: #### C RP, CMP #### [facility] [address] [address] [address] Gregg Humphreys Sodium [Moles/Vol] 139 mmol/L Normal 136-145 [facility] Comment on above: Performed By: #### C RP, CMP #### [facility] [address] [place] [address] Dr. Gregg Humphreys Urea nitrogen [Mass/Vol] 16.0 mg/dL Normal 7.0-18.0 [facility] Comment on above: Performed By: #### C RP, CMP #### [facility] [address] [place] [address] Dr. Gregg Humphreys Urea nitrogen/Creatinine [Mass ratio] 18.2 mg/mg Normal [facility] Comment on above: Performed By: #### C RP, CMP #### [facility] [address] [place] [address] Dr. Gregg Humphreys SED RATE [facility] 2022 SED RATE 42 mm/hr Critically high <=20 [facility] Comment on above: Performed By: #### C RP, CMP #### [facility] [address] [place] [address] Dr. Gregg Humphreys UA RANDOM W/MICROSCOPICon BACTERIA NONE SEEN Normal NONE SEEN [facility] Comment on above: Performed By: #### U AMIC #### [facility] [address] [place] [address] Dr. Gregg Humphreys Bilirubin Ql (U) Negative Normal NEGATIVE [facility] Comment on above: Performed By: #### U AMIC #### [facility] [address] [place] [address] Dr. Gregg Humphreys CAST NONE SEEN Normal NONE SEEN [facility] Comment on above: Performed By: #### U AMIC #### [facility] [address] [place] [address] Dr. Gregg Humphreys Clarity (U) CLEAR Normal CLEAR [facility] Comment on above: Performed By: #### U AMIC #### [facility] [address] [address] [address] Gregg Humphreys Color (U) LT. YELLOW Normal YELLOW [facility] Comment on above: Performed By: #### U AMIC #### [facility] [address] [address] [address] Gregg Humphreys Crystals LM Nom (Urine sed) NONE SEEN Normal NONE SEEN [facility] Comment on above: Performed By: #### U AMIC #### [facility] [address] [address] [address] Gregg Humphreys Epithelial cells LM Ql (Urine sed) FEW Abnormal NONE SEEN /RARE [facility] Comment on above: Performed By: #### U AMIC #### [facility] [address] [place] [address] Dr. Gregg Humphreys Glucose Ql (U) Negative Normal NEGATIVE [facility] Comment on above: Performed By: #### U AMIC #### [facility] [address] [place] [address] Dr. Gregg Humphreys Hemoglobin Ql (U) Negative Normal NEGATIVE [facility] Comment on above: Performed By: #### U AMIC #### [facility] [address] [place] [address] Dr. Gregg Humphreys Ketones Ql (U) Negative Normal NEGATIVE [facility] Comment on above: Performed By: #### U AMIC #### [facility] [address] [place] [address] Dr. Gregg Humphreys LEUKOCYTES Negative Normal NEGATIVE [facility] Comment on above: Performed By: #### U AMIC #### [facility] [address] [place] [address] Dr. Gregg Humphreys MUCOUS NONE SEEN Normal NONE SEEN [facility] Comment on above: Performed By: #### U AMIC #### [facility] [address] [place] [address] Dr. Gregg Humphreys Nitrite Ql (U) Negative Normal NEGATIVE [facility] Comment on above: Performed By: #### U AMIC #### [facility] [address] [address] [address] Gregg Humphreys pH (U) 5.5 [pH] Normal 5-9 [facility] Comment on above: Performed By: #### U AMIC #### [facility] [address] [place] [address] Dr. Gregg Humphreys RBC NONE SEEN Abnormal 0-2 [facility] Comment on above: Performed By: #### U AMIC #### [facility] [address] [place] [address] Dr. Gregg Humphreys SPEC GRAVITY <=1.005 Abnormal 1.005-<=1.025 [facility] Comment on above: Performed By: #### U AMIC #### [facility] [address] [place] [address] Dr. Gregg Humphreys UA PROTEIN Negative Normal NEGATIVE/ TRACE [facility] Comment on above: Performed By: #### U AMIC #### [facility] [address] [place] [address] Dr. Gregg Humphreys Urobilinogen Qn (U) 0.2 {Kiki'U}/dL Normal 0.2 - 1. 0 [facility] Comment on above: Performed By: #### U AMIC #### [facility] [address] [place] [address] Dr. Gregg Humphreys WBC NONE SEEN Normal NONE SEEN [facility] Comment on above: Performed By: #### U AMIC #### [facility] [address] [place] [address] Dr. Gregg Humphreys CBC AUTO DIFFon 11-19-2021 BASO # 0.1 103/ul Normal 0.0-0.1 [facility] Comment on above: Performed By: #### C BC #### [facility] [address] [place] [address] Dr. Gregg Humphreys Basophils/100 WBC (Bld) 1.3 % Normal 0.2-2.0 [facility] Comment on above: Performed By: #### C BC #### [facility] [address] [place], [place] [address] Dr. Gregg Humphreys EO # 0.4 103/ul Normal 0.0-0.7 [facility] Comment on above: Performed By: #### C BC #### [facility] [address] [place] [address] Dr. Gregg Humphreys Eosinophils/100 WBC (Bld) 5.2 % Normal 0.9-7.0 [facility] Comment on above: Performed By: #### C BC #### [facility] [address] [place] [address] Dr. Gregg Humphreys Erythrocyte distribution width (RBC) [Ratio] 13.1 % Normal 11.0-15.0 [facility] Comment on above: Performed By: #### C BC #### [facility] [address] [place] [address] Dr. Gregg Humphreys Hematocrit (Bld) [Volume fraction] 46.1 % Normal 42.0-54.0 [facility] Comment on above: Performed By: #### C BC #### [facility] [address] [place] [address] Dr. Gregg Humphreys Hemoglobin (Bld) [Mass/Vol] 14.9 g/dL Normal 14.0-18.0 [facility] Comment on above: Performed By: #### C BC #### [facility] [address] [place] [address] Dr. Gregg Humphreys IG # 0.04 10e3/ul Critically high 0.00-0.03 [facility] Comment on above: Performed By: #### C BC #### [facility] [address] [place] [address] Dr. Gregg Humphreys IG % 0.5 % Normal 0.0-0.5 [facility] Comment on above: Performed By: #### C BC #### [facility] [address] [place] [address] Dr. Gregg Humphreys LYMPH # 2.4 103/ul Normal 1.2-3.8 [facility] Comment on above: Performed By: #### C BC #### [facility] [address] [place] [address] Dr. Gregg Humphreys Lymphocytes/100 WBC (Bld) 30.9 % Normal 20.5-60.0 [facility] Comment on above: Performed By: #### C BC #### [facility] [address] [place] [address] Dr. Gregg Humphreys MANUAL DIFF REQ NO Normal [facility] Comment on above: Performed By: #### C BC #### [facility] [address] [place] [address] Dr. Gregg Humphreys MCH (RBC) [Entitic mass] 28.1 pg Normal 25.9-34.0 [facility] Comment on above: Performed By: #### C BC #### [facility] [address] [place] [address] Dr. Gregg Humphreys MCHC (RBC) [Mass/Vol] 32.3 g/dL Normal 29.9-35.2 [facility] Comment on above: Performed By: #### C BC #### [facility] [address] [place] [address] Dr. Gregg Humphreys MCV (RBC) [Entitic vol] 87.0 fL Normal 80.0-94.0 [facility] Comment on above: Performed By: #### C BC #### [facility] [address] [place] [address] Dr. Gregg Humphreys MONO # 1.0 103/ul Critically high 0.3-0.8 [facility] Comment on above: Performed By: #### C BC #### [facility] [address] [place] [address] Dr. Gregg Humphreys Monocytes/100 WBC (Bld) 12.7 % Critically high 1.7-12.0 [facility] Comment on above: Performed By: #### C BC #### [facility] [address] [place] [address] Dr. Gregg Humphreys NEUT # 3.9 103/ul Normal 1.4-6.5 [facility] Comment on above: Performed By: #### C BC #### [facility] [address] [place] [address] Dr. Gregg Humphreys Neutrophils/100 WBC (Bld) 49.4 % Normal 43.0-75.0 [facility] Comment on above: Performed By: #### C BC #### [facility] [address] [place] [address] Dr. Gregg Humphreys Platelet mean volume (Bld) [Entitic vol] 8.9 fL Critically low 9.5-13.5 [facility] Comment on above: Performed By: #### C BC #### [facility] [address] [place] [address] Dr. Gregg Humphreys PLT 353 103/ul Normal 150-450 [facility] Comment on above: Performed By: #### C BC #### [facility] [address] [place] [address] Dr. Gregg Humphreys RBC 5.30 106/ul Normal 4.70-6.10 [facility] Comment on above: Performed By: #### C BC #### [facility] [address] [place] [address] Dr. Gregg Humphreys WBC 7.9 103/ul Normal 4.0-11.0 [facility] Comment on above: Performed By: #### C BC #### [facility] [address] [place] [address] Dr. Gregg Humphreys FREE T3on 11-19-2021 FREE T3 3.39 pg/mlL Normal 2.18-3.98 [facility] Comment on above: Performed By: #### T SH, FT3, LIPID, CMP #### [facility] [address] [place] [address] Dr. Gregg Humphreys FREE T4on 11-19-2021 Free T4 [Mass/Vol] 0.86 ng/dL Normal 0.76-1.46 [facility] Comment on above: Performed By: #### C RP, CMP #### [facility] [address] [place] [address] Dr. Gregg Humphreys GLYCOHEMOGLOBIN A1Con 2021 ADA RECOMMENDATION SEE BELOW Normal [facility] Comment on above: Result Comment: ADA RECOMMENDED LIMIT 4.0 - 6.0 ADA THERAPEUTIC TARGET < 7.0 ACTION SUGGESTED > 7.0 Performed By: #### C RP, CMP #### [facility] [address] [address] [address] Gregg Humphreys Glucose [Mass/Vol] 120 mg/dL Normal [facility] Comment on above: Performed By: #### C RP, CMP #### [facility] Laboratory [address] [address] [address] Gregg Humphreys HbA1c (Bld) [Mass fraction] 5.8 % Normal 4.5-6.2 [facility] Comment on above: Performed By: #### C RP, CMP #### [facility] [address] [place] [address] Dr. Gregg Humphreys LIPID PROFILEon 11-19-2021 CHOL-HDL RATIO NORM SEE BELOW Normal [facility] Comment on above: Result Comment: 3.3 - 4.4 LOW RISK 4.4 - 7.1 AVERAGE RISK 7.1 - 11.0 MODERATE RISK >11.0 HIGH RISK Performed By: #### T SH, FT3, LIPID, CMP #### [facility] [address] [place] [address] Dr. Gregg Humphreys Cholesterol [Mass/Vol] 195 mg/dL Normal <=200 [facility] Comment on above: Performed By: #### T SH, FT3, LIPID, CMP #### [facility] [address] [place] [address] Dr. Gregg Hmuphreys Cholesterol in HDL [Mass/Vol] 73 mg/dL Critically high 40-60 [facility] Comment on above: Performed By: #### T SH, FT3, LIPID, CMP #### [facility] [address] [place] [address] Dr. Gregg Humphreys Cholesterol in LDL [Mass/Vol] 113.0 mg/dL Normal [facility] Comment on above: Performed By: #### T SH, FT3, LIPID, CMP #### [facility] [address] [place] [address] Dr. Gregg Humphreys Cholesterol.total/Ch olesterol in HDL [Mass ratio] 2.7 {ratio} Normal [facility] Comment on above: Performed By: #### T SH, FT3, LIPID, CMP #### [facility] [address] [address] [address] Gregg Humphreys HDL NORMAL > or = 60 mg/dl - LO W CARDIOVASCULAR RISK <40 mg/dl - HIGH CARDIOVASCULAR RISK Normal [facility] Comment on above: Performed By: #### T SH, FT3, LIPID, CMP #### [facility] [address] [address] [address] Gregg Humphreys LDL CALC NORMAL SEE BELOW Normal [facility] Comment on above: Result Comment: <100 mg/dl OPTIMAL 100 - 129 mg/dl NEAR OR ABOVE OPTIMAL 130 - 159 mg/dl BORDERLINE HIGH 160 - 189 mg/dl HIGH >190 mg/dl VERY HIGH Performed By: #### T SH, FT3, LIPID, CMP #### [facility] [address] [address] [address] Gregg Humphreys Triglyceride [Mass/Vol] 45 mg/dL Normal <=150 [facility] Comment on above: Performed By: #### T SH, FT3, LIPID, CMP #### [facility] [address] [address] [address] Gregg Humphreys VLDL CALC 9.0 mg/dL Normal [facility] Comment on above: Performed By: #### T SH, FT3, LIPID, CMP #### [facility] [address] [address] [address] Gregg Humphreys PROF 14(COMP METB)on 022 Albumin [Mass/Vol] 4.0 g/dL Normal 3.4-5.0 [facility] Comment on above: Performed By: #### T SH, FT3, LIPID, CMP #### [facility] [address] [address] [address] Gregg Humphreys Albumin/Globulin [Mass ratio] 1.3 {ratio} Normal [facility] Comment on above: Performed By: #### T SH, FT3, LIPID, CMP #### [facility] [address] [address] [address] Gregg Humphreys ALP [Catalytic activity/Vol] 75 U/L Normal 46-116 [facility] Comment on above: Performed By: #### T SH, FT3, LIPID, CMP #### [facility] [address] [place] [address] Dr. Gregg Humphreys ALT [Catalytic activity/Vol] 24 U/L Normal 16-63 [facility] Comment on above: Performed By: #### T SH, FT3, LIPID, CMP #### [facility] [address] [place] [address] Dr. Gregg Humphreys Anion gap [Moles/Vol] 12.7 mmol/L Normal [facility] Comment on above: Performed By: #### T SH, FT3, LIPID, CMP #### [facility] [address] [place] [address] Dr. Gregg Humphreys AST [Catalytic activity/Vol] 17 U/L Normal 15-37 [facility] Comment on above: Performed By: #### T SH, FT3, LIPID, CMP #### [facility] [address] [place] [address] Dr. Gregg Humphreys Bilirubin [Mass/Vol] 0.6 mg/dL Normal 0.2-1.0 [facility] Comment on above: Performed By: #### T SH, FT3, LIPID, CMP #### [facility] [address] [place] [address] Dr. Gregg Humphreys Calcium [Mass/Vol] 9.1 mg/dL Normal 8.5-10.1 [facility] Comment on above: Performed By: #### T SH, FT3, LIPID, CMP #### [facility] [address] [place] [address] Dr. Gregg Humphreys Chloride [Moles/Vol] 104 mmol/L Normal 98-107 [facility] Comment on above: Performed By: #### T SH, FT3, LIPID, CMP #### [facility] [address] [place] [address] Dr. Gregg Humphreys CO2 [Moles/Vol] 25.6 mmol/L Normal 21.0-32.0 [facility] Comment on above: Performed By: #### T SH, FT3, LIPID, CMP #### [facility] [address] [address] [address] Gregg Humphreys Creatinine [Mass/Vol] 1.04 mg/dL Normal 0.70-1.30 [facility] Comment on above: Performed By: #### T SH, FT3, LIPID, CMP #### [facility] [address] [address] [address] Gregg Humphreys EGFR-AF WELSH >60 Normal >=60 [facility] Comment on above: Performed By: #### T SH, FT3, LIPID, CMP #### [facility] [address] [place] [address] Dr. Gregg Humphreys EGFR-NON AF WELSH >60 Normal >=60 [facility] Comment on above: Performed By: #### T SH, FT3, LIPID, CMP #### [facility] [address] [place] [address] Dr. Gregg Humphreys Globulin (S) [Mass/Vol] 3.1 g/dL Normal [facility] Comment on above: Performed By: #### T SH, FT3, LIPID, CMP #### [facility] [address] [place] [address] Dr. Gregg Humphreys Glucose [Mass/Vol] 93 mg/dL Normal 74-106 [facility] Comment on above: Performed By: #### T SH, FT3, LIPID, CMP #### [facility] [address] [place] [address] Dr. Gregg Humphreys Potassium [Moles/Vol] 4.3 mmol/L Normal 3.5-5.1 [facility] Comment on above: Performed By: #### T SH, FT3, LIPID, CMP #### [facility] [address] [place] [address] Dr. Gregg Humphreys Protein [Mass/Vol] 7.1 g/dL Normal 6.4-8.2 [facility] Comment on above: Performed By: #### T SH, FT3, LIPID, CMP #### [facility] [address] [place] [address] Dr. Gregg Humphreys Sodium [Moles/Vol] 138 mmol/L Normal 136-145 [facility] Comment on above: Performed By: #### T SH, FT3, LIPID, CMP #### [facility] [address] [address] [address] Gregg Humphreys Urea nitrogen [Mass/Vol] 20.0 mg/dL Critically high 7.0-18.0 [facility] Comment on above: Performed By: #### T SH, FT3, LIPID, CMP #### [facility] [address] [address] [address] Gregg Humphreys Urea nitrogen/Creatinine [Mass ratio] 19.2 mg/mg Normal [facility] Comment on above: Performed By: #### T SH, FT3, LIPID, CMP #### [facility] [address] [place] [address] Dr. Gregg Humphreys TSHon 11-19-2021 TSH 1.020 uIU/mL Normal 0.358-3.740 [facility] Comment on above: Performed By: #### T SH, FT3, LIPID, CMP #### [facility] [address] [place] [address] Dr. Gregg Humphreys VIT B12 AND FOLATEon 022 Cobalamin (Vitamin B12) [Mass/Vol] 359.0 pg/mL Normal 193.0-986.0 [facility] Comment on above: Performed By: #### C RP, CMP #### [facility] [address] [place] [address] Dr. Gregg Humphreys FOLATE 8.80 ng/mL Normal 8.60-58.90 [facility] Comment on above: Performed By: #### C RP, CMP #### [facility] [address] [place] [address] Dr. Gregg Humphreys Tobacco Screening.on 022 Adult depression screening assessment No [facility] [employer] [address] DO Work Phone: Fall risk assessment a) No falls within the last year [facility] [employer] 600 DO Work Phone: Tobacco use status CPHS b) No [facility] [employer] 600 DO Work Phone: XR LSPINE 2_3 [...] by: LILI BARRERA Date: 2021-07-13 14:[address] 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 [id number] Virgilio Beaulieu MD, [facility] Electronically signed on 07/08/2021 at 8:54:56 AM Final Normal [facility] Cardiac Stress Test MP-No rth [facility] 600 DO Work Phone: C3 and C4 COMPLEMENTon 05-26 Complement C3, Serum 172 mg/dL Critically high 82-167 [facility] Comment on above: Performed By: #### S EDR #### [facility] [address] [address] [address] Gregg Humphreys Complement C4, Serum 30 mg/dL Normal 12-38 [facility] Comment on above: Performed By: #### S EDR #### [facility] [address] [address] [address] Gregg Humphreys COMPLEMENT TOTAL (CH50)on Complement, Total (CH50) >60 Normal >41 [facility] Comment on above: Result Comment: Age [...] values. Performed By: #### S EDR #### [facility] [address] [place] [address] Dr. Gregg Humphreys CBC AUTO DIFFon 05-25-2021 BASO # 0.1 103/ul Normal 0.0-0.1 [facility] Comment on above: Performed By: #### S EDR #### [facility] [address] [place] [address] Dr. Gregg Humphreys Basophils/100 WBC (Bld) 1.4 % Normal 0.2-2.0 [facility] Comment on above: Performed By: #### S EDR #### [facility] [address] [place] [address] Dr. Gregg Humphreys EO # 0.5 103/ul Normal 0.0-0.7 [facility] Comment on above: Performed By: #### S EDR #### [facility] [address] [place] [address] Dr. Gregg Humphreys Eosinophils/100 WBC (Bld) 7.3 % Critically high 0.9-7.0 [facility] Comment on above: Performed By: #### S EDR #### [facility] [address] [place] [address] Dr. Gregg Humphreys Erythrocyte distribution width (RBC) [Ratio] 14.1 % Normal 11.0-15.0 [facility] Comment on above: Performed By: #### S EDR #### [facility] [address] [place] [address] Dr. Gregg Humphreys Hematocrit (Bld) [Volume fraction] 48.1 % Normal 42.0-54.0 [facility] Comment on above: Performed By: #### S EDR #### [facility] [address] [place] [address] Dr. Gregg Humphreys Hemoglobin (Bld) [Mass/Vol] 15.4 g/dL Normal 14.0-18.0 [facility] Comment on above: Performed By: #### S EDR #### [facility] [address] [place] [address] Dr. Gregg Humphreys IG # 0.17 10e3/ul Critically high 0.00-0.03 [facility] Comment on above: Performed By: #### S EDR #### [facility] [address] [address] [address] Gregg Humphreys IG % 2.3 % Critically high 0.0-0.5 [facility] Comment on above: Performed By: #### S EDR #### [facility] [address] [address] [address] Gregg Humphreys LYMPH # 2.5 103/ul Normal 1.2-3.8 [facility] Comment on above: Performed By: #### S EDR #### [facility] [address] [address] [address] Gregg Humphreys Lymphocytes/100 WBC (Bld) 33.9 % Normal 20.5-60.0 [facility] Comment on above: Performed By: #### S EDR #### [facility] [address] [place] [address] Dr. Gregg Humphreys MANUAL DIFF REQ NO Normal [facility] Comment on above: Performed By: #### S EDR #### [facility] [address] [place] [address] Dr. Gregg Humphreys MCH (RBC) [Entitic mass] 28.9 pg Normal 25.9-34.0 [facility] Comment on above: Performed By: #### S EDR #### [facility] [address] [place] [address] Dr. Gregg Humphreys MCHC (RBC) [Mass/Vol] 32.0 g/dL Normal 29.9-35.2 [facility] Comment on above: Performed By: #### S EDR #### [facility] [address] [place] [address] Dr. Gregg Humphreys MCV (RBC) [Entitic vol] 90.2 fL Normal 80.0-94.0 [facility] Comment on above: Performed By: #### S EDR #### [facility] [address] [address] [address] Gregg Humphreys MONO # 0.8 103/ul Normal 0.3-0.8 [facility] Comment on above: Performed By: #### S EDR #### [facility] [address] [address] [address] Gregg Humphreys Monocytes/100 WBC (Bld) 11.4 % Normal 1.7-12.0 [facility] Comment on above: Performed By: #### S EDR #### [facility] [address] [address] [address] Gregg Humphreys NEUT # 3.2 103/ul Normal 1.4-6.5 [facility] Comment on above: Performed By: #### S EDR #### [facility] [address] [address] [address] Gregg Humphreys Neutrophils/100 WBC (Bld) 43.7 % Normal 43.0-75.0 [facility] Comment on above: Performed By: #### S EDR #### [facility] [address] [address] [address] Gregg Humphreys Platelet mean volume (Bld) [Entitic vol] 9.2 fL Critically low 9.5-13.5 [facility] Comment on above: Performed By: #### S EDR #### [facility] [address] [address] [address] Gregg Humphreys PLT 416 103/ul Normal 150-450 [facility] Comment on above: Performed By: #### S EDR #### [facility] [address] [address] [address] Gregg Humphreys RBC 5.33 106/ul Normal 4.70-6.10 [facility] Comment on above: Performed By: #### S EDR #### [facility] [address] [address] [address] Gregg Humphreys WBC 7.4 103/ul Normal 4.0-11.0 [facility] Comment on above: Performed By: #### S EDR #### [facility] [address] [place] [address] Dr. Gregg Humphreys CRPon 05-25-2021 CRP [Mass/Vol] mg/L Normal <=1.0 [facility] Comment on above: Performed By: #### C RP, CMP #### [facility] [address] [address] [address] Gregg Humphreys PROF 14(COMP METB)on 022 Albumin [Mass/Vol] 3.5 g/dL Normal 3.5-5.0 [facility] Comment on above: Performed By: #### C RP, CMP #### [facility] [address] [place] [address] Dr. Gregg Humphreys Albumin/Globulin [Mass ratio] 0.9 {ratio} Normal [facility] Comment on above: Performed By: #### C RP, CMP #### [facility] [address] [place] [address] Dr. Gregg Humphreys ALP [Catalytic activity/Vol] 90 U/L Normal 38-126 [facility] Comment on above: Performed By: #### C RP, CMP #### [facility] [address] [place] [address] Dr. Gregg Humphreys ALT [Catalytic activity/Vol] 56 U/L Normal 21-72 [facility] Comment on above: Performed By: #### C RP, CMP #### [facility] [address] [place] [address] Dr. Gregg Humphreys Anion gap [Moles/Vol] 11.9 mmol/L Normal [facility] Comment on above: Performed By: #### C RP, CMP #### [facility] [address] [place] [address] Dr. Gregg Humphreys AST [Catalytic activity/Vol] 21 U/L Normal 17-59 [facility] Comment on above: Performed By: #### C RP, CMP #### [facility] [address] [place] [address] Dr. Gregg Humphreys Bilirubin [Mass/Vol] 0.3 mg/dL Normal 0.2-1.3 [facility] Comment on above: Performed By: #### C RP, CMP #### [facility] [address] [place] [address] Dr. Gregg Humphreys Calcium [Mass/Vol] 9.2 mg/dL Normal 8.4-10.2 [facility] Comment on above: Performed By: #### C RP, CMP #### [facility] [address] [place] [address] Dr. Gregg Humphreys Chloride [Moles/Vol] 105 mmol/L Normal 98-107 [facility] Comment on above: Performed By: #### C RP, CMP #### [facility] [address] [place] [address] Dr. Gregg Humphreys CO2 [Moles/Vol] 27.0 mmol/L Normal 22.0-30.0 [facility] Comment on above: Performed By: #### C RP, CMP #### [facility] [address] [place] [address] Dr. Gregg Humphreys Creatinine [Mass/Vol] 1.00 mg/dL Normal 0.66-1.25 [facility] Comment on above: Performed By: #### C RP, CMP #### [facility] [address] [place] [address] Dr. Gregg Humphreys EGFR-AF WELSH >60 Normal >=60 [facility] Comment on above: Performed By: #### C RP, CMP #### [facility] [address] [place] [address] Dr. Gregg Humphreys EGFR-NON AF WELSH >60 Normal >=60 [facility] Comment on above: Performed By: #### C RP, CMP #### [facility] [address] [place] [address] Dr. Gregg Humphreys Globulin (S) [Mass/Vol] 3.7 g/dL Normal [facility] Comment on above: Performed By: #### C RP, CMP #### [facility] [address] [place] [address] Dr. Gregg Humphreys Glucose [Mass/Vol] 118 mg/dL Critically high 74-[address] [facility] Comment on above: Performed By: #### C RP, CMP #### [facility] [address] [place] [address] Dr. Gregg Humphreys Potassium [Moles/Vol] 3.9 mmol/L Normal 3.4-5.0 [facility] Comment on above: Performed By: #### C RP, CMP #### [facility] [address] [place] [address] Dr. Gregg Humphreys Protein [Mass/Vol] 7.2 g/dL Normal 6.1-8.2 [facility] Comment on above: Performed By: #### C RP, CMP #### [facility] [address] [address] [address] Gregg Humphreys Sodium [Moles/Vol] 140 mmol/L Normal 137-145 [facility] Comment on above: Performed By: #### C RP, CMP #### [facility] [address] [place] [address] Dr. Gregg Humphreys Urea nitrogen [Mass/Vol] 17.0 mg/dL Normal 9.0-20.0 [facility] Comment on above: Performed By: #### C RP, CMP #### [facility] [address] [place] [address] Dr. Gregg Humphreys Urea nitrogen/Creatinine [Mass ratio] 17.0 mg/mg Normal [facility] Comment on above: Performed By: #### C RP, CMP #### [facility] [address] [place] [address] Dr. Gregg Humph[facility] mm/hr Normal <=20 [facility] Comment on above: Performed By: #### S EDR #### [facility] [address] [place] [address] Dr. Gregg Humphreys UA RANDOM W/MICROSCOPICon BACTERIA TRACE Abnormal NONE SEEN [facility] Comment on above: Performed By: #### C RP, CMP #### [facility] [address] [place] [address] Dr. Gregg Humphreys Bilirubin Ql (U) Negative Normal NEGATIVE [facility] Comment on above: Performed By: #### C RP, CMP #### [facility] [address] [place] [address] Dr. Gregg Humphreys CAST NONE SEEN Normal NONE SEEN [facility] Comment on above: Performed By: #### C RP, CMP #### [facility] [address] [place] [address] Dr. Gregg Humphreys Clarity (U) CLEAR Normal CLEAR [facility] Comment on above: Performed By: #### C RP, CMP #### [facility] [address] [place] [address] Dr. Gregg Humphreys Color (U) LT. YELLOW Normal YELLOW [facility] Comment on above: Performed By: #### C RP, CMP #### [facility] [address] [place] [address] Dr. Gregg Humphreys Crystals LM Nom (Urine sed) NONE SEEN Normal NONE SEEN [facility] Comment on above: Performed By: #### C RP, CMP #### [facility] [address] [place] [address] Dr. Gregg Humphreys Epithelial cells LM Ql (Urine sed) NONE SEEN Normal NONE SEEN /RARE [facility] Comment on above: Performed By: #### C RP, CMP #### [facility] [address] [place] [address] Dr. Gregg Humphreys Glucose Ql (U) Negative Normal NEGATIVE [facility] Comment on above: Performed By: #### C RP, CMP #### [facility] [address] [place] [address] Dr. Gregg Humphreys Hemoglobin Ql (U) Negative Normal NEGATIVE [facility] Comment on above: Performed By: #### C RP, CMP #### [facility] [address] [place] [address] Dr. Gregg Humphreys Ketones Ql (U) Negative Normal NEGATIVE [facility] Comment on above: Performed By: #### C RP, CMP #### [facility] [address] [place] [address] Dr. Gregg Humphreys LEUKOCYTES Negative Normal NEGATIVE [facility] Comment on above: Performed By: #### C RP, CMP #### [facility] [address] [place] [address] Dr. Gregg Humphreys MUCOUS NONE SEEN Normal NONE SEEN [facility] Comment on above: Performed By: #### C RP, CMP #### [facility] [address] [place] [address] Dr. Gregg Humphreys Nitrite Ql (U) Negative Normal NEGATIVE [facility] Comment on above: Performed By: #### C RP, CMP #### [facility] [address] [place] [address] Dr. Gregg Humphreys pH (U) 6.0 [pH] Normal 5-9 [facility] Comment on above: Performed By: #### C RP, CMP #### [facility] [address] [place] [address] Dr. Gregg Humphreys RBC NONE SEEN Abnormal 0-2 [facility] Comment on above: Performed By: #### C RP, CMP #### [facility] [address] [place] [address] Dr. Gregg Humphreys SPEC GRAVITY 1.015 Normal 1.005-<=1.025 [facility] Comment on above: Performed By: #### C RP, CMP #### [facility] [address] [place] [address] Dr. Gregg Humphreys UA PROTEIN Negative Normal NEGATIVE/ TRACE [facility] Comment on above: Performed By: #### C RP, CMP #### [facility] [address] [place] [address] Dr. Gregg Humphreys Urobilinogen Qn (U) 0.2 {Kiki'U}/dL Normal 0.2 - 1. 0 [facility] Comment on above: Performed By: #### C RP, CMP #### [facility] [address] [place] [address] Dr. Gregg Humphreys WBC NONE SEEN Normal NONE SEEN [facility] Comment on above: Performed By: #### C RP, CMP #### [facility] [address] [place] [address] Dr. Gregg Humphreys Tobacco Screening.on 022 Fall risk assessment a) No falls within the last year [facility] 600 DO Work Phone: Tobacco use status [facility] b) No [facility] 600 DO Work Phone: Vital Signs Date Time Vital Sign Value Performing Clinician Facility 07-08-2024 11:40-0400 Body weight 78.69 kg [facility] 07-08-2024 11:40-0400 Diastolic blood pressure 60 mm[Hg] [facility] 07-08-2024 11:40-0400 Heart rate 69 /min [facility] 07-08-2024 11:40-0400 SaO2% (BldA) [Mass fraction] 96 % [facility] 07-08-2024 11:40-0400 Systolic blood pressure 112 mm[Hg] [facility] 05-12-2024 12:07-0500 Diastolic blood pressure 70 mm[Hg] [facility] 05-12-2024 12:07-0500 Heart rate 104 /min [facility] 05-12-2024 12:07-0500 Systolic blood pressure 130 mm[Hg] [facility] 04-18-2024 10:57-0500 Diastolic blood pressure 60 mm[Hg] [facility] 04-18-2024 10:57-0500 Heart rate 75 /min [facility] 04-18-2024 10:57-0500 SaO2% (BldA) [Mass fraction] 97 % [facility] 04-18-2024 10:57-0500 Systolic blood pressure 110 mm[Hg] [facility] 04-08-2024 11:07-0500 Body height 167.64 cm [facility] 04-08-2024 11:07-0500 Body mass index (BMI) [Ratio] 28.5 kg/m2 [facility] 04-08-2024 11:07-0500 Body weight 80.34 kg [facility] 03-11-2024 10:27-0500 Body height 167.64 cm [facility] 03-11-2024 10:27-0500 Body mass index (BMI) [Ratio] 28 kg/m2 [facility] 03-11-2024 10:27-0500 Body weight 78.64 kg [facility] 01-03-2024 08:23-0400 Body height 167.64 cm DO Flavio Cabrera Work Phone: [facility] 01-03-2024 08:23-0400 Body mass index (BMI) [Ratio] 27.6 kg/m2 DO Flavio Cabrera Work Phone: [facility] 01-03-2024 08:230400 Body weight 77.56 kg DO Flavio Cabrera Work Phone: [facility] 08-28-2023 12:26-0400 Body height 167.64 cm [facility] 08-28-2023 12:26-0400 Body mass index (BMI) [Ratio] 29.3 kg/m2 [facility] 08-28-2023 12:26-0400 Body temperature 98.1 [degF] [facility] 08-28-2023 12:260400 Body weight 82.55 kg [facility] 08-28-2023 12:26-0400 Diastolic blood pressure 46 mm[Hg] [facility] 08-28-2023 12:26-0400 Heart rate 60 /min [facility] 08-28-2023 12:26-0400 Respiratory rate 18 /min [facility] 08-28-2023 12:26-0400 SaO2% (BldA) [Mass fraction] 98 % [facility] 08-28-2023 12:26-0400 Systolic blood pressure 144 mm[Hg] [facility] 11-22-2022 11:27-0400 Body height 167.64 cm Flavio Cabrera Work Phone: [facility] [employer] 600 DO Work Phone: 11-22-2022 11:27-0400 Body mass index (BMI) [Ratio] 28.63 kg/m2 Flavio Dominguezring Work Phone: [facility] [employer] 600 DO Work Phone: 11-22-2022 11:27-0400 Body surface area Derived from formula 1.9 m2 Flavio Dominguezring Work Phone: [facility] [employer] 600 DO Work Phone: 11-22-2022 11:27-0400 Body weight 80.46 kg Flavionikhil Dominguezring Work Phone: [facility] [employer] 600 DO Work Phone: 11-22-2022 11:27-0400 Diastolic blood pressure 60 mm[Hg] Flavio Renetta Cabrera Work Phone: [facility] [employer] 600 DO Work Phone: 11-22-2022 11:27-0400 Heart rate 60 /min Flavionikhil Dominguezring Work Phone: [facility] [employer] 600 DO Work Phone: 11-22-2022 11:27-0400 Systolic blood pressure 124 mm[Hg] Flavio Jackson Cabrera Work Phone: [facility] [employer] 600 DO Work Phone: 09-29-2021 10:14-0400 Diastolic blood pressure 70 mm[Hg] Flavio Jackson Cabrera Work Phone: [facility] [employer] 600 DO Work Phone: 09-29-2021 10:14-0400 Systolic blood pressure 138 mm[Hg] Flavio Renetta Louis Work Phone: [facility] [employer] 600 DO Work Phone: 09-29-2021 09:50-0400 Body height 167.64 cm Flavio Renetta Cabrera Work Phone: [facility] [employer] 600 DO Work Phone: 09-29-2021 09:50-0400 Body mass index (BMI) [Ratio] 29.05 kg/m2 Flavio Renetta Cabrera Work Phone: [facility] [employer] 600 DO Work Phone: 09-29-2021 09:50-0400 Body surface area Derived from formula 1.91 m2 Flavio Jackson Cabrera Work Phone: [facility] [employer] 600 DO Work Phone: 09-29-2021 09:50-0400 Body weight 81.65 kg Flavio Dominguezring Work Phone: [facility] [employer] 600 DO Work Phone: 09-29-2021 09:50-0400 Diastolic blood pressure 70 mm[Hg] Flavio Dominguezring Work Phone: [facility] [employer] 600 DO Work Phone: 09-29-2021 09:50-0400 Heart rate 60 /min Flavio Dominguezring Work Phone: [facility] [employer] 600 DO Work Phone: 09-29-2021 09:50-0400 Systolic blood pressure 140 mm[Hg] Flavio Dominguezring Work Phone: [facility] [employer] 600 DO Work Phone: 05-12-2021 12:25-0500 Body height 167.64 cm Karma Ken Other [employer] Other 05-12-2021 12:25-0500 Body mass index (BMI) [Ratio] 29.21 kg/m2 Karma Rogers Other [employer] Other 05-12-2021 12:25-0500 Body temperature 97.5 [degF] Karma Rogers Other [employer] Other 05-12-2021 12:25-0500 Body weight 82.1 kg Karma Ken Other [employer] Other 05-12-2021 12:25-0500 Diastolic blood pressure 78 mm[Hg] Karma Rogers Other [employer] Other 05-12-2021 12:25-0500 Respiratory rate 20 /min Karma Rogers Other [employer] Other 05-12-2021 12:25-0500 SaO2% (BldA) [Mass fraction] 96 % Karma Rogers Other [employer] Other 05-12-2021 12:25-0500 Systolic blood pressure 135 mm[Hg] Karma Rogers Other [employer] Other 04-13-2021 10:58-0500 Body height 167.64 cm Flavio Jackson [employer] Work Phone: [facility] 600 DO Work Phone: 04-13-2021 10:58-0500 Body mass index (BMI) [Ratio] 30.34 kg/m2 Flavio Renetta Cabrera Work Phone: [facility] 600 DO Work Phone: 04-13-2021 10:58-0500 Body surface area Derived from formula 1.95 m2 Flavio Renetta Cabrera Work Phone: [facility] [employer] 600 DO Work Phone: 04-13-2021 10:58-0500 Body weight 85.28 kg Flavio Jackson Cabrera Work Phone: [facility] 600 DO Work Phone: 04-13-2021 10:58-0500 Diastolic blood pressure 94 mm[Hg] Flavio Jackson Cabrera Work Phone: [facility] [employer] 600 DO Work Phone: 04-13-2021 10:58-0500 Heart rate 60 /min Flavio Jackson Cabrera Work Phone: [facility] 600 DO Work Phone: 04-13-2021 10:58-0500 Systolic blood pressure 152 mm[Hg] Flavio Cabrera Work Phone: [facility] 600 DO Work Phone: Encounters Encounter Date Encounter Type Care Provider Facility Start: 09-01-2024 End: 09[facility] Start: 07-08-2024 End: 07-08-2024 ambulatory [facility] Work Phone: Start: 07-08-2024 End: 07-08-2024 Patient encounter procedure [facility] Work Phone: Start: 05-12-2024 End: 05-12-2024 ambulatory [facility] Work Phone: Start: 05-12-2024 End: 05-12-2024 Patient encounter procedure [facility] Work Phone: Start: 05-01-2024 End: 05-01-2024 ambulatory [facility] Work Phone: Start: 05-01-2024 End: 05-01-2024 Patient encounter procedure [facility] Work Phone: Start: 05-01-2024 Non-patient / Non-visit [facility] Work Phone: Start: 04-18-2024 End: 04-18-2024 ambulatory [facility] Work Phone: Start: 04-18-2024 End: 04-18-2024 Patient encounter procedure [facility] Work Phone: Start: 04-08-2024 End: 04-08-2024 ambulatory [facility] Work Phone: Start: 04-08-2024 End: 04-08-2024 Patient encounter procedure [facility]ician [facility] Work Phone: Start: 03-11-2024 End: 03-11-2024 Patient encounter procedure [facility] Work Phone: Start: 02-26-2024 End: 02-26-2024 [...] Start: 01-15-2024 End: 01-15-2024 ambulatory Puneet JOVEL Facility:[facility] Start: 01-03-2024 End: 01-03-2024 ambulatory Amarilis Crooks Facility:[facility] Start: 01-03-2024 End: 01-03-2024 Patient encounter procedure DO Flavio Cabrera Work Phone: [facility] Work Phone: Start: 12-18-2023 End: 12-18-2023 Bamboo flowsheet Jenny Velasco COMMERCIAL APPRAISER-AGRICULTURAL PRODUCTION ENGINEER Work Phone: [facility] Start: 12-18-2023 End: 12-18-2023 Bamboo flowsheet Jenny Joneser COMMERCIAL APPRAISER-AGRICULTURAL PRODUCTION ENGINEER Work Phone: [facility] Start: 12-18-2023 End: 12-18-2023 Office outpatient visit 15 minutes Jenny Velasco COMMERCIAL APPRAISER-AGRICULTURAL PRODUCTION ENGINEER Work Phone: [facility] Comment on above: Seborrheic keratosis (Primary Dx); Melanocytic nevus of trunk; Angioma of skin; Lentigines; Neoplasm of unspecified behavior of bone, soft tissue, and skin Start: 12-18-2023 End: 12-18-2023 ambulatory JENNY VELASCO Not Available Start: 08-28-2023 End: 08-28-2023 ambulatory [facility] Work Phone: Start: 08-28-2023 End: 08-28-2023 Patient encounter procedure [facility] Work Phone: Start: 11-22-[address] Jorge Cabrera Facility: Start: 11-22-2022 Office outpatient vi sit 15 minutes Flavio Cabrera Work Phone: [facility] 600 DO Work Phone: Start: 10-19-2022 Rx Renewal Flavio Mims Work Phone: [facility] 250 DO Work Phone: Start: 05-06-2022 End: 05-07-[address] MANUEL AC Facility:[facility] Start: 11-22-2021 Encounter for genera l adult medical examination without abnormal findings DR FLAVIO CABRERA [facility] Start: 11-19-2021 End: 11-20-[address] FLAVIO CABRERA Facility:[facility] Start: 11-19-2021 End: 11-20-2021 Encounter for general adult medical examination without abnormal findings DR FLAVIO CABRERA Facility:[facility] Start: 09-29-2021 Office outpatient vi sit 25 minutes Flavio Cabrera Work Phone: [facility] 600 DO Work Phone: Start: 07-13-2021 End: 07-14-[address] FLAVIO CABRERA Facility:[facility] Start: 07-08-2021 Chart Update Flavio Mims ng Work Phone: [facility] 600 DO Work Phone: Start: 05-25-2021 End: 05-26-[address] DOCTOR GARCIA Facility:[facility] Start: 05-12-2021 End: 05-12-2021 ambulatory Karma Rogers Other [facility] [employer] Other Start: 05-12-2021 Office outpatient vi sit 15 minutes Karma Rogers [facility] Start: 04-13-2021 Office outpatient vi sit 25 minutes Flavio Cabrera Work Phone: [facility] 600 DO Work Phone: Start: 07-16-2015 End: 07-17-2015 Patient encounter procedure LUCRECIA OTTO [facility] Procedures Date Procedure Procedure Detail Performing Clinician Start: 01-03-2024 X-ray of lumbar spin e, six views including bending views DO Flavio Cabrera Work Phone: Start: 12-18-2023 SKIN / NAIL BIOPSY Jazz Velasco COMMERCIAL APPRAISER-AGRICULTURAL PRODUCTION ENGINEER Work Phone: Start: 11-19-[address] IGOR AC Comment on above: Performed By: #### C RP, CMP #### [facility] [address] [place] [address] Dr. Gregg Humphreys Appendectomy Flavio partida Work Phone: Cataract surgery Flavio pat Work Phone: Colonoscopy Flavio partida Work Phone: Comment on above: [id number]; Plan of Treatment Date Care Activity Detail Author Start: 12-07-2026 Screening for malignant neoplasm of colon [facility] Start: 12-18-2024 End: 12-18-2024 Patient encounter procedure 12/18/2024 1:00 PM EDT Office Visit [facility] [address] [place] [address] Jenny Velasco, COMMERCIAL APPRAISER-AGRICULTURAL PRODUCTION ENGINEER [address] [place] [address] [facility] Start: 04-08-[address] [facility] Work Phone: Start: 02-25-2024 End: 02-25-2024 ambulatory 02/25/2024 6:00 PM EST Treatment [facility] [address] [place] [address] Mp Benitez, PT [address] [facility] [place] [address] [facility] Start: 02-13-2024 End: 02-13-2024 ambulatory 02/13/2024 6:15 PM EST Treatment [facility] [address] [place] [address] Mp Benitez, PT [address] [facility] [place] [address] [facility] Start: 01-30-2024 End: 01-30-2024 ambulatory 01/30/2024 6:15 PM EDT Treatment [facility] [address] [place] [address] Mp Benitez, PT [address] [facility] [place] [address] [facility] Start: 01-03-2024 Patient referral [facility] Work Phone: Start: 01-03-2024 X-ray of lumbar spine, six views including bending views XR lumbar spine 6V w bending [facility] Start: 01-03-2024 XR Lumbar spine Views [facility] Start: 12-18-2023 End: 12-18-2023 Patient encounter procedure 12/18/2023 1:00 PM EDT [facility] [address] [place] [address] Jenny Velasco APRN-AGRICULTURAL PRODUCTION ENGINEER [address] [place] [address] Arrived [facility] Comment on above: Arrived Start: 12-02-2023 Influenza vaccination Influenza Vaccine (#1) [facility] Start: 11-27-2023 FUV, Provider: Lisa Méndez, Status: Pen, Time: 1:10 PM FUV, Provider: Lisa Méndez, Status: Pen, Time: 1:10 PM [facility] Work Phone: Start: 11-22-2022 FUV, Provider: Lisa Méndez, Status: Pen, Time: 11:10 AM [facility]UV, Provider: Lisa Méndez, Status: Pen, Time: 11:10 AM [facility] Work [facility]: Start: 06-06-2022 FUV, Provider: Lisa Méndez, Status: Pen, Time: 10:30 AM [facility]UV, Provider: Lisa Méndez, Status: Pen, Time: 10:30 AM [facility] DO Work Phone: Start: 08-02-2021 FUV, Provider: Lisa Méndez, Status: Pen, Time: 11:20 AM [facility]UV, Provider: Lisa Méndez, Status: Pen, Time: 11:20 AM [facility] DO Work Phone: Start: 07-28-2021 FUV, Provider: Lisa Méndez, Status: Pen, Time: 1:00 PM [facility], Provider: Lisa Méndez, Status: Pen, Time: 1:00 PM [facility] 600 DO Work Phone: Start: 06-01-2021 STRESS ANDREW, Provider: [place] [facility] NUCLEAR 01,[id number], Status: Pen, Time: 11:00 AM STRESS ANDREW, Provider: [place] [facility] NUCLEAR 01,[id number], Status: Pen, Time: 11:00 AM [facility] Work Phone: Start: 04-27-2021 STRESS ANDREW, Provider: [place] [facility] NUCLEAR 01,[id number], Status: Pen, Time: 11:00 AM STRESS ANDREW, Provider: [place] ORTEGAI NUCLEAR 01,[id number], Status: Pen, Time: 11:00 AM [facility] 600 DO Work Phone: Start: 1960 Screening for malignant neoplasm of colon [facility] Dermatopathology exam Dermatopat hology exam Pathology and Cytology Timed Neoplasm of unspecified behavior of bone, soft tissue, and skin Release Upon Ordering for 1 Occurrences starting 12/18/2023 [facility] Work Phone: Comment on above: Release Upon Ordering for 1 Occurrences starting 12/18/2023 MR Lumbar spine WO contrast [facility] Patient referral [facility] Work Phone: Immunizations Immunization Date Immunization Notes Care Provider Carmelo benitez 02-23-2023 COVID-19 (PFIZER) 12Y and older [facility] 02-23-2023 RSV, bv, preFa and preFb, pf [facility] 02-17-2023 influenza, injectabl e, quadrivalent, preservative free [facility] 02-17-2023 influenza virus vacc ine, unspecified formulation Jenny Velasco COMMERCIAL APPRAISER-AGRICULTURAL PRODUCTION ENGINEER Work Phone: [facility] 02-04-2022 influenza, injectabl e, quadrivalent, preservative free Flavio A Cabrera Work Phone: [facility] 01-28-2022 Prevnar 20 0.5 ML Intramuscular Suspension Prefilled Syringe Flavio Cabrera Work Phone: [facility] 01-21-2022 Pfizer COVID-19 Vac Bivalent 30 MCG/0.3ML Intramuscular Suspension Flavio Cabrera Work Phone: [facility] 09-30-2021 Comirnaty 30 MCG/0.3 ML Intramuscular Suspension Flavio Dominguezring Work Phone: [facility] 09-03-2021 Comirnaty 30 MCG/0.3 ML Intramuscular Suspension Flavio Dominguezring Work Phone: [facility] 01-17-2021 influenza, seasonal, injectable Flavio A Cabrera Work Phone: [facility] 600 DO Work Phone: 01-08-2021 Influenza, injectabl e, Madin Pomerene Canine Kidney, preservative free, quadrivalent Flavio A Cabrera Work Phone: [facility] 01-30-2020 zoster vaccine [facility] 01-30-2020 zoster vaccine, live Flavio A Cabrera Work Phone: [facility] [employer] 600 DO Work Phone: 10-25-2019 zoster vaccine recombinant [facility] 10-25-2019 zoster vaccine, live Flavio A Cabrera Work Phone: [facility] DO Work Phone: 03-22-2019 Influenza, injectabl e, Madin Josefina Canine Kidney, preservative free, quadrivalent Flavio A Cabrera Work Phone: [facility] 12-31-2018 influenza virus vacc ine, unspecified formulation Flavio A Cabrera Work Phone: [facility] 600 DO Work Phone: 04-09-2016 zoster vaccine, live Flavio Cabrera Work Phone: [facility] 03-29-2015 pneumococcal conjuga te vaccine, 13 valent lFavio Jackson Cabrera Work Phone: [facility] 03-18-2015 influenza virus vacc ine, unspecified formulation Flavio Cabrera Work Phone: [facility] 600 DO Work Phone: 03-18-2015 pneumococcal polysaccharide vaccine, 23 valent Flavio Cabrera Work Phone: [facility] 600 DO Work Phone: Payers Date Payer Category Payer Self-pay [id number] 2018 [facility] [id number] 2018 Unknown 2015 [facility] RLCAN [id number] 1960 Unknown [id number] [id number]. 2.732 1960 Unknown [id number] 2.16.840.1.382454.3.579. 2.593 1960 Unknown [id number] 2.16.840.1.173793.3.579. 2.593 1960 Unknown [id number] 2.16.840.1.618840.3.579. 2.593 1960 Unknown [id number] 2.16.840.1.475631.3.579. 2.593 1960 Unknown [id number] 2.16.840.1.527230.3.579. 2.356 1960 Unknown [id number] 2.16.840.1.654355.3.579. 2.1259 1960 Unknown [id number] 2.16.840.1.997473.3.579. 2.1259 1960 Unknown [id number] 2.16.840.1.051587.3.579. 2.1259 1960 Unknown [id number] 2.16.840.1.064765.3.579. 2.1259 1960 Unknown [id number] 2.16.840.1.284230.3.579. 2.1259 1960 Unknown [id number] 2.16.840.1.642842.3.579. 2.727 1959 [facility] Blue Shield [id number] Private Health Insurance [employer] [id number] Unknown [id number]. 2.531 Social History Date Type Detail Facility Start: 11-27-2022 End: 12-18-2023 No illicit drug use No illicit drug use [facility] 600 DO Work Phone: Comment on above: 3-4 cups coffee felecia y, 1 can of diet pop; Start: 11-27-2022 End: 12-18-2023 Sex Assigned At [facility] [employer] Other Start: 1960 Sex Assigned At Male F [facility] Start: 01-03-2024 End: 01-03-2024 Tobacco smoking status NHIS Ex-smoker (finding) [facility] History of tobacco use Current smoker [facility] History of tobacco use Cigarette Smoker [facility] Start: 11-27-2022 Tobacco use and exposure Smokeless tobacco non-user [facility] Start: 1960 Sex assigned at Not on file [facility] Start: 04-08-2024 End: 07-08-2024 Sex Male (finding) [facility] Clinical Notes 04-02-2021 to 04-18-2024 Note [...] 2024 11:21am Sacroiliitis acute July 08, 11:21am [facility] Work Phone: 1(776) 768-915312-10-2024 Evaluation note* Diagnosis Onset Date Resolution Status Admit Date Right groin pain acute March 11, 2024 10:20am Right lumbar radiculopathy acute March 11, 2024 10:20am [facility] Work Phone: 1(831) 857-583412-10-2024 Evaluation note* Diagnosis Onset Date Resolution Status [...] acute 2024 10:46am Sacroiliitis acute April 10:46am [facility] Work Phone: 1(457) 850-145212-10-2024 Evaluation note* Diagnosis Onset Date Resolution Status [...] acute 2024 11:49am Sacroiliitis acute May 11:49am [facility] Work Phone: 1(327) 894-423611-25-2024 History of Present illness Narrative* Mp Benitez, [...] 20 visits No Auth Availity Trans ID [id number]) Chief Complaint: Chronic 20 year history LBP with 6 months of LBP exacerbation and newer onset right LE radiculopathy. PRECAUTIONS: As Tolerated Subjective History: 63 yo male presents per Amarilis Sotelo APRN, DOOR MAKER-BC, MSN reporting 6 months of lumbar pain exacerbation with right LE radiculopathy. 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 Presents motivated to participate in [...] the sacroiliac joints. 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 Physician Signature: Date: [id number] History of Present illness Narrative* Mp Benitez, [...] 20 visits No Auth Availity Trans ID [id number]) Chief Complaint: Chronic 20 year history LBP with 6 months of LBP exacerbation and newer onset right LE radiculopathy. PRECAUTIONS: As Tolerated Subjective History: 63 yo male presents per Amarilis Sotelo APRN, DANAE, MSN reporting 6 months of lumbar pain exacerbation with right LE radiculopathy. 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 Presents motivated to participate in [...] the sacroiliac joints. 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 Physician Signature: Date: documented in this enco[id number] History of Present illness Narrative* Mp Benitez, [...] 20 visits No Auth Availity Trans ID [id number]) Chief Complaint: Chronic 20 year history LBP with 6 months of LBP exacerbation and newer onset right LE radiculopathy. PRECAUTIONS: As Tolerated Subjective History: 63 yo male presents per Amarilis Sotelo APRN, LUIS ENRIQUE-PRABHJOT, MSN reporting 6 months of lumbar pain exacerbation with right LE radiculopathy. 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 Presents motivated to participate in [...] the sacroiliac joints. 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 Physician Signature: Date: documented in this enco[id number] History of Present illness Narrative* Mp Benitez, [...] 20 visits No Auth Availity Trans ID [id number]) Chief Complaint: Chronic 20 year history LBP with 6 months of LBP exacerbation and newer onset right LE radiculopathy. PRECAUTIONS: As Tolerated Subjective History: 63 yo male presents per Amarilis Sotelo, BILLY, LUIS ENRIQUE-PRABHJOT, MSN reporting 6 months of lumbar pain exacerbation with right LE radiculopathy. 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 Presents motivated to participate in [...] the sacroiliac joints. 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 Physician Signature: Date: documented in this enco[id number] History of Present illness Narrative* Jenny Velasco, BILLY-AGRICULTURAL PRODUCTION ENGINEER - 12/18/2023 1:00 PM EDT Images from [...] Next Visit: 1 year documented in this enco[id number] NotePROCEDURE: XR HIP LT 2 3V WO PELVIS HISTORY: Pain of left hip joint ; chronic COMPARISON: None. FINDINGS: BONES:No fracture, acute abnormality, or significant arthropathy. SOFT TISSUES:No visible soft tissue swelling. EFFUSION:None visible. OTHER: Negative. IMPRESSION: 1. Normal examination. Electronically authenticated by: LILI BARRERA Date: 2021-07-13 14:30[facility]02-10-2022 Evaluation note* Encounter Date Diagnosis Assessment Notes Treatment Notes Treatment Clinical Notes May, Oral thrush (ICD-10 - B37.0) May mix with the Nystatin that you already have. If the symptoms don't improve, follow up with primary care provider. [employer] Other 01-01-2022 History general Narrative - Reported* Type Description Date Medical History Arthritis Medical History hypertension Surgical History appendectomy Hospitalization History see above Hospitalization History pneumonia 04/2021 [employer] Other Full Circle CRMaluation noteNo assessment information available [facility] Work Phone: Evaluation note* Diagnosis Onset Date Resolution Status Right lumbar radiculopathy a cute [facility] Work Phone: Evaluation note* Diagnosis Radiculopathy, lumbar [...] me change in cardiac status or symptoms [facility] 600 DO Work Phone: History of Present illness Narrative* Patient is here for follow-up continue management for previous evaluation for chest pain, hypertension, mildly overweight. Since last time I saw him he denies any cardiac complaint of chest pain, palpitation, lightheadedness, dizziness or syncope. He remains active. His main complaint is arthritis.He followed by a local lsat instructor. * ASSESSMENT * 1. Previous evaluation for [...] 7. History of arthritis followed by local lsat instructor indicate could be either early rheumatoid arthritis [...] me change in cardiac status or symptoms [facility] 600 DO Work Phone: Hospital Discharge instructionsAmbulatory Orders* Referral to PT / OT / Speech (PT/OT/SP) Location: None [facility] Work Phone: Hospital Discharge instructionsAmbulatory Orders* Referral to Pain Management Location: None [facility] Work Phone: Reason for visit Narrative* Rehabilitation - Outpatient (Routine) - Authorized Specialty Diagnoses / Procedures Referred By Giovanna aly Referred To Contact Physical Therapy Diagnoses Radiculopathy, lumbar region Procedures [facility] Amarilis Crooks MD [address] [address] Phone: tel: fax: Mp Bentiez, PT [address] [place] [address] Phone: tel: fax: Referral ID Status Reason Start Date Expiration Date Visits Requested Visits Authorized [id number] Authorized Consult and Treat 01/09/2024 07/07/2024 20 [...] DATE CREATED AUTHOR AUTHOR'S ORGANIZ ATION 07/08/2021 [facility] DATE CREATED AUTHOR AUTHOR'S ORGANIZ ATION 05/09/2022 [facility] DATE CREATED AUTHOR AUTHOR'S ORGANIZ ATION 11/23/2022 [facility] DATE CREATED AUTHOR AUTHOR'S ORGANIZ ATION 11/23/2022 [facility] DATE CREATED AUTHOR AUTHOR'S ORGANIZ ATION 01/05/2024 [facility] DATE CREATED AUTHOR AUTHOR'S ORGANIZ ATION 02/29/2024 [facility] EPIC DATE CREATED AUTHOR AUTHOR'S ORGANIZ ATION 09/02/2024 [facility] REASON FOR VISIT (unrecogniz ed section [...] BE BASED ON THE PRIMARY CLINICAL RECORDS. [facility]. provides no warranty or guarantee of the accuracy or completeness of information in this document.
[2024-11-08 08:59] LABS: Hematocrit 44.0 % (42.0-54.0); Hemoglobin 15.0 g/dL (14.0-18.0); Immature Granulocytes Abs Auto 0.02 10^3/uL (0.00-0.03); Immature Granulocytes Pct Auto 0.3 % (0.0-0.5); Lymphocytes Absolute Auto 2.0 10^3/uL (1.2-3.8); Mean Corpuscular HGB Conc 34.1 g/dL (29.9-35.2); Mean Corpuscular Hemoglobin 29.8 pg (25.9-34.0); Mean Corpuscular Volume 87.3 fL (80.0-94.0); Platelet Count 297 10^3/uL (150-450); Red Blood Count 5.04 10^6/uL (4.70-6.10); White Blood Count 7.3 10^3/uL (4.0-11.0)
[2024-11-08 09:19] LABS: Alanine Aminotransferase 29 U/L (16-63); Albumin Globulin Ratio 1.2; Albumin Level 3.8 g/dL (3.4-5.0); Alkaline Phosphatase 66 U/L (46-116); Anion Gap 10.9; Aspartate Amino Transferase 20 U/L (15-37); Blood Urea Nitrogen 24.0 mg/dL (7.0-18.0); Calcium 9.1 mg/dL (8.5-10.1); Carbon Dioxide 28.5 mmol/L (21.0-32.0); Chloride 105 mmol/L (98-107); Cholesterol 179 mg/dL (<=200); Estimated GFR (African America >60 (>=60 mL/min/1.73m^2); Estimated GFR (Non-African Ame >60 (>=60 mL/min/1.73m^2); Globulin 3.1 g/dL; Glucose 93 mg/dL (74-106); HDL Cholesterol 73 mg/dL (40-60); Potassium 4.4 mmol/L (3.5-5.1); Sodium 140 mmol/L (136-145); Total Protein 6.9 g/dL (6.4-8.2); Triglycerides 30 mg/dL (<=150); VLDL CHOLESTEROL 6.0 mg/dL
== END 2024-11-08 08:43 | disposition home or self-care (01) ==
LOC: LAB 08:42
PROVIDERS: PCP Family Medicine; Visit Provider Family Medicine
DX: Z00.00 Encounter for general adult medical examination without abnormal findings (principal); R73.03 Prediabetes; Z12.5 Encounter for screening for malignant neoplasm of prostate
CPT/HCPCS: 36415; 80053; 80061; 83036; 85025; G0103

== ENCOUNTER 2025-02-07 07:14 | Outpatient (OUT) | payer BC, SELFPAY ==
--- OUTSIDE RECORDS SUMMARY | 2023-12-27 06:00 | XMS_ITS ---
Author Organization The [facility] in [place] Address [address] [place] [address] Care Team Providers Care Community Relations Manager Name Role Phone Flavio Myers Primary Care Provider REASON FOR VISIT -1 Month Follow Up- Encounters Encounter Location Date Provider Diagnosis [place] [place] [address] 12/27/2023 Flavio Myers Plan Of Treatment No Information Progress Notes * Humberto LIMADOB:[birth year] (64 yo M)Acc No.[id number]:12/27/2023 UNLOCKED PROGRESS NOTE Established Patient: Humberto GRIER :?Flavio Myers DODOB:1960???Age:63 Y ???Sex:MaleDate:4Phone:[phone]:8106 [facility] [address], [id number] Subjective: * Chief Complaints: * 1 . -1 Month Follow Up-. * Medical History: Objective: * Vitals: Assessment: Plan: * Treatment: * * Electronic signature of Flavio Myers DO, [id number] on 02/07/2025 at 07:18 AM ESTSign off status: PendingVisit Status:?R/S (Rescheduled) * Provider: Hoda Myers DO Date: 0 12/27/2023 Generated for Printing/Faxing/eTransmitting on:?02/07/2025 07:18 AM EST
--- OUTSIDE RECORDS SUMMARY | 2024-01-09 06:00 | XMS_ITS ---
Author Organization The [facility] in [place] Address [address] [facility] [place] [address] Care Team Providers Care Brass And Wind Instrument Repairer Name Role Phone Flavio Myers Primary Care Provider REASON FOR VISIT -1 Month Follow Up- Encounters Encounter Location Date Provider Diagnosis [place] [address] [place] [address] 01/09/2024 Flavio Myers Plan Of Treatment No Information Progress Notes * Humberto LIMADOB:[birth year] (64 yo M)Acc No.[id number]:01/09/2024 UNLOCKED PROGRESS NOTE Established Patient: Humberto GRIER :?Flavio Myers DODOB:1960???Age:63 Y ???Sex:MaleDate:4Phone:[phone]:8106 [facility] [address], [id number] Subjective: * Chief Complaints: * 1 . -1 Month Follow Up-. * Medical History: Objective: * Vitals: Assessment: Plan: * Treatment: * * Electronic signature of Flavio Myers DO, [id number] on 02/07/2025 at 07:18 AM ESTSign off status: PendingVisit Status:?R/S (Rescheduled) * Provider: Hoda Myers DO Date: Generated for Printing/Faxing/eTransmitting on:?02/07/2025 07:18 AM EST
--- OUTSIDE RECORDS SUMMARY | 2025-01-28 11:14 | XMS_ITS ---
Author Organization [facility] [place] Address [address] [place] [address] Care Team Providers Care Chief Of Production Name Role Phone Flavio Myers Primary Care Provider Reason For Referral Reason eval and treat Diagnosis 1 Pain in right finger (s) (M79.644) Referral Organization [facility] Referring Provider First Name Flavio Referring Provider Last Name Louis Referring Provider Speciality Family Med icine Referred Provider Burt Ahumada Referred Provider Specialty Orthopedic S urgery Referral Priority Routine REASON FOR VISIT referral Encounters Encounter Location Date Provider Diagnosis [facility] [address] [place] [address] 01/28/2025 Flavio Myers Pain in right finger(s) M79.644 Assessments Encounter Date Diagnosis (ICD Code) Assessment Notes Treatment Notes Treatment Clinical Notes Section Notes 01/28/2025 Pain in right finger(s) (ICD-10 - M79.644) Plan Of Treatment Referrals Referral Date Details 01/29/2025 01/29/2025, eval and lopez, Burt Ahumada Progress Notes * JANIE HumbertoDOB:[birth year] (64 yo M)Acc No.[id number]:01/28/2025 Patient:?Humberto LIMA :1960???Age:64 Y???Sex:MalePhone:[phone] Address:[address] [place] [address] [address], [place], [address] Subjective: * Chief Complaints: * R eferral * Medical History: * Surgical History: * Hospitalization/Major Diagno stic Procedure: * Medications: Objective: * Vitals: * Physical Examination: ??? Assessment: * Assessment: 1.?Pain in right finger(s) - M79.644 (Primary)??? Plan: * Treatment: ? Referral To:Burt Ahumada??Orthopedic Surgery ?Reason:trish andlopez * Procedure Codes: * true * Date:?Generated for Printing/Faxing/eTransmitting on:?02/07/2025 07:18 AM EST Consultation Request Notes Referral Date Referring Provider Referred Provider Not es 01/29/2025 Flavio Myers, Burt huntley
--- NOTE | 2025-02-07 | XR_ITS ---
[facility] [place] [address] Patient Name: MIAH LIMA MRN: [id number] date: 1960 Sex: M Assigned Patient Location: [facility] Current Patient Location: [facility] Accession/Order Number: [id number] Exam Date: 02/07/2025 07:35 Report Date: 02/07/2025 09:14 At the request of: MARIAJOSE CABRERA DO Procedure: XR hand KAYLYN min 3v XR hand KAYLYN min 3v 02/07/2025 7:47 AM SIGNS AND SYMPTOMS: Chronic carpometacarpal joint pain PROTOCOL: 8 views of the bilateral hands COMPARISON: None FINDINGS: There is narrowing of the metacarpophalangeal joints greatest in the second through fourth digits bilaterally. There is narrowing of the first carpometacarpal junction bilaterally. There is narrowing of the radial carpal joint space on the right with mild subcortical cystic change in the radial styloid and base of the scaphoid. There is narrowing of the distal interphalangeal joints greatest in the second digits bilaterally. This is worse on the right. No fracture or dislocation. Mild nonspecific soft tissue swelling is noted diffusely. XR/XR hand KAYLYN min 3v IMPRESSION: Degenerative changes are present bilaterally, right greater than left with a predominantly proximal distribution suggesting rheumatoid arthritis. Diffuse nonspecific soft tissue swelling is noted. Osteoarthritic changes are noted in the distal interphalangeal joints greatest in the right second digit. Impression dictated by: Thiago Jurado M.D. 02/07/2025 9:14 AM Dictation Location: [employer] Electronically authenticated by: [id number] Y Date: 02/07/2025 09:14
--- OUTSIDE RECORDS SUMMARY | 2025-02-07 07:18 | XMS_ITS | Clinical Summary ---
Author Organization [facility] Healthcare Address [address] [place] [place] [address] Care Team Providers Care Shank Burnisher Name Role Phone Unavailable Primary Care Provider Unavailabl e Allergies Active AllergyReactionsCriticalityNoted DateCommentsCodeineDizziness,Nausea Only ,Oyjrvmx5807/16/2015 Medications MedicationSigDispense QuantityRefillsLast FilledStart DateEnd DateStatus buPROPion (Wellbutrin) 75 MG tablet Take 75 mg by mouth in the morning and 75 mg before bedtime.Active celecoxib (CeleBREX) 200 MG capsule Take 200 mg by mouth in the morning and 200 mg before bedtime.Active cyclobenzaprine (Flexeril) 5 MG tablet TAKE 1 TO 2 TABLETS BY MOUTH TWICE DAILY SGTGUX5708/28/2023ctive hydroCHLOROthiazide (HYDRODiuril) 25 MG tablet take 1 tablet by oral route every day OralActive lidocaine (Lidoderm) 5 % patch APPLY ONE PATCH on the skin ONCE DAILY NEEDED leave on most painful area for up to 12 HOURS08/28/2023ctive Linzess 72 MCG capsule TAKE 1 CAPSULE BY MOUTH ONCE DAILY ON AN EMPTY STOMACH at least 30 MINUTES BEFORE the first meal OFthe dayActive rOPINIRole (Requip) 0.5 MG tablet TAKE 1 TABLET BY MOUTH 1-3 HOURS BEFORE rascfwm5212/05/2023ctive Active Problems No known active problems Encounters DateTypeDepartmentCare AjlnAarillkwtym89/18/2025 1:00 PM EDTOffice Visit [facility] [address] [place] [address] Jenny Velasco, SOLAR ELECTRIC PRACTITIONER-SUPERVISOR COREMAKER Seborrheic keratosis (Primary Dx); Melanocytic nevus of trunk; Lentigines; Angioma of skin; Actinic /18/2025amboo flowsheet [facility] [address] [place] [phone] Jenny Velasco APRN-CNP 12/18/2024Travelfrom Last 3 Months Family History Medical HistoryRelationNameCommentsHypertensionFatherMelanomaNeg HxRelationName StatusCommentsFather Social History Tobacco UseTypesPacks/DayYears UsedDateSmoking Tobacco: FormerCigarettes Smokeless Tobacco: NeverSex and Gender InformationValueDate RecordedSex Assigned at BirthNot on fileLegal CrrWrwn1906/14/2022 6:50 PM EDTGender IdentityNot on file Sexual OrientationNot on file Plan of Treatment DateTypeDepartmentCare Team (Latest Contact Info)Nrbmjbfuzbx04/17/2026 11:20 AM EDTOffice Visit [facility] [address] [place] [address] Jenny Velasco APRN-RAYSA [address] [place] [address] Health MaintenanceDue DateLast DoneCommentsCT Jjwsiwhemqod43/31/1961olonoscopy 1960FIT1960FOBT1960 4561Kpmpuipkgqhwp15/31/1961OVID-19 Vaccine ( season), 09/30/2021, 09/03/2021Influenza Vaccine (#1), 02/04/2022, 01/17/2021, Additional history exists Colorectal Cancer Slskjjbff01/07/2027FIT-DNAneumococcal Vaccine: Pediatrics (0 to 5 Years) and At-Risk Patients (6 to 64 Years)Aged Out No longer eligible based on patient's age to complete this topic Procedures Procedure NamePriorityDate/TimeAssociated DiagnosisCommentsCRYOTHERAPY SKIN KBAGLPCghujun47/18/2025 1:10 PM EDT Actinic keratosis from Last 3 Months Results * Cryotherapy, skin lesion (12/18/2024 1:10 PM EDT) Narrative Authorizing ProviderResult TypeResult StatusNatalie A Karener SOLAR ELECTRIC PRACTITIONER-CNPDERM PROCEDURE ORDERABLESFinal Result from Last 3 Months Insurance * Guarantor: Humberto Villatoro TypeRelation to PatientDate of PhoneBilling AddressPersonal/XudxgkSrhq37/31/[address] [address]
--- OUTSIDE RECORDS SUMMARY | 2025-02-07 07:18 | XMS_ITS | Clinical Summary ---
Author Organization [facility] Address [address] [place] [address] Phone Care Team Providers Care Vice President Investor Relations Name Role Phone Flavio Myers Raul Primary Care Provider Allergies Active AllergyReactionsCriticalityNoted DateCommentsCodeineNausea Only,Dizziness Low07/16/2015 Medications MedicationSigDispense QuantityRefillsLast FilledStart DateEnd DateStatus buPROPion XL (Wellbutrin XL) 150 mg 24 hr tablet Take 1 tablet (150 mg) by mouth once daily.1Active celecoxib (CeleBREX) 200 mg capsule Take 1 capsule (200 mg) by mouth twice a day.Active metoprolol tartrate (Lopressor) 25 mg tablet Take 1 tablet (25 mg) by mouth 2 times a day.04/13/2021ctive pseudoephedrine (Sudafed) 30 mg tablet Take 1 tablet (30 mg) by mouth every 4 hours if needed.Active hydroxychloroquine (Plaquenil) 200 mg tablet Take 0.5 tablets (100 mg) by mouth 2 times a day.Active csvyegrzyshk-dbwmnclj-eyfinzl 1-0.5-0.075 % drops,suspension Administer into affected eye(s). As directed.Active Active Problems ProblemNoted DateDiagnosed DateChest pain06/15/2023Essential hypertension 06/15/20238410Hzcwdirkygkh87/15/2024 Immunizations ImmunizationAdministration DatesNext DueInfluenza, Kjidvqekpoi81/01/2019, 03/18/2015Pneumococcal polysaccharide vaccine, 23-valent, age 2 years and older (PNEUMOVAX 23)03/18/2015 Family History Medical HistoryRelationNameCommentsAtrial fibrillationFatherHeart diseaseFather pacemakerFatherAtrial fibrillationMotherpacemakerMotherRelationNameStatus CommentsFatherMother Social History Tobacco UseTypesPacks/DayYears UsedDateSmoking Tobacco: FormerCigarettes Smokeless Tobacco: Current Tobacco Cessation:Ready to Q uit: Not Asked; Counseling Given: Not Answered Alcohol UseStandard Drinks/WeekCommentsYes0 (1 standard drink = 0.6 oz pure alcohol)occasionallySex and Gender InformationValueDate RecordedSex Assigned at BirthNot on fileLegal QoiOopd26/26/2022 10:27 AM ESTGender IdentityNot on file Sexual OrientationNot on file Last Filed Vital Signs Vital SignReadingTime TakenCommentsBlood Chxngqhf805/6008 11:27 AM EDT Hlecu6509/23/2023 11:27 AM EDTTemperature--Respiratory Rate--Oxygen Saturation-- Inhaled Oxygen Concentration--Tbeubi00.5 kg (177 lb 6 oz)11/22/2022 11:27 AM EDT Srgbot187.6 cm (5' 6 )11/22/2022 11:27 AM EDTBody Mass Index28.6308 11:27 AM EDT Plan of Treatment Health MaintenanceDue DateLast DoneCommentsCT Optpahwnxibi29/31/1961Colonoscopy 1Colorectal Cancer Ffjkxwxvi21/31/1961FIT-DNA (Cologuard)1960FIT 1960HIV Plwqmgfgl24/31/1961Lipid Panel1960 8701Ymdxrvmhzgffp39/31/1961 Yearly Adult Wptnbzek41/31/1961MMR Vaccines (1 of 1 - Standard series)1961 Diabetes Wzmnmyrwo37/31/1979Hepatitis C Acyzfsifs82/31/1979DTaP/Tdap/Td Vaccines (1 - Tdap)1982PSA Prostate Cancer Vjctndddq33/31/2011Zoster Vaccines (1 of 2)2010Pneumococcal Vaccine (2 of 2 - PCV)Influenza Vaccine (#1), 03/18/2015COVID-19 Vaccine (1 - 2025- season)2024RSV High Risk: (Elderly (60+) or Population) (1 - 1- dose 75+ series)10/31/2035HIB VaccinesAged OutNo longer eligible based on patient's age to complete this topicHPV VaccinesAged OutNo longer eligible based on patient's age to complete this topicHepatitis A VaccinesAged OutNo longer eligible based on patient's age to complete this topicHepatitis B VaccinesAged OutNo longer eligible based on patient's age to complete this topicIPV Vaccines Aged OutNo longer eligible based on patient's age to complete this topic Meningococcal VaccineAged OutNo longer eligible based on patient's age to complete this topicRotavirus VaccinesAged OutNo longer eligible based on patient's age to complete this topic Care Teams Team MemberRelationshipSpecialtyStart DateEnd Date Flavio Myers DO [address] [place] [address] [facility] - General04/02/18
--- OUTSIDE RECORDS SUMMARY | 2025-02-07 07:18 | XMS_ITS | Clinical Summary ---
Author Organization [facility] Address [address] [place] [address] Care Team Providers Care Rn Post Partum Name Role Phone Flavio Myers DO Primary Care Provider [phone] Source Comments The following information is NOT included in Care Everywhere downloads:Psychiatric notes, ECG results, Cardiac Rehab notes, Pulmonary Function notes, data from SmartForms (includes but not limited toPregnancy data,audiograms, eye exams, pre-surgical evaluation notes, well-child exam data).[facility] Allergies Active AllergyReactionsCriticalityNoted DzgxQtqoqrhjMzlssquBcwzgzhrd30/15/2016 Medications MedicationSigDispense QuantityRefillsLast FilledStart DateEnd DateStatus Fexofenadine-Pseudoephedrine (PRIYA-D ORAL) Take by mouth.Active NAPROXEN ORAL Take by mouth.Active Active Problems ProblemNoted DateDiagnosed DatePrimary osteoarthritis of both hands07/16/2015 Social History Tobacco UseTypesPacks/DayYears UsedDateSmoking Tobacco: NeverSex and Gender InformationValueDate RecordedSex Assigned at BirthNot on fileLegal SexMale 06/07/2015 12:00 PM ESTGender IdentityNot on fileSexual OrientationNot on file Last Filed Vital Signs Vital SignReadingTime TakenCommentsBlood Sshuyxwj676/80007/16/2015 9:22 AM EDT Syjxz3852/15/2016 9:22 AM EDTTemperature--Respiratory Dagn497107/16/2015 9:22 AM EDTOxygen Nguspivsmq66%07/16/2015 9:22 AM EDTInhaled Oxygen Concentration-- Odkfnd90.6 kg (191 lb)07/16/2015 9:22 AM YPESqdlgs459.6 cm (5' 6 )07/16/2015 9:22 AM EDTBody Mass Index30.8307/16/2015 9:22 AM EDT Plan of Treatment Health MaintenanceDue DateLast AojiLxnwiopmHrzizixfymz49/31/1961HIV Test 10/31/1975Hepatitis C Iteqloyz19/31/1979Tdap Xefjrqu9110/30/1978Hepatitis A (HAV) Vaccine (optional start 19+ years)10/31/19791073Jytlgjzswgt84/31/1996CRC Screening 2005Cologuard (Stool DNA)2005FIT2005Pneumococcal Vaccine(s) (50+ yrs) (1 of 1 - PCV)2010Shingles (RZV) Vaccine (1 of 2)2010 Hepatitis B (HBV) Vaccine (optional start 60+ years)2020OVID-19 Vaccine (1 - 2024-26 season)2024Influenza Vaccine (#1)2024RSV vaccine (adult) (1 - 1-dose 75+ series)10/31/2035 Insurance Care Teams Team MemberRelationshipSpecialtyStart DateEnd Date Flavio Myers DO [address] [place] [address] PCP - GeneralFamily Medicine06/07/15
--- OUTSIDE RECORDS SUMMARY | 2025-02-07 07:18 | XMS_ITS | CCD ---
Author Organization [facility] Care Team Providers Care Worm Raiser Name Role Phone LUCRECIA OTTOCesia Referring Unavailable PROVIDER, UNKNOWN Admitting Unavailable PROVIDER, UNKNOWN Attending Unavailable FLAVIO MYERS Primary Care Unavailable Myers, Flavio Jackson Unavailable Unavailable Unavailable Karma Rogers Unavailable OSORIO, DR JACKSON Admitting Unavailable AC, DR JACKSON Attending Unavailable MYERS, DR FLAVIO Jackson Primary Care Unavailable AC, DR JACKSON Consulting Unavailable MISC, DR SYKES Admitting Unavailable MISC, DR SYKES Attending Unavailable MYERS, DR FLAVIO Jackson Primary Care Unavailable MISC, DR SYKES Consulting Unavailable MYERS, DR FLAVIO Jackson Admitting Unavailable MYERS, DR FLAVIO Jackson Attending Unavailable MYERS, DR FLAVIO Jackson Primary Care Unavailable MYERS, DR FLAVIO Jackson Consulting Unavailable ZIEBER, DR LILI Tariq Consulting Unavailable MYERS, DR FLAVIO Jackson Admitting Unavailable MYERS, DR FLAVIO Jackson Attending Unavailable MYERS, DR FLAVIO Jackson Primary Care Unavailable MYERS, DR FLAVIO Jackson Consulting Unavailable Myers, Dr. Flavio Carter Primary Care Unava ilable Dev, Dr. Granados Attending Unavaila ble Traboulssi, Dr. Granados Referring Unavaila ble TurovskCorinne hester Attending Unavailable Corinne Crooks Admitting Unavailable MyersFlavio Primary Care Unavailable Myers, DO Flavio Jackson Primary Care Provider [phone] BILLY Crooks Attending Provider Unavailable Primary Care Provider UnavailAnne Marie Bear Attending Unavailable Anne Marie TAVERAS Attending Unavailable Puneet JOVEL Attending Unavailable JENNIFER VELASCO Attending Unavailable MP BENITEZ Attending Unavailable CORINNE CROOKS Referring Unavailable MP BENITEZ Attending Unavailable CORINNE CROOKS Referring Unavailable MP BENITEZ Attending Unavailable CORINNE CROOKS Referring Unavailable MP BENITEZ Attending Unavailable CORINNE CROOKS Referring Unavailable Allergies Allergy ClassificationReported Allergen(s)Allergy TypeDate of OnsetReaction(s) Facility (13 sources)Codeine; Translations: [CODEINE]Drug Ydeyxni04-35-9648Xzdxtcoye, Nausea Only, UnknownThe [facility] (7 sources)Codeine; Translations: [Codeine Derivatives]Drug AllergyNaAdventist [facility] DO Work Phone: (1 source)CodeineDrug Allergyvery [facility] Mesh [place] Other Medications Current Medications MedicationDrug Class(es)DatesSig (Normalized)Sig (Original)celecoxib 200 mg oral capsule (20 sources)Nonsteroidal Anti-inflammatory DrugStart: 71-89-5661popi 1 capsule by mouth twice dailyCelecoxib (Celebrex) 200 mg capsule Active 200 MG PO Twice daily August 28, 2023 12:00amCeleBREX Activecyclobenzaprine hydrochloride 5 mg oral tablet (9 sources)Muscle RelaxantStart: 29-38-1360yequ 1-2 tablets by mouth twice daily as neededcyclobenzaprine (Flexeril) 5 MG tablet TAKE 1 TO 2 TABLETS BY MOUTH TWICE DAILY NEEDED 08/28/2023 ActivehydroCHLOROthiazide 25 mg oral tablet (9 sources)Thiazide Diuretictake 1 tablet by mouth once dailyhydroCHLOROthiazide (HYDRODiuril) 25 MG tablet take 1 tablet by oral route every day Oral Active Hydroxychloroquine (20 sources)Antimalarial, Antirheumatic AgentStart: 05-64-0902fkkz 2 tablets by mouth twice dailyHydroxychloroquine 100 mg tablet Active 200 MG PO Twice daily April 18, 2024 11:57amStart: 38-09-3053amck 2 tablets by mouth twice daily Hydroxychloroquine 100 mg tablet Active 200 MG PO Twice daily April 18, 2024 10:57amStart: 01-03-2024 End: 28-75-3322vueo 1 tablet by mouth twice dailyHydroxychloroquine 100 mg tablet Discontinued 100 MG PO Twice daily January 03, 2024 8:54am April 18, 2024 11:57am FreeTextSig: as directed Orally twice a day; Note: Source Status: Not-TakingundefinedPRN; Provider: Debora De La Cruz ( )Start: 01-03-2024 End: 12-59-6302upbw 1 tablet by mouth twice dailyHydroxychloroquine 100 mg tablet Discontinued 100 MG PO Twice daily January 03, 2024 7:54am April 18, 2024 10:57am FreeTextSig: as directed Orally twice a day; Note: Source Status: Not-TakingundefinedPRN; Provider: Debora De La Cruz ( )Start: 96-45-8465dusa 1 tablet by mouth twice dailyHydroxychloroquine 100 mg tablet Active 100 MG PO Twice daily January 03, 2024 7:54am FreeTextSig:as directed Orally twice a day; Note: Source Status: Not-TakingundefinedPRN; Provider: Debora De La Cruz ( )Start: 47-16-0870omzr 100 mg by mouth twice dailyHydroxychloroquine Active 100 MG PO Twice daily January 03, 2024 8:54am FreeTextSig: as directed Orally twice a day; Note: Source Status: Not- Taking\PRN; Provider: Debora De La Cruz ( )Start: 08-28-2023 End: 65-78-0468ubwj 2 tablets by mouth twice dailyHydroxychloroquine 100 mg tablet Discontinued 200 MG PO Twice daily August 28, 2023 12:00am January 03, 2024 8:56am FreeTextSig: as directed Orally twice a day; Note: Source Status: Not-TakingundefinedPRN; Provider: Debora De La Cruz ( )Start: 08-28-2023 End: 68-24-1612jrit 2 tablets by mouth twice dailyHydroxychloroquine 100 mg tablet Discontinued 200 MG PO Twice daily August 27, 2023 11:00pm January 03, 2024 7:56am FreeTextSig: as directed Orally twice a day; Note: Source Status: Not-TakingundefinedPRN; Provider: Debora De La Cruz ( )Start: 08-28-2023 End: 90-89-3414ponr 200 mg by mouth twice dailyHydroxychloroquine Discontinued 200 MG PO Twice daily August 28, 2023 12:00am January 03, 2024 8:56am FreeTextSig: as directed Orally twice a day; Note: Source Status: Not- Taking\PRN; Provider: Debora De La Cruz ( )take 1 tablet by mouth twice dailyHydroxychloroquine Sulfate 100 MG Oral Tablet one tablet two times daily Quantity: 0 Refills: 0 Ordered: 22-Nov-2022 DO ActiveHydroxychloroquine Sulfate Not-Takinglevocetirizine dihydrochloride 5 mg oral tablet (8 sources)Histamine-1 Receptor AntagonistStart: 82-57-2150shxp 1 tablet by mouth once daily in the evening as neededLevocetirizine (Xyzal) 5 mg tablet Active 5 MG PO Every evening as needed August 28, 2023 12:00amlidocaine 0.05 mg/mg medicated patch (10 sources)Antiarrhythmic, Amide Local AnestheticStart: 03-47-4909uctla 1 dose transdermal route once daily as neededlidocaine (Lidoderm) 5 % patch APPLY ONE PATCH on the skin ONCE DAILY NEEDED leave on most painful area for up to 12 HOURS 08/28/2023 ActiveStart: 54-54-5857Sxecfvsbt Viscous 2% 5 ml Mouth/Throat every 4 hours as needed May, Activelinaclotide 0.072 mg oral capsule (17 sources)Guanylate Cyclase-C AgonistStart: 66-81-1853vken 1 capsule by mouth once dailyLinaclotide (Linzess) 72 mcg capsule Active 72 MCG PO Daily August 28, 2023 12:00amlosartan potassium 100 mg oral tablet (7 sources)Angiotensin 2 Receptor BlockerStart: 20-03-2977zfav 1 tablet by mouth once dailyLosartan 100 mg tablet Active 100 MG PO Daily January 03, 2024 12:00amrOPINIRole 0.5 mg oral tablet (16 sources)Nonergot Dopamine AgonistStart: 11-69-9861uxyl 1 tablet by mouth at bedtimerOPINIRole (Requip) 0.5 MG tablet TAKE 1 TABLET BY MOUTH 1-3 HOURS BEFORE bedtime 12/05/2023 Active Completed/Discontinued Medications MedicationDrug Class(es)DatesSig (Normalized)Sig (Original)buPROPion hydrochloride 75 mg oral tablet (20 sources)AminoketoneStart: 08-28-2023 End: 19-88-0552Xbjwiedfv Hcl 75 mg tablet Discontinued 75 MG PO Twice daily August 28, 2023 12:00am April 18, 2024 11:56am administer 6 hours apartStart: 02-57-4800dhqu 1 tablet by mouth once dailybuPROPion HCl ER (XL) 150 MG Oral Tablet Extended Release 24 Hour TAKE 1 TABLET DAILY. Quantity: 0 Refills: 0 Ordered: 22-Mar-2021 DO Start : 23-Feb-2021 ActiveWellbutrin Activecephalexin 500 mg oral capsule (1 source)Cephalosporin AntibacterialStart: 55-39-0000psgj 1 capsule by mouth every eight hoursCephalexin 500 MG 1 capsule Orally three times a day for 7 days Oct, Not-Takingfexofenadine hydrochloride 180 mg oral tablet (6 sources)Histamine-1 Receptor AntagonistAllegra 180 MG TABS TAKE 1 TABLET DAILY. Quantity: 0 Refills: 0 Ordered: 13-Apr-2021 DO ActiveLORazepam 1 mg oral tablet (4 sources)Benzodiazepinetake 1 tablet by mouth twice daily as neededLORazepam 1 MG Oral Tablet TAKE 1 TABLET Twice daily PRN Quantity: 0 Refills: 0 Ordered: 13-Apr-2021 DO ActivemethylPREDNISolone 4 mg oral tablet (1 source)CorticosteroidStart: 16-69-3145Ifcbgz (Fred) 4 MG half of daily dose in the morning with food and the rest at night with food Orally Oct, Not-Takingmetoprolol tartrate 25 mg oral tablet (16 sources)beta-Adrenergic BlockerStart: 08-28-2023 End: 02-33-5493zhyz 1 tablet by mouth twice dailyMetoprolol Tartrate 25 mg tablet Discontinued 25 MG PO Twice daily August 28, 2023 12:00am January 03, 2024 8:55amStart: 46-22-9943pcrb 1 tablet by mouth twice dailyMetoprolol Tartrate 25 MG Oral Tablet Take 1 tablet twice daily Quantity: 180 Refills: 3 Ordered: 22-Nov-2022 Dev ARRIAGA, Lisa Start : 13-Apr-2021 ActiveMetoprolol Tartrate Activeprasterone 25 mg oral capsule (4 sources)DHEA 25 MG Oral Capsule TAKE DIRECTED. Quantity: 0 Refills: 0 Ordered: 13-Apr-2021 DO Activepseudoephedrine hydrochloride 30 mg oral tablet (7 sources)alpha-Adrenergic Agonisttake 1 tablet by mouth every four hours as neededSudafed 30 MG Oral Tablet TAKE 1 TABLET EVERY 4 HOURS NEEDED. Quantity: 0 Refills: 0 Ordered: 13-Apr-2021 DO Active Problems Active Problems Problem ClassificationProblemDateDocumented DateEpisodic/ChronicAbdominal pain (11 sources)Right inguinal pain; Translations: [Right lower quadrant pain] 99-22-8852HqpgaxpfUgcgpjj dysrhythmias (7 sources)Palpitations; Translations: [Palpitations]EpisodicEssential hypertension (7 sources)Essential hypertension; Translations: [Unspecified essential hypertension]ChronicNeoplasms of unspecified nature or uncertain behavior (2 sources)Neoplastic disease; Translations: [Neoplasm of unspecified behavior of bone, soft tissue, and skin]80-78-0292VlvmftqwLdlqsyuebbw chest pain (7 sources)Chest pain; Translations: [Chest pain, unspecified]Episodic Osteoarthritis (4 sources)Primary generalized (osteo)arthritis; Translations: [PRIMARY GENERALIZED OSTEOARTHRITIS]Onset: 24-08-6274RvjawavMnwnc aftercare (1 source)Other oil heaterman (current) drug therapy; Translations: [OTH CORRECTION CURRENT DRUG THERAPY]Onset: 78-39-7737QteuzpxdGffws and unspecified benign neoplasm (4 sources)Melanocytic nevus of trunk; Translations: [Melanocytic nevi of trunk] 38-75-4371VqnysvghSiord and unspecified benign neoplasm (4 sources)Skin lesion; Translations: [Hemangioma of skin and subcutaneous tissue]97-18-5222DsxpkpixBbcov circulatory disease (1 source)Raynaud's syndrome without gangrene; Translations: [RAYNAUDS SYNDROME WITHOUT GANGRENE]Onset: 23-37-9466MhpjcpkSrnja nervous system disorders (4 sources)Chronic pain; Translations: [Other chronic pain]65-14-3278Oupybcx Other nervous system disorders (7 sources)Other chronic pain; Translations: [Other chronic pain]04-18-2024 ChronicOther nutritional; endocrine; and metabolic disorders (4 sources)Obesity; Translations: [Obesity, unspecified]ChronicOther nutritional; endocrine; and metabolic disorders (3 sources)Overweight in adulthood with body mass index of 25 or more but less than 30; Translations: [Overweight]EpisodicOther skin disorders (4 sources)Seborrheic keratosis; Translations: [Other seborrheic keratosis] 66-66-5218DmyvbiphJpdcl skin disorders (4 sources)Lentiginosis; Translations: [Other melanin hyperpigmentation] 96-47-6796TmrzvslhXphao skin disorders (2 sources)Actinic keratosis; Translations: [Actinic keratosis]12-18-2024 EpisodicScreening and history of mental health and substance abuse codes (7 sources)Ex-smoker; Translations: [Personal history of tobacco use]Episodic Spondylosis; intervertebral disc disorders; other back problems (20 sources)Other spondylosis, lumbar region; Translations: [Inflammation of sacroiliac joint]Onset: 10-57-3316QcdiegeBqnxciacqqr; intervertebral disc disorders; other back problems (20 sources)Radiculopathy, lumbar region; Translations: [Lumbar radiculopathy] Onset: 449269-69-9056NygkqmniLmqfcuutzzfq (1 source)OTH SPEC SYSTEM INVOLV CONNECT TISS; Translations: [OTH SPEC SYSTEM INVOLV CONNECT TISS]Onset: 05-08-2022 Past or Other Problems Problem ClassificationProblemDateDocumented DateEpisodic/ChronicMycoses (1 source)Candidal stomatitisOnset: 05-12-2021 Resolved: 87-15-9685FvuuhwkeQeoyd non-traumatic joint disorders (1 source)Pain in left hip; Translations: [PAIN IN LEFT HIP]Onset: 07-18-2021 EpisodicOther screening for suspected conditions (not mental disorders or infectious disease) (1 source)Encounter for screening for malignant neoplasm of prostate; Translations: [ENC SCREEN MALIG NEOPLASM PROSTATE]Onset: 86-71-2776Yvmrbdbw Results Test NameValueInterpretationReference RangeFacilityNo Panel Informationon 20-57-2208KFXS HealthcareXR lumbar spine 6V w bendingon 68-71-8189TO lumbar spine 6V w bendingUNIVERSITY HOSPITALS HE[facility] Main [place] [address] [place] [address] XRay Report Signed Patient: Humberto Villatoro MR#: [id number] : 1960 Acct:[id number] Age/Sex: 63 / M ADM Date: 01/03/24 Loc: XD Room: Type: [facility] Attending Dr: Corinne Crooks APRN Copies to: Corinne Crooks APRN Ordering Provider: Corinne Crooks APRN Date of Service: 01/03/24 XR/XR [...] Thiago Jurado M.D.01/03/2024 12:45 PM Dictation Location: [place] [address] Transcribed By: [facility] 01/03/24 1245 Dictated By: Thiago Jurado II, MD 01/03/24 1241 Signed By: 01/03/24 1245[facility] Physician GroupNo Panel Informationon 09-90-3682Cctt of biopsy: tangential Informed consent: discussed and [...] taken yes Amount of lidocaine used: 0.4 cmAtrium Health Carolinas Rehabilitation CharlotteOffice Visit (Cardiology)on 81-24-3856Ozurqq-up visitDiagnoses/Problems Assessed Chest pain (786.50) (R07.9) Essential hypertension (401.9) (I10) Former smoker (V15.82) (Z87.891) Overweight with body mass index (BMI) of 29 to 29.9 in adult (278.02,V85.25) (E66.3,Z68.29) Palpitations (785.1) (R00.2) Orders Essential hypertension Renew: Metoprolol Tartrate 25 MG Oral Tablet; Take 1 tablet twice daily SocHx: Former smoker Tobacco Use Screening; Status:Complete; Done: [id number] Patient Instructions Please bring all medicines, vitamins, [...] 1 year. Same meds Chief Complaint HUMBERTO VILLATORO is being seen for a 9 month follow-up of. History of Present Illness Patient is here for follow-up continue management for previous evaluation for chest pain, hypertension, mildly overweight. Since last time I saw him he denies any cardiac complaint of chest pain, palpitation, lightheadedness, dizziness or syncope. He remains active. His main complaint is arthritis.He followed by a local cleaner and presser. ASSESSMENT 1. Previous evaluation for chest pain. [...] be controlled with recent addition of low-dose beta-kyara 3. Mildly overweight. 4. Former smoker. 5. Rare episode of palpitation, resolved. 6. Family history of coronary artery disease. 7. History of arthritis followed by local cleaner and presser indicate could be either early rheumatoid arthritis [...] History of Cataract surgery History of Colonoscopy [id number] Current Meds Medication NameInstruction buPROPion HCl ER [...] negative for complaint. Vitals Vital Signs Recorded: 22Nov2022 11:27AM Heart Rate60, L Radial Vsgvcjec626, LUE, Sitting Yxabewzwk54, LUE, Sitting Height5 ft 6 in Owtpql238 lb 6 oz BMI Gvrtfyscht78.63 kg/m2 BSA Calculated1.9 Tobacco Useb) No PHQ-2 #1. Over the last 2 weeks have you felt down, depressed or hopeless? (If yes, answer PHQ-9 below)No PHQ-2 #2. Over the last 2 weeks have you felt little interest or pleasure in doing things? (If yes,answer PHQ-9 below)No Falls Screening (Age 18+)a) No [...] . Signatures Electronically signed by : Lisa Guardado MD; Nov 22 2022 11:53AM EST (Author)Normal TouchworksTobacco Screening.on 99-05-3366Yulja depression screening assessmentNoProv[facility] WeTagwalShowbie DO Work Phone: Fall risk assessmenta) No falls within the last year [facility] [place] 600 DO Work Phone: Tobacco use status CPHSb) NoMWestern [facility] Hospital [place] 600 DO Work Phone: COMPLEMENT TOTAL (CH50)on 36-40-8756Sdgaznlkdb, Total (CH50)45 U/mLNormal>41R[facility] Health InstituteComment on above:Result Comment: Age Male Female 1 - 30 [...] table above to determine out of range values.Performed By: #### CRP, CMP #### [facility] [address] [place] [address] Dr. Gregg HumphreysC3 and C4 COMPLEMENTon 03-67-9813Olypsdrplq C3, Rrivm536 mg/dL Qbfqll01-174Bdy [facility] HospitalComment on above:Performed By: #### SEDR #### [facility] [address] [place] [address] Dr. Gregg HumphreysComplement C4, Serum27 mg/cNGuecuu19-72Fnq [facility] Comment on above:Performed By: #### SEDR #### [facility] [address] [place] [address] Dr. Gregg PetersonC AUTO DIFFon 27-34-4633MJKQ #0.1 103/ulNormal0.0-0.1The [facility] HospitalComment on above:Performed By: #### CBC #### [facility] [address] [place] [address] Dr. Gregg HumphreysBasophils/100 WBC (Bld)0.8 %Normal0.2-2.0[facility] Comment on above:Performed By: #### CBC #### [facility] [address] [place] [address] Dr. Gregg Clarke #0.4 103/ulNormal0.0-0.7The [facility] HospitalComment on above: Performed By: #### CBC #### [facility] [address] [place] [address] Dr. Gregg Ericksonosinophils/100 WBC (Bld)4.9 %Normal0.9-7.0The [facility] Comment on above:Performed By: #### CBC #### [facility] [address] [place] [address] Dr. Gregg Ericksonrythrocyte distribution width (RBC) [Ratio]13.2 %Cxqjmg26.0-15.0 The [facility] HospitalComment on above:Performed By: #### CBC #### [facility] [address] [address] [address] Gregg Brightatofemit (Bld) [Volume fraction]49.6 %Yemnak89.0-54.0The [facility] HospitalComment on above:Performed By: #### CBC #### [facility] [address] [address] [address] Gregg HumphreysHemoglobin (Bld) [Mass/Vol]15.4 g/eRYufomi42.0-18.0The [facility] HospitalComment on above:Performed By: #### CBC #### [facility] [address] [place] [address] Dr. Gregg Washington #0.04 10e3/ulCritically high0.00-0.03The [facility] Comment on above:Performed By: #### CBC #### [facility] [address] [place] [address] Dr. Gregg Washington %0.6 %Critically high0.0-0.5The [facility] HospitalComment on above:Performed By: #### CBC #### [facility] [address] [place] [address] Dr. Gregg Johnson #2.4 103/ulNormal1.2-3.8The [facility] on above:Performed By: #### CBC #### [facility] [address] [place] [address] Dr. Gregg Martinezhocytes/100 WBC (Bld)34.1 %Zmvluw79.5-60.0The [facility] Hospitalment on above:Performed By: #### CBC #### [facility] [address] [place] [address] Dr. Gregg TavarezUAL DIFF REQNONormalThe [facility] HospitalComment on above: Performed By: #### CBC #### [facility] [address] [place] [address] Dr. Gregg Mora (RBC) [Entitic mass]28.3 awYairmm62.9-34.0The [facility] HospitalComment on above:Performed By: #### CBC #### [facility] [address] [place] [address] Dr. Gregg Spence (RBC) [Mass/Vol]31.0 g/xAEzavsx99.9-35.2The [facility] HospitalComment on above:Performed By: #### CBC #### [facility] [address] [place] [address] Dr. Gregg Spence (RBC) [Entitic vol]91.0 yHHamkkk87.0-94.0The [facility] HospitalComment on above:Performed By: #### CBC #### [facility] [address] [place] [address] Dr. Gregg Evans #0.9 103/ulCritically high0.3-0.8The [facility] Comment on above:Performed By: #### CBC #### [facility] [address] [place] [address] Dr. Gregg Pfeifferocytes/100 WBC (Bld)12.7 %Critically high1.7-12.0The [facility] HospitalComment on above:Performed By: #### CBC #### [facility] [address] [place] [address] Dr. Gregg Weaver #3.4 103/ulNormal1.4-6.5The [facility] HospitalComment on above:Performed By: #### CBC #### [facility] [address] [place] [address] Dr. Gregg Elenaophils/100 WBC (Bld)46.9 %Ovmfoi21.0-75.0The [facility] HospitalComment on above:Performed By: #### CBC #### [facility] [address] [place] [address] Dr. Gregg Ellislet mean volume (Bld) [Entitic vol]9.2 fLCritically low 9.5-13.5The [facility] HospitalComment on above:Performed By: #### CBC #### [facility] [address] [place] [address] Dr. Gregg Rodriguez405 103/rmIfvsla203-320Zbf [facility] HospitalComment on above: Performed By: #### CBC #### [facility] [address] [place] [address] Dr. Gregg HumphreysRBC5.45 106/ulNormal4.70-6.10The [facility] HospitalComment on above:Performed By: #### CBC #### [facility] [address] [place] [address] Dr. Gregg HumphreysWBC7.2 103/ulNormal4.0-11.0The [facility] HospitalComment on above: Performed By: #### CBC #### [facility] [address] [place] [address] Dr. Gregg Galeano 24-70-1288LWZ [Mass/Vol]mg/LNormal<=1.0The [facility] HospitalComment on above:Performed By: #### CRP, CMP #### [facility] [address] [place] [address] Dr. Gregg ZunigaF 14(COMP METB)on 10-57-7654Xqcgscr [Mass/Vol]4.1 g/dLNormal 3.4-5.0The [facility] HospitalCombeaumont hospital on above:Performed By: #### CRP, CMP #### [facility] [address] [place] [address] Dr. Gregg HumphreysAlbumin/Globulin [Mass ratio]1.1 {ratio}NormalThe [facility] HospitalCombeaumont hospital on above:Performed By: #### CRP, CMP #### [facility] [address] [place] [address] Dr. Gregg Blanc [Catalytic activity/Vol]71 U/GDrlswq14-543Oeg [facility] on above:Performed By: #### CRP, CMP #### [facility] [address] [place] [address] Dr. Gregg Chirinos [Catalytic activity/Vol]30 U/FWgbbpv79-05Sss [facility] HospitalComment on above:Performed By: #### CRP, CMP #### [facility] [address] [place] [address] Dr. Gregg Stringer gap [Moles/Vol]10.4 mmol/LNormalRiverview Health Institute Comment on above:Performed By: #### CRP, CMP #### [facility] [address] [address] [address] Gregg HumphreysAST [Catalytic activity/Vol]23 U/WSglrhh15-93Fgr [facility] HospitalComment on above:Performed By: #### CRP, CMP #### [facility] [address] [address] [address] Gregg HumphreysBilirubin [Mass/Vol]0.5 mg/dLNormal0.2-1.0The [facility] Comment on above:Performed By: #### CRP, CMP #### [facility] [address] [place] [address] Dr. Gregg HumphreysCalcium [Mass/Vol]9.5 mg/dLNormal8.5-10.1[facility] Comment on above:Performed By: #### CRP, CMP #### [facility] [address] [place] [address] Dr. Gregg HumphreysChloride [Moles/Vol]103 mmol/LXtryha22-180QypRiverview Health Institute Comment on above:Performed By: #### CRP, CMP #### [facility] [address] [place] [address] Dr. Gregg HumphreysCO2 [Moles/Vol]29.8 mmol/EDieygy44.0-32.0[facility] Comment on above:Performed By: #### CRP, CMP #### [facility] [address] [place] [address] Dr. Gregg HumphreysCreatinine [Mass/Vol]0.88 mg/dLNormal0.70-1.30The [facility] HospitalComment on above:Performed By: #### CRP, CMP #### [facility] [address] [place] [address] Dr. Gregg EricksonGFR-AF GHANAIAN>60Normal>=60The [facility] HospitalComment on above:Performed By: #### CRP, CMP #### [facility] [address] [address] [address] Gregg EricksonGFR-NON AF GHANAIAN>60Normal>=60The [facility] HospitalComment on above:Performed By: #### CRP, CMP #### [facility] [address] [address] [address] Gregg HumphreysGlobulin (S) [Mass/Vol]3.9 g/dLNormalThe [facility]wood HospitalComment on above:Performed By: #### CRP, CMP #### [facility] [address] [address] [address] Gregg HumphreysGlucose [Mass/Vol]91 mg/xZPdmxmc23-179Ynt [facility] Comment on above:Performed By: #### CRP, CMP #### [facility] [address] [place] [address] Dr. Gregg HumphreysPotassium [Moles/Vol]4.2 mmol/LNormal3.5-5.1The [facility] Comment on above:Performed By: #### CRP, CMP #### [facility] [address] [place] [address] Dr. Gregg HumphreysProtein [Mass/Vol]8.0 g/dLNormal6.4-8.2[facility] Comment on above:Performed By: #### CRP, CMP #### [facility] [address] [place] [address] Dr. Gregg HumphreysSodium [Moles/Vol]139 mmol/QMmkjdt309-233Bsf [facility] Comment on above:Performed By: #### CRP, CMP #### [facility] [address] [place] [address] Dr. Gregg HumphreysUrea nitrogen [Mass/Vol]16.0 mg/dLNormal7.0-18.0The [facility] HospitalComment on above:Performed By: #### CRP, CMP #### [facility] [address] [place] [address] Dr. Gregg HumphreysUrea nitrogen/Creatinine [Mass ratio]18.2 mg/mgNormalThe [facility] HospitalComment on above:Performed By: #### CRP, CMP #### [facility] [address] [address] [address] RATE WESTERGRENon 50-65-0636XKH RATE42 mm/hrCritically high <=20The [facility] HospitalComment on above:Performed By: #### CRP, CMP #### [facility] [address] [address] [address] Gregg Mcpherson RANDOM W/MICROSCOPICon 14-11-5649JIODRVMNCZFP SEENNormalNONE SEENRiverview Health InstituteComment on above:Performed By: #### UAMIC #### [facility] [address] [address] [address] Gregg HumphreysBilirubin Ql (U)NegativeNormalNEGATIVEThe [facility] Comment on above:Performed By: #### UAMIC #### [facility] [address] [place] [address] Dr. Gregg HumphreysCASTNONE SEENNormalNONE SEENRiverview Health InstituteComment on above:Performed By: #### UAMIC #### [facility] [address] [place] [address] Dr. Gregg Fullerarity (U)CLEARNormalCLEARRiverview Health InstituteComment on above: Performed By: #### UAMIC #### [facility] [address] [place] [address] Dr. Gregg Gaviria (U)LT. YELLOWNormalYELLOWRiverview Health InstituteComment on above:Performed By: #### UAMIC #### [facility] [address] [address] [address] Gregg HumphreysCrystals LM Nom (Urine sed)NONE SEENNormalNONE SEENRiverview Health InstituteComment on above:Performed By: #### UAMIC #### [facility] [address] [place] [address] Dr. Escobedo ChangEpithelial cells LM Ql (Urine sed)FEWAbnormalNONE SEEN /RAREThe [facility] HospitalComment on above:Performed By: #### UAMIC #### [facility] [address] [place] [address] Dr. Yilan ChangGlucose Ql (U)NegativeNormalNEGATIVERiverview Health InstituteComment on above:Performed By: #### UAMIC #### [facility] [address] [address] [address] Gregg HumphreysHemoglobin Ql (U)NegativeNormalNEGProMedica Memorial Hospital Comment on above:Performed By: #### UAMIC #### [facility] [address] [address] [address] Gregg HumphreysKetones Ql (U)NegativeNormalNEGATIVERiverview Health InstituteComment on above:Performed By: #### UAMIC #### [facility] [address] [address] [address] Gregg HumphreysLEUKOCYTESNegativeNormalNEGProMedica Memorial HospitalComment on above:Performed By: #### UAMIC #### [facility] [address] [place] [address] Dr. Gregg HumphreysMUCOUSNONE SEENNormalNONE SEENRiverview Health InstituteComment on above:Performed By: #### UAMIC #### [facility] [address] [place] [address] Dr. Gregg HumphreysNitrite Ql (U)NegativeNormalNEGATIVERiverview Health InstituteComment on above:Performed By: #### UAMIC #### [facility] [address] [place] [address] Dr. Gregg HumphreyspH (U)5.5 [pH]Normal5-9[facility] InstituteComment on above: Performed By: #### UAMIC #### [facility] [address] [place] [address] Dr. Gregg HumphreysRBCNONE SEENAbnormal0-2[facility] InstituteComment on above: Performed By: #### UAMIC #### [facility] [address] [place] [address] Dr. Gregg HumphreysSPEC GRAVITY<=1.633Rzatzthb6.005-<=1.025The [facility] Comment on above:Performed By: #### UAMIC #### [facility] [address] [place] [address] Dr. Gregg Mcpherson PROTEINNegativeNormalNEGATIVE/ TRACEThe [facility] Comment on above:Performed By: #### UAMIC #### [facility] [address] [place] [address] Dr. Gregg Popebilessie Qn (U)0.2 {Kiki'U}/dLNormal0.2 - 1.0[facility] InstituteComment on above:Performed By: #### UAMIC #### [facility] [address] [place] [address] Dr. Gregg HumphreysWBCNONE SEENNormalNONE SEENThe [facility] HospitalComment on above: Performed By: #### UAMIC #### [facility] [address] [place] [address] Dr. Gregg Wilks AUTO DIFFon 77-90-5203LEHV #0.1 103/ulNormal0.0-0.1The [facility] HospitalComment on above:Performed By: #### CBC #### [facility] [address] [place] [address] Dr. Gregg HumphreysBasophils/100 WBC (Bld)1.3 %Normal0.2-2.0[facility] Comment on above:Performed By: #### CBC #### [facility] [address] [place] [address] Dr. Gregg Clarke #0.4 103/ulNormal0.0-0.7The [facility] HospitalComment on above: Performed By: #### CBC #### [facility] [address] [place] [address] Dr. Gregg Ericksonosinophils/100 WBC (Bld)5.2 %Normal0.9-7.0[facility] Comment on above:Performed By: #### CBC #### [facility] [address] [place] [address] Dr. Gregg Ericksonrythrocyte distribution width (RBC) [Ratio]13.1 %Gfuxga32.0-15.0 The [facility] HospitalComment on above:Performed By: #### CBC #### [facility] [address] [address] [address] rGegg HumphreysHematocrit (Bld) [Volume fraction]46.1 %Dpnwcd13.0-54.0The [facility] HospitalComment on above:Performed By: #### CBC #### [facility] [address] [place] [address] Dr. Gregg HumphreysHemoglobin (Bld) [Mass/Vol]14.9 g/oMWriboa54.0-18.0The [facility] HospitalComment on above:Performed By: #### CBC #### [facility] [address] [place] [address] Dr. Gregg HumphreysIG #0.04 10e3/ulCritically high0.00-0.03The [facility] Comment on above:Performed By: #### CBC #### [facility] [address] [place] [address] Dr. Gregg HumphreysIG %0.5 %Normal0.0-0.5The [facility] HospitalComment on above: Performed By: #### CBC #### [facility] [address] [place] [address] Dr. Gregg Johnson #2.4 103/ulNormal1.2-3.8The [facility] on above:Performed By: #### CBC #### [facility] [address] [place] [address] Dr. Gregg Pizanomphocytes/100 WBC (Bld)30.9 %Xtrjei29.5-60.0The [facility] HospitalComment on above:Performed By: #### CBC #### [facility] [address] [place] [address] Dr. Gregg HumphreysMANUAL DIFF REQNONormalThe [facility] HospitalComment on above: Performed By: #### CBC #### [facility] [address] [place] [address] Dr. Gregg Mora (RBC) [Entitic mass]28.1 pzPgmrxn36.9-34.0The [facility] HospitalComment on above:Performed By: #### CBC #### [facility] [address] [address] [address] Gregg SpenceHC (RBC) [Mass/Vol]32.3 g/pZKkidxh90.9-35.2The [facility] HospitalComment on above:Performed By: #### CBC #### [facility] [address] [address] [address] Gregg SpenceV (RBC) [Entitic vol]87.0 cAAgbpst87.0-94.0The [facility] HospitalComment on above:Performed By: #### CBC #### [facility] [address] [place] [address] Dr. Gregg Evans #1.0 103/ulCritically high0.3-0.8The [facility] Comment on above:Performed By: #### CBC #### [facility] [address] [place] [address] Dr. Gregg Pfeifferocytes/100 WBC (Bld)12.7 %Critically high1.7-12.0The [facility] HospitalComment on above:Performed By: #### CBC #### [facility] [address] [place] [address] Dr. Gregg Weaver #3.9 103/ulNormal1.4-6.5The [facility] HospitalComment on above:Performed By: #### CBC #### [facility] [address] [place] [address] Dr. Gregg Crockerutrophils/100 WBC (Bld)49.4 %Jlnbmt16.0-75.0The [facility] HospitalComment on above:Performed By: #### CBC #### [facility] [address] [place] [address] Dr. Gregg Ellislet mean volume (Bld) [Entitic vol]8.9 fLCritically low 9.5-13.5The [facility] HospitalComment on above:Performed By: #### CBC #### [facility] [address] [place] [address] Dr. Gregg HumphreysPLT353 103/oxDtcenb583-454Bxe Danyel HospitalComment on above: Performed By: #### CBC #### [facility] [address] [place] [address] Dr. Gregg HumphreysRBC5.30 106/ulNormal4.70-6.10The [facility] on above:Performed By: #### CBC #### [facility] [address] [place] [address] Dr. Gregg HumphreysWBC7.9 103/ulNormal4.0-11.0The [facility] on above: Performed By: #### CBC #### [facility] [address] [place] [address] Dr. Gregg HumphreysFRKAYLI T3on 55-45-2853VFAT T33.39 pg/mlLNormal2.18-3.98The [facility] on above:Performed By: #### TSH, FT3, LIPID, CMP #### [facility] [address] [place] [address] Dr. Gregg Carvajal T4on 55-89-2650Jwiw T4 [Mass/Vol]0.86 ng/dLNormal0.76-1.46 The [facility] on above:Performed By: #### CRP, CMP #### [facility] [address] [place] [address] Dr. Gregg HumphreysGLYCOHEMOGLOBIN A1Con 82-11-6144NMP RECOMMENDATIONSEE BELOWNormal The [facility] on above:Result Comment: ADA RECOMMENDED LIMIT 4.0 - 6.0 ADA THERAPEUTIC TARGET < 7.0 ACTION SUGGESTED > 7.0Performed By: #### CRP, CMP #### [facility] [address] [place] [address] Dr. Gregg HumphreysGlucose [Mass/Vol]120 mg/dLNormalThElyria Memorial Hospital on above:Performed By: #### CRP, CMP #### [facility] [address] [place] [address] Dr. Gregg HumphreysHbA1c (Bld) [Mass fraction]5.8 %Normal4.5-6.2The [facility] on above:Performed By: #### CRP, CMP #### [facility] [address] [address] [address] Gregg RomanID PROFILEon 60-55-3112COVW-HDL RATIO NORMSLancaster Municipal HospitalCombeaumont hospital on above:Result Comment: 3.3 - 4.4 LOW RISK 4.4 - 7.1 AVERAGE RISK 7.1 - 11.0 MODERATE RISK >11.0 HIGH RISKPerformed By: #### TSH, FT3, LIPID, CMP #### [facility] [address] [address] [address] Gregg HumphreysCholesterol [Mass/Vol]195 mg/dLNormal<=200[facility] Comment on above:Performed By: #### TSH, FT3, LIPID, CMP #### [facility] [address] [address] [address] Gregg HumphreysCholesterol in HDL [Mass/Vol]73 mg/dLCritically kqzi38-86Hsx [facility] HospitalComment on above:Performed By: #### TSH, FT3, LIPID, CMP #### [facility] [address] [address] [address] Gregg Salgueroesterol in LDL [Mass/Vol]113.0 mg/dLMercy Health St. Elizabeth Boardman HospitalCombeaumont hospital on above:Performed By: #### TSH, FT3, LIPID, CMP #### [facility] [address] [address] [address] Gregg Salgueroesterjosué.total/Cholesterol in HDL [Mass ratio]2.7 {ratio} NormalRiverview Health InstituteComment on above:Performed By: #### TSH, FT3, LIPID, CMP #### [facility] [address] [address] [address] Gregg Dsouza NORMAL> or = 60 mg/dl - LOW CARDIOVASCULAR RISK <40 mg/dl - HIGH CARDIOVASCULAR RISKMercy Health St. [facility] HospitalCombeaumont hospital on above:Performed By: #### TSH, FT3, LIPID, CMP #### [facility] [address] [place] [address] Dr. Gregg HumphreysLDL CALC NORMALSEE BELOWMercy Health St. Elizabeth Boardman HospitalComment on above:Result Comment: <100 mg/dl OPTIMAL 100 - 129 mg/dl NEAR OR ABOVE OPTIMAL 130 - 159 mg/dl BORDERLINE HIGH 160 - 189 mg/dl HIGH >190 mg/dl VERY HIGH Performed By: #### TSH, FT3, LIPID, CMP #### [facility] [address] [place] [address] Dr. Gregg HumphreysTriglyceride [Mass/Vol]45 mg/dLNormal<=150The [facility] Comment on above:Performed By: #### TSH, FT3, LIPID, CMP #### [facility] [address] [place] [address] Dr. Gregg HumphreysVLDL CALC9.0 mg/dLMercy Health St. Elizabeth Boardman HospitalComment on above: Performed By: #### TSH, FT3, LIPID, CMP #### [facility] [address] [place] [address] Dr. Gregg Pressley 14(COMP METB)on 24-85-6180Vhbhtzu [Mass/Vol]4.0 g/dLNormal 3.4-5.0[facility] InstituteComment on above:Performed By: #### TSH, FT3, LIPID, CMP #### [facility] [address] [place] [address] Dr. Gregg HumphreysAlbumin/Globulin [Mass ratio]1.3 {ratio}NormalThe [facility] HospitalComment on above:Performed By: #### TSH, FT3, LIPID, CMP #### [facility] [address] [place] [address] Dr. Gregg Blanc [Catalytic activity/Vol]75 U/TCjhjpx88-817Mfq [facility] HospitalComment on above:Performed By: #### TSH, FT3, LIPID, CMP #### [facility] [address] [place] [address] Dr. Gregg Chirinos [Catalytic activity/Vol]24 U/DEqcxnr72-59Aeu [facility] HospitalComment on above:Performed By: #### TSH, FT3, LIPID, CMP #### [facility] [address] [place] [address] Dr. Gregg Stringer gap [Moles/Vol]12.7 mmol/LNormalR[facility] Institute Comment on above:Performed By: #### TSH, FT3, LIPID, CMP #### [facility] [address] [address] [address] Gregg HumphreysAST [Catalytic activity/Vol]17 U/ABqgypg34-58OyjRiverview Health InstituteComment on above:Performed By: #### TSH, FT3, LIPID, CMP #### [facility] [address] [address] [address] Gregg HumphreysBilirubin [Mass/Vol]0.6 mg/dLNormal0.2-1.0The [facility] Comment on above:Performed By: #### TSH, FT3, LIPID, CMP #### [facility] [address] [address] [address] Gregg HumphreysCalcium [Mass/Vol]9.1 mg/dLNormal8.5-10.1[facility] Comment on above:Performed By: #### TSH, FT3, LIPID, CMP #### [facility] [address] [address] [address] Gregg HumphreysChloride [Moles/Vol]104 mmol/FMlvfvm27-624DkeRiverview Health Institute Comment on above:Performed By: #### TSH, FT3, LIPID, CMP #### [facility] [address] [address] [address] Gregg HumphreysCO2 [Moles/Vol]25.6 mmol/EVtkcai56.0-32.0The [facility] Comment on above:Performed By: #### TSH, FT3, LIPID, CMP #### [facility] [address] [address] [address] Gregg HumphreysCreatinine [Mass/Vol]1.04 mg/dLNormal0.70-1.30The [facility] HospitalComment on above:Performed By: #### TSH, FT3, LIPID, CMP #### [facility] [address] [address] [address] Gregg EricksonGFR-AF GHANAIAN>60Normal>=60The [facility] HospitalComment on above:Performed By: #### TSH, FT3, LIPID, CMP #### [facility] [address] [place] [address] Dr. Gregg Becker-NON AF GHANAIAN>60Normal>=60The [facility] HospitalComment on above:Performed By: #### TSH, FT3, LIPID, CMP #### [facility] [address] [place] [address] Dr. Gregg HumphreysGlobulin (S) [Mass/Vol]3.1 g/dLNormalThe [facility] HospitalComment on above:Performed By: #### TSH, FT3, LIPID, CMP #### [facility] [address] [place] [address] Dr. Gregg HumphreysGlucose [Mass/Vol]93 mg/yOYckfsr08-972ZjqRiverview Health Institute Comment on above:Performed By: #### TSH, FT3, LIPID, CMP #### [facility] [address] [place] [address] Dr. Gregg HumphreysPotassium [Moles/Vol]4.3 mmol/LNormal3.5-5.1The [facility] Comment on above:Performed By: #### TSH, FT3, LIPID, CMP #### [facility] [address] [place] [address] Dr. Gregg HumphreysProtein [Mass/Vol]7.1 g/dLNormal6.4-8.2[facility] Comment on above:Performed By: #### TSH, FT3, LIPID, CMP #### [facility] [address] [place] [address] Dr. Gregg HumphreysSodium [Moles/Vol]138 mmol/PXibwnq391-434CkkRiverview Health Institute Comment on above:Performed By: #### TSH, FT3, LIPID, CMP #### [facility] [address] [place] [address] Dr. Gregg HumphreysUrea nitrogen [Mass/Vol]20.0 mg/dLCritically high7.0-18.0The [facility] HospitalComment on above:Performed By: #### TSH, FT3, LIPID, CMP #### [facility] [address] [address] [address] Gregg HumphreysUrea nitrogen/Creatinine [Mass ratio]19.2 mg/mgNormalThe [facility] HospitalCombeaumont hospital on above:Performed By: #### TSH, FT3, LIPID, CMP #### [facility] [address] [address] [address] Gregg MensahHoarian 20-47-3319XZD0.020 uIU/mLNormal0.358-3.740The [facility] HospitalComment on above:Performed By: #### TSH, FT3, LIPID, CMP #### [facility] [address] [address] [address] Gregg Duarte B12 AND FOLATEon 32-96-5591Spejcxems (Vitamin B12) [Mass/Vol] 359.0 pg/qYNhltjr181.0-986.0The [facility] on above:Performed By: #### CRP, CMP #### [facility] [address] [place] [address] Dr. Gregg HumphreysFOLATE8.80 ng/mLNormal8.60-58.90The [facility] on above:Performed By: #### CRP, CMP #### [facility] [address] [place] [address] Dr. Gregg HumphreysToaloccnoé Screening.on 88-77-2619Qxamy depression screening assessmentEssentia Health [employer] DO Work Phone: Fall risk assessmenta) No falls within the last year [facility] [employer] DO Work Phone: Tobacco use status CPHSb) NoMUnited Hospital [employer] DO Work Phone: XR LSPINE 2_3 VIEWSon 25-50-6467KB LSPINE 2_3 VIEWS EXAMINATION: XR LSPINE 2_3 [...] Electronically authenticated by: LILI BARRERA Date: 2021-07-13 14:32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 Double Product (HR x BP): 155. Baseline ECG: Resting ECG showed sinus bradycardia. Stress Stage Data: + +--+------+-------+ HR Sys BP Bates BP + +--+------+-------+ Baseline Resting 57 138 78 + +--+------+-------+ Baseline Standing 65 130 78 + +--+------+-------+ Stage I 72 110 60 + +--+------+-------+ Stage II 81 130 70 + +--+------+-------+ Stage III 87 150 74 + +--+------+-------+ + +--+------+-------+ HR Sys BP Bates BP + +--+------+-------+ Recovery I 82 160 80 + +--+------+-------+ Recovery II 75 160 74 + +--+------+-------+ Recovery III 70 150 72 + +--+------+-------+ Recovery IV 70 160 74 + +--+------+-------+ Summary: 1. 1-Non diagnostic ETT due to failure to atchieve 85% of PMHR, patient was able to achieve only 61% of PMHR despite completing 9:15 on a oneal protocol and achieving 10:50 METs 2-No chest pain, cardiac arrhythmias or ischemic ST changes induced by exercise 3-Attenuated HR response to exercise due to Beta blockers. [id number] Virgilio Beaulieu MD, FAC Electronically signed on 07/08/2021 at 8:54:56 AM Final NormalCommunity HospitalCardiac Stress TestMP-[facility] DO Work Phone: C3 and C4 COMPLEMENTon 13-05-5898Cmjwqjlnbl C3, Serum 172 mg/dLCritically obri29-352XywRiverview Health InstituteComment on above:Performed By: #### SEDR #### [facility] [address] [address] [address] Gregg Draperplement C4, Serum30 mg/yHCmpjvs07-66QpiRiverview Health Institute Comment on above:Performed By: #### SEDR #### [facility] [address] [address] [address] Gregg Dumont TOTAL (CH50)on 85-22-2025Rkcgmllepp, Total (CH50)>60 Normal>41R[facility] Health InstituteComment on above:Result Comment: Age Male Female 1 - 30 [...] table above to determine out of range values.Performed By: #### SEDR #### [facility] [address] [address] [address] Gregg Wilks AUTO DIFFon 28-96-6352ZRPJ #0.1 103/ulNormal0.0-0.1The [facility] HospitalComment on above:Performed By: #### SEDR #### [facility] [address] [address] [address] Gregg HumphreysBasophils/100 WBC (Bld)1.4 %Normal0.2-2.0The [facility] Comment on above:Performed By: #### SEDR #### [facility] [address] [address] [address] Gregg Clarke #0.5 103/ulNormal0.0-0.7The [facility] HospitalComment on above: Performed By: #### SEDR #### [facility] [address] [place] [address] Dr. Gregg Ericksonosinophils/100 WBC (Bld)7.3 %Critically high0.9-7.0The [facility] HospitalComment on above:Performed By: #### SEDR #### [facility] [address] [place] [address] Dr. Gregg Ericksonrythrocyte distribution width (RBC) [Ratio]14.1 %Tlknhc54.0-15.0 The [facility] HospitalComment on above:Performed By: #### SEDR #### [facility] [address] [place] [address] Dr. Gregg HumphreysHematocrit (Bld) [Volume fraction]48.1 %Ryvqcq23.0-54.0The [facility] HospitalComment on above:Performed By: #### SEDR #### [facility] [address] [place] [address] Dr. Gregg HumphreysHemoglobin (Bld) [Mass/Vol]15.4 g/oLEfsbvt33.0-18.0The [facility] HospitalComment on above:Performed By: #### SEDR #### [facility] [address] [place] [address] Dr. Gregg Washington #0.17 10e3/ulCritically high0.00-0.03The [facility] Comment on above:Performed By: #### SEDR #### [facility] [address] [place] [address] Dr. Gregg Washington %2.3 %Critically high0.0-0.5The [facility] HospitalComment on above:Performed By: #### SEDR #### [facility] [address] [place] [address] Dr. Gregg Johnson #2.5 103/ulNormal1.2-3.8The [facility] HospitalComment on above:Performed By: #### SEDR #### [facility] [address] [place] [address] Dr. Gregg Martinezhocytes/100 WBC (Bld)33.9 %Onkuup47.5-60.0The [facility] HospitalComment on above:Performed By: #### SEDR #### [facility] [address] [place] [address] Dr. Gregg Auguste DIFF REQNONormalThe [facility] HospitalComment on above: Performed By: #### SEDR #### [facility] [address] [place] [address] Dr. Gregg Mora (RBC) [Entitic mass]28.9 itQvbheu27.9-34.0The [facility] HospitalComment on above:Performed By: #### SEDR #### [facility] [address] [place] [address] Dr. Gregg Spence (RBC) [Mass/Vol]32.0 g/rKJfjrjw72.9-35.2The [facility] HospitalComment on above:Performed By: #### SEDR #### [facility] [address] [place] [address] Dr. Gregg Hays (RBC) [Entitic vol]90.2 dSBvicyw59.0-94.0The [facility] HospitalComment on above:Performed By: #### SEDR #### [facility] [address] [place] [address] Dr. Gregg Evans #0.8 103/ulNormal0.3-0.8The [facility] HospitalComment on above:Performed By: #### SEDR #### [facility] [address] [place] [address] Dr. Gregg Pfeifferocytes/100 WBC (Bld)11.4 %Normal1.7-12.0[facility] Comment on above:Performed By: #### SEDR #### [facility] [address] [place] [address] Dr. Gregg Weaver #3.2 103/ulNormal1.4-6.5The [facility] HospitalComment on above:Performed By: #### SEDR #### [facility] [address] [place] [address] Dr. Gregg Crockerutrophils/100 WBC (Bld)43.7 %Tsazam82.0-75.0The [facility] HospitalComment on above:Performed By: #### SEDR #### [facility] [address] [place] [address] Dr. Gregg Snider mean volume (Bld) [Entitic vol]9.2 fLCritically low 9.5-13.5The [facility] HospitalComment on above:Performed By: #### SEDR #### [facility] [address] [place] [address] Dr. Gregg RomeroT416 103/paRwperj330-262Nbp [facility] HospitalComment on above: Performed By: #### SEDR #### [facility] [address] [place] [address] Dr. Gregg HumphreysRBC5.33 106/ulNormal4.70-6.10The [facility] HospitalComment on above:Performed By: #### SEDR #### [facility] [address] [place] [address] Dr. Gregg HumphreysWBC7.4 103/ulNormal4.0-11.0The [facility] HospitalComment on above: Performed By: #### SEDR #### [facility] [address] [place] [address] Dr. Gregg Galeano 26-39-5314LTM [Mass/Vol]mg/LNormal<=1.0The [facility] HospitalComment on above:Performed By: #### CRP, CMP #### [facility] [address] [place] [address] Dr. Gregg Pressley 14(COMP METB)on 50-25-2790Lkcyock [Mass/Vol]3.5 g/dLNormal 3.5-5.0The [facility] Hospitalment on above:Performed By: #### CRP, CMP #### [facility] [address] [address] [address] Gregg HumphreysAlbumin/Globulin [Mass ratio]0.9 {ratio}NormalThe [facility] HospitalComment on above:Performed By: #### CRP, CMP #### [facility] [address] [address] [address] Gregg Blanc [Catalytic activity/Vol]90 U/USvqgpi51-681Bxs [facility] HospitalComment on above:Performed By: #### CRP, CMP #### [facility] [address] [address] [address] Gregg Chirinos [Catalytic activity/Vol]56 U/JWnatuk99-20Vwk [facility] HospitalComment on above:Performed By: #### CRP, CMP #### [facility] [address] [address] [address] Gregg Stringer gap [Moles/Vol]11.9 mmol/LNormalThe [facility] Comment on above:Performed By: #### CRP, CMP #### [facility] [address] [address] [address] Gregg HumphreysAST [Catalytic activity/Vol]21 U/OLjcmte38-73Qeg [facility] HospitalComment on above:Performed By: #### CRP, CMP #### [facility] [address] [address] [address] Gregg HumphreysBilirubin [Mass/Vol]0.3 mg/dLNormal0.2-1.3[facility] Comment on above:Performed By: #### CRP, CMP #### [facility] [address] [address] [address] Gregg HumphreysCalcium [Mass/Vol]9.2 mg/dLNormal8.4-10.2[facility] Comment on above:Performed By: #### CRP, CMP #### [facility] [address] [address] [address] Gregg HumphreysChloride [Moles/Vol]105 mmol/SBzuchh88-599Klc [facility] Comment on above:Performed By: #### CRP, CMP #### [facility] [address] [address] [address] Gregg HumphreysCO2 [Moles/Vol]27.0 mmol/APjoqyx91.0-30.0The [facility] Comment on above:Performed By: #### CRP, CMP #### [facility] [address] [address] [address] Gregg HumphreysCreatinine [Mass/Vol]1.00 mg/dLNormal0.66-1.25The [facility] HospitalComment on above:Performed By: #### CRP, CMP #### [facility] [address] [address] [address] Gregg EricksonGFR-AF GHANAIAN>60Normal>=60The [facility] HospitalComment on above:Performed By: #### CRP, CMP #### [facility] [address] [address] [address] Gregg EricksonGFR-NON AF GHANAIAN>60Normal>=60The [facility] HospitalComment on above:Performed By: #### CRP, CMP #### [facility] [address] [address] [address] Gregg HumphreysGlobulin (S) [Mass/Vol]3.7 g/dLNormalThe [facility] HospitalComment on above:Performed By: #### CRP, CMP #### [facility] [address] [address] [address] Gregg HumphreysGlucose [Mass/Vol]118 mg/dLCritically vhay98-329Imu [facility] HospitalComment on above:Performed By: #### CRP, CMP #### [facility] [address] [address] [address] Gregg HumphreysPotassium [Moles/Vol]3.9 mmol/LNormal3.4-5.0[facility] Comment on above:Performed By: #### CRP, CMP #### [facility] [address] [address] [address] Gregg HumphreysProtein [Mass/Vol]7.2 g/dLNormal6.1-8.2[facility] Comment on above:Performed By: #### CRP, CMP #### [facility] [address] [address] [address] Gregg HumphreysSodium [Moles/Vol]140 mmol/KKouceh344-684Aru [facility] Comment on above:Performed By: #### CRP, CMP #### [facility] [address] [address] [address] Gregg HumphreysUrea nitrogen [Mass/Vol]17.0 mg/dLNormal9.0-20.0The [facility] HospitalComment on above:Performed By: #### CRP, CMP #### [facility] [address] [place] [address] Dr. Gregg HumphreysUrea nitrogen/Creatinine [Mass ratio]17.0 mg/mgNormalThe [facility] HospitalComment on above:Performed By: #### CRP, CMP #### [facility] [address] [address] RATE WESTERGRENon 89-29-9219PPC RATE20 mm/hrNormal<=20The [facility] HospitalComment on above:Performed By: #### SEDR #### [facility] [address] [address] [address] Gregg Mcpherson RANDOM W/MICROSCOPICon 40-33-1009BLPSIXNCVFYIHYinboxboQBRS SEENThe [facility] HospitalComment on above:Performed By: #### CRP, CMP #### [facility] [address] [address] [address] Gregg HumphreysBilirubin Ql (U)NegativeNormalNEGATIVERiverview Health Institute Comment on above:Performed By: #### CRP, CMP #### [facility] [address] [address] [address] Gregg HumphreysCASTNONE SEENNormalNONE SEENRiverview Health InstituteComment on above:Performed By: #### CRP, CMP #### [facility] [address] [address] [address] Gregg HumphreysClarity (U)CLEARNormalCLEARRiverview Health InstituteComment on above: Performed By: #### CRP, CMP #### [facility] [address] [address] [address] Gregg Gregglor (U)LT. YELLOWNormalYELLOWRiverview Health InstituteComment on above:Performed By: #### CRP, CMP #### [facility] [address] [address] [address] Gregg HumphreysCrystals LM Nom (Urine sed)NONE SEENNormalNONE SEENRiverview Health InstituteComment on above:Performed By: #### CRP, CMP #### [facility] [address] [address] [address] Escobedo ChangEpithelial cells LM Ql (Urine sed)NONE SEENNormalNONE SEEN /RARE [facility] HospitalCom[facility]aum[facility] on above:Performed By: #### CRP, CMP #### [facility] [address] [address] [address] Gregg HumphreysGlucose Ql (U)NegativeNormalNEGATIVERiverview Health InstituteComment on above:Performed By: #### CRP, CMP #### [facility] [address] [address] [address] Gregg HumphreysHemoglobin Ql (U)NegativeNormalNEGATIVEClinton Memorial Hospital on above:Performed By: #### CRP, CMP #### [facility] [address] [address] [address] Gregg HumphreysKetones Ql (U)NegativeNormalNEGATIVERiverview Health InstituteComment on above:Performed By: #### CRP, CMP #### [facility] [address] [place] [address] Dr. Gregg HumphreysLEUKOCYTESNegativeNormalNEGATIVERiverview Health InstituteCombeaumont hospital on above:Performed By: #### CRP, CMP #### [facility] [address] [address] [address] Gregg HumphreysMUCOUSNONE SEENNormalNONE SEENThe [facility] HospitalComment on above:Performed By: #### CRP, CMP #### [facility] [address] [address] [address] Gregg Nunez Ql (U)NegativeNormalNEGATIVEThe [facility] HospitalComment on above:Performed By: #### CRP, CMP #### [facility] [address] [address] [address] Gregg HumphreyspH (U)6.0 [pH]Normal5-9The [facility] HospitalComment on above: Performed By: #### CRP, CMP #### [facility] [address] [address] [address] Gregg HumphreysRBCNONE SEENAbnormal0-2The [facility] HospitalComment on above: Performed By: #### CRP, CMP #### [facility] [address] [address] [address] Gregg HumphreysSPEC GRAVITY1.681Doeoax4.005-<=1.025The [facility] HospitalComment on above:Performed By: #### CRP, CMP #### [facility] [address] [address] [address] Gregg Mcpherson PROTEINNegativeNormalNEGATIVE/ TRACEThe [facility] Comment on above:Performed By: #### CRP, CMP #### [facility] [address] [address] [address] Gregg Popebilessie Qn (U)0.2 {Kiki'U}/dLNormal0.2 - 1.0The [facility] HospitalComment on above:Performed By: #### CRP, CMP #### [facility] [address] [address] [address] Gregg HumphreysWBCNONGiovani SEENNormalNONE SEENThe [facility] HospitalComment on above: Performed By: #### CRP, CMP #### [facility] [address] [address] [address] Gregg Salgado Screening.on 70-16-0106Fgmc risk assessmenta) [facility] within the last [facility]App[facility] 600 DO Work Phone: Tobacco use status CPHSb) NoMP-[facility] 600 DO Work Phone: Vital Signs Date TimeVital SignValuePerforming ZgvnulcqiUhaphewy06-06-7360 11:40-0400Body vzlowx11.69 kgSum[facility]04-08-2025 11:40-0400Diastolic blood mbfycrex65 mm[Hg][facility]04-08-2025 11:40-0400 Heart rate69 /[facility]04-08-2025 11:40-8473DdQ4% (BldA) [Mass fraction]96 %[facility]04-08-2025 11:40-0400 Systolic blood wgdyyyiv041 mm[Hg][facility]02-10-2025 12:07-0500Diastolic blood ecpyuxne05 mm[Hg][facility] 05-12-2024 12:07-0500Heart dizg103 /[facility] 05-12-2024 12:07-0500Systolic blood lkratxvk085 mm[Hg][facility]01-17-2025 10:57-0500Diastolic blood mm[Hg][facility]01-17-2025 10:57-0500Heart rate75 /[facility]01-17-2025 10:57-1348IfJ3% (BldA) [Mass fraction]97 %[facility]01-17-2025 10:57-0500Systolic blood xnawdcyo859 mm[Hg][facility]01-07-2025 11:07-0500Body .64 cmSumma Health [facility]01-07-2025 11:07-0500Body mass index (BMI) [Ratio]28.5 kg/m3AqdahjuowSumma Health [facility] Campus01-07-2025 11:07-0500Body ytqbts18.34 kg [facility]12-10-2024 10:27-0500Body yjfbei918.64 cm [facility]12-10-2024 10:27-0500Body mass index (BMI) [Ratio]28 kg/x6NkuafaldfSumma Health [facility] Campus12-10-2024 10:27-0500Body weight 78.64 kgSumma Health [facility] Campus10-03-2024 08:23-0400Body criszy702.64 cmDO Flavio Myers Work Phone: [facility]10-03-2024 08:23-0400 Body mass index (BMI) [Ratio]27.6 kg/m2DO Flavio Myers Work Phone: [facility]10-03-2024 08:23-0400 Body .56 kgDO Flavio Myers Work Phone: [facility]05-28-2024 12:26-0400 Body nexspw654.64 cmSumma Health [facility]05-28-2024 12:26-0400Body mass index (BMI) [Ratio]29.3 kg/r2QevvaqovuSumma Health Barberton Campus05-28-2024 12:26-0400Body cvhqualseyb81.1 [degF][facility]05-28-2024 12:26-0400Body lsatgu32.55 kgSumma Health [facility]05-28-2024 12:26-0400Diastolic blood wwpmkznu90 mm[Hg][facility] 08-28-2023 12:26-0400Heart rate60 /[facility] 08-28-2023 12:-0400Respiratory rate18 /[facility] 08-28-2023 12:26-0789NzX3% (BldA) [Mass fraction]98 %[facility]05-28-2024 12:26-0400Systolic blood ntyhvdgi820 mm[Hg][facility]08-23-2023 11:27-0400Body ubwloo412.64 cmDamarquitanikhil Dominguezring Work Phone: [phone]) 224-4460341-5627RE-Tlspe [facility] 600 DO Work Phone: 1(100) [phone] 11:27-0400Body mass index (BMI) [Ratio] 28.63 kg/o1Nrsyqm A Myers Work Phone: mp416-1771VA-Xwdpn [facility] 600 DO Work Phone: 1(778) 245-238008-23-2023 11:27-0400Body surface area Derived from formula1.9 u1Vqgcxr A Myers Work Phone: mp079-4432JS-MsznbAll[facility] 600 DO Work Phone: 1(693)[phone] 11:27-0400Body deulky59.46 kgDamarquitanikhil Jackson Myers Work Phone: mp301-0762ZH-KxnkyAll[facility] 600 DO Work Phone: 1([phone])[phone] 11:27-0400Diastolic blood erbmvkcl52 mm[Hg] Flavio Jackson Myers Work Phone: mp310-1436IK-RscurPhillips Eye Institutek 600 DO Work Phone: [phone])[phone] 11:27-0400Heart rate60 /minDbrittany Jackson Myers Work Phone: mp677-1992SG-OaxveLong Prairie [facility] 600 DO Work Phone: 1(789)[phone] 11:27-0400Systolic blood xxsuyqvs303 mm[Hg] Flavio Jackson Myres Work Phone: mp662-3639SF-BfdmePhillips Eye Institutek 600 DO Work Phone: [phone])[phone] 10:14-0400Diastolic blood gdmosxyo77 mm[Hg] Flavio Jackson Myers Work Phone: mp669-5740DE-MxvugWoodwinds Health Campuswalk 600 DO Work Phone: 1(691) 485-533706-30-2022 10:14-0400Systolic blood jblivade139 mm[Hg] Flavio Jackson Myers Work Phone: mp456-8135JU-NywvxAll[facility] 600 DO Work Phone: 1(244) 657-969906-30-2022 09:50-0400Body kzkdsi965.64 cmDalexie Jackson Myers Work Phone: mp406-2976OJ-Xdxnz [place] [facility] 600 DO Work Phone: [phone])[phone] 09:50-0400Body mass index (BMI) [Ratio] 29.05 kg/z9Kiyqug A Myers Work Phone: mp603-2654YZ-Ruvfb [place] [employer] 600 DO Work Phone: 1(180)[phone] 09:50-0400Body surface area Derived from formula1.91 v6Lvulgz Renetta Myers Work Phone: mp710-2381KT-Dqvld [place] [employer] 600 DO Work Phone: 1(366)[phone] 09:50-0400Body amcsuz72.65 kgDamarquitanikhil Jackson Myers Work Phone: mp869-1487OR-Ovfeh [place] [facility] 600 DO Work Phone: 1(188)[phone] 09:50-0400Diastolic blood jodmehdi80 mm[Hg] Flavio Jackson Myers Work Phone: mp936-5048AW-Pnfme [place] [facility] GamesUp[facility] Hospitalk 600 DO Work Phone: [phone])[phone] 09:50-0400Heart rate60 /minDaninikhil Jackson Myers Work Phone: mp622-4718CT-Pnwzb [place] [facility] 600 DO Work Phone: 1(073)[phone] 09:50-0400Systolic blood dbnsslaj958 mm[Hg] Flavio Jackson [employer] Work Phone: mp580-1234FM-Fxtje [place] [facility] 600 DO Work Phone: 1(351) 879-676302-10-2022 12:25-0500Body sevhpm691.64 cmStepfrank Rogers Other [employer] Other 02-10-2022 12:25-0500Body mass index (BMI) [Ratio] 29.21 kg/n7ElapeysffKarma Rogers Other [employer] Other 02-10-2022 12:25-0500Body ybqelmbsejk76.5 [degF] Karma Rogers Other [employer] Other 02-10-2022 12:25-0500Body ptvybf09.1 kgStjonathan Rogers Other [employer] Other 02-10-2022 12:25-0500Diastolic blood vicqsdit78 mm[Hg] Karma Smithault Other [employer] Other 02-10-2022 12:25-0500Respiratory rate20 /minSnicolás Smithault Other [employer] Other 02-10-2022 12:25-0586DhQ2% (BldA) [Mass fraction]96 % Karma Smithault Other [employer] Other 02-10-2022 12:25-0500Systolic blood ywkmqvde483 mm[Hg] Karma Rogers Other [employer] Other 01-12-2022 10:58-0500Body vkfxyn931.64 cmDaniel A [employer] Work Phone: mp203-6771LR-Kbddm [place] [employer] 600 DO Work Phone: [phone]) [phone] 10:58-0500Body mass index (BMI) [Ratio] 30.34 kg/l5Biyafd A [employer] Work Phone: mp707-1212QQ-Dxuxk [place] [employer] 600 DO Work Phone: 1([phone]) [phone] 10:58-0500Body surface area Derived from formula1.95 j9Ezoqkp A [employer] Work Phone: mp365-5670MX-Belid [place] [employer] 600 DO Work Phone: 1(261) 834-390201-12-2022 10:58-0500Body ovoapx75.28 kgDalexie Jackson Myers Work Phone: mp574-4893VL-NpffvChippewa City [facility] 600 DO Work Phone: 1(411) 922-382001-12-2022 10:58-0500Diastolic blood qeilhyka98 mm[Hg] Flavio Jackson Myers Work Phone: mp979-3950FS-LsrunChippewa City Montevideo Hospital 600 DO Work Phone: 1(868) 129-426701-12-2022 10:58-0500Heart rate60 /minDaninikhil Jackson Myers Work Phone: mp378-5382QT-QyajpChippewa City Montevideo Hospital 600 DO Work Phone: 1(232) [phone] 10:58-0500Systolic blood chunmbkq571 mm[Hg] Flavio Jackson Myers Work Phone: mp286-2510ZJ-XwherChippewa City Montevideo Hospital 600 DO Work Phone: Encounters Encounter DateEncounter TypeCare ProviderFacilityStart: 12-18-2024 End: 03-35-0882Tvwsqi flowsheetNatalie A Felter MITER SAW OPERATOR-RETORT LOAD EXPEDITER Work Phone: noAs It Is [place] DermatologyStart: 12-18-2024 End: 10-39-0323Kpfzyu flowsheetNatalie A Felter MITER SAW OPERATOR-RETORT LOAD EXPEDITER Work Phone: noAs It Is [place] DermatologyStart: 12-18-2024 End: 73-98-8300Pxiezv outpatient visit 15 minutesNatalie A Felter MITER SAW OPERATOR-RETORT LOAD EXPEDITER Work Phone: noAs It Is [place] DermatologyComment on above:Seborrheic keratosis (Primary Dx); Melanocytic nevus of trunk; Lentigines; Angioma of skin; Actinic keratosisStart: 12-18-2024 End: 45-44-4450nyexytymbfEWSQIYJ A FELTERNot AvailableStart: 11-24-2024 End: 61-03-6183eugikpngllTcsh T AMESFacility:[facility] Start: 09-01-2024 End: 60-39-3576tananizsnxXzev T AMESFacility:[facility] Start: 07-08-2024 End: 41-66-2463siaqjqtzhrFfppybgll [facility] Work Phone: Start: 07-08-2024 End: 49-14-3349Bzoqwby encounter procedureFirnicholes Physician [facility] Work Phone: Start: 05-12-2024 End: 86-15-6472amgjdgxojmGmzjalbfc [facility] Work Phone: Start: 05-12-2024 End: 82-25-7711Lnnchty encounter procedureDaniel Physician [facility] Work Phone: Start: 05-01-2024 End: 45-52-6564ecslrkqrnqXubidjdmf [facility] Work Phone: Start: 05-01-2024 End: 56-17-6989Ueljtku encounter procedureDaniel Physician [facility] Work Phone: Start: 60-23-9639Rkc-patient / Non-visitKindred [facility] Physician [facility] Work Phone: Start: 04-18-2024 End: 01-88-6544tqpganodieHkplxoizvC[facility] Work Phone: Start: 04-18-2024 End: 80-36-2809Brhzghk encounter procedureDaniel Physician [facility] Work Phone: Start: 04-08-2024 End: 82-44-0362vyosbmpokdDieycleis [facility] Work Phone: Start: 04-08-2024 End: 52-09-3145Madvndn encounter procedureFirflorences Physician [facility] Work Phone: start: 03-11-2024 End: 35-49-4891Upstgke encounter procedureMendozalifepoint health Physician [facility] Work Phone: start: 02-26-2024 End: 30-77-5493mypbybahegAYPDN B OTTNot AvailableStart: 02-25-2024 End: 14-63-6719xnjybykrfuAkocr B Emmanuel PT Work Phone: [facility] NM PTComment on above:Radiculopathy, lumbar region (Primary Dx)Start: 02-14-2024 End: 04-17-9121auqjrpislvCJHRA B OTTNot AvailableStart: 02-13-2024 End: 08-43-4963vqoxdublwtMftuy B Emmanuel PT Work Phone: [facility] NM PTComment on above:Radiculopathy, lumbar region (Primary Dx)Start: 01-31-2024 End: 63-77-8995npuzbnxmttJMRJM B OTTNot AvailableStart: 01-30-2024 End: 24-49-6387lykvcnzunxJmqfr B Emmanuel PT Work Phone: [facility] NM PTComment on above:Radiculopathy, lumbar region (Primary Dx)Start: 01-24-2024 End: 21-21-7735pszmatteqzJPXRF B OTTNot AvailableStart: 01-23-2024 End: 13-76-4388zlnjetrbqrTkkyb B Emmanuel PT Work Phone: [facility] NM PTComment on above:Radiculopathy, lumbar region (Primary Dx)Start: 01-15-2024 End: 55-89-4936zpqesfneoiOfeoiip HARWOODFacility:Occupational Health and WellnessStart: 01-03-2024 End: 81-63-3387lhmlcglwjlVxsdz JustynaFacility:[facility] Centertart: 01-03-2024 End: 13-06-6037Mtvnzbk encounter procedureDO Flavio Myers Work Phone: [facility] Work Phone: start: 12-18-2023 End: 47-36-8903Jsehbg flowsheetNatalie Renetta Velasco MITER SAW OPERATOR-RETORT LOAD EXPEDITER Work Phone: [facility] SWS DERMStart: 12-18-2023 End: 01-50-3122Ngwgom flowsheetNatalie A Felter MITER SAW OPERATOR-RETORT LOAD EXPEDITER Work Phone: [facility] SWS DERMStart: 12-18-2023 End: 73-40-1297Hptdvu outpatient visit 15 minutesNatalie A Felter MITER SAW OPERATOR-RETORT LOAD EXPEDITER Work Phone: noms SWS DERMComment on above:Seborrheic keratosis (Primary Dx); Melanocytic nevus of trunk; Angioma of skin; Lentigines; Neoplasm of unspecified behavior of bone, soft tissue, and skinStart: 08-28-2023 End: 25-26-6560oplunuicalVfntfptkr [facility] Work Phone: Start: 08-28-2023 End: 93-26-2811Eggvoeo encounter procedureKindred Hospital - [facility] [place] Work Phone: Start: 22-80-2595nlyeobtyupHiDr. Flavio Myers Facility:[id number]: 77-13-0424Nardrz outpatient visit 15 minutesDaniel A Myers Work Phone: [phone]-Fwvkl [facility] 600 DO Work Phone: Start: 48-81-3050Lv RenewalDaniel A Myers Work Phone: [phone]-Vstku [facility] 250 DO Work Phone: Start: 05-06-2022 End: 51-35-6249kundurtrwwWJ MATTHEW MORROWFacility:Q9Vabpt: 44-78-7809Kicimvxsg for general adult medical examination without abnormal findingsDR FLAVIO MYERSSt. John of God Hospitaltart: 11-19-2021 End: 51-44-4229etvuhazaabKW DANIEL A HERRINGFacility:X2Nlixg: 11-19-2021 End: 70-63-4402Ylektswda for general adult medical examination without abnormal findingsDR FLAVIO Godinezcility:J7Sifwp: 06-33-3369Atdzij outpatient visit 25 minutesDaniel A Myers Work Phone: [phone]-MtatsChippewa City [facility] Hospital 600 DO Work Phone: Start: 07-13-2021 End: 40-62-3547nogxtexvtpJS FLAVIO MYERSFacility:U1Bktgn: 27-60-9225Pfyuk UpdateDbrittany Jackson Myers Work Phone: [phone]-AhbmvChippewa City Montevideo Hospital 600 DO Work Phone: Start: 05-25-2021 End: 99-10-9956tzrudjkrfuZN DOCTOR MISCFacility:K3Gsxty: 05-12-2021 End: 82-94-1112hcgzgiklpcUvrgobxlt Bre[place] Other [facility] [employer] [place] Other Start: 68-88-2672Azcjio outpatient visit 15 minutes Karma [facility] ClydeStart: 99-11-4688Xwcnbc outpatient visit 25 minutesDalexie Jackson Myers Work Phone: [phone]-ItuwiChippewa City Montevideo Hospital 600 DO Work Phone: Start: 07-16-2015 End: 03-72-5574Rzpgobm encounter procedureMICASHLEY OTTOFacility:[facility]ROHealth Procedures DateProcedureProcedure DetailPerforming ClinicianStart: 75-97-9761ECIMKLNOYNR SKIN LESIONNatalie A Felter MITER SAW OPERATOR-RETORT LOAD EXPEDITER Work Phone: Start: 20-73-8247D-ray of lumbar spine, six views including bending viewsDO Flavio Myers Work Phone: start: 22-80-6493CFBC / NAIL BIOPSYNatalie A Felter MITER SAW OPERATOR-RETORT LOAD EXPEDITER Work Phone: Start: 66-33-0187SAG screeningDR MANUEL ACComvinod on above:Performed By: #### CRP, CMP #### [facility] [address] [place] [address] Dr. Gregg MckayectomyDaniel A Myers Work Phone: Cataract surgeryDaniel A Myers Work Phone: ColonoscopyDaniel A Myers Work Phone: Comment on above:[id number]; Plan of Treatment DateCare ActivityDetailAuthorStart: 32-24-5713Slhfbcfkh for malignant neoplasm of colonNOMS HealthcareStart: 12-17-2025 End: 40-13-7497Gsedvjq encounter /17/2026 11:20 AM EDT Office Visit [facility] [place] [facility] [address] [place], [id number] Jennifer Velasco, MITER SAW OPERATOR-RETORT LOAD EXPEDITER [address] [place] [address] [facility] [place] DermatologyStart: 12-18-2024 End: 18-58-9711Mpemavo encounter procedureNOMS SWS DERMComment on above:Arrived Start: 14-41-5379Hdgjlyjxg vaccinationInfluenza Vaccine (#1)[facility] Start: 82-66-2842Xxkupfz referralTrumbull [facility] Work Phone: Start: 02-25-2024 End: 30-65-5401ulluppzlcu43/25/2024 6:00 PM EST Treatment [facility] [address] [place] [address] Mp Benitez, PT [address] [place] [address] NOM NM PTStart: 02-13-2024 End: 66-33-2376gkpctlnaei33/13/2024 6:15 PM EST Treatment [facility] [address] [place] [address] Mp Benitez, PT [address] [place] [address] [facility] NM PTStart: 01-30-2024 End: 58-81-5824doqclpwdpb76/30/2024 6:15 PM EDT Treatment [facility] [address] [place] [address] Mp Benitez, PT [address] [place] [id number] [facility] PTStart: 01-03-2024 [facility] Work Phone: Start: 40-24-8410E-ray of lumbar spine, six views including bending viewsXR lumbar spine 6V w bendingUniversity Hospitals Cleveland Medical Centertart: 40-09-5403AP Lumbar spine ViewsSumma Health [facility] Start: 12-18-2023 End: 88-82-2206Pcpmsbw encounter gsodkystk06/17/2024 1:00 PM EDT Office Visit NOMEbonie JAMES DERM [address] [place] [id number] Jennifer Velasco, MITER SAW OPERATOR-RETORT LOAD EXPEDITER [address] [place] [address] ArrivedNOMS [facility] DERMComment on above: ArrivedStart: 71-78-1747Tbvhxgnkm vaccinationInfluenza Vaccine (#1)[facility] HealthcareStart: 51-00-2609MTY, Provider: Lisa Guardado, Status: Pen, Time: 1:10 PMFUV, Provider: Lisa Guardado, Status: Pen, Time: 1:10 PM-[facility] 600 DO Work Phone: Start: 45-51-4814QXF, Provider: Lisa Guardado, Status: Pen, Time: 11:10 AMFUV, Provider: Lisa Guardado, Status: Pen, Time: 11:10 [facility] DO Work Phone: Start: 78-29-8470PWB, Provider: Lisa Guardado, Status: Pen, Time: 10:30 AMFUV, Provider: Lisa Guardado, Status: Pen, Time: 10:30 AM[facility] 600 DO Work Phone: Start: 48-57-7475JMJ, Provider: Lisa Guardado, Status: Pen, Time: 11:20 AMFUV, Provider: Lisa Guardado, Status: Pen, Time: 11:20 AM[facility] 600 DO Work Phone: Start: 64-81-7218ZDT, Provider: Lisa Guardado, Status: Pen, Time: 1:00 PMFUV, Provider: Lisa Guardado, Status: Pen, Time: 1:00 PM[facility] 600 DO Work Phone: Start: 02-37-4822ZRLSKQ ANDREW, Provider: [place] HHVI NUCLEAR 01,[id number], Status: Pen, Time: 11:00 AMSTRESS ANDREW, Provider: [place] HHVI NUCLEAR 01,[id number], Status: Pen, Time: 11:00 [facility] Work Phone: Start: 44-53-0699JCJWAM ANDREW, Provider: [place] HHVI NUCLEAR 01,[id number], Status: Pen, Time: 11:00 AMSTRESS ANDREW, Provider: [place] HHVI NUCLEAR 01,[id number], Status: Pen, Time: 11:00 [place] [address] DO Work Phone: Start: 69-44-9052Awctnwjsa for malignant neoplasm of colonNOMS HealthcareDermatopathology examDermatopathology exam Pathology and Cytology Timed Neoplasm of unspecified behavior of bone, soft tissue, and skin Release Upon Ordering for 1 Occurrences starting 12/18/2023[facility] Work Phone: comment on above:Release Upon Ordering for 1 Occurrences starting 12/18/2023MR Lumbar spine WO [facility] Work Phone: Immunizations Immunization DateImmunizationNotesCare NbnymcmdCnanjqdf54-98-5250UATSZ-21 (PFIZER) 12Y and olderSum[facility] Campus11-24-2023RSV, bv, preFa and preFb, pfSumma Health Barberton Campus11-18-2023influenza, injectable, quadrivalent, preservative freeSumma Health Barberton Campus 68-69-6484tvovjunkc virus vaccine, unspecified formulationRosa Maligiovani Velasco MITER SAW OPERATOR-RETORT LOAD EXPEDITER Work Phone: [facility] HospitalElgkychthr27-17-1499kfxzaobhp, injectable, quadrivalent, preservative freeDaniel A Myers Work Phone: [facility]10-29-2022Prevnar 20 0.5 ML Intramuscular Suspension Prefilled SyringeDaniel A Myers Work Phone: [facility]10-22-2022Pfizer COVID-19 Vac Bivalent 30 MCG/0.3ML Intramuscular SuspensionDaniel A Myers Work Phone: [phone] [place], [place] [address]7-01-2022Comirnaty 30 MCG/0.3ML Intramuscular SuspensionDaniel A Myers Work Phone: [facility]06-04-2022Comirnaty 30 MCG/0.3ML Intramuscular SuspensionDaniel A Myers Work Phone: [facility]10-18-2021influenza, seasonal, injectableDaniel A Myers Work Phone: [phone]-AzrebAppleton Municipal Hospital 600 DO Work Phone: [phone]radhum, injectable, Madin Josefina Canine Kidney, preservative free, quadrivalentDaniel A Myers Work Phone: [facility]2020zoster vaccine recombinantSumma Health Barberton Campus2020zoster vaccine, liveDaniel A Myers Work Phone: [phone]-XjcktLong Prairie [facility] 600 DO Work Phone: [phone]jhupca vaccine recombinantSumma Health Barberton Campus07-25-2020zoster vaccine, liveDaniel A Myers Work Phone: [phone]-TnelqLong Prairie [facility] 600 DO Work Phone: [phone]Jakxllavm, injectable, Madin Josefina Canine Kidney, preservative free, quadrivalentDaniel A Myers Work Phone: [phone] [place], [place] [address]10-01-2019influenza virus vaccine, unspecified formulationDaniel A Myers Work Phone: [phone]-UlfiyLong Prairie Memorial [facility] 600 DO Work Phone: [phone]bx vaccine, liveDaniel A Myers Work Phone: [phone] [place], [place] 6873312-28-2015 pneumococcal conjugate vaccine, 13 valentDaniel A Myers Work Phone: [phone] [place], [place] 6873312-17-2015influenza virus vaccine, unspecified formulationDaniel A Myers Work Phone: [phone]-SybpmLong Prairie [facility] 600 DO Work Phone: [phone]mzchvkufl polysaccharide vaccine, 23 valentDaniel A Myers Work Phone: [phone]-CxennLong Prairie Memorial Hospital [facility] 600 DO Work Phone: Payers DatePayer CategoryPayerPolicy [id number] Cross Blue ShieldBCBS Member Subscriber Plan / Payer (Effective 2018-Present) Name: Humberto Villatoro Relation to Subscriber: Self Name: Humberto Villatoro Payer ID: Not on file Type: Not on file Address: [facility] [address] [place] [id number] 13-88-3643GwxfInscription House Health Center [id number] 2.16840.1.812134.3.57[id number] 2.160.1.138011.3.57[id number] 2.840.1.364651.3.57[id number] 2.840.1.768453.3.57[id number] 2.840.1.592648.3.57[id number] 2.840.1.230610.3.57[id number] 2.840.1.960088.3.57[id number] 2.840.1.535188.3.57[id number] 2.16840.1.116206.3.57[id number] 2.16840.1.391804.3.57[id number] 2.840.1.423045.3.57[id number] 2.16840.1.471219.3.579.2.827976-54-4742FuhbDr. Dan C. Trigg Memorial [id number] 2.16.840.1.563440.19Private Health InsuranceAetna Insurance [id number] 2.16.840.1.758507.3.579.2.531 Social History DateTypeDetailFacilityStart: 12-18-2023 End: 43-83-9753Sz illicit drug useNo illicit drug use-[facility] 600 DO Work Phone: Comment on above:3-4 cups coffee daily, 1 can of diet pop;Start: 12-18-2023 End: 12-59-9928Hdp Assigned At [facility] [employer] [place] Other Start: 11-40-0242Njw Assigned At [facility] Centertart: 11-27-2022 End: 56-54-5231Pffsnoj smoking status NHISEx-smoker (finding)[facility] CampusHistory of tobacco useCurrent smokerNOMS HealthcareHistory of tobacco useCigarette SmokerNOMS HealthcareStart: 71-95-7154Acjwonr use and exposureSmokeless tobacco non-userNOMS HealthcareStart: 71-80-9108Dkz assigned at [facility] hospitalNot on fileNOOH HealthcareStart: 04-08-2024 End: 21-28-5197WsbTunv (finding)[facility] Clinical Notes 04-02-2021 to 12-18-2024 Note Date & QvszNbjgUvicvykg37-85-6820 History of Present illness Narrative* Jennifer Velasco, BILLY-RETORT LOAD EXPEDITER - 12/18/2024 1:00 PM EDT Skin Check Location: Patient requests a skin examination from the waist up, A full body skin exam was offered,patient declined Dermatologic history: history of Actinic Keratosis Last visit: 1 year ago Established patient Lesions: Location: scalp Duration: months Quality: itchy Modifying factors: aggravated by picking Associated symptoms: rough Treatments: none All pertinent medical history, medications, and allergies were reviewed. General Exam: alert, oriented to person, place, and time, normal affect, well appearing Accompanied by spouse A complete skin exam was offered, pt declined. Areas not examined despite medical recommendation: From the waist down Scalp, Examined , exam limited by hair Head, Face Examined , Exam limited by cardenas and mustache Neck Examined Chest Examined Back Examined Abdomen Examined Right arm Examined Left arm Examined Hands Examined Digits,nails: Examined Lymphatics: Not examined Skin Exam 1. SEBORRHEIC KERATOSIS Head Stuck on verrucous, variably pigmented papules and plaques. Patient was counseled regarding these benign growths. Removal is normally not necessary, but they may be removed if they are symptomatic or for cosmetic reasons. 2. MELANOCYTIC NEVUS OF TRUNK Generalized Scattered benign appearing, regular brown to light brown melanocytic papules and macules with similar morphology Counseled regarding these benign growths. Rarely, a nevus can develop into malignant melanoma, so any changing nevi should be promptly re-evaluated. 3. LENTIGINES Generalized Scattered cassidy macules in sun-exposed areas. The patient was informed that lentigines are benign pigmented lesions that occur on sun-exposed andsun-damaged skin. No treatment is necessary. Recommended regular use of broad spectrum sunscreen SPF 30 or higher 4. ANGIOMA OF SKIN Generalized Scattered grijalva-red papule(s). The patient was informed that angiomas are benign growths on the the skin. No treatment is necessary. 5. ACTINIC KERATOSIS (6) Left Temporal Scalp, Left Zygomatic Area, Mid Parietal Scalp (3), Right Forehead Erythematous scaly papules Patient was counseled regarding these sun-induced growths that can develop into squamous cell carcinoma if left untreated. Discussed treatment with cryotherapy. It was emphasized that any treated lesions that fail to resolve should be re- evaluated. Cryotherapy performed today; see procedure note Diagnosis: Actinic keratosis Indication: Precancerous Location: see skin exam Consent: Verbal consent was obtained and risks were discussed, including, but not limited to risks of scarring, darker or tour consultant pigmentary changes, recurrence, incomplete removal and infection. Method: Liquid nitrogen was used to treat the lesion(s) with two 5-10 second freeze-thaw cycles. Number of lesions treated: 6 Post-procedure instructions: Instructions were given orally and in writing. The office will be contacted if the lesion fails to resolve despite treatment, or if a side effect develops such as abnormal crusting, scabbing, redness or tenderness Cryotherapy, skin lesion - Left Temporal Scalp, Left Zygomatic Area, Mid Parietal Scalp (3), Right Forehead Next Visit: 1 year documented in this [facility]01-17-2025 Evaluation note* Diagnosis Onset Date Resolution Status Admit Date Lumbar radiculopathy acuteJanuary 2024 10:46amLumbosacral spondylosisacuteJanuary 2024 10:46amOther chronic painacuteJanuary 2024 10:46amSacroiliitisacuteJanuary 2024 10:46amLumbar radiculopathyacuteFebruary 2024 11:49am Lumbosacral spondylosisacuteFebruary 2024 11:49amOther chronic painacute February 2024 11:49amSacroiliitisacuteFebruary 2024 11:49amLumbar radiculopathyacuteApril 2024 11:21amLumbosacral spondylosisacuteApril 2024 11:21amOther chronic painacuteApril 2024 11:21amSacroiliitisacuteApril 2024 11:21am [facility] Work Phone: [phone] 314-986412-10-2024 Evaluation note* Diagnosis Onset Date Resolution Status Admit Date Right groin pain acuteDecember 2023 10:20amRight lumbar radiculopathyacuteDecember 2023 10:20am [facility] Work Phone: [phone] 199-652112-10-2024 Evaluation note* Diagnosis Onset Date Resolution Status Admit Date Right groin pain acuteDecember 2023 10:20amRight lumbar radiculopathyacuteDecember 2023 10:20amDegenerative arthritis of spineacuteJanuary 2024 11:05amRight lumbar radiculopathyacuteJanuary 2024 11:05amLumbar radiculopathyacute April 18, 2024 10:46amLumbosacral spondylosisacuteJanuary 2024 10:46am Other chronic painacuteJanuary 2024 10:46amSacroiliitisacuteJanuary 2024 10:46am [facility] Work Phone: [phone]) 192-812612-10-2024 Evaluation note* Diagnosis Onset Date Resolution Status Admit Date Right groin pain acuteDecember 2023 10:20amRight lumbar radiculopathyacuteDecember 2023 10:20amDegenerative arthritis of spineacuteJanuary 2024 11:05amRight lumbar radiculopathyacuteJanuary 2024 11:05amLumbar radiculopathyacute April 18, 2024 10:46amLumbosacral spondylosisacuteJanuary 2024 10:46am Other chronic painacuteJanuary 2024 10:46amSacroiliitisacuteJanuary 2024 10:46amLumbar radiculopathyacuteFebruary 2024 11:49amLumbosacral spondylosisacuteFebruary 2024 11:49amOther chronic painacuteFebruary 2024 11:49amSacroiliitisacuteFebruary 2024 11:49am [facility] Work Phone: [phone]) 126-494611-25-2024 History of Present illness Narrative* Mp Benitez, PT - 02/25/2024 6:00 PM EST Physical Therapy Physical Therapy Evaluation Visit Patient Name: Humberto Villatoro Today's Date: 02/25/2024 Encounter Diagnoses Name Primary? Radiculopathy, lumbar region Yes Time In: 6:00 pm Time out: 6:40 pm Supervised Time: 25 Min Total Time: 15 Min Visit Number: 4 (PT- No co-ins $30 co-pay 20 visits No Auth Availity Trans ID [id number]) Chief Complaint: Chronic 20 year history LBP with 6 months of LBP exacerbation and newer onset right LE radiculopathy. PRECAUTIONS: As Tolerated Subjective History: 63 yo male presents per Corinne Sotelo APRN, DANAE, MSN reporting 6 months of lumbar pain exacerbation with right LE radiculopathy. 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 Presents motivated to participate in outpatient PT. [...] the sacroiliac joints. 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 Note forwarded to referring Corinne Crooks MD for review and co-signature. Plan: Recommend holding additional PT due to poor overall progress as above (02/25/24-DBO) I hereby deem this POC medically necessary. Please sign below and fax back to the number below. Physician Signature: Date: documented in this encounterLee's Summit HospitalQqyavubsov63-18-3484 History of Present illness Narrative* Mp Benitez, PT - 02/13/2024 6:15 PM EST Physical Therapy Physical Therapy Evaluation Visit Patient Name: Humberto Villatoro Today's Date: 02/13/2024 Encounter Diagnoses Name Primary? Radiculopathy, lumbar region Yes Time In: 6:15 pm Time out: 7:10 pm Supervised Time: 40 Min Total Time: 55 Min Visit Number: 3 (PT- No co-ins $30 co-pay 20 visits No Auth Availity Trans ID [id number]) Chief Complaint: Chronic 20 year history LBP with 6 months of LBP exacerbation and newer onset right LE radiculopathy. PRECAUTIONS: As Tolerated Subjective History: 63 yo male presents per Corinne Sotelo APRN, DANAE, MSN reporting 6 months of lumbar pain exacerbation with right LE radiculopathy. 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 Presents motivated to participate in outpatient PT. [...] the sacroiliac joints. 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 Physician Signature: Date: documented in this encounterLee's Summit HospitalXbbfmuvjxv60-64-7680 History of Present illness Narrative* Mp Benitez, PT - 01/30/2024 6:15 PM EDT Physical Therapy Physical Therapy Evaluation Visit Patient Name: Humberto Villatoro Today's Date: 01/30/2024 Encounter Diagnoses Name Primary? Radiculopathy, lumbar region Yes Time In: 6:15 pm Time out: 7:00 pm Supervised Time: 45 Min Total Time: 45 Min Visit Number: 2 (PT- No co-ins $30 co-pay 20 visits No Auth Availity Trans ID [id number]) Chief Complaint: Chronic 20 year history LBP with 6 months of LBP exacerbation and newer onset right LE radiculopathy. PRECAUTIONS: As Tolerated Subjective History: 63 yo male presents per Corinne Sotelo, MITER SAW OPERATOR, CHEMICAL EDUCATOR-BC, MSN reporting 6 months of lumbar pain exacerbation with right LE radiculopathy. 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 Presents motivated to participate in outpatient PT. [...] the sacroiliac joints. 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 Physician Signature: Date: documented in this encounterLee's Summit HospitalXtiimalris28-63-4083 History of Present illness Narrative* Mp Benitez, PT - 01/23/2024 6:00 PM EDT Physical Therapy Physical Therapy Evaluation Visit Patient Name: Humberto Villatoro Today's Date: 01/23/2024 Encounter Diagnoses Name Primary? Radiculopathy, lumbar region Yes Time In: 6:00 pm Time out: 7:50 pm Supervised Time: 50 Min Total Time: 50 Min Evaluation Time: 20 Minutes Visit Number: 1 (PT- No co-ins $30 co-pay 20 visits No Auth Availity Trans ID [id number]) Chief Complaint: Chronic 20 year history LBP with 6 months of LBP exacerbation and newer onset right LE radiculopathy. PRECAUTIONS: As Tolerated Subjective History: 63 yo male presents per Corinne Sotelo, BILLY, DANAE, MSN reporting 6 months of lumbar pain exacerbation with right LE radiculopathy. 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 Presents motivated to participate in outpatient PT. [...] the sacroiliac joints. 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 Physician Signature: Date: documented in this encounterLee's Summit HospitalZldtovufvn50-24-0664 History of Present illness Narrative* Jennifer Velasco, BILLY-RETORT LOAD EXPEDITER - 12/18/2023 1:00 PM EDT Images from [...] Next Visit: 1 year documented in this encounterLee's Summit HospitalHzreufuniv94-28-4207 NotePROCEDURE: XR HIP LT 2 3V WO PELVIS HISTORY: Pain of left hip joint ; chronic COMPARISON: None. FINDINGS: BONES:No fracture, acute abnormality, or significant arthropathy. SOFT TISSUES:No visible soft tissue swelling. EFFUSION:None visible. OTHER: Negative. IMPRESSION: 1. Normal examination. Electronically authenticated by: LILI BARRERA Date: 2021-07-13 14:30[facility]02-10-2022 Evaluation note* Encounter Date Diagnosis Assessment Notes Treatment Notes Treatment Clinical Notes May, Oral thrush (ICD-10 - B37.0) May mix with the Nystatin that you already have. If the symptoms don't improve, follow up with primary care provider. [employer] Other [id number] History general Narrative - Reported* Type Description Date Medical History Arthritis Medical HistoryhypertensionSurgical HistoryappendectomyHospitalization History see aboveHospitalization Erhnojcxbqjzadvl77/2022 [employer] Other Evaluation noteNo assessment information available [facility] Work Phone: Evaluation note* Diagnosis Onset Date Resolution Status Right lumbar radiculopathy acute [facility] Work Phone: Evaluation note* Diagnosis Radiculopathy, lumbar region- Primary Thoracic or lumbosacral neuritis or radiculitis, unspecified documented in this encounter [facility] HealthcareEvaluation note* Diagnosis Radiculopathy, lumbar region- Primary Thoracic or lumbosacral neuritis or radiculitis, unspecified Radiculopathy, lumbar region- Primary Thoracic or lumbosacral neuritis or radiculitis, unspecified documented in this encounter [facility] HealthcareEvaluation note* Diagnosis Radiculopathy, lumbar region- Primary Thoracic or lumbosacral neuritis or radiculitis, unspecified documented in this encounter [facility] HealthcareEvaluation note* Diagnosis Seborrheic keratosis- Primary Melanocytic nevus of trunk Benign neoplasm of skin of trunk, except scrotum Angioma of skin Lentigines Neoplasm of unspecified behavior of bone, soft tissue, and skin documented in this encounter [facility] HealthcareEvaluation note* Diagnosis Seborrheic keratosis- Primary Melanocytic nevus of trunk Benign neoplasm of skin of trunk, except scrotum Lentigines Angioma of skin Actinic keratosis documented in this encounter [facility] HealthcareHistory of Present illness Narrative* Patient is [...] rate I suspect due to treatment with beta-kyara. The patient clinical status seem to have [...] be controlled with recent addition of low-dose beta-kyara * 3. Mildly overweight. Recent weight gain [...] me change in cardiac status or symptoms [facility] 600 DO Work Phone: History of Present illness Narrative* Patient is here for follow-up continue management for previous evaluation for chest pain, hypertension, mildly overweight. Since last time I saw him he denies any cardiac complaint of chest pain, palpitation, lightheadedness, dizziness or syncope. He remains active. His main complaint is arthritis.He followed by a local cleaner and presser. * ASSESSMENT * 1. Previous evaluation for [...] be controlled with recent addition of low-dose beta-kyara * 3. Mildly overweight. * 4. Former smoker. * 5. Rare episode of palpitation, resolved. * 6. Family history of coronary artery disease. * 7. History of arthritis followed by local cleaner and presser indicate could be either early rheumatoid arthritis [...] me change in cardiac status or symptoms [facility] 600 DO Work Phone: Hospital Discharge instructionsAmbulatory Orders* Referral to PT / OT / Speech (PT/OT/SP) Location: None [facility] Work Phone: Hospital Discharge instructionsAmbulatory Orders* Referral to Pain Management Location: None [facility] Work Phone: Reason for visit Narrative* Rehabilitation - Outpatient (Routine) - AuthorizedSpecialtyDiagnoses / ProceduresReferred By ContactReferred To ContactPhysical Therapy Diagnoses Radiculopathy, lumbar region Procedures NM PHYS THERAPY EVALUATION Corinne Crooks MD [address] [address] Phone: tel: fax: Mp Benitez, PT [address] [place] [address] Phone: tel: fax: Referral IDStatusReasonStart DateExpiration DateVisits RequestedVisits [id number] Consult and Treat [id number] [facility] Summary Purpose Family History No Family History Records FoundUnknown Family Member Name Dates Details Family history of atrial fib rillation: Mother, Father(V17.49, Z82.49) Status:ActiveFamily history of cardiac disorder: Father(V17.49, Z82.49) Status:ActiveFamily history of cardiac pacemaker: Mother, Father(V17.49, Z82.49) Status:Active Unknown Family Member Name Dates Details Family history of atrial fib rillation: Mother, Father(V17.49, Z82.49) Status:ActiveFamily history of cardiac disorder: Father(V17.49, Z82.49) Status:ActiveFamily history of cardiac pacemaker: Mother, Father(V17.49, Z82.49) Status:Active Unknown Family Member Name Dates Details Family history of cardiac pa cemaker: Mother, Father(V17.49, Z82.49) Status:ActiveFamily history of cardiac disorder: Father(V17.49, Z82.49) Status:ActiveFamily history of atrial fibrillation: Mother, Father(V17.49, Z82.49) Status:Active Unknown Family Member Name Dates Details Family history of atrial fib rillation: Mother, Father(V17.49, Z82.49) Status:ActiveFamily history of cardiac disorder: Father(V17.49, Z82.49) Status:ActiveFamily history of cardiac pacemaker: Mother, Father(V17.49, Z82.49) Status:Active Unknown Family Member Name Dates Details Family history of atrial fib rillation: Mother, Father(V17.49, Z82.49) Status:ActiveFamily history of cardiac disorder: Father(V17.49, Z82.49) Status:ActiveFamily history of cardiac pacemaker: Mother, Father(V17.49, Z82.49) Status:Active Unknown Family Member Name Dates Details Family history of atrial fib rillation: Mother, Father(V17.49, Z82.49) Status:ActiveFamily history of cardiac disorder: Father(V17.49, Z82.49) Status:ActiveFamily history of cardiac pacemaker: Mother, Father(V17.49, Z82.49) Status:Active Unknown Family Member Name Dates Details Family history of atrial fib rillation: Mother, Father(V17.49, Z82.49) Status:ActiveFamily history of cardiac disorder: Father(V17.49, Z82.49) Status:ActiveFamily history of cardiac pacemaker: Mother, Father(V17.49, Z82.49) Status:Active Relationship Condition Age at Onset Recorded Date/T pietro father Unknown Heart diseaseUnknownfamily memberDeceasedUnknownNot SpecifiedDiabetes mellitus UnknownDeceasedUnknownHypertensionUnknown Relationship Condition Age at Onset Recorded Date/T pietro father Unknown Heart diseaseUnknownfamily memberDeceasedUnknownmotherDiabetes mellitusUnknown DeceasedUnknownHypertensionUnknown Advance Directives No Advanced Directives Records Found Advance Directive Response Recorded Date/ Time Advance Directives No May 10:59am Advance Directive Response Recorded Date/ Time Advance Directives No May 9:59am Chief Complaint HUMBERTO SINGLETONALOSTEPHEN is being seen for a 3-4 month follow-up of.HUMBERTO SINGLETONALOSTEPHEN is being seen for a 9 month follow-up of. 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Reason for VisitRight lumbar radiculopathy Chief Complaint Admit Date follow up after PT March 11, 2024 10:20am MRI results April 08, 2024 11 :05am Reason for Visit Admit Date Right groin pain March 11, 2024 10:20am Right lumbar radiculopathy March 10:20am Chief Complaint Admit Date follow up after PT March 11, 2024 10:20am MRI results April 08, 2024 11 :05am REFF BY CORINNE CROOKS April 18, 025 10:46am Reason for Visit Admit Date [...] April 08, 2024 11 :05am REFF BY CORINNE CROOKS April 18 025 10:46am right L2-3, L3-4 transforaminal epidural May 01, 2024 9:35am Chief Complaint Admit Date follow up after PT March 11, 2024 10:20am MRI results April 08, 2024 11 :05am REFF BY CORINNE CROOKS April 18 025 10:46am right L2-3, [...] 11:49am Chief Complaint Admit Date REFF BY CORINNE CROOKS April 18 025 10:46am right L2-3, [...] radiculopathy May 12, 2024 11:49am Lumbosacral spondylosis February 10th, 2 025 11:49am Other chronic pain May 12, 2024 [...] and content) DATE CREATED AUTHOR 04/25/2020 [facility] DATE CREATED AUTHOR AUTHOR'S ORGANIZ ATION 07/08/2021 [facility] DATE CREATED AUTHOR AUTHOR'S ORGANIZ ATION 05/09/2022 [facility] DATE CREATED AUTHOR AUTHOR'S ORGANIZ ATION 11/23/2022 [facility] DATE CREATED AUTHOR AUTHOR'S ORGANIZ ATION 11/23/2022 [facility] DATE CREATED AUTHOR AUTHOR'S ORGANIZ ATION 01/05/2024 [facility] DATE CREATED AUTHOR AUTHOR'S ORGANIZ ATION 11/25/2024 [facility] DATE CREATED AUTHOR AUTHOR'S ORGANIZ ATION 12/20/2024 [facility] EPIC REASON FOR VISIT (unrecogniz ed section and content) ReasonCommentsSkin Check Care Teams (unrecognized sec tion and content) Team Status: Active Member Role Status Dates Flavio Myers DO Primary Care Provider Active Team Status: Inactive Member Role Status Dates Flavio Myers DO Primary Care Provider Active Start: August 28, 2023 End: August 27Del Farrell ProviderActiveStart: August 28, 2023 End: August 28, 2023 Team Status: Inactive Member Role Status Dates Flavio Myers DO Primary Care Provider Active Start: January 03, 2024 End: January 03, 2024Del Medeiros ProviderActiveStart: January 03, 2024 End: January 03, 2024 Team Status: Active Member Role Status Dates Flavio A Myers , DO Primary Care Provider Active Start: January 03, 2024 Corinne Crooks , APRNAttending ProviderActiveStart: January 03, 2024 Team Status: Inactive Member Role Status Dates Flavio Myers DO Primary Care Provider Active Start: March 11, 2024 End: March 11, 2024Corinne Crooks , APRNAttending ProviderActiveStart: March 11, 2024 End: March 11, 2024 Team Status: Inactive Member Role Status Dates Flavio Myers DO Primary Care Provider Active Start: April 08, 2024 End: April 08, 2024Elenrenetta Crooks , APRNAttending ProviderActiveStart: April 08, 2024 End: April 08, 2024 Team Status: Inactive Member Role Status Dates Flavio Myers DO Primary Care Provider Active Start: April 18, 2024 End: April 18, 2024Nguyễn Henley , MDAttending ProviderActiveStart: April 18, 2024 End: April 18, 2024Corinne Crooks , APRNReferring ProviderActiveStart: April 18, 2024 End: April 18, 2024 Team Status: Inactive Member Role Status Dates Flavio Myers DO Primary Care Provider Active Start: May 01, 2024 End: May 01, 2024Nguyễn Henley , MDAttending ProviderActiveStart: May 01, 2024 End: May 01, 2024 Team Status: Active Member Role Status Dates Flavio Myers DO Primary Care Provider Active Start: May 01, 2024 Nguyễn Henley , MDAttending ProviderActiveStart: May 01, 2024 Team Status: Inactive Member Role Status Dates Flavio Myers DO Primary Care Provider Active Start: May 12, 2024 End: May 12, 2024Nguyễn Henley , MDAttending ProviderActiveStart: May 12, 2024 End: May 12, 2024 Team Status: Inactive Member Role Status Dates Falvio Myers DO Primary Care Provider Active Start: July 08, 2024 End: July 08, 2024Nguyễn Henley , MDAttending ProviderActiveStart: July 08, 2024 End: July 08, 2024 [...] BE BASED ON THE PRIMARY CLINICAL RECORDS. [facility], [facility]. provides no warranty or guarantee of the accuracy or completeness of information in this document.
--- OUTSIDE RECORDS SUMMARY | 2025-02-07 07:18 | XMS_ITS | Patient Health Record ---
Author Organization [facility] in [place] Address [address] [place] [address] Care Team Providers Care Buyer Intern Name Role Phone Flavio Myers Primary Care Provider Allergies Allergen (clinical drug ingredient) Drug/Non Drug Allergy documented on EMR Reaction Allergy Type Onset Date Status codeine Codeine Unknown Drug Allergy Active Results Component Value Reference Range Notes HEMOGLOBIN A1C (GLYCO) Reviewed date:12/09/2024 08:43:41 AM Interpretation: Performing Lab: Notes/Report: GLU-AV 105 GLYCO A1C5.3CBC WITH DIFF Reviewed date:12/09/2024 08:43:41 AM Interpretation: Performing Lab: Notes/Report: WBC7.3RBC5.76SRPUJRYHTZ46.1ILJDNUFJTS18.0MCV87.3MCH29.4TRWG49.1RDW-SD12.4FFT413 CMP (COMP MET CANO) w/eGFR CKD-EPI Reviewed date:12/09/2024 08:43:41 AM Interpretation: Performing Lab: Notes/Report: GLUCOSE (FBS)93BUN (UREA NTORGEN)24.19IDXKYIPIFL0.86GFR CKD>60SODIUM (NA)140 POTASSIUM (K)4.4CHLORIDE (CL)105CARBON MNUJDCC36.2NPKVYCY5.1ALBUMIN, BLOOD3.8 PROTEIN, TOTAL (TP)6.9ALKALINE PHOSPHATE (ALP)66ALT (SGPT)29AST (SGOT)20 BILIRUBIN, TOTAL0.4PSA, TOTAL Reviewed date:12/09/2024 08:43:41 AM Interpretation: Performing Lab: Notes/Report: PSA2.64LIPID PANEL (CHOL/TRIG/HDL/LDL) Reviewed date:12/09/2024 08:43:41 AM Interpretation: Performing Lab: Notes/Report: [id number] - 200 MG/BEDAHGBZTEEPZHD7697 - 150 MG/DLHDL (DIRECT)7340 - 60 MG/DLLDL (CALC)100.000 - 130 MG/DLVLDL (CALC)6.07 - 46 MG/DLCHOL-HDL RATIO2.50.0 - 5.0 Reason For Referral Reason b/l hand pains Diagnosis 1 Pain in left finger( s) (M79.645) Diagnosis 2 Pain in right finger (s) (M79.644) Referral Organization [facility] Referring Provider First Name Flavio Referring Provider Last Name Louis Referring Provider [facility] renetta Referred Provider Wei Holbrook Referred Provider Special[facility] Orth[facility] S urgery General Notes Flavio Myers 11:07:33 PM >please call pt for appt Referral Priority Routine Reason eval and treat Diagnosis 1 Pain in right finger (s) (M79.644) Referral Organization [facility] Referring Provider First Name Flavio Referring Provider Last Name Louis Referring Provider [facility] renetta Referred Provider Burt Ahumada Referred Provider Specialty Orthopedic S urgery Referral Priority Routine Medications Medication SIG (Take, Route, Frequency, Duration) Notes Start Date End Date Status CeleBREX 200 MG 1 capsule with food Orally BID ActiveVitamin D3 50 MCG (2000 UT)1 capsule Orally Once a dayNot-TakingMagnesium 400 MGas directed OrallyNot-TakingbusPIRone HCl 5 MG1 tablet Orally Twice a day; Duration: 30 11/28/2021Not-TakingHydroxychloroquine Sulfate 100 MGas directed Orally BIDActiveHYDROcodone-Acetaminophen 5-325 MG1 tablet as needed Orally tid; Duration: 30 11/26/2024tiveLosartan Potassium 100 MG1 tablet Orally Once a day; Duration: 10/12/2023ctivebuPROPion HCl ER (XL) 150 MG 1 tablet in the morning Orally Once a dayNot-TakingLinzess 72 MCG1 capsule at least 30 minutes before the first meal of the day on an empty stomach Orally Once a day; Duration: 90 days12/07/2023Active Immunizations Vaccine Route Administration Date Status Comme nts Flu, Fluzone (51618) 6 mos+, single-dose syringe/vial (2700-1747) Unknown 02/04/2022 Administered Pneumococcal (Prevnar 13)Zgihnue7103/29/2015dministeredPneumococcal (Prevnar 20) Fqozolt6001/28/2022dministeredShingrix (Zoster)Ibmeaqh4610/25/2019Administered Shingrix (Zoster)Ucuerbj0201/30/2020Administered Social History Tobacco Use: Social History Observation [...] drinks on one occasion in the past year?Never (0 point)Ijspra9UtjjakrqahfwpaUruuyouf Problems Problem Type SNOMED Code ICD Code Onset Dates Problem Status W/U Status Risk Notes Problem Essential hypertension (33428515 ) Essential (primary) hypertension (I10) ActiveconfirmedProblemOverweight (571374467)Overweight (E66.3)Activeconfirmed ProblemRestless legs syndrome (63062236)Restless legs syndrome (G25.81)Active confirmedProblemRight side sciatica (471731360305955)Sciatica, right side (M54.31)ActiveconfirmedProblemChronic fatigue syndrome (disorder) (25586036) Chronic fatigue, unspecified (R53.82)ActiveconfirmedProblemObesity (545552601) Obesity (BMI 30-39.9) (E66.9)ActiveconfirmedProblemGeneralized anxiety disorder (40393931)RICK (generalized anxiety disorder) (F41.1)ActiveconfirmedProblemLumbar spondylosis (068078035)Lumbar spondylosis (M47.816)ActiveconfirmedProblemBody mass index 30+ - obesity (692648365)BMI 30.0-30.9,adult (Z68.30)Activeconfirmed ProblemSeasonal allergic rhinitis (005345121)Seasonal allergic rhinitis, unspecified trigger (J30.2)Activeconfirmed Vital Signs Heart Rate 82 /min 11/26/2024 Respiratory Rate16 /min11/26/20248602Jlxtwhwj63 %11/26/2024lood pressure diastolic 80 mm Hg11/26/20244253Scgsdd83 in11/26/2024lood pressure mm Hg 11/26/20249024Otszmv409.2 lbs11/26/2024BMI27.47 kg/m211/26/2024 Encounters Encounter Location Date Provider Diagnosis [facility] [address] [place] [address] 09/10/2024 Flavio Myers Restless legs syndro me G25.81 ; Other constipation K59.09 ; Overweight E66.3 and Body mass index [BMI] 26.0-26.9, adult Z68.26 [facility] [address] [place] [address] 11/26/2024 Flavio Myers Pain in right finger(s) M79.644 ; Pain in left finger(s) M79.645 ; Essential (primary) hypertension I10 ; Lumbar spondylosis M47.816 ; Overweight E66.3 ; Body mass index [BMI] 27.0-27.9, adult Z68.27 ; Encounter for general adult medical examination with abnormal findings Z00.01 and Restless legs syndrome G25.81 [facility] [address] [place] [address] 08/13/2024 Flavio Myers Essential (primary) hypertension I10 [facility] [address] [place] [address] 08/14/2024 Flavio Myers [facility] [place] [address]/05/2024[facility] [place] [address]/ Flavio MyersEncounter for general adult medical examination without abnormal findings Z00.00 ; Prediabetes R73.03 and En[facility] for [facility] [place] [address]/Daninikhil [facility] [place] [address]/Daniel ringPain in right finger(s) M79.[address] [address]/Daniel HerringEssential (primary) hypertension I10 Assessments Encounter Date Diagnosis (ICD Code) Assessment Notes Treatment Notes Treatment Clinical Notes Section Notes 09/10/2024 Restless legs syndrome (ICD-10 - G25.81) rec pt find a list of either meds he can take for RLS or banned meds and we will figure out what toput him on 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09/10/2024Other constipation (ICD-10 - K59.09) diet stable 11/26/2024Pain in right finger(s) (ICD-10 - M79.644) xray d/w pt that we can refer to hand specialist if wishes for ?injection 11/26/2024Pain in left finger(s) (ICD-10 - M79.645)see above08/13/2024Essential (primary) hypertension (ICD-10 - I10)10/28/2024Encounter for general adult medical examination without abnormal findings (ICD-10 - Z00.00)10/28/2024 Prediabetes (ICD-10 - R73.03)01/28/2025Pain in right finger(s) (ICD-10 - M79.644)01/30/2025Essential (primary) hypertension (ICD-10 - I10)10/28/2024 Encounter for screening for malignant neoplasm of prostate (ICD-10 - Z12.5) 11/26/2024Essential (primary) hypertension (ICD-10 - I10) bp check daily goal <130/80 diet/exercise monitor bmp and urine microalbumin yearly 09/10/2024Overweight (ICD-10 - E66.3)diet/qaufxaum66/11/2025ody mass index [BMI] 26.0-26.9, adult (ICD-10 - Z68.26)11/26/2024Lumbar spondylosis (ICD-10 - M47.816) oarrs ok stable PT if worsens 11/26/2024Overweight (ICD-10 - E66.3)11/26/2024ody mass index [BMI] 27.0-27.9, adult (ICD-10 - Z68.27)11/26/2024Encounter for general adult medical examination with abnormal findings (ICD-10 - Z00.01) diet/exercise cologuard in 2026 rtc 1 year eye and dental exams yearly labs yearly rec flu shot yearly rec pn vaccine q5 years rec shingrix if not UTD rec dtap q10 years 11/26/2024Restless legs syndrome (ICD-10 - G25.81)d/w pt that we can try requip or mirapex but he will hold off as he isnt sure he can take it with his job Plan Of Treatment Pending Test Test Name Order Date XR Finger LT Thumb (2-3 views) 5 XR Finger RT Thumb (2-3 views) 5 XR Hand LT (3 views) * 11/26/2024 XR Hand RT (3 views) * 11/26/2024 MRI Lumbar Spine w/o contrast 09/20/2022 Insurance Providers Payer Name Payer Address Payer Phone Subscriber Number Group Number Insured Name Patient Relationship to Insured Coverage Start Date Coverage End Date [employer] PPO PLUS LOCAL PLAN [address] [place] [address] [phone] [id number] Humberto Christian Self - patient is the insured 2 Medical (General) History Medical History History ICD Code depression anxietyarthritislumbar spondylosisHHHTNBPHmacular degenerationallergic rhinitis covid x 2RLSSurgical History Surgery Date(Month/Year) cologua - 2023 - negative B/L cataract surgery6453bxupejaoojm7329PND +HH/PUD12/22/2013colonoscopy +int hem12/22/2013ppendectomyHospitalization History Reason Date(Month/Year) covid 04/2021
== END 2025-02-07 07:15 | disposition home or self-care (01) ==
PROVIDERS: PCP Family Medicine; Visit Provider Family Medicine
DX: M79.645 Pain in left finger(s) (principal); M79.644 Pain in right finger(s); M19.042 Primary osteoarthritis, left hand; M19.041 Primary osteoarthritis, right hand
CPT/HCPCS: 73130